=== PATIENT | female | born 1975 | race Caucasian/White ===

== ENCOUNTER 2016-05-06 00:13 | Emergency (ER) | payer MEDICAID ==
[~2016-05-06] VITALS: Ht 167.6 cm; Wt 63.6 kg
[~2016-05-06 00:13] MED LIST: BACLOFEN; BENZ0.5T3; BUSPAR; CARB400T; CEPH500C PO; CRB200T; CYCL10TA9 PO; DESV50TA PO; DOXY100C2 PO; DULO60CA6; DVL500TEC; FEXO30TA; GBPN100C; GBPN400C PO; HALO2TAB; HYDR1TAB PO; HYDR25CA5 PO; HYDR50TA76 PO; IBP800T PO; IBUP-792 PO; ILOP6TAB PO; LORA1TAB PO; MELO-195 PO; METR500T PO; MPR22T TOP; MUPI22OI TOP; NITR100C3 PO; OXYC-12 PO; QTP200T PO; QUET300T PO; RNT150T; SULF1TAB35 PO; SULF1TAB38 PO; THR25T PO; TRAM-21 PO; TRAM50TA2 PO; TRL300; TRM50T PO; ZPR80C
[2016-05-06 00:24] VITALS: BP 140/83
--- NOTE | 2016-05-06 00:50 | ED Psychosocial ---
General Chief Complaint: Psych/Social Disorder Stated Complaint: SCABIES,FEELS LIKE WORMS CRAWLING IN HER SKIN Nursing Triage Note: pt reports "there are worms with faces and teeth that are biting and crawling in her skin." This RN notes pt is dressed in all black and has a black head scarf on. Pt reports "I have been eating a lot of garlic to try to keep the bad things away." This RN also notes peices of garlic in pts hairline. Source: patient (EXTREMELY POOR HISTORIAN--SPEECH VERY RAPID, MUMBLING, ERRATIC , NON-SENSICAL, AND IS OBVIOUSLY UNDER THE INFLUENCE OF SOME SUBSTANCE/S. CONSTANT MOVEMENTS, CANNOT SIT OR STAND STILL. UNABLE TO KEEP ON SUBJECT, ), old records (ALL PMH IS FROM OLD RECORDS) History of Present Illness Time seen by provider: 00:22 Initial Comments PT ARRIVES VIA EMS FROM HOME PT CALLED EMS BECAUSE SHE "HAD WORMS ALL OVER HER BODY" PT STATES "I'VE GOT WORMS AN INCH THICK ALL OVER MY BODY" "THOUSANDS OF THEM" - -UNABLE TO STATE HOW LONG THIS HAS BEEN GOING ON. PT POINTS TO STRETCH NG ON ABDOMEN AND STATES "THOSE ARE WORMS-NOT STRETCH NG", AND POINTS TO CREASES OF PALMS AND SCAR ON PALM AND STATES "THOSE AREN' T SCARS--THOSE ARE WORMS" STATES "I TOOK A WORM PILL AND IT KILLED ONE OF THEM" "FUNGUS SPRAY KILLS THEM BUT NOT THE ONES INSIDE" PT ALSO POINTS TO VARIOUS SORES AND SCABBED AREAS ON BODY AND STATES THAT THESE ARE WORMS--AND ALSO POINTS TO THESE SORES AND STATES "SEE THEY'VE GOT A FACE" STATES "WHEN IT GET GOOSEBUMPS, THAT'S THEM SPITTING AT ME" POINTS TO BLACK FUZZ ON THE WHITE SHEETS THAT HAVE COME FROM HER BLACK CLOTHING AND STATES "SEE, THAT'S THEM COMING OUT OF ME" STATES "THIS IS DEADLY" STATES "THEY'RE UP MY BUTT AND IN MY PRIVATES AND THAT'S THEY'RE EGGS-THEY'RE EVERYWHERE" "AND THE LITTLE ONES ARE ALL IN MY MOUTH" --SHOWS MULTIPLE ULCERATIONS TO INSIDE OF LIPS. SPITS OUT SALIVA AND STATES "THEY'RE BUBBLING UP OUT OF MY MOUTH " STATES " MY FRIEND TOOK A SATELLITE TO SEE THEM" PT IS WEARING A FULL LENGTH BLACK ROBE, WITH BLACK CLOTHING UNDERNEATH WITH A BLACK SCARF COVERING HER ENTIRE HEAD PT STATES THAT "THE DEVIL IS INSIDE OF HER" PT HAS WHOLE GARLIC CLOVES IN HER HAIR--STATES SHE HAS BEEN TRYING TO KEEP THE BAD THINGS AWAY. PT HAS ALSO BEEN EATING NOTHING BUT GARLIC. PT WANTS IV FLUIDS TO FLUSH THE WORMS OUT OF HER STATES "THEY HAVE TAKEN OVER MY ROOM" "MY BRAIN" REPEATS "I'M NOT PARANOID-EVERYONE THINKS I'M PARANOID BUT THEY'RE REAL" STATES "I'VE BEEN FIGHTING BACK, I'VE CHANGED MY DIET--I CAN'T EAT, I CAN'T CHEW. SO I'VE BEEN FIGHTING BACK AND DRINKING LOTS OF WATER AND ONLY EATING GARLIC" "I'M SO DEHYDRATED" PT STATES "I'M ISLAMIC I PRAY 5 TIMES A DAY" "THIS IS EVIL" "I EVEN WENT TO THE [facility] AND GOT SOME HOLY WATER" "THIS IS [place]" PT WITH MULTIPLE VISITS TO ER FOR SIMILAR--PT WITH EXTENSIVE HISTORY OF DRUG ABUSE,PT HAS TESTED POSITIVE FOR METHAMPHETAMINES/ AMPHETAMINES NEARLY EVERY TIME SHE HAS BEEN TESTED HERE. PT ONLY ADMITS TO THC USE--THEN STATES " I DON'T USE DRUGS" PT HAS BEEN DX WITH SCHIZOPHRENIA (SUSPECT IS RELATED TO DRUG ABUSE) AND IS NON COMPLIANT WITH MEDICATIONS. PT WAS LAST HERE 02/2016 FOR SAME AND TRANSFERRED TO [place] FOR THIS BEHAVIOR. EMS REPORTED THAT [place] [employer] WERE AT THE SCENE PRIOR TO THEIR ARRIVAL, AND THEY REMOVED SCISSORS AND A KNIFE FROM PT. PCP: ALAB YANG Allergies and Home Medications Allergies Coded Allergies: Penicillins (Verified Allergy, Unknown, 12/17/15) ketorolac (Verified Allergy, Unknown, 12/17/15) Uncoded Allergies: PCN (Allergy, Mild, 07/28/15) Home Medications Clonazepam 1 Mg Tablet 1 MG PO BID (Reported) Hydroxyzine Pamoate 50 Mg Capsule 50 MG PO TID (Reported) Tramadol Hcl 50 Mg Tablet 50 MG PO TID (Reported) Constitutional: other (UNABLE TO OBTAIN ANY RELEVANT INFORMATION FROM PT) Psychiatric/Neurological: See HPI Past Hrryaaz-Coryrd-Rjektw Hx Patient Social History Alcohol Use: Denies Use Recreational Drug Use: Yes (METH, THC) Smoking Status: Current Everyday Smoker Type Used: Cigarettes Recent Foreign Travel: No Contact w/Someone Who Travel: No Recent Infectious Disease Expo: No Recent Hopitalizations: No Physical Abuse Screen: No Sexual Abuse: No Immunizations Up To Date Tetanus Booster (TDap): Less than 5yrs Seasonal Allergies Seasonal Allergies: No Surgeries HX Surgeries: Yes Surgeries: Gallbladder, Tubal Ligation Respiratory Hx Respiratory Disorders: No Cardiovascular Hx Cardiac Disorders: No Neurological Hx Neurological Disorders: Yes (MIRGRAIN HEADACHES) Neurological Disorders: Headaches /Migraines 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 System Hx 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 Disorders: No Sexually Transmitted Disease: No 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 Genitourinary Hx Genitourinary Disorders: No Gastrointestinal Hx Gastrointestinal Disorders: Yes (PEPTIC ULCER 2003) Musculoskeletal Hx Musculoskeletal Disorders: Yes (SCOLIOSIS) Endocrine Hx Endocrine Disorders: No HEENT HX ENT Disorders: No Cancer Hx Cancer: No Psychosocial Hx Psychiatric Problems: Yes (BI-POLAR, PREVIOUS SUICIDE ATTEMPT) Behavioral Health Disorders: Bipolar, Schizophrenia Integumentary HX Skin/Integumentary Disorder: No Blood Transfusions Hx Blood Disorders: No Adverse Reaction to a Blood Tr: No Family Medical History Significant Family History: No Pertinent Family Hx Physical Exam Vital Signs Vital Sign - Last 12Hours 05/06/16 00:24 Temp 95.9 Pulse 100 Resp 18 B/P 140/83 Pulse Ox 97 Capillary Refill : Less Than 3 Seconds General Appearance: other (PT DRESSED COMPLETELY IN BLACK WITH A FULL LENGTH BLACK ROBE, AND A BLACK SCARF COVERING HER ENTIRE HEAD. PT REEKS OF GARLIC, AND THERE ARE MULTIPLE WHOLE GARLIC CLOVES IN HER HAIR. PT WITH VERY RAPID, MUMBLED , ERRATIC, AND NON-SENSICAL SPEECH. CONSTANT MOVEMENTS. PT VERY DIRTY/UNKEMPT. PT TALKING / CHANTING TO HERSELF AT TIMES DURING ER STAY. PT ARRIVES WITH A PENGUIN STUFFED ANIMAL AND A LARGE BOX OF GRAPE JUICE. ALSO HAS A LARGE BACK PACK WITH HER. ) thin HEENT: PERRL/EOMI other (EXTREMELY POOR DENTITION WITH EXTENSIVE ULCERATIONS TO INSIDE OF LIPS AND GUMS. ) Neck: normal inspection Respiratory: normal breath sounds no respiratory distress no accessory muscle use Cardiovascular: normal peripheral pulses regular rate, rhythm no murmur Gastrointestinal: non tender soft Extremities: normal range of motion non-tender no pedal edema no calf tenderness normal capillary refill Neurologic/Psychiatric: documentation engineer II-XII nml as tested no motor/sensory deficits alert oriented x 3 other (BEHAVIOR NOTED ABOVE) Appearance/Memory: denies illness disheveled impaired insight other ( APPEARANCE ABOVE. DIFFICULT TO DETERMINE TO WHAT EXTENT HER MEMORY IS INTACT. ) Thoughts/Hallucinations: delusions flight of ideas obsessive paranoid phobic hindu tactile hallucinations visual hallucinations Skin: warm/dry pallor tattoos/piercings other (EXTENSIVE SORES, SCABS, SCARS TO ENTIRE BODY--ALL APPEAR TO BE SELF INFLICTED FROM PICKING, SCRATCHING. EXTENSIVE PATCHES OF HAIR LOSS--ENTIRE BACK OF HEAD FROM HAIRLINE TO HALF WAY UP POSTERIOR SCALP--HAIR APPEARS TO HAVE BEEN PULLED OUT /BROKEN OFF. ALSO HAS PATCHES FROM FRONTAL AREA WHICH APPEAR TO BE PULLED OUT/ BROKEN OFF) Progress/Results/Core Measures Results/Orders Lab Results Laboratory Tests Test 05/06/16 00:39 05/06/16 00:45 Range/Units Acetaminophen Level < 10 L 10-30 UG/ML Alanine Aminotransferase (ALT/SGPT) 36 0-55 U/L Albumin 5.1 H 3.2-4.5 G/DL Alkaline Phosphatase 90 40-136 U/L Amylase Level 49 25-125 U/L Anion Gap 13 5-14 MMOL/L Aspartate Amino Transf (AST/SGOT) 49 H 5-34 U/L BUN/Creatinine Ratio 9 Basophils # (Auto) 0.0 0.0-0.1 10^3/uL Basophils (%) (Auto) 0 0-10 % Blood Urea Nitrogen 7 7-18 MG/DL Calcium Level 9.7 8.5-10.1 MG/DL Carbon Dioxide Level 23 21-32 MMOL/L Chloride Level 102 98-107 MMOL/L Creatinine 0.80 0.60-1.30 MG/DL Eosinophils # (Auto) 0.1 0.0-0.3 10^3/uL Eosinophils (%) (Auto) 1 0-10 % Estimat Glomerular Filtration Rate > 60 Glucose Level 86 70-105 MG/DL Hematocrit 40 35-52 % Hemoglobin 13.8 11.5-16.0 G/DL Lymphocytes # (Auto) 4.7 H 1.0-4.0 X 10^3 Lymphocytes (%) (Auto) 32 12-44 % Magnesium Level 2.2 1.8-2.4 MG/DL Mean Corpuscular Hemoglobin 31 25-34 PG Mean Corpuscular Hemoglobin Concent 35 32-36 G/DL Mean Corpuscular Volume 87 80-99 FL Mean Platelet Volume 8.8 7.4-10.4 FL Monocytes # (Auto) 0.8 0.0-1.0 X 10^3 Monocytes (%) (Auto) 5 0-12 % Neutrophils # (Auto) 9.1 H 1.8-7.8 X 10^3 Neutrophils (%) (Auto) 62 42-75 % Platelet Count 549 H 130-400 10^3/uL Potassium Level 2.8 L 3.6-5.0 MMOL/L Red Blood Count 4.52 4.35-5.85 10^6/uL Red Cell Distribution Width 11.8 10.0-14.5 % Salicylates Level < 5.0 L 5.0-20.0 MG/DL Serum Alcohol < 10 <10 MG/DL Serum Test, Qualitative NEGATIVE NEGATIVE Sodium Level 138 135-145 MMOL/L TSH [place] Testing 1.08 0.35-4.94 UIU/ML Total Bilirubin 0.7 0.1-1.0 MG/DL Total Protein 7.8 6.4-8.2 G/DL White Blood Count 14.7 H 4.3-11.0 10^3/uL Ur Tricyclic Antidepressants Screen NEGATIVE NEGATIVE Urine Amphetamines Screen NEGATIVE NEGATIVE Urine Bacteria TRACE /HPF Urine Barbiturates Screen NEGATIVE NEGATIVE Urine Benzodiazepines Screen NEGATIVE NEGATIVE Urine Bilirubin NEGATIVE NEGATIVE Urine Cannabinoids Screen POSITIVE H NEGATIVE Urine Casts NONE /LPF Urine Clarity CLEAR Urine Cocaine Screen NEGATIVE NEGATIVE Urine Color YELLOW Urine Crystals NONE /LPF Urine Culture Indicated NO Urine Glucose (UA) NEGATIVE NEGATIVE Urine Ketones 3+ H NEGATIVE Urine Leukocyte Esterase 1+ H NEGATIVE Urine Methadone Screen NEGATIVE NEGATIVE Urine Methamphetamines Screen NEGATIVE NEGATIVE Urine Mucus LARGE H /LPF Urine Nitrite NEGATIVE NEGATIVE Urine Opiates Screen NEGATIVE NEGATIVE Urine Oxycodone Screen NEGATIVE NEGATIVE Urine Phencyclidine Screen NEGATIVE NEGATIVE Urine Propoxyphene Screen NEGATIVE NEGATIVE Urine Protein 2+ H NEGATIVE Urine RBC NONE /HPF Urine RBC (Auto) 2+ H NEGATIVE Urine Specific [place] 1.030 H 1.016-1.022 Urine Squamous Epithelial Cells 25-50 H /HPF Urine Urobilinogen 1 NORMAL MG/DL Urine WBC RARE /HPF Urine pH 5 5-9 My Orders Orders-ADRIENNE,MARIA GUADALUPE K DO Ua Culture If Indicated (05/06/16 00:21) Thyroid Analyzer (05/06/16 00:21) Drug Screen Stat (Urine) (05/06/16 00:21) Cbc With Automated Diff (05/06/16 00:21) Comprehensive Metabolic Panel (05/06/16 00:21) Amylase (05/06/16 00:21) Alcohol (05/06/16 00:21) Acetaminophen (05/06/16 00:21) Salicylate (05/06/16 00:21) Ekg Tracing (05/06/16 00:21) Monitor-Rhythm Ecg Trace Only (05/06/16 00:21) Hcg,Qualitative Serum (05/06/16 00:21) Magnesium (05/06/16 00:21) Potassium Chloride (Tablet) (Klor Con Ta (05/06/16 01:45) Saline Lock/Iv-Start (05/06/16 01:40) Ns Iv 1000 Ml (Sodium Chloride 0.9%) (05/06/16 01:40) Medications Given in ED Current Medications Medications Dose Ordered Sig/Aj Route Start Time Stop Time Status Last Admin Dose Admin Potassium Chloride 40 meq 40 meq ONCE ONCE PO 05/06/16 01:45 05/06/16 01:46 DC 05/06/16 02:05 40 MEQ Sodium Chloride 1,000 ml @ 0 mls/hr Q0M ONCE IV 05/06/16 01:40 05/06/16 01:42 DC 05/06/16 02:04 999 MLS/HR Vital Signs/I&O Vital Sign - Last 12Hours 05/06/16 00:24 Temp 95.9 Pulse 100 Resp 18 B/P 140/83 Pulse Ox 97 Blood Pressure Mean: 102 Progress Note : Progress Note PT REPEATEDLY INSISTS THAT SHE NEEDS IV FLUIDS, STATING "I KNOW THE SODIUM IS THE ONLY THING THAT WILL GET RID OF THEM" DURING ER STAY, PT WAS FOUND TO HAVE CHEWED MULTIPLE PICES OF NICOTINE GUM AND IS CONSTANTLY SPITTING OUT SALIVA--STATES THE NICOTINE KILLS THE WORMS IN HER MOUTH. ALL BELONGINGS REMOVED FROM ROOM. BACK PACK CONTAINES., MULTIPLE SPRAY CANS OF DISINFECTANT, ELECTRIC MASSAGER, # 59 PACKS OF NICOTINE GUM WITH #20 EMPTY PACKS, LARGE BAG OF GARLIC , CIGARETTES , BOX OF GRAPE JUICE, BOTTLES OF VISTARIL, TRAMADOL AND CLONAZEPAM. ECG Initial ECG Impression Time: 01:00 Initial ECG Rate: 98 Initial ECG Rhythm: Normal Sinus Initial ECG Comparisson: Unchanged Departure Communication Progress Notes 0128--CALLED [facility]. PAGING PSYCH SCREENER HAND BUTTON SPLITTER,JEFF. 0135--SPOKE WITH JEFF, WILL BE IN TO SEE PT. 0205--JEFF FROM [facility], HERE TO SEE PT. 0330--PT ELOPED WITH IV IN PLACE. [place] [employer] CALLED FOR ASSISTANCE. JEFF , WITH [facility] INFORMED--HE IS ON PHONE DISCUSSING PT WITH A COLLEAGUE AND STATES HE BELIEVES SHE NEEDS TO GO BACK TO [place]. 0332--RN WAS ABLE TO LOCATE PT IN BROUGHT PT BACK INTO ER. IV REMOVED, THEN PT PROMPTLY ELOPED AGAIN AT 0333. JEFF INFORMED OF THIS. 0341--[place] [employer] OFFICERS HERE. THEY WILL ATTEMPT TO FIND PT AND BRING BACK TO ER. THEY ARE VERY FAMILIAR WITH PT AND REPORT THAT THIS IS HER USUAL BEHAVIOR. THEY STATE THAT AT TIMES SHE IS KNOWN TO EAT NOTHING BUT SALT AND DRINK WATER. 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 Referrals: SIDDHARTH ZARAGOZA DO (PCP/Family) Primary Care Physician MARIA GUADALUPE DELEON DO May 06, 2016 00:50
[2016-05-06 00:51] LABS: BASOPHILS % (AUTO) 0 % (0-10); EOSINOPHILS # (AUTO) 0.1 10^3/uL (0.0-0.3); EOSINOPHILS % (AUTO) 1 % (0-10); LYMPHOCYTES # (AUTO) 4.7 X 10^3 (1.0-4.0); LYMPHOCYTES % (AUTO) 32 % (12-44); MEAN CORPUSCULAR HEMOGLOBIN 31 PG (25-34); MEAN CORPUSCULAR HGB CONC 35 G/DL (32-36); MEAN CORPUSCULAR VOLUME 87 FL (80-99); MEAN PLATELET VOLUME 8.8 FL (7.4-10.4); MONOCYTES # (AUTO) 0.8 X 10^3 (0.0-1.0); MONOCYTES % (AUTO) 5 % (0-12); NEUTROPHILS # (AUTO) 9.1 X 10^3 (1.8-7.8); NEUTROPHILS % (AUTO) 62 % (42-75); PLATELET COUNT 549 10^3/uL (130-400); RED BLOOD COUNT 4.52 10^6/uL (4.35-5.85); RED CELL DISTRIBUTION WIDTH 11.8 % (10.0-14.5); WHITE BLOOD COUNT 14.7 10^3/uL (4.3-11.0)
[2016-05-06 01:00] LABS: BILIRUBIN,URINE NEGATIVE (NEGATIVE); KETONES,URINE 3+ (NEGATIVE); LEUKOCYTE ESTERASE ,URINE 1+ (NEGATIVE); NITRITE,URINE NEGATIVE (NEGATIVE); PH,URINE 5 (5-9); PROTEIN,URINE 2+ (NEGATIVE); UROBILINOGEN,URINE 1 MG/DL (NORMAL)
[2016-05-06 01:09] LABS: ALANINE AMINOTRANSFERASE 36 U/L (0-55); ALBUMIN 5.1 G/DL (3.2-4.5); AMYLASE 49 U/L (25-125); ANION GAP 13 MMOL/L (5-14); ASPARTATE AMINO TRANSFERASE 49 U/L (5-34); BILIRUBIN,TOTAL 0.7 MG/DL (0.1-1.0); BLOOD UREA NITROGEN 7 MG/DL (7-18); BUN/CREATININE RATIO 9; CALCIUM 9.7 MG/DL (8.5-10.1); CARBON DIOXIDE 23 MMOL/L (21-32); CHLORIDE 102 MMOL/L (98-107); GFR ESTIMATED > 60; GLUCOSE 86 MG/DL (70-105); MAGNESIUM 2.2 MG/DL (1.8-2.4); POTASSIUM 2.8 MMOL/L (3.6-5.0); SALICYLATE < 5.0 MG/DL (5.0-20.0); SODIUM 138 MMOL/L (135-145); TOTAL PROTEIN 7.8 G/DL (6.4-8.2)
[2016-05-06 01:16] LABS: ACETAMINOPHEN < 10 UG/ML (10-30); ALCOHOL < 10 MG/DL (<10)
[2016-05-06 01:28] LABS: SQUAMOUS EPITHELIAL CELL,UR 25-50 /HPF; WBC,URINE RARE /HPF
[2016-05-06] MEDS ORDERED: NS IV 1000 ML 1,000 ML IV ONE (01:40)
[2016-05-06] MEDS ORDERED: KCL 10 MEQ TAB (MICRO K) PO ONE (01:45)
[2016-05-06] MEDS ORDERED: HYDR50CA3 PO (02:28)
[2016-05-06] MEDS ORDERED: CLON1TAB3 PO (02:28)
== END 2016-05-06 03:34 | disposition left against medical advice (07) ==
LOC: EDUNIT# 00:13 → ER 00:15
DX: R44.2 Other hallucinations (principal); F22 Delusional disorders; F63.3 Trichotillomania; E87.6 Hypokalemia; F15.10 Other stimulant abuse, uncomplicated; F12.10 Cannabis abuse, uncomplicated; Z53.29 Procedure and treatment not carried out because of patient's decision for other reasons
CPT/HCPCS: 36415; 80053; 80306; 80320; 80329; 81000; 82150; 83735; 84443; 84703; 85025; 93005; 93041; 96360

== ENCOUNTER 2016-05-06 12:00 | Emergency (ER) | payer MEDICAID ==
[~2016-05-06] VITALS: Ht 167.6 cm; Wt 63.5 kg
[~2016-05-06 12:00] MED LIST changes: +CLON1TAB3 PO; +HYDR50CA3 PO
--- NOTE | 2016-05-06 13:12 | ED Psychosocial ---
General Chief Complaint: Psych/Social Disorder Stated Complaint: MENTAL HEALTH Nursing Triage Note: PT SEEN IN THIS ED THIS AM FOR PSYCH ISSUES. PT BROUGHT TO ED BY PD FOR "EVALUATION". PT REPORTS SHE IS SICK WITH A "WORM" ET WANTS TO GO BACK HOME History of Present Illness Time seen by provider: 13:07 Initial Comments the patient is well-known to this institution. She was here in the wee hours of the morning and screened by mental health. She was deemed appropriate for court order to [place]. She then eloped. She was located by the [place] [employer]. After consult with [facility] she was brought here for reasons unclear to any of us. We are told that she is number 11 or worse on the admission list at [place] Allergies and Home Medications Allergies Coded Allergies: Penicillins (Verified Allergy, Unknown, 12/17/15) ketorolac (Verified Allergy, Unknown, 12/17/15) Uncoded Allergies: PCN (Allergy, Mild, 07/28/15) Home Medications Clonazepam 1 Mg Tablet 1 MG PO BID (Reported) Hydroxyzine Pamoate 50 Mg Capsule 50 MG PO TID (Reported) Tramadol Hcl 50 Mg Tablet 50 MG PO TID (Reported) Constitutional: no symptoms reported see HPI Past Qsmlmii-Hhrcup-Hcjykd Hx Patient Social History Alcohol Use: Denies Use Recreational Drug Use: Yes (NONE FOR OVER A YEAR) Smoking Status: Current Everyday Smoker Type Used: Cigarettes Recent Foreign Travel: No Contact w/Someone Who Travel: No Recent Infectious Disease Expo: No Recent Hopitalizations: No Physical Abuse Screen: No Sexual Abuse: No Immunizations Up To Date Tetanus Booster (TDap): Less than 5yrs Seasonal Allergies Seasonal Allergies: No Surgeries HX Surgeries: Yes Surgeries: Gallbladder, Tubal Ligation Respiratory Hx Respiratory Disorders: No Cardiovascular Hx Cardiac Disorders: No Neurological Hx Neurological Disorders: Yes (MIRGRAIN HEADACHES) Neurological Disorders: Headaches /Migraines 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 System Hx 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 Disorders: No Sexually Transmitted Disease: No 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 Genitourinary Hx Genitourinary Disorders: No Gastrointestinal Hx Gastrointestinal Disorders: Yes (PEPTIC ULCER 2002) Musculoskeletal Hx Musculoskeletal Disorders: Yes (SCOLIOSIS) Endocrine Hx Endocrine Disorders: No HEENT HX ENT Disorders: No Cancer Hx Cancer: No Psychosocial Hx Psychiatric Problems: Yes (BI-POLAR, PREVIOUS SUICIDE ATTEMPT) Behavioral Health Disorders: Bipolar, Schizophrenia Integumentary HX Skin/Integumentary Disorder: No Blood Transfusions Hx Blood Disorders: No Adverse Reaction to a Blood Tr: No Family Medical History Significant Family History: No Pertinent Family Hx Physical Exam Vital Signs Vital Sign - Last 12Hours 05/06/16 12:27 Temp 97.9 Pulse 94 Resp 16 B/P 131/66 Pulse Ox 100 O2 Delivery Room Air Capillary Refill : Less Than 3 Seconds General Appearance: WD/WN Progress/Results/Core Measures Results/Orders Vital Signs/I&O Vital Sign - Last 12Hours 05/06/16 12:27 Temp 97.9 Pulse 94 Resp 16 B/P 131/66 Pulse Ox 100 O2 Delivery Room Air Blood Pressure Mean: 87 Departure Communication Progress Notes The patient's vital signs are stable she is up and ambulatory and discharged to police custody Impression Impression: Primary Impression: psychiatric disorder with delusions Disposition: Condition: Stable/Unchanged Departure-Patient Inst. Referrals: SIDDHARTH ZARAGOZA DO (PCP/Family) Primary Care Physician QUINTIN BROWN MD May 06, 2016 13:12
[2016-05-06 13:21] VITALS: BP 0/0
== END 2016-05-06 13:21 ==
LOC: EDUNIT# 12:00 → ER 12:02
DX: F22 Delusional disorders (principal)
CPT/HCPCS: 99283

== ENCOUNTER 2017-07-17 15:52 | Emergency (ER) | payer OTHER, MEDICAID ==
[~2017-07-17] VITALS: Ht 160 cm; Wt 52.2 kg
[2017-07-17] MEDS ORDERED: ZIPRASIDONE 20 MG INJ (GEODON) VIAL IM ONE ×2 (15:53→16:15)
[2017-07-17] MEDS ORDERED: WATER (STERILE) FOR INJECTION 20 ML ONE (15:54)
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
[2017-07-17] MEDS ORDERED: LORazepam INJ 2 MG/ML (ATIVAN) VIAL ONE (16:21)
[2017-07-17 16:29] LABS: BASOPHILS # (AUTO) 0.1 10^3/uL (0.0-0.1); BASOPHILS % (AUTO) 0 % (0-10); EOSINOPHILS % (AUTO) 0 % (0-10); HEMATOCRIT 37 % (35-52); HEMOGLOBIN 12.5 G/DL (11.5-16.0); LYMPHOCYTES % (AUTO) 20 % (12-44); MEAN CORPUSCULAR HEMOGLOBIN 31 PG (25-34); MEAN CORPUSCULAR HGB CONC 34 G/DL (32-36); MEAN CORPUSCULAR VOLUME 90 FL (80-99); MEAN PLATELET VOLUME 8.4 FL (7.4-10.4); MONOCYTES # (AUTO) 1.5 X 10^3 (0.0-1.0); MONOCYTES % (AUTO) 10 % (0-12); NEUTROPHILS # (AUTO) 10.3 X 10^3 (1.8-7.8); NEUTROPHILS % (AUTO) 69 % (42-75); PLATELET COUNT 526 10^3/uL (130-400); RED BLOOD COUNT 4.08 10^6/uL (4.35-5.85); WHITE BLOOD COUNT 14.8 10^3/uL (4.3-11.0)
[2017-07-17] MEDS ORDERED: LORazepam INJ 2 MG/ML (ATIVAN) VIAL IVP ONE (16:30)
[2017-07-17] MEDS ORDERED: LACTATED RINGERS 1,000 ML IV SCH (16:30)
[2017-07-17 16:47] LABS: BAND NEUTROPHILS 0 %; BASOPHILS % (MANUAL) 0 %; EOSINOPHILS % (MANUAL) 1 %; LYMPHOCYTES % (MANUAL) 30 %; MONOCYTES % (MANUAL) 8 %; NEUTROPHILS % (MANUAL) 61 %; RBC MORPH NORMAL
[2017-07-17 16:48] LABS: BILIRUBIN,URINE NEGATIVE (NEGATIVE); CLARITY,URINE VERY CLOUDY; COLOR,URINE YELLOW; GLUCOSE, URINE (UA) NEGATIVE (NEGATIVE); KETONES,URINE 2+ (NEGATIVE); LEUKOCYTE ESTERASE ,URINE 1+ (NEGATIVE); NITRITE,URINE NEGATIVE (NEGATIVE); PH,URINE 5 (5-9); PROTEIN,URINE 3+ (NEGATIVE); UROBILINOGEN,URINE NORMAL (NORMAL)
[2017-07-17 16:57] LABS: BACTERIA,URINE MODERATE /HPF; RBC,URINE >100 /HPF
[2017-07-17 17:03] LABS: ALANINE AMINOTRANSFERASE 38 U/L (0-55); ALBUMIN 4.8 GM/DL (3.2-4.5); ALKALINE PHOSPHATASE 68 U/L (40-136); BILIRUBIN,TOTAL 0.9 MG/DL (0.1-1.0); BUN/CREATININE RATIO 32; CALCIUM 9.1 MG/DL (8.5-10.1); CARBON DIOXIDE 29 MMOL/L (21-32); CHLORIDE 97 MMOL/L (98-107); CREATININE SERUM 1.05 MG/DL (0.60-1.30); GFR ESTIMATED 57; GLUCOSE 93 MG/DL (70-105); POTASSIUM 3.9 MMOL/L (3.6-5.0); SALICYLATE < 5.0 MG/DL (5.0-20.0); SODIUM 136 MMOL/L (135-145); TOTAL PROTEIN 6.9 GM/DL (6.4-8.2)
[2017-07-17 17:05] LABS: ACETAMINOPHEN < 10 UG/ML (10-30)
[2017-07-17 17:07] LABS: AMPHETAMINE SCREEN, URINE POSITIVE (NEGATIVE); BARBITURATE SCREEN URINE NEGATIVE (NEGATIVE); BENZODIAZEPINES SCREEN URINE NEGATIVE (NEGATIVE); CANNABINOID SCREEN, URINE POSITIVE (NEGATIVE); COCAINE SCREEN URINE NEGATIVE (NEGATIVE); METHADONE STAT NEGATIVE (NEGATIVE); METHAMPHETAMINE SCREEN URINE S POSITIVE (NEGATIVE); OPIATE SCREEN URINE NEGATIVE (NEGATIVE); OXYCODONE STAT NEGATIVE (NEGATIVE); PROPOXYPHENE STAT NEGATIVE (NEGATIVE); TRICYCLIC ANTIDEPRESSANTS SCRE NEGATIVE (NEGATIVE)
[2017-07-17 17:14] VITALS: BP 92/67
== END 2017-07-17 17:14 ==
LOC: EDUNIT# 15:52 → ER 15:53
DX: F23 Brief psychotic disorder (principal); G43.909 Migraine, unspecified, not intractable, without status migrainosus; F31.9 Bipolar disorder, unspecified; F20.9 Schizophrenia, unspecified; Z88.0 Allergy status to penicillin; Z88.6 Allergy status to analgesic agent; Z98.51 Tubal ligation status
CPT/HCPCS: 36415; 80053; 80306; 80329; 81000; 83735; 84443; 84703; 85007; 85027; 93005; 96361; 96372; 96374

== ENCOUNTER 2018-02-03 17:48 | Emergency (ER) | payer MEDICAID ==
[~2018-02-03] VITALS: Ht 167.6 cm; Wt 63.5 kg
[2018-02-03 17:48] VITALS: BP 134/91
[~2018-02-03 17:48] MED LIST changes: +CLON1TAB13 PO; -CLON1TAB3 PO
--- OUTSIDE RECORDS SUMMARY | 2018-02-03 17:53 | XMS REPORT | Clinical Summary ---
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 If you do not see the information that you expected, contact Release of Information in the Health Information Management department at [phone] for further assistance in locating additional records.[facility] Allergies Active Allergy Reactions Severity Noted Date Comments Latex, Natural Rubber RASH Medium 05/15/2017 Ketorolac ANXIETY Low 05/15/2017 Current Medications Prescription Sig. Disp. Refills Start End Date Status Date gabapentin (NEURONTIN) Take 800 mg by mouth Active 800 mg tablet every 8 hours. TRAMADOL HCL (TRAMADOL Take by mouth. Active PO) hydrOXYzine (ATARAX) 10 Take 10 mg by mouth three Active mg tablet times daily as needed for Itching. clonazePAM (KLONOPIN) 1 Take 1 mg by mouth twice Active mg tablet daily. Active Problems Not on file Social History Tobacco Use Types Packs/Day Years Used Date Current Every Day Smoker Cigarettes 0.5 Alcohol Use Drinks/Week oz/Week Comments No Sex Assigned at Date Recorded Not on file Last Filed Vital Signs Vital Sign Reading Time Taken Blood Pressure 102/77 05/15/2017 11:50 AM [facility] Pulse - - Temperature 36.7 C (98.1 F) 05/15/2017 11:50 AM [facility] Respiratory Rate - - Oxygen Saturation 96% 05/15/2017 11:50 AM [facility] Inhaled Oxygen - - Concentration Weight 59 kg (130 lb) 05/15/2017 11:50 AM [facility] Height 167.6 cm (5' 6") 05/15/2017 11:50 AM [facility] Body Mass Index 20.98 05/15/2017 11:50 AM [facility] Plan of Treatment Health Maintenance Due Date Last Done Comments PHYSICAL (COMPREHENSIVE) 1982 EXAM PERTUSSIS VACCINE 1986 HIV SCREENING 1990 TETANUS VACCINE 1992 CERVICAL CANCER SCREENING 2005 BREAST CANCER SCREENING 2015 INFLUENZA VACCINE 11/22/2017 Results Not on filefrom Last 3 Months
--- OUTSIDE RECORDS SUMMARY | 2018-02-03 17:53 | XMS REPORT | Clinical Summary ---
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
--- OUTSIDE RECORDS SUMMARY | 2018-02-03 17:55 | XMS REPORT ---
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 [facility] [place] [facility] [address] [id number] [place] [address]- 6962 Feb, [facility] [place] [facility] [address] [id number] [place] [address]- 1150 Feb, [facility] [place] [facility] [address] [facility] [id number] [place] [address]- 0682 Jan, [facility] [place] [facility] [address] [id number] [place] [address]- 8499 Jan, [facility] [place] [facility] [address] [facility] [id number] [place] [address]- 5142 Jan, [facility] [place] [facility] [address] [id number] [place] [address]- 3832 Jan, [facility] [place] [facility] [address] [facility] [id number] [place] [address]- 6645 18 Dec, 2011 [facility] [place] [facility] [address] [facility] [id number] [place] [address]- 8298 17 Dec, 2011 [facility] [place] [facility] [address] [facility] [id number] [place] [address]- 8031 04 Dec, 2011 [facility] [place] [facility] [address] [id number] [place] [address]- 9925 Nov, [facility] [place] [facility] [address] [facility] [id number] [place] [address]- 1994 Nov, [facility] [place] [facility] [address] [facility] [id number] [place] [address]- 7265 Nov, [facility] [place] [facility] [address] [id number] [place] [address] 2546 Nov, [facility] [place] [facility] [address] [id number] [place] [address]- 6370 Oct, [facility] [place] [facility] [address] [id number] [place] [address]- 9366 Oct, [facility] [place] [facility] [address] [id number] [place] [address]- 5526 Oct, [facility] [place] [facility] [address] [id number] [place] [address]- 4216 Oct, [facility] [place] [facility] [address] [id number] [place] [address]- 8106 Oct, [facility] [place] [facility] [address] [id number] [place] [address]- 7239 Oct, [facility] [place] [facility] [address] [id number] [place] [address]- 7465 Oct, [facility] [place] [facility] [address] [id number] [place] [address]- 3407 Oct, [facility] [place] [facility] [address] [id number] [place] [address]- 1243 Oct, [facility] [place] [facility] [address] [id number] [place] [address]- 7512 Sep, [facility] [place] [facility] [address] [id number] [place] [address]- 9936 Sep, [facility] [place] [facility] [address] [id number] [place] [address]- 2877 August, [facility] [place] [facility] [address] [id number] [place] [address]- 4326 August, [facility] [place] [facility] [address] [id number] [place] [address]- 0386 August, [facility] [place] [facility] [address] [id number] [place] [address]- 9840 August, [facility] [address] [id number] [place] [address]- 5898 August, [facility] [place] [facility] [address] [id number] [place] [address]- 1630 August, [facility] [place] [facility] [address] [id number] [place] [address]- 9147 Jul, [facility] [place] [facility] [address] [id number] [place] [address]- 0061 Jul, [facility] [place] [facility] [address] [id number] [place] [address]- 9861 Jul, [facility] [place] [facility] [address] [id number] [place] [address]- 2705 Jul, [facility] [place] [facility] [address] [id number] [place] [address]- 3584 Jul, [facility] [place] [facility] [address] [id number] [place] [address]- 9322 Jul, [facility] [place] [facility] [address] [id number] [place] [address]- 3663 Jul, [facility] [place] [facility] [address] [id number] [place] [address]- 9514 Jul, [facility] [place] [facility] [address] [id number] [place] [address]- 9527 Jun, [facility] [place] [facility] [address] [id number] [place] [address]- 7612 Jun, [facility] [place] [facility] [address] [id number] [place] [address]- 1242 Jun, [facility] [place] [facility] [address] [id number] [place] [address]- 5825 May, [facility] [place] [facility] [address] [id number] [place] [address]- 2631 May, [facility] [place] [facility] [address] [id number] [place] [address]- 2481 15 May, 2011 [facility] [address] [id number] [place] [address]- 2006 May, [facility] [place] [facility] [address] [id number] [place] [address]- 2546 May, [facility] [address] [id number] [place] [address]- 9426 Apr, [facility] [address] [id number] [place] [address]- 1771 Apr, [facility] [address] [id number] [place] [address]- 8648 Apr, [facility] [address] [id number] [place] [address]- 4776 Apr, [facility] [address] [id number] [place] [address]- 5820 Mar, [facility] [address] [id number] [place] [address]- 9369 Mar, [facility] [address] [id number] [place] [address]- 0328 14 Mar, 2011 [facility] [address] [facility] [id number] [place] [address]- 4687 Mar, [facility] [address] [id number] [place] [address]- 2541 30 Feb, 2011 [facility] [address] [id number] [place] [address]- 2541 Feb, [facility] [place] [facility] [address] [id number] [place] [address]- 5483 15 Feb, 2011 [facility] [place] [facility] [address] [id number] [place] [address]- 2546 Feb, [facility] [address] [id number] [place] 3621 Feb, [facility] [address] [facility] [id number] [place] [address]- 8828 Feb, [facility] [address] [facility] [id number] [place] [address]- 9596 Feb, [facility] [address] [facility] [id number] [place] [address]- 6768 Jan, [facility] [address] [facility] [id number] [place] [address]- 0036 Jan, [facility] [address] [facility] [id number] [place] [address]- 8720 16 Dec, 2010 [facility] [address] [facility] [id number] [place] [address]- 0387 Nov, [facility] [id number] [address]- 7925 May, [facility] [id number] [address]- 6332 Apr, [facility] [id number] [address]- 8754 Feb, [facility] [id number] [address]- 2876 Jan, [facility] [id number] [address]- 4295 August, [facility] [address] [id number] [address]- 7094 Mar, [facility] [address] [id number] [address]- 1435 Jan, [facility] [address] [id number] [address]- 5449 Oct, IMMUNIZATIONS No Known Immunizations SOCIAL HISTORY Never Assessed 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1 (0.5 F) mg/ml Dental Twice a day as directed Dec Active Chlorhexidine Gluconate 0.12 % Mouth/Throat 2 times a day as directed Dec, 28 days Active Seroquel 400 MG Orally Once a day 1 tablet 24h Active HydrOXYzine HCl 25 MG Orally 3 times a day 1 tablet 8h Active Hibiclens 4 % Externally use sparingly x 10 days 1 pump Nov, Not-Taking RESULTS No Results PROCEDURES Procedure Date Ordered Result Body Site RESIN COMPOS - 3 SURFACES ANTERIOR Jan 11, 2018 PULP CAP - INDIRECT Jan 11, 2018 Billing Notes on claim Jan 11, 2018 INSTRUCTIONS MEDICATIONS ADMINISTERED No Known Medications MEDICAL (GENERAL) HISTORY Type Description Date Medical History hx of ulcers Medical History right ovarian cysts-recurring Medical History mood swings Medical History bipolar disorder Medical History drug abuse Medical History depression Surgical History orthopedic surgery-carpal tunnel 05/2011 Surgical History tubal ligation Surgical History cholecystectomy Surgical History surgery on left arm and artery repair Hospitalization History [facility] for suicidal idiations. surgery on left arm.
--- OUTSIDE RECORDS SUMMARY | 2018-02-03 17:56 | XMS REPORT ---
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 [place] [address]- 9772 Oct, [facility] [place] [facility] [address] [id number] [place] [address]- 2836 Oct, [facility] [place] [facility] [address] [id number] [place] [address]- 3759 Oct, [facility] [place] [facility] [address] [id number] [place] [address]- 3538 Oct, [facility] [place] [facility] [address] [id number] [place] [address]- 9678 Oct, [facility] [place] [facility] [address] [id number] [place] [address]- 8865 Oct, [facility] [place] [facility] [address] [id number] [place] [address]- 0398 Oct, [facility] [place] [facility] [address] [id number] [place] [address]- 2656 Oct, [facility] [place] [facility] [address] [id number] [place] [address]- 9969 Oct, [facility] [place] [facility] [address] [id number] [place] [address]- 3150 Sep, [facility] [place] [facility] [address] [id number] [place] [address]- 3258 Sep, [facility] [place] [facility] [address] [id number] [place] [address]- 9716 August, [facility] [place] [facility] [address] [id number] [place] [address]- 8993 August, [facility] [place] [facility] [address] [id number] [place] [address]- 7630 August, [facility] [place] [facility] [address] [id number] [place] [address]- 9476 16 Aug, 2011 [facility] [address] [id number] [place] [address]- 4979 August, [facility] [address] [id number] [place] [address]- 0416 August, [facility] [address] [id number] [place] [address]- 4065 Jul, [facility] [address] [id number] [place] [address]- 7213 Jul, [facility] [address] [id number] [place] [address]- 6913 Jul, [facility] [address] [id number] [place] [address]- 4069 Jul, [facility] [address] [id number] [place] [address]- 7984 Jul, [facility] [address] [id number] [place] [address]- 5915 Jul, [facility] [address] [id number] [place] [address]- 8649 Jul, [facility] [address] [id number] [place] [address]- 2552 Jul, [facility] [address] [id number] [place] [address]- 7943 Jun, [facility] [address] [id number] [place] [address]- 2649 Jun, [facility] [place] [facility] [address] [id number] [place] [address]- 2430 Jun, [facility] [address] [id number] [place] [address]- 8943 May, [facility] [place] [facility] [address] [id number] [place] [address]- 5471 May, [facility] [place] [facility] [address] [id number] [place] [address]- 4459 May, [facility] [place] [facility] [address] [id number] [place] [address]- 4186 May, [facility] [place] [facility] [address] [id number] [place] [address]- 4376 May, [facility] [place] [facility] [address] [id number] [place] [address]- 2013 Apr, [facility] [place] [facility] [address] [id number] [place] [address]- 4863 Apr, [facility] [place] [facility] [address] [id number] [place] [address]- 3078 Apr, [facility] [place] [facility] [address] [id number] [place] [address]- 9087 Apr, [facility] [place] [facility] [address] [id number] [place] [address]- 6145 Mar, [facility] [place] [facility] [address] [id number] [place] [address]- 2277 Mar, [facility] [place] [facility] [address] [id number] [place] [address]- 1038 Mar, [facility] [place] [facility] [address] [id number] [place] [address]- 9274 Mar, [facility] [place] [facility] [address] [id number] [place] [address]- 6019 30 Feb, 2011 [facility] [place] [facility] [address] [id number] [place] [address]- 0744 Feb, [facility] [place] [facility] [address] [id number] [place] [address]- 0447 15 Feb, 2011 [facility] [place] [facility] [address] [id number] [place] [address] 2546 Feb, [facility] [place] [facility] [id number] [address] 08 Feb, 2011 [facility] [id number] [address]- 7228 Feb, [facility] [address] [facility] [id number] [place] [address]- 9816 Feb, [facility] [id number] [address]- 2709 Jan, [facility] [address] [facility] [id number] [place] [address]- 7005 Jan, [facility] [id number] [place] [address]- 0766 16 Dec, 2010 [facility] [id number] [address]- 4726 Nov, [facility] [id number] [place] [address]- 0838 15 May, 2010 [facility] [id number] [address]- 4305 Apr, [facility] [id number] [address]- 6483 Feb, [facility] [id number] [address]- 2176 Jan, [facility] [id number] [address]- 5647 August, [facility] [id number] [address]- 7065 Mar, [facility] [id number] [address]- 0925 Jan, [facility] [address] [id number] [id number] Oct, IMMUNIZATIONS No Known Immunizations SOCIAL HISTORY Never Assessed REASON FOR VISIT Annual physical (female). SAMIRA Schaffer, has yellow discharge coming from nipples and has swelling and itching in genital area. SAMIRA Schaffer PLAN OF CARE Activity Details Follow Up prn Reason: Pending Test Mammogram Dx, Bilateral VITAL SIGNS Height 66 in 2018-01-12 Weight 143.6 lbs 2018-01-12 Temperature 98.6 degrees Fahrenheit 2018-01-12 Heart Rate 85 bpm 2018-01-12 Respiratory Rate 20 2018-01-12 BMI 23.18 kg/m2 2018-01-12 Blood pressure systolic 124 mmHg 2018-01-12 Blood pressure diastolic 68 mmHg 2018-01-12 MEDICATIONS Medication Instructions Dosage Frequency Start Date End Date Duration Status Albendazole 200 mg Orally one tablet now, then repeat in 2 days 1 tablets Dec, Active Albendazole - Orally 1 now repeat in 2weeks 1 tablet Dec, Active Albendazole - Orally every 2 wk 2 tablets Dec, Jan, 14 days Active Hibiclens 4 % Externally use sparingly x 10 days 1 pump Nov, Not-Taking Chlorhexidine Gluconate 0.12 % Mouth/Throat 2 times a day as directed 12h Dec, 28 days Active PreviDent 5000 Booster 1.1% Dental 2 times a day as directed h Dec, Apr, 28 days Active Sodium Fluoride 1.1 (0.5 F) mg/ml Dental Twice a day as directed 12dec Active Flonase 50 MCG/DOSE Nasally Once a day 1 spray in each nostril 24h Nov, 30 day(s) Active Zyrtec Allergy 10 mg Orally Once a day 1 tablet 24h Nov, Jan, 30 day(s) Active PreviDent 1.1 % Dental 2 times a day 1 cm strip 12h Dec, Active HydrOXYzine HCl 25 MG Orally 3 times a day 1 tablet 8h Active Seroquel 200 mg Orally Once a day at bedtime 3 tablet Active RESULTS No Results PROCEDURES Procedure Date Ordered Result Body Site LAB NOT BILLED BY [facility] [employer] Jan 12, 2018 Bacterial Vaginosis In House Jan 12, 2018 VENIPUNCT, ROUTINE* Jan 12, 2018 No Charge Jan 12, 2018 INSTRUCTIONS MEDICATIONS ADMINISTERED No Known Medications MEDICAL (GENERAL) HISTORY Type Description Date Medical History hx of ulcers Medical History right ovarian cysts-recurring Medical History mood swings Medical History bipolar disorder Medical History drug abuse Medical History depression Surgical History orthopedic surgery-carpal tunnel 05/2011 Surgical History tubal ligation Surgical History cholecystectomy Surgical History surgery on left arm and artery repair Hospitalization History [facility] for suicidal idiations. surgery on left arm.
--- OUTSIDE RECORDS SUMMARY | 2018-02-03 17:56 | XMS REPORT ---
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 [place] [address]- 9348 Oct, [facility] [place] [facility] [address] [id number] [place] [address]- 7147 Oct, [facility] [place] [facility] [address] [id number] [place] [address]- 8310 Oct, [facility] [place] [facility] [address] [id number] [place] [address]- 6064 Oct, [facility] [place] [facility] [address] [id number] [place] [address]- 3658 Oct, [facility] [place] [facility] [address] [id number] [place] [address]- 1659 Oct, [facility] [place] [facility] [address] [id number] [place] [address]- 2705 Sep, [facility] [place] [facility] [address] [id number] [place] [address]- 5250 Sep, [facility] [place] [facility] [address] [id number] [place] [address]- 5955 August, [facility] [place] [facility] [address] [id number] [place] [address]- 0641 August, [facility] [place] [facility] [address] [id number] [place] [address]- 5067 August, [facility] [place] [facility] [address] [id number] [place] [address]- 1594 16 Aug, 2011 [facility] [address] [id number] [place] [address]- 9381 August, [facility] [place] [facility] [address] [id number] [place] [address]- 5886 August, [facility] [address] [id number] [place] [address]- 8958 Jul, [facility] [place] [facility] [address] [id number] [place] [address]- 9429 Jul, [facility] [place] [facility] [address] [id number] [place] [address]- 5295 Jul, [facility] [place] [facility] [address] [id number] [place] [address]- 1743 Jul, [facility] [address] [id number] [place] [address]- 9367 Jul, [facility] [place] [facility] [address] [id number] [place] [address]- 4316 Jul, [facility] [place] [facility] [address] [id number] [place] [address]- 7865 Jul, [facility] [place] [facility] [address] [id number] [place] [address]- 4235 Jul, [facility] [place] [facility] [address] [id number] [place] [address]- 6123 Jun, [facility] [place] [facility] [address] [id number] [place] [address]- 2831 Jun, [facility] [place] [facility] [address] [id number] [place] [address]- 7483 Jun, [facility] [place] [facility] [address] [id number] [place] [address]- 3122 May, [facility] [place] [facility] [address] [id number] [place] [address] May, [facility] [place] [facility] [address] [id number] [place] [address]- 1707 May, [facility] [place] [facility] [address] [id number] [place] [address]- 1466 May, [facility] [place] [facility] [address] [id number] [place] [address]- 7716 May, [facility] [place] [facility] [address] [id number] [place] [address]- 3362 Apr, [facility] [place] [facility] [address] [id number] [place] [address]- 2521 Apr, [facility] [place] [facility] [address] [id number] [place] [address]- 7423 Apr, [facility] [place] [facility] [address] [id number] [place] [address]- 4336 Apr, [facility] [place] [facility] [address] [id number] [place] [address]- 1295 Mar, [facility] [place] [facility] [address] [id number] [place] [address]- 6057 Mar, [facility] [place] [facility] [address] [id number] [place] [address]- 2851 Mar, [facility] [place] [facility] [address] [id number], [place] [address]- 8860 Mar, [facility] [place] [facility] [address] [id number], [place] [address]- 4280 Feb, [facility] [place] [facility] [address] [id number] [place] [address] 2543 Feb, [facility] [place] [facility] [address] [id number] [place] [address]- 6160 Feb, [facility] [place] [facility] [address] [id number], [place] [address]- 7842 Feb, [facility] [place] [facility] [address] [id number], [place] [address]- 2816 08 Feb, 2011 [facility] [address], [place] [address]- 4096 Feb, [facility] [address], [place] [address]- 2786 Feb, [facility] [address], [place] [address]- 3696 Jan, [facility] [address], [place] [address]- 2561 Jan, [facility] [address], [place] [address]- 2814 16 Dec, 2010 [facility] [address], [place] [address]- 2176 Nov, [facility] [address], [place] [address]- 8197 May, [facility] [address], [place] [address]- 8898 Apr, [facility] [address], [place] [address]- 4903 Feb, [facility] [address], [place] [address]- 2031 Jan, [facility] [address], [place] [address]- 8884 August, [facility] [address] [id number], [place] [address]- 9356 Mar, [facility] [address], [place] [address]- 6489 Jan, [facility] [address] [address] Oct, IMMUNIZATIONS No Known Immunizations SOCIAL HISTORY Never Assessed REASON FOR VISIT medication f/u,pt states not doing any better, is worse and feels sick. itchy and tired. pt states she has black things coming out of her skin. pt states she has worms on her toung and in her mouth. [facility] [employer] C[facility] Activity Details Follow Up 3 Weeks Reason: VITAL SIGNS Height 66 in 2018-01-16 Weight 140.9 lbs 2018-01-16 Temperature 98.9 degrees Fahrenheit 2018-01-16 Heart Rate 103 bpm 2018-01-16 Respiratory Rate 22 2018-01-16 Oximetry 99 % 2018-01-16 BMI 22.74 kg/m2 2018-01-16 Blood pressure systolic 130 mmHg 2018-01-16 Blood pressure diastolic 90 mmHg 2018-01-16 MEDICATIONS Medication Instructions Dosage Frequency Start Date End Date Duration Status Seroquel 200 mg Orally Once a day at bedtime 3 tablet Active Chlorhexidine Gluconate 0.12 % Mouth/Throat 2 times a day as directed Dec, 28 days Active HydrOXYzine HCl 25 MG Orally 3 times a day 1 tablet 8h Active Sodium Fluoride 1.1 (0.5 F) mg/ml Dental Twice a day as directed Dec Active Hibiclens 4 % Externally use sparingly x 10 days 1 pump Nov, Not-Taking PreviDent 1.1 % Dental 2 times a day 1 cm strip 12Dec, Active Flonase 50 MCG/DOSE Nasally Once a day 1 spray in each nostril 24h Nov, 30 day(s) Active Albendazole - Orally every 2 wk 2 tablets Dec, Jan, 14 days Active PreviDent 5000 Booster 1.1% Dental 2 times a day as directed Dec, Apr, 28 days Active Zyrtec Allergy 10 mg Orally Once a day 1 tablet 24h Nov, Jan, 30 day(s) Active Albendazole 200 mg Orally one tablet now, then repeat in 2 days 1 tablets Dec, Active Albendazole - Orally 1 now repeat in 2weeks 1 tablet Dec, Active RESULTS No Results PROCEDURES No Known procedures INSTRUCTIONS MEDICATIONS ADMINISTERED No Known Medications MEDICAL (GENERAL) HISTORY Type Description Date Medical History hx of ulcers Medical History right ovarian cysts-recurring Medical History mood swings Medical History bipolar disorder Medical History drug abuse Medical History depression Surgical History orthopedic surgery-carpal tunnel 05/2011 Surgical History tubal ligation Surgical History cholecystectomy Surgical History surgery on left arm and artery repair Hospitalization History [facility] for suicidal idiations. surgery on left arm.
--- OUTSIDE RECORDS SUMMARY | 2018-02-03 17:57 | XMS REPORT ---
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 6001 Feb, [facility] [place] [facility] [address] [id number] [place] [address]- 5106 Feb, [facility] [place] [facility] [address] [id number] [place] [address]- 8217 Jan, [facility] [place] [facility] [address] [id number] [place] [address]- 6112 Jan, [facility] [place] [facility] [address] [id number] [place] [address]- 0597 Jan, [facility] [place] [facility] [address] [id number] [place] [address]- 8002 Jan, [facility] [place] [facility] [address] [id number] [place] [address]- 5916 Dec, [facility] [place] [facility] [address] [id number] [place] [address]- 2796 17 Dec, 2011 [facility] [place] [facility] [address] [id number] [place] [address]- 4352 Dec, [facility] [place] [facility] [address] [id number] [place] [address]- 8932 Nov, [facility] [place] [facility] [address] [id number], [place] [address]- 1853 Nov, [facility] [place] [facility] [address] [id number] [place] [address]- 4178 Nov, [facility] [place] [facility] [address] [id number], [place] [address]- 1744 Nov, [facility] [place] [facility] [address] [id number] [place] [address]- 2024 Oct, [facility] [place] [facility] [address] [id number] [place] [address]- 2030 Oct, [facility] [place] [facility] [address] [id number] [place] [address]- 7566 Oct, [facility] [place] [facility] [address] [id number] [place] [address]- 0356 Oct, [facility] [place] [facility] [address] [id number] [place] [address]- 6426 Oct, [facility] [place] [facility] [address] [id number] [place] [address]- 8863 Oct, [facility] [place] [facility] [address] [id number] [place] [address]- 9411 Oct, [facility] [place] [facility] [address] [id number] [place] [address]- 8369 Oct, [facility] [place] [facility] [address] [id number] [place] [address]- 9785 Oct, [facility] [place] [facility] [address] [id number] [place] [address]- 0479 Sep, [facility] [place] [facility] [address] [id number] [place] [address]- 9986 Sep, [facility] [place] [facility] [address] [id number] [place] [address]- 0914 August, [facility] [place] [facility] [address] [id number] [place] [address]- 1167 August, [facility] [place] [facility] [address] [id number] [place] [address]- 3062 August, [facility] [place] [facility] [address] [id number] [place] [address]- 7191 August, [facility] [place] [facility] [address] [id number] [place] [address]- 3277 August, [facility] [place] [facility] [address] [id number] [place] [address]- 7536 August, [facility] [place] [facility] [address] [id number] [place] [address]- 4259 30 Jul, 2011 [facility] [place] [facility] [address] [id number] [place] [address]- 1234 Jul, [facility] [place] [facility] [address] [id number] [place] [address]- 9312 Jul, [facility] [place] [facility] [address] [id number] [place] [address]- 6311 24 Jul, 2011 [facility] [place] [facility] [address] [id number] [place] [address]- 7580 Jul, [facility] [place] [facility] [address] [id number] [place] [address]- 8037 16 Jul, 2011 [facility] [place] [facility] [address] [id number] [place] [address]- 1400 Jul, [facility] [place] [facility] [address] [id number] [place] [address]- 9119 Jul, [facility] [place] [facility] [address] [id number] [place] [address]- 8648 Jun, [facility] [place] [facility] [address] [id number] [place] [address]- 2142 Jun, [facility] [place] [facility] [address] [facility] [id number] [place] [address]- 0098 Jun, [facility] [place] [facility] [address] [id number] [place] [address]- 7779 May, [facility] [place] [facility] [address] [id number] [place] [address]- 0350 May, [facility] [place] [facility] [address] [id number] [place] [address]- 9095 15 May, 2011 [facility] [place] [facility] [address] [id number] [place] [address]- 4383 08 May, 2011 [facility] [place] [facility] [address] [facility] [id number], [place] [address]- 1833 May, [facility] [address] [id number] [place] [address]- 5845 Apr, [facility] [place] [facility] [address] [id number] [place] [address]- 6394 Apr, [facility] [place] [facility] [address] [facility] [id number] [place] [address]- 5767 Apr, [facility] [place] [facility] [address] [id number] [place] [address]- 8632 Apr, [facility] [place] [facility] [address] [id number] [place] [address]- 4943 Mar, [facility] [place] [facility] [address] [id number] [place] [address]- 9184 Mar, [facility] [place] [facility] [address] [facility] [id number] [place] [address]- 5199 Mar, [facility] [place] [facility] [address] [facility] [id number] [place] [address]- 8773 Mar, [facility] [place] [facility] [address] [facility] [id number] [place] [address]- 3848 Feb, [facility] [place] [facility] [address] [facility] [id number] [place] [address]- 3836 Feb, [facility] [place] [facility] [address] [facility] [id number], [place] [address]- 7355 15 Feb, 2011 [facility] [place] [facility] [address] [id number] [place] [address]- 8362 Feb, [facility] [place] [facility] [address] [id number] [place] [address]- 1672 08 Feb, 2011 [facility] [place] [facility] [address] [facility] [id number] [place] [address]- 5351 Feb, [facility] [place] [facility] [address] [facility] [id number] [place] [address]- 1895 Feb, [facility] [place] [facility] [id number] [address]- 0359 10 Jan, 2011 [facility] [id number] [address]- 7285 10 Jan, 2011 [facility] [id number], [place] [address]- 2677 16 Dec, 2010 [facility] [id number], [place] [address]- 2748 Nov, [facility] [id number], [place] [address]- 1773 15 May, 2010 [facility] [id number] [place] [address] 69[address]98- 8970 Apr, [facility] [id number], [place] [address]- 8783 Feb, [facility] [id number], [place] [address]- 5943 Jan, [facility] [id number], [place] [address]- 0369 August, [facility] [id number], [place] [address]- 3886 Mar, [facility] [id number], [place] [address]- 4572 Jan, [facility] [id number], [place] [address]- 1031 Oct, IMMUNIZATIONS No Known Immunizations SOCIAL HISTORY Never Assessed REASON FOR VISIT Dental Assessment PLAN OF CARE Activity Details Follow Up prn Reason:Restorative dental care VITAL SIGNS MEDICATIONS No Known Medications RESULTS No Results PROCEDURES Procedure Date Ordered Result Body Site SCREENING OF A PATIENT Jan 02, 2018 Billing Notes on claim Jan 02, 2018 INSTRUCTIONS MEDICATIONS ADMINISTERED No Known Medications MEDICAL (GENERAL) HISTORY Type Description Date Medical History depression Medical History hx of ulcers Medical History right ovarian cysts-recurring Medical History mood swings Medical History bipolar disorder Medical History drug abuse Surgical History orthopedic surgery-carpal tunnel 05/2011 Surgical History tubal ligation Surgical History cholecystectomy Surgical History surgery on left arm and artery repair Hospitalization History [facility] for suicidal idiations. surgery on left arm.
--- OUTSIDE RECORDS SUMMARY | 2018-02-03 17:58 | XMS REPORT ---
Author Author ASHISH ROSALES Organization [facility] Address [address] [place] [address] Care Team Providers Care Director Of Valuation Name Role Phone ASHISH ROSALES Unavailable PROBLEMS Type Condition ICD9-CM Code [id number] Code Onset Dates Condition Status SNOMED Code Problem Anxiety F41.9 Active 69343982 Problem Hot flashes N95.1 Active 688998462 Problem Nipple discharge N64.52 Active 43852008 Problem Bilateral chronic serous otitis media H65.23 Active 59375439 Problem Carpal tunnel syndrome, right upper limb G56.01 Active 04058880 Problem Delusions of parasitosis F22 Active 728616054 Problem Mood disorder F39 Active 29953553 Problem Bipolar 1 disorder F31.9 Active 377315590 Problem Skin infection L08.9 Active 736368248 Problem Weight gain R63.5 Active 9651434 Problem High risk sexual behavior Z72.51 Active 232984932 Problem Vaginal discharge N89.8 Active 367673071 Problem Genital herpes simplex, unspecified site A60.00 Active 16953968 Problem History of dyspareunia in female Z87.42 Active 165497432 Problem Routine screening for STI (sexually transmitted infection) Z11.3 Active 556224558 Problem Hx of migraines Z86.69 Active 644385800 Problem BMI 25.0-25.9,adult Z68.25 Active 606474495 Problem Poor dentition K08.8 Active 678906229 Problem Psychotic episode F23 Active 41716923 Problem Depression, unspecified depression type F32.9 Active 56684453 Problem History of abnormal cervical Pap smear Z87.898 Active 131686015 Problem Ganglion of left wrist M67.432 Active 991455782 Problem History of self-harm Z91.5 Active 669011322 Problem History of ovarian cyst Z87.42 Active [id number] ALLERGIES No Information ENCOUNTERS Encounter Location Date Diagnosis [facility] [address] [address] Dec, Delusions of parasitosis F22 [place] [address] [address]- 3277 Dec, Elevated liver enzymes R74.8 [place] [address] 58906- 1131 Dec, Screening for STDs (sexually transmitted diseases) Z11.3 ; Galactorrhea of both breasts N64.3 ; Screening for breast cancer Z12.31 and Rectal itching L29.0 [facility] [address] [id number] Dec, [facility] [address] [id number] Dec, Dental examination Z01.20 [place] [address] [address]- 3436 Dec, [place] [address] 8[address]- 7082 Dec, Oral pain K13.79 and Poor dentition K08.8 [place] [address] 89238- 2996 Dec, Poor dentition K08.8 and Delusions of parasitosis F22 [place] [address] 32618- 2850 Dec, [place] [address] 20626- 7054 Dec, [place] [address] 13392- 3421 Dec, [place] [address] [place] [id number]- 3604 Nov, Elevated liver enzymes R74.8 ; Worms in stool B83.9 and Bilateral chronic serous otitis media H65.23 [place] [address] [place] [id number]- 2546 Nov, [facility] [address] [place] [id number] [place] [address] 08366- 9161 Nov, Psychotic episode F23 [facility] [address] [place] [id number] [place] [address] 73478- 7056 Nov, Psychotic episode F23 ; Tardive dyskinesia G24.01 and 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 [place] [address] 17[address]- 6626 Nov, [facility] [address] [id number] Oct, Dental examination Z01.20 [facility] [place] [address] [place] [id number] [place] [address] 50642 -9631 Oct, Fluid level behind tympanic membrane of both ears H65.93 and Vaginal candidiasis B37.3 [facility] [place] [address] [place] [id number] [place] [address] 18511 -5520 May, Acute suppurative otitis media of right ear without spontaneous rupture of tympanic membrane, recurrence not specified H66.001 and Canker sore K12.0 [place] [address] [place] [id number] [place] [address] 84203- 1684 May, Delusions of parasitosis F22 [place] [address] [place] [id number] [place] [address] 80852- 4599 Apr, Delusions of parasitosis F22 [place] [address] [place] [id number] [place] [address] 97072- 4075 Mar, Delusions of parasitosis F22 [place] [address] 79518- 1659 Feb, Delusions of parasitosis F22 [place] [address] [place] [id number] [place] [address] 08863- 7734 Oct, Delusions of parasitosis F22 [facility] [place] [address] [place] [address] Oct, Frequent UTI N39.0 ; Acute otitis externa of both ears, unspecified type H60.503 and Cellulitis L03.90 [facility] [address] [place] [id number] [place] [address] [id number] Oct, Encounter for dental examination Z01.20 [facility] [address] 82328- 1556 09 Sep, 2016 Delusions of parasitosis F22 ; Rash R21 and Common wart B07.8 [facility] [address] [place] [id number] [place] [address] 72084 -5031 Sep, [facility] [address] [place] [id number] [place] [address] 03075 -7850 August, Vaginal itching L29.8 [facility] [address] [id number] August, Dental examination Z01.20 [facility] [address] [place] [id number] [place] [address] 06413- 1688 August, Urinary tract infection, site not specified N39.0 [facility] [address] [place] [id number] [place] [address] 90777- 5547 August, [facility] [address] [place] [id number] [place] [address] [id number] August, Dental examination Z01.20 [address] Dental caries K02.9 [facility] [address] [place] [id number] [place] [address] 18806- 0526 Jul, Urinary tract infection, site not specified N39.0 [facility] [address] [place] [id number] [place] [address] 23967- 7218 Jun, Urinary tract infection, site not specified N39.0 [facility] [address] [place] [id number] [place] [address] 88586- 4542 13 Jun, 2016 [facility] [address] [place] [id number] [place] [address] 43015- 1096 Jun, Bipolar 1 disorder F31.[address] [facility] [address] [place] [id number] [place] [address] 31840- 0559 Jun, Urinary tract infection, site not specified N39.0 [facility] [address] [place] [address] 39684- 1043 May, Urinary tract infection, site not specified N39.0 [facility] [address] [place] [id number] [place] [address] 93059- 6405 Apr, Urinary tract infection, site not specified N39.0 [facility] [address] [place] [id number] [place] [address] 31700- 0739 Apr, [facility] [address] [place] [id number] [place] [address] 46546- 2337 Apr, Scabies infestation B86 [facility] [address] [place] [id number] [place] [address] 13505 -2065 Apr, [facility] [address] [place] [id number] [place] [address] 07136- 5493 Apr, Scabies B86 and Generalized abdominal pain R10.84 [facility] [address] [place] [address] 68622- 0634 Apr, Psychotic episode F23 ; Mood disorder F39 and Anxiety F41.9 [facility] [address] [place] [address] 33948 -8182 Apr, Scabies B86 ; Cellulitis of face L03.211 and Generalized abdominal pain R10.84 [facility] [address] [place] [id number] [place] [address] 11944- 7385 Apr, [facility] [address] [place] [address] 72398- 9983 Mar, Urinary tract infection, site not specified N39.0 [facility] [address] [place] [id number] [place] [address] 49532- 7296 Mar, [facility] [address] [id number] Mar, Dental caries K02.9 [facility] [address] Feb, 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 [address], [place] [address]- 29[address] Feb, [facility] [address] [place] [address] 47997- 4601 Jan, High risk sexual behavior Z72.51 ; Skin infection L08.9 [address] V[address] discharge N89.8 [facility] [address], [place] [address]- 6148 Jan, [facility] [address] [address] 0304 Dec, [facility] [address] [facility] [id number] [address]- 6979 Dec, [facility] [address] [address] 98[address] Dec, [facility] [address] [facility] [id number] [address]- 5805 Nov, [facility] [address] [id number], [place] [address]- 2318 Nov, [facility] [address] [facility] [id number], [place] [address]- 5598 Nov, Anxiety F41.9 [facility] [address] [id number] Oct, Dental examination Z01.20 [facility] [address] [place] [id number] [place] [address] 51499- 7631 Oct, Back pain M54.9 [facility] [address] [place] [id number] [place] [address] 11408- 2168 Oct, Anxiety F41.9 [facility] [address] [place] [id number] [place] [address] 58297- 3970 Sep, [facility] [address] [place] [id number] [place] [address] 50047- 2028 Sep, Back pain M54.9 [facility] [address] [place] [id number] [place] [address] 07466- 9200 August, Schizoaffective disorder, bipolar type F25.0 [facility] [address] [place] [id number] [place] [address] 42107 -1733 August, Lethargy R53.83 [address] To[address] K08.8 [facility] [address] [place] [id number] [place] [address] 28233- 2757 August, [facility] [address] [place] [id number] [place] [address] 74233- 0462 August, Back pain M54.9 [facility] [address] [place] [id number] [place] [address] 83338- 0702 Jul, Back pain M54.9 and Wrist pain, left M25.532 [facility] [address] [place] [id number] [place] [address] 49763- 8353 Jul, [facility] [address] [place] [id number] [place] [address] 31681 -2762 Jul, Genital herpes A60.00 [facility] [address] [place] [id number] [place] [address] 77413- 1226 Jun, [facility] [address] [place] [id number] [place] [address] 99208- 3827 May, [facility] [address] [id number] [address]- 1754 May, [place] [address], [place] [address]- 6885 May, Back pain M54.9 and Schizophrenia, unspecified type F20.9 [place] [address], [place] [address]- 4304 May, [place] [address] [id number] [address]- 3443 May, [place] [address], [place] [address]- 5267 May, Well woman exam Z01.419 ; BMI [...] smear Z87.898 and History of self-harm Z91.5 [place] [address] [id number] [address]- 4929 08 May, 2015 Well woman exam Z01.419 [...] smear Z87.898 and History of self-harm Z91.5 [place] [address] 61955- 2569 08 May, 2015 [place] [address] 76256- 5116 May, [place] [address] 89893- 7684 Apr, [place] [address] 20730- 4138 Mar, [place] [address] 18782- 6077 Feb, [place] [address] 64078- 3795 Feb, [place] [address] 55515- 0395 Feb, [place] [address] [place] [id number] [place] [address] 07393- 7860 Feb, Constipation, unspecified constipation type K59.00 [place] [address] [place] [id number] [place] [address] 95786- 7128 Feb, Neuropathy G62.9 [place] [address] [place] [id number] [place] [address] 06770- 5787 16 Feb, 2015 Neuropathy G62.9 and Periodontal abscess K05.21 [place] [address] 11824- 8088 06 Feb, 2015 Psychotic episode F23 and Anxiety disorder, unspecified F41.9 [place] [address] 20640- 0603 Feb, [facility] [address] [place] [id number] [place] [address] 61873- 7012 Jan, Psychotic episode F23 and Anxiety disorder, unspecified F41.9 [facility] [address] [place] [id number] [place] [address] 74703- 2259 Jan, Psychotic episode F23 [facility] [address] [place] [id number] [place] [address] 23067- 7552 Jan, Labial infection N76.[address] F23 [facility] [address] [place] [id number] [place] [address] 85073- 2413 Jan, [facility] [address] [place] [id number] [place] [address] 55673- 0781 Jan, [facility] [address] [place] [id number] [place] [address] 79715- 2133 Dec, [facility] [address] [place] [id number] [place] [address] 78792- 8960 Dec, Back pain 724.5 [facility] [address] [place] [id number] [place] [address] 28363- 3542 Dec, [facility] [address] [place] [id number] [place] [address] 69486- 4312 Nov, Hip pain 719.45 ; Leg pain 729.5 ; Knee pain 719.46 and B[address] accident E826.9 [facility] [address] [place] [address] 68372- 2033 Nov, Back pain 724.5 [facility] [address] [place] [id number] [place] [address] 79040- 3638 Nov, Back pain 724.5 [facility] [address] [place] [id number] [place] [address] 39805- 9698 Oct, [facility] [address] [place] [id number] [place] [address] 57333- 2749 Oct, [facility] [address] [place] [id number] [place] [address]- 5759 Oct, Back pain 724.5 and Anxiety 300.00 [facility] [address] [id number] [place] 3509 Sep, [facility] [address] [place] [id number] [place] [address], [place] [address]- 9731 Sep, [facility] [address] [facility] [id number] [place] [address]- 1173 Sep, Hand pain, left 729.5 [facility] [address] [place] [id number] [place] [address], [place]- 4470 Sep, [facility] [address] [place] [id number] [address]- 5186 Jul, [facility] [address] [place] [id number] [place] [address], [place] [address]- 6250 Jul, [facility] [address] [place] [id number] 1706 Mar, [facility] [address] [place] [address]- 0695 Mar, [facility] [address] [place] [address]- 7207 Feb, [facility] [address] [place] [address]- 9255 Feb, [facility] [address] [place] [id number], [place] [address]- 5809 Feb, [facility] [place] [facility] [address] [place] [address]- 0264 Feb, [facility] [place] [facility] [address] [place] [id number]- 5231 Feb, [facility] [address], [place] [address]- 8938 14 Feb, 2014 [facility] [place] [facility] [address] [id number] [place] [address]- 0529 10 Feb, 2014 [facility] [place] [facility] [address] [id number] [place] [address]- 2222 10 Feb, 2014 [facility] [place] [facility] [address] [id number] [place] [address]- 6025 Feb, [facility] [place] [facility] [address] [id number] [place] [address]- 7608 Feb, [facility] [place] [facility] [address] [id number] [place] [address]- 0118 Feb, [facility] [place] [facility] [address] [id number] [place] [address]- 3852 Feb, [facility] [place] [facility] [address] [id number] [place] [address]- 6167 Feb, [facility] [place] [facility] [address] [id number] [place] [address]- 9359 Jan, [facility] [place] [facility] [address] [id number] [place] [address]- 2870 24 Jan, 2014 [facility] [place] [facility] [address] [id number], [place] [address]- 4929 Jan, [facility] [place] [facility] [address] [id number], [place] [address]- 2774 Jan, [facility] [place] [facility] [address] [id number], [place] [address]- 2777 29 Dec, 2013 [facility] [place] [facility] [address] [id number] [place] [address]- 5507 29 Dec, 2013 [facility] [place] [facility] [address] [id number] [place] [address]- 9902 29 Dec, 2013 [facility] [place] [facility] [address] [id number] [place] [address]- 6498 29 Dec, 2013 [facility] [place] [facility] [address] [id number] [place] [address]- 1282 15 Dec, 2013 [facility] [place] [facility] [address] [id number] [place] [address]- 5788 15 Dec, 2013 [facility] [place] [facility] [address] [id number] [place] [address]- 9666 Dec, [facility] [place] [facility] [address] [id number] [place] [address]- 3228 Dec, [facility] [place] [facility] [address] [id number] [place] [address]- 2766 Nov, [facility] [place] [facility] [address] [id number] [place] [address]- 4821 Nov, [facility] [place] [facility] [address] [id number] [place] [address]- 6008 Nov, [facility] [place] [facility] [address] [id number] [place] [address]- 0705 Nov, [facility] [place] [facility] [address] [id number] [place] [address]- 7607 Nov, [facility] [place] [facility] [address] [id number] [place] [address]- 1403 Nov, [facility] [place] [facility] [address] [id number] [place] [address]- 6466 Nov, [facility] [place] [facility] [address] [id number] [place] [address]- 0065 Nov, [facility] [place] [facility] [address] [id number] [place] [address]- 1004 Oct, [facility] [place] [facility] [address] [id number] [place] [address]- 2362 Oct, [facility] [place] [facility] [address] [id number] [place] [address]- 2087 Oct, [facility] [place] [facility] [address] [id number] [place] [address]- 5942 Oct, [facility] [place] [facility] [address] [id number] [place] [address]- 6318 Oct, [facility] [place] [facility] [address] [id number] [place] [address]- 9000 Oct, [facility] [place] [facility] [address] [id number] [place] [address]- 6679 Oct, [facility] [place] [facility] [address] [id number] [place] [address]- 3896 Oct, [facility] [place] [facility] [address] [id number] [place] [address]- 5327 Sep, [facility] [place] [facility] [address] [id number] [place] [address]- 2901 Sep, [facility] [place] [facility] [address] [id number] [place] [address]- 0441 Sep, [facility] [place] [facility] [address] [id number] [place] [address]- 2258 Sep, [facility] [place] [facility] [address] [id number] [place] [address]- 3171 Sep, [facility] [place] [facility] [address] [id number] [place] [address]- 0597 Sep, [facility] [place] [facility] [address] [id number] [place] [address] Sep, [facility] [place] [facility] [address] [id number] [place] [address] August, [facility] [place] [facility] [address] [id number] [place] [address] August, [facility] [place] [facility] [address] [id number] [place] [address] August, [facility] [place] [facility] [address] [id number] [place] [address] August, [facility] [place] [facility] [address] [id number] [place] [address] Jul, [facility] [place] [facility] [address] [id number] [place] [address] Jul, [facility] [place] [facility] [address] [id number] [place] [address] Jul, [facility] [place] [facility] [address] [id number] [place] [address] Jul, [facility] [place] [facility] [address] [id number] [place] [address] Jul, [facility] [place] [facility] [address] [id number] [place] [address] Jul, [facility] [place] [facility] [address] [id number] [place] [address] Jul, [facility] [place] [facility] [address] [id number] [place] [address] Jul, [facility] [place] [facility] [address] [id number] [place] [address] Jun, [facility] [place] [facility] [address] [id number] [place] [address] Jun, [facility] [place] [facility] [address] [id number] [place] [address] Jun, [facility] [place] [facility] [address] [id number] [place] [address]- [address] Jun, [facility] [place] [facility] [address] [id number] [place] [address] May, [facility] [place] [facility] [address] [id number] [place] [address] May, [facility] [place] [facility] [address] [id number] [place] [address] May, [facility] [place] [facility] [address] [id number] [place] [address]- [address] May, [facility] [place] [facility] [address] [id number] [place] [address] May, [facility] [place] [facility] [address] [id number] [place] [address] May, [facility] [place] [facility] [address] [id number] [place] [address] May, [facility] [place] [facility] [address] [id number] [place] [address] May, [facility] [place] [facility] [address] [id number] [place] [address] May, [facility] [place] [facility] [address] [id number] [place] [address] May, [facility] [place] [facility] [address] [facility] [id number] [place] [address] May, [facility] [place] [facility] [address] [id number] [place] [address] May, [facility] [place] [facility] [address] [id number] [place] [address] May, [facility] [place] [facility] [address] [facility] [id number] [place] [address]- [address] Apr, [facility] [place] [facility] [address] [facility] [id number], [place] [address] Apr, [facility] [place] [facility] [address] [id number], [place] [address] Apr, [facility] [place] [facility] [address] [id number] [place] [address] Apr, [facility] [place] [facility] [address] [id number] [place] [address] Apr, [facility] [place] [facility] [address] [id number], [place] [address] Apr, [facility] [place] [facility] [address] [id number], [place] [address] Apr, [facility] [address] [id number] [place] [address]- [address] Apr, [facility] [place] [facility] [address] [facility] [id number], [place] [address] Mar, [facility] [address] [facility] [id number] [place] [address] Mar, [facility] [place] [facility] [address] [id number], [place] [address] Mar, [facility] [address] [facility] [place] [id number] [place] [address] Mar, [facility] [place] [facility] [address] [facility] [id number] [place] [address] Feb, [facility] [address] [id number] [address] Feb, [facility] [place] [facility] [address] [facility] [id number], [place] [address] Feb, [facility] [address] [facility] [id number], [place] [address] Feb, [facility] [place] [facility] [address] [id number], [place] [address] Feb, [facility] [place] [facility] [address] [facility] [id number], [place] [address] Feb, [facility] [place] [facility] [address] [facility] [id number], [place] [address] Feb, [facility] [place] [facility] [address] [id number], [place] [address] Feb, [facility] [place] [facility] [address] [facility] [id number], [place] [address] Jan, [facility] [place] [facility] [address] [facility] [id number], [place] [address] 60[address] Jan, [facility] [place] [facility] [address] [id number] [place] [address] 1013 18 Jan, 2013 [facility] [place] [facility] [address] [id number] [place] [address] 8580 18 Jan, 2013 [facility] [place] [facility] [address] [id number] [place] [address]- 5436 14 Jan, 2013 [facility] [place] [facility] [address] [id number] [place] [address]- 5[address] 14 Jan, 2013 [facility] [place] [facility] [address] [id number] [place] [address]- 9780 14 Jan, 2013 [facility] [place] [facility] [address] [id number] [place] [address]- 6480 14 Jan, 2013 [facility] [place] [facility] [address] [id number] [place] [address] 2667 30 Dec, 2012 [facility] [place] [facility] [address] [id number] [place] [address] 3125 16 Dec, 2012 [facility] [place] [facility] [address] [id number] [place] [address] 8604 Nov, [facility] [place] [facility] [address] [id number] [place] [address] 3891 Oct, [facility] [place] [facility] [address] [id number] [place] [address] 9073 Oct, [facility] [place] [facility] [address] [id number] [place] [address] Sep, [facility] [place] [facility] [address] [id number] [place] [address] 6723 August, [facility] [place] [facility] [address] [id number] [place] [address]- 3896 August, [facility] [place] [facility] [address] [id number] [place] [address]- 2546 August, [facility] [place] [facility] [address] [id number] [place] [address] 9[address] August, [facility] [address] [id number] [place] [address] 6993 August, [facility] [address] [id number] [place] [address]- 9762 August, [facility] [address] [id number] [place] [address]- 9697 August, [facility] [place] [facility] [address] [id number] [place] [address]- 8677 August, [facility] [address] [id number] [place] [address]- 3155 Jul, [facility] [address] [id number] [place] [address]- 3890 Jul, [facility] [address] [id number] [place] [address] 6932 Jul, [facility] [place] [facility] [address] [id number] [place] [address]- 2944 Jun, [facility] [place] [facility] [address] [id number] [place] [address]- 2709 Jun, [facility] [place] [facility] [address] [id number] [place] [address]- 0025 Jun, [facility] [place] [facility] [address] [id number] [place] [address]- 0855 May, [facility] [place] [facility] [address] [id number], [place] [address] 18 May, 2012 [facility] [place] [facility] [address] [id number] [place] [address]- 6089 14 May, 2012 [facility] [place] [facility] [address] [id number] [place] [address] 7756 May, [facility] [place] [facility] [address] [id number] [place] [address]- 1257 08 May, 2012 [facility] [place] [facility] [address] [id number] [place] [address]- 2546 May, [facility] [address] [id number] [place] [address] 6116 May, [facility] [address] [id number] [place] [address] 2546 Apr, [facility] [address] [id number] [place] [address]- 0956 Apr, [facility] [address] [id number] [place] [address]- 8525 Apr, [facility] [address] [id number] [place] [address]- 7253 Mar, [facility] [address] [id number] [place] [address]- 7772 Mar, [facility] [address] [id number] [place] [address] 1530 Mar, [facility] [address] [id number] [place] [address] 6256 Mar, [facility] [address] [id number] [place] [address]- 0682 Mar, [facility] [address] [id number] [place] [address] 2072 Mar, [facility] [address] [id number] [place] [address]- 6786 Mar, [facility] [address] [id number] [place] [address]- 5336 Mar, [facility] [place] [facility] [address] [id number] [place] [address]- 8586 Mar, [facility] [place] [facility] [address] [id number] [place] [address] 4836 Mar, [facility] [place] [facility] [address] [id number] [place] [address]- 6306 Feb, [facility] [place] [facility] [address] [id number] [place] [address]- 4909 Feb, [facility] [place] [facility] [address] [id number] [place] [address]- 9554 Feb, [facility] [place] [facility] [address] [id number] [place] [address]- 5252 Feb, [facility] [place] [facility] [address] [id number] [place] [address]- 4171 Jan, [facility] [place] [facility] [address] [id number] [place] [address]- 9681 Jan, [facility] [place] [facility] [address] [id number] [place] [address]- 1184 Jan, [facility] [place] [facility] [address] [id number] [place] [address]- 0663 Jan, [facility] [place] [facility] [address] [id number] [place] [address]- 4749 Dec, [facility] [place] [facility] [address] [id number] [place] [address]- 4519 17 Dec, 2011 [facility] [place] [facility] [address] [id number] [place] [address]- 6914 Dec, [facility] [place] [facility] [address] [id number], [place] [address] 5597 Nov, [facility] [place] [facility] [address] [id number], [place] [address]- 9208 Nov, [facility] [place] [facility] [address] [id number] [place] [address]- 3683 Nov, [facility] [place] [facility] [address] [id number], [place] [address]- 7516 Nov, [facility] [place] [facility] [address] [id number] [place] [address]- 0965 Oct, [facility] [place] [facility] [address] [id number] [place] [address]- 1157 Oct, [facility] [address] [id number] [place] [address]- 1966 Oct, [facility] [place] [facility] [address] [id number] [place] [address]- 5676 Oct, [facility] [place] [facility] [address] [id number] [place] [address]- 1706 Oct, [facility] [place] [facility] [address] [id number] [place] [address]- 2186 Oct, [facility] [place] [facility] [address] [id number] [place] [address]- 1107 Oct, [facility] [place] [facility] [address] [id number] [place] [address]- 3136 Oct, [facility] [address] [id number] [place] [address]- 8649 Oct, [facility] [place] [facility] [address] [id number] [place] [address]- 2781 Sep, [facility] [place] [facility] [address] [id number] [place] [address]- 0467 Sep, [facility] [place] [facility] [address] [id number] [place] [address]- 9477 August, [facility] [place] [facility] [address] [id number] [place] [address]- 5675 August, [facility] [place] [facility] [address] [id number] [place] [address]- 0741 August, [facility] [place] [facility] [address] [id number] [place] [address]- 0678 August, [facility] [place] [facility] [address] [id number] [place] [address]- 3726 August, [facility] [place] [facility] [address] [id number] [place] [address]- 8033 August, [facility] [place] [facility] [address] [id number] [place] [address]- 5954 30 Jul, 2011 [facility] [place] [facility] [address] [id number] [place] [address]- 3102 Jul, [facility] [place] [facility] [address] [id number] [place] [address]- 8401 Jul, [facility] [place] [facility] [address] [id number] [place] [address]- 5550 24 Jul, 2011 [facility] [place] [facility] [address] [id number] [place] [address]- 2360 Jul, [facility] [place] [facility] [address] [id number] [place] [address]- 1883 16 Jul, 2011 [facility] [place] [facility] [address] [id number] [place] [address]- 1861 Jul, [facility] [place] [facility] [address] [id number] [place] [address]- 1433 Jul, [facility] [place] [facility] [address] [id number] [place] [address]- 6705 Jun, [facility] [place] [facility] [address] [id number] [place] [address]- 7163 Jun, [facility] [place] [facility] [address] [id number] [place] [address]- 5324 Jun, [facility] [place] [facility] [address] [id number] [place] [address]- 1385 May, [facility] [place] [facility] [address] [id number] [place] [address]- 6623 May, [facility] [place] [facility] [address] [id number] [place] [address]- 6852 15 May, 2011 [facility] [place] [facility] [address] [id number] [place] [address]- 2575 08 May, 2011 [facility] [place] [facility] [address] [id number], [place] [address]- 4240 May, [facility] [address] [id number] [place] [address]- 0735 Apr, [facility] [place] [facility] [address] [id number] [place] [address]- 6828 Apr, [facility] [address] [facility] [id number] [place] [address]- 7591 Apr, [facility] [place] [facility] [address] [id number] [place] [address]- 3651 Apr, [facility] [address] [id number] [place] [address], [place] [address]- 1012 Mar, [facility] [place] [facility] [address] [id number] [place] [address]- 0692 Mar, [facility] [address] [id number] [place] [address]- 9615 Mar, [facility] [place] [facility] [address] [id number] [place] [address]- 5650 Mar, [facility] [address] [id number] [place] [address]- 7465 Feb, [facility] [place] [facility] [address] [facility] [id number] [place] [address]- 1494 Feb, [facility] [address] [id number], [place] [address]- 0901 15 Feb, 2011 [facility] [place] [facility] [address] [id number], [place] [address]- 5207 Feb, [facility] [place] [facility] [address] [id number] [place] [address]- 4348 Feb, [facility] [place] [facility] [address] [facility] [id number], [place] [address]- 4318 Feb, [facility] [place] [facility] [address] [facility] [id number], [place] [address]- 1450 Feb, [facility] [place] [facility] [id number], [place] [address]- [address]46 10 Jan, 2011 [facility] [id number], [place] [address] 2546 [address], [address] [facility] [address] [facility] [id number], [place] [address]- 2546 [address], [address] [facility] [id number], [place] [address]- [address] Nov, [facility] [address] [facility] [id number], [place] [address]- [address]46 May, [facility] [id number] [address] Apr, [facility] [id number] [address] Feb, [facility] [id number] [address] Jan, [facility] [id number] [address] August, [facility] [id number] [address]46 Mar, [facility] [address] [id number], [place] [address]- 2546 Jan, [facility] [address] [id number], [place] [address]- 2546 Oct, IMMUNIZATIONS No Known Immunizations SOCIAL HISTORY Never Assessed REASON FOR VISIT Medication Request PLAN OF CARE VITAL SIGNS MEDICATIONS No Known Medications RESULTS No Results PROCEDURES No Known procedures [...] arm and artery repair Hospitalization History [facility] for suicidal idiations. surgery on left arm.
--- OUTSIDE RECORDS SUMMARY | 2018-02-03 17:58 | XMS REPORT ---
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 [address]- 9066 Oct, [facility] [place] [facility] [address] [id number] [place] [address]- 3978 Oct, [facility] [place] [facility] [address] [id number] [place] [address]- 0556 Oct, [facility] [place] [facility] [address] [id number] [place] [address]- 0856 Oct, [facility] [place] [facility] [address] [id number] [place] [address]- 7517 Oct, [facility] [place] [facility] [address] [id number] [place] [address]- 2548 Oct, [facility] [place] [facility] [address] [id number] [place] [address]- 4163 Oct, [facility] [place] [facility] [address] [id number] [place] [address]- 6803 Oct, [facility] [place] [facility] [address] [id number] [place] [address]- 1177 Oct, [facility] [place] [facility] [address] [id number] [place] [address]- 6909 Sep, [facility] [place] [facility] [address] [id number] [place] [address]- 5387 Sep, [facility] [place] [facility] [address] [id number] [place] [address]- 3073 August, [facility] [place] [facility] [address] [id number] [place] [address]- 4287 August, [facility] [place] [facility] [address] [id number] [place] [address]- 0598 August, [facility] [place] [facility] [address] [id number] [place] [address]- 0619 August, [facility] [place] [facility] [address] [id number] [place] [address]- 0518 August, [facility] [place] [facility] [address] [id number] [place] [address]- 5387 August, [facility] [address] [id number] [place] [address]- 2949 30 Jul, 2011 [facility] [place] [facility] [address] [id number] [place] [address]- 9802 Jul, [facility] [address] [id number] [place] [address]- 2433 Jul, [facility] [address] [id number] [place] [address]- 5745 Jul, [facility] [address] [id number] [place] [address]- 6203 Jul, [facility] [address] [id number] [place] [address]- 5134 16 Jul, 2011 [facility] [address] [id number] [place] [address]- 9841 Jul, [facility] [address] [id number] [place] [address]- 8262 Jul, [facility] [address] [id number] [place] [address]- 4023 Jun, [facility] [address] [id number] [place] [address]- 9148 Jun, [facility] [place] [facility] [address] [id number] [place] [address]- 7263 05 Jun, 2011 [facility] [address] [id number] [place] [address]- 2769 May, [facility] [place] [facility] [address] [id number] [place] [address]- 7381 May, [facility] [place] [facility] [address] [id number] [place] [address]- 6276 15 May, 2011 [facility] [place] [facility] [address] [id number] [place] [address]- 3654 08 May, 2011 [facility] [place] [facility] [address] [id number] [place] [address]- 9197 May, [facility] [place] [facility] [address] [id number] [place] [address]- 4396 Apr, [facility] [place] [facility] [address] [id number] [place] [address] 2546 Apr, [facility] [place] [facility] [address] [id number] [place] [address]- 5298 Apr, [facility] [place] [facility] [address] [id number] [place] [address]- 3873 Apr, [facility] [place] [facility] [address] [id number] [place] [address]- 1246 Mar, [facility] [place] [facility] [address] [id number] [place] [address]- 9966 Mar, [facility] [place] [facility] [address] [id number] [place] [address]- 5532 Mar, [facility] [place] [facility] [address] [id number] [place] [address]- 4078 Mar, [facility] [place] [facility] [address] [id number] [place] [address]- 3532 Feb, [facility] [place] [facility] [address] [id number] [place] [address]- 4973 Feb, [facility] [place] [facility] [address] [id number], [place] [address]- 7846 15 Feb, 2011 [facility] [place] [facility] [address] [id number] [place] [address]- 7301 Feb, [facility] [place] [facility] [address] [id number] [place] [address]- 2983 08 Feb, 2011 [facility] [place] [facility] [address] [id number] [place] [address]- 2546 Feb, [facility] [place] [facility] [address], [place] [address] 2546 Feb, [facility] [address], [place] [address]- 7960 Jan, [facility] [address] [id number], [place] [address]- 7236 Jan, [facility] [id number], [place] [address]- 3684 16 Dec, 2010 [facility] [address] [id number], [place] [address]- 2546 Nov, [facility] [id number] [place] [address]- 4504 May, [facility] [id number], [place] [address]- 7206 Apr, [facility] [id number], [place] [address]- 4626 Feb, [facility] [address], [place] [address]- 2534 Jan, [facility] [id number], [place] [address]- 3759 August, [facility] [address], [place] [address]- 1196 Mar, [facility] [address] [id number], [place] [address]- 7386 Jan, [facility] [address] [id number], [place] [address]- 1405 Oct, IMMUNIZATIONS No Known Immunizations SOCIAL HISTORY Never Assessed REASON FOR VISIT ear pain bilat for several days, states has had cold chills and sweats estrella king PLAN OF CARE Activity Details Follow Up 4 Weeks Reason: VITAL SIGNS Height 66 in 2018-01-02 Weight 141.4 lbs 2018-01-02 Temperature 98.1 degrees Fahrenheit 2018-01-02 Heart Rate 80 bpm 2018-01-02 Respiratory Rate 24 2018-01-02 BMI 22.82 kg/m2 2018-01-02 Blood pressure systolic 122 mmHg 2018-01-02 Blood pressure diastolic 74 mmHg 2018-01-02 MEDICATIONS Medication Instructions Dosage Frequency Start Date End Date Duration Status Flonase 50 MCG/DOSE Nasally Once a day 1 spray in each nostril 24h Nov, 30 day(s) Active Albendazole 200 mg Orally today and tomorrow; repeat in 2 weeks 2 tablets Nov, Dec, 14 days Active PreviDent 1.1 % Dental 2 times a day 1 cm strip 12h Dec, Active HydrOXYzine HCl 25 MG Orally 3 times a day 1 tablet 8h Active Seroquel 400 MG Orally Once a day 1 tablet 24h Active Zyrtec Allergy 10 mg Orally Once a day 1 tablet 24h Nov, Jan, 30 day(s) Active Hibiclens 4 % Externally use sparingly x 10 days 1 pump Nov, Not-Taking Sodium Fluoride 1.1 (0.5 F) mg/ml Dental Twice a day as directed Dec Active RESULTS No Results PROCEDURES No Known [...] arm and artery repair Hospitalization History [facility] for suicidal idiations. surgery on left arm.
--- OUTSIDE RECORDS SUMMARY | 2018-02-03 17:59 | XMS REPORT ---
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 [address]- 9666 Oct, [facility] [place] [facility] [address] [id number] [place] [address]- 9606 Oct, [facility] [place] [facility] [address] [id number] [place] [address]- 6015 Oct, [facility] [place] [facility] [address] [id number] [place] [address]- 5259 Oct, [facility] [place] [facility] [address] [id number] [place] [address]- 9014 Oct, [facility] [place] [facility] [address] [id number] [place] [address]- 0727 Oct, [facility] [place] [facility] [address] [id number] [place] [address]- 5887 Oct, [facility] [place] [facility] [address] [id number] [place] [address]- 1540 Sep, [facility] [place] [facility] [address] [id number] [place] [address]- 5259 Sep, [facility] [place] [facility] [address] [id number] [place] [address]- 4687 August, [facility] [place] [facility] [address] [id number] [place] [address]- 8600 August, [facility] [place] [facility] [address] [id number] [place] [address]- 5754 August, [facility] [place] [facility] [address] [id number] [place] [address]- 3524 August, [facility] [place] [facility] [address] [id number] [place] [address]- 2377 August, [facility] [place] [facility] [address] [id number] [place] [address]- 9804 August, [facility] [address] [id number] [place] [address]- 1319 30 Jul, 2011 [facility] [place] [facility] [address] [id number] [place] [address]- 1078 Jul, [facility] [address] [id number] [place] [address]- 9721 Jul, [facility] [address] [id number] [place] [address]- 0646 Jul, [facility] [address] [id number] [place] [address]- 6681 Jul, [facility] [address] [id number] [place] [address]- 3558 16 Jul, 2011 [facility] [address] [id number] [place] [address]- 7698 Jul, [facility] [address] [id number] [place] [address]- 4505 Jul, [facility] [address] [id number] [place] [address]- 7121 Jun, [facility] [address] [id number] [place] [address]- 0779 Jun, [facility] [place] [facility] [address] [id number] [place] [address]- 4163 05 Jun, 2011 [facility] [address] [id number] [place] [address]- 7408 May, [facility] [place] [facility] [address] [id number] [place] [address]- 8216 May, [facility] [place] [facility] [address] [id number] [place] [address]- 7006 15 May, 2011 [facility] [place] [facility] [address] [id number] [place] [address]- 0322 08 May, 2011 [facility] [place] [facility] [address] [id number] [place] [address]- 6926 May, [facility] [place] [facility] [address] [id number] [place] [address]- 8406 Apr, [facility] [place] [facility] [address] [id number] [place] [address] 2546 Apr, [facility] [place] [facility] [address] [id number] [place] [address]- 7564 Apr, [facility] [place] [facility] [address] [id number] [place] [address]- 8297 Apr, [facility] [place] [facility] [address] [id number] [place] [address]- 9629 Mar, [facility] [place] [facility] [address] [id number] [place] [address]- 9636 Mar, [facility] [place] [facility] [address] [id number] [place] [address]- 9059 Mar, [facility] [place] [facility] [address] [id number] [place] [address]- 2031 Mar, [facility] [place] [facility] [address] [id number] [place] [address]- 2043 Feb, [facility] [place] [facility] [address] [id number] [place] [address]- 4507 Feb, [facility] [place] [facility] [address] [id number], [place] [address]- 8306 15 Feb, 2011 [facility] [place] [facility] [address] [id number] [place] [address]- 3461 Feb, [facility] [place] [facility] [address] [id number] [place] [address]- 1090 08 Feb, 2011 [facility] [place] [facility] [address] [id number] [place] [address]- 2546 Feb, [facility] [place] [facility] [address], [place] [address] 2546 Feb, [facility] [id number], [place] [address]- 0123 10 Jan, 2011 [facility] [address], [place] [address]- 3506 10 Jan, 2011 [facility] [address], [place] [address]- 9783 16 Dec, 2010 [facility] [id number], [place] [address]- 2546 Nov, [facility] [address], [place] [address]- 9119 May, [facility] [address], [place] [address]- 5436 Apr, [facility] [address], [place] [address]- 2491 Feb, [facility] [address], [place] [address]- 7119 Jan, [facility] [address], [place] [address]- 9881 August, [facility] [address] [id number], [place] [address]- 2966 Mar, [facility] [address] [id number], [place] [address]- 9046 Jan, [facility] [address] [id number], [place] [address]- 4906 Oct, IMMUNIZATIONS No Known Immunizations SOCIAL HISTORY Never Assessed REASON FOR VISIT Delusional Parasitosis - SAMIRA Rodriguez PLAN OF CARE Activity Details Follow Up 6 Weeks Reason: VITAL SIGNS Height 66 in 2017-12-19 Weight 141.1 lbs 2017-12-19 Temperature 98.8 degrees Fahrenheit 2017-12-19 Heart Rate 92 bpm 2017-12-19 Respiratory Rate 18 2017-12-19 BMI 22.77 kg/m2 2017-12-19 Blood pressure systolic 118 mmHg 2017-12-19 Blood pressure diastolic 88 mmHg 2017-12-19 MEDICATIONS Medication Instructions Dosage Frequency Start Date End Date Duration Status HydrOXYzine HCl 10 mg Orally 3 times a day 1 tablet 8h Active Albendazole 200 mg Orally today and tomorrow; repeat in 2 weeks 2 tablets Nov, Dec, 14 days Active Hibiclens 4 % Externally use sparingly x 10 days 1 pump Nov, Active Seroquel 400 MG Orally Once a day 1 tablet 24h Active Flonase 50 MCG/DOSE Nasally Once a day 1 spray in each nostril 24h Nov, 30 day(s) Active Zyrtec Allergy 10 mg Orally Once a day 1 tablet 24h Nov, Jan, 30 day(s) Active Albenza 200 mg Orally today and tomrorrow, then repeat in 2 weeks 2 tablets Nov, Dec, 14 days Active Flonase 50 MCG/ACT Nasally Once a day 1 spray in each nostril 24h Oct, 30 day(s) Active RESULTS No Results PROCEDURES No Known [...] arm and artery repair Hospitalization History [facility] for suicidal idiations. surgery on left arm.
--- OUTSIDE RECORDS SUMMARY | 2018-02-03 18:00 | XMS REPORT ---
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 [facility] [place] [facility] [address] [id number] [place] [address]- 6515 Feb, [facility] [place] [facility] [address] [id number] [place] [address]- 1717 Feb, [facility] [place] [facility] [address] [id number] [place] [address]- 8733 Jan, [facility] [place] [facility] [address] [id number] [place] [address]- 3449 Jan, [facility] [place] [facility] [address] [id number] [place] [address]- 7118 Jan, [facility] [place] [facility] [address] [id number] [place] [address]- 6372 Jan, [facility] [place] [facility] [address] [id number] [place] [address]- 7106 Dec, [facility] [place] [facility] [address] [id number] [place] [address]- 7886 17 Dec, 2011 [facility] [place] [facility] [address] [id number] [place] [address]- 0443 Dec, [facility] [place] [facility] [address] [id number] [place] [address]- 4927 Nov, [facility] [place] [facility] [address] [id number] [place] [address]- 4220 Nov, [facility] [place] [facility] [address] [id number] [place] [address]- 5924 Nov, [facility] [place] [facility] [address] [id number] [place] [address]- 0791 Nov, [facility] [place] [facility] [address] [id number] [place] [address]- 2531 Oct, [facility] [place] [facility] [address] [id number] [place] [address]- 8440 Oct, [facility] [address] [id number] [place] [address]- 0846 Oct, [facility] [place] [facility] [address] [id number] [place] [address]- 8856 Oct, [facility] [place] [facility] [address] [id number] [place] [address]- 4006 Oct, [facility] [place] [facility] [address] [id number] [place] [address]- 6576 Oct, [facility] [place] [facility] [address] [id number] [place] [address]- 0409 Oct, [facility] [place] [facility] [address] [id number] [place] [address]- 1267 Oct, [facility] [address] [id number] [place] [address]- 3857 Oct, [facility] [place] [facility] [address] [id number] [place] [address]- 9754 Sep, [facility] [place] [facility] [address] [id number] [place] [address]- 3965 Sep, [facility] [place] [facility] [address] [id number] [place] [address]- 5940 August, [facility] [place] [facility] [address] [id number] [place] [address]- 4945 August, [facility] [place] [facility] [address] [id number] [place] [address]- 4498 August, [facility] [place] [facility] [address] [id number] [place] [address]- 8987 August, [facility] [place] [facility] [address] [id number] [place] [address]- 7276 August, [facility] [place] [facility] [address] [id number] [place] [address]- 4681 August, [facility] [place] [facility] [address] [id number] [place] [address]- 9049 30 Jul, 2011 [facility] [place] [facility] [address] [id number] [place] [address]- 3377 Jul, [facility] [place] [facility] [address] [id number] [place] [address]- 7162 Jul, [facility] [place] [facility] [address] [id number] [place] [address]- 6356 24 Jul, 2011 [facility] [place] [facility] [address] [id number] [place] [address]- 4150 Jul, [facility] [place] [facility] [address] [id number] [place] [address]- 8293 16 Jul, 2011 [facility] [place] [facility] [address] [id number] [place] [address]- 7329 Jul, [facility] [place] [facility] [address] [id number] [place] [address]- 7979 Jul, [facility] [place] [facility] [address] [id number] [place] [address]- 8674 Jun, [facility] [place] [facility] [address] [id number] [place] [address]- 1967 Jun, [facility] [place] [facility] [address] [id number] [place] [address]- 3207 Jun, [facility] [place] [facility] [address] [id number] [place] [address]- 7897 May, [facility] [place] [facility] [address] [id number] [place] [address]- 6040 May, [facility] [place] [facility] [address] [id number] [place] [address]- 3560 15 May, 2011 [facility] [place] [facility] [address] [id number] [place] [address]- 5051 08 May, 2011 [facility] [place] [facility] [address] [id number] [place] [address]- 5256 May, [facility] [address] [id number] [place] [address]- 2887 Apr, [facility] [place] [facility] [address] [id number] [place] [address]- 9205 Apr, [facility] [address] [facility] [id number] [place] [address]- 1935 Apr, [facility] [place] [facility] [address] [id number] [place] [address]- 7049 Apr, [facility] [address] [id number] [place] [address], [place] [address]- 7927 Mar, [facility] [place] [facility] [address] [id number] [place] [address]- 5445 Mar, [facility] [address] [id number] [place] [address]- 7786 Mar, [facility] [place] [facility] [address] [id number] [place] [address]- 4604 Mar, [facility] [address] [id number] [place] [address]- 5017 Feb, [facility] [place] [facility] [address] [facility] [id number] [place] [address]- 3655 Feb, [facility] [address] [id number] [place] [address]- 5293 15 Feb, 2011 [facility] [place] [facility] [address] [id number] [place] [address]- 5411 Feb, [facility] [place] [facility] [address] [id number] [place] [address]- 7658 Feb, [facility] [place] [facility] [address] [facility] [id number] [place] [address]- 2050 Feb, [facility] [place] [facility] [address] [facility] [id number] [place] [address]- 5110 Feb, [facility] [place] [facility] [id number] [address]- 2546 10 Jan, 2011 [facility] [id number] [address]- 2206 10 Jan, 2011 [facility] [address] [facility] [id number] [place] [address]- 2546 16 Dec, 2010 [facility] [id number] [address]- 2546 Nov, [facility] [address] [facility] [id number] [place] [address]- 2546 May, [facility] [id number] [address]- 2546 Apr, [facility] [id number] [address]- 2546 Feb, [facility] [id number] [address]- 2606 Jan, [facility] [id number] [address]- 0256 August, [facility] [id number] [address]- 2566 Mar, [facility] [address] [id number] [address]- 3486 Jan, [facility] [address] [id number] [address]- 2546 Oct, IMMUNIZATIONS No Known Immunizations SOCIAL HISTORY Never Assessed REASON FOR VISIT 1 mo f/u DM Ed PLAN OF CARE VITAL SIGNS MEDICATIONS No [...] arm and artery repair Hospitalization History [facility] for suicidal idiations. surgery on left arm.
[2018-02-03] MEDS ORDERED: LORazepam INJ 2 MG/ML (ATIVAN) VIAL ONE (18:01)
--- OUTSIDE RECORDS SUMMARY | 2018-02-03 18:01 | XMS REPORT ---
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 [facility] [address] [id number] [place] [address]- 5288 Feb, [facility] [place] [facility] [address] [id number] [place] [address]- 3487 Feb, [facility] [place] [facility] [address] [id number] [place] [address]- 4808 Jan, [facility] [place] [facility] [address] [id number] [place] [address]- 9253 Jan, [facility] [place] [facility] [address] [id number] [place] [address]- 4533 Jan, [facility] [place] [facility] [address] [id number] [place] [address]- 9819 Jan, [facility] [place] [facility] [address] [id number] [place] [address]- 4370 Dec, [facility] [place] [facility] [address] [id number] [place] [address]- 8648 17 Dec, 2011 [facility] [place] [facility] [address] [id number] [place] [address]- 0605 Dec, [facility] [place] [facility] [address] [id number], [place] [address]- 9454 Nov, [facility] [place] [facility] [address] [id number], [place] [address]- 5341 Nov, [facility] [place] [facility] [address] [id number] [place] [address]- 1144 Nov, [facility] [place] [facility] [address] [id number], [place] [address]- 6326 Nov, [facility] [place] [facility] [address] [id number] [place] [address]- 0928 Oct, [facility] [place] [facility] [address] [id number] [place] [address]- 8100 Oct, [facility] [address] [id number] [place] [address]- 1426 Oct, [facility] [place] [facility] [address] [id number] [place] [address]- 8526 Oct, [facility] [place] [facility] [address] [id number] [place] [address]- 3596 Oct, [facility] [place] [facility] [address] [id number] [place] [address]- 5516 Oct, [facility] [place] [facility] [address] [id number] [place] [address]- 4608 Oct, [facility] [place] [facility] [address] [id number] [place] [address]- 1732 Oct, [facility] [address] [id number] [place] [address]- 3610 Oct, [facility] [place] [facility] [address] [id number] [place] [address]- 0171 Sep, [facility] [place] [facility] [address] [id number] [place] [address]- 2449 Sep, [facility] [place] [facility] [address] [id number] [place] [address]- 4571 August, [facility] [place] [facility] [address] [id number] [place] [address]- 6166 August, [facility] [place] [facility] [address] [id number] [place] [address]- 9918 August, [facility] [place] [facility] [address] [id number] [place] [address]- 8350 August, [facility] [place] [facility] [address] [id number] [place] [address]- 6236 August, [facility] [place] [facility] [address] [id number] [place] [address]- 7708 August, [facility] [place] [facility] [address] [id number] [place] [address]- 9354 30 Jul, 2011 [facility] [place] [facility] [address] [id number] [place] [address]- 3461 Jul, [facility] [place] [facility] [address] [id number] [place] [address]- 6796 Jul, [facility] [place] [facility] [address] [id number] [place] [address]- 3575 24 Jul, 2011 [facility] [place] [facility] [address] [id number] [place] [address]- 9301 Jul, [facility] [place] [facility] [address] [id number] [place] [address]- 1759 16 Jul, 2011 [facility] [place] [facility] [address] [id number] [place] [address]- 0037 Jul, [facility] [place] [facility] [address] [id number] [place] [address]- 4711 Jul, [facility] [place] [facility] [address] [id number] [place] [address]- 5711 Jun, [facility] [place] [facility] [address] [id number] [place] [address]- 8027 Jun, [facility] [place] [facility] [address] [id number] [place] [address]- 1008 Jun, [facility] [place] [facility] [address] [id number] [place] [address]- 1061 May, [facility] [place] [facility] [address] [id number] [place] [address]- 1957 May, [facility] [place] [facility] [address] [id number] [place] [address]- 3475 15 May, 2011 [facility] [place] [facility] [address] [id number] [place] [address]- 9751 08 May, 2011 [facility] [place] [facility] [address] [id number], [place] [address]- 7017 May, [facility] [address] [id number] [place] [address]- 6310 Apr, [facility] [place] [facility] [address] [id number] [place] [address]- 4006 Apr, [facility] [address] [facility] [id number] [place] [address]- 3944 Apr, [facility] [place] [facility] [address] [id number] [place] [address]- 8216 Apr, [facility] [address] [id number] [place] [address], [place] [address]- 7162 Mar, [facility] [place] [facility] [address] [id number] [place] [address]- 6761 Mar, [facility] [address] [id number] [address]- 1335 Mar, [facility] [place] [facility] [address] [id number] [place] [address]- 4007 Mar, [facility] [address] [id number] [place] [address]- 2663 Feb, [facility] [place] [facility] [address] [facility] [id number] [place] [address]- 9865 Feb, [facility] [address] [id number], [place] [address]- 6563 15 Feb, 2011 [facility] [place] [facility] [address] [id number], [place] [address]- 5538 Feb, [facility] [place] [facility] [address] [id number] [place] [address]- 8740 Feb, [facility] [place] [facility] [address] [facility] [id number], [place] [address]- 5233 Feb, [facility] [place] [facility] [address] [facility] [id number], [place] [address]- [address] Feb, [facility] [place] [facility] [id number], [place] [address]- 2546 10 Jan, 2011 [facility] [address] [id number], [place] [address] 2546 10 Jan, 2011 [facility] [address] [facility] [id number], [place] [address]- 2546 16 Dec, 2010 [facility] [id number], [place] [address]- 2546 Nov, [facility] [address] [facility] [id number], [place] [address]- 2546 15 May, 2010 [facility] [id number], [place] [address]- 2546 Apr, [facility] [id number], [place] [address]- 2546 Feb, [facility] [id number], [place] [address]- 2546 Jan, [facility] [id number], [place] [address]- 2546 August, [facility] [id number], [place] [address]- 2546 Mar, [facility] [address] [id number], [place] [address]- 2546 Jan, [facility] [address] [id number], [place] [address]- 2546 Oct, IMMUNIZATIONS No Known Immunizations SOCIAL HISTORY Never Assessed REASON FOR VISIT med order PLAN OF CARE VITAL SIGNS MEDICATIONS No [...] arm and artery repair Hospitalization History [facility] for suicidal idiations. surgery on left arm.
--- OUTSIDE RECORDS SUMMARY | 2018-02-03 18:02 | XMS REPORT ---
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 [facility] [address] [id number] [place] [address]- 2994 Feb, [facility] [place] [facility] [address] [id number] [place] [address]- 9425 Jan, [facility] [place] [facility] [address] [id number] [place] [address]- 9795 Jan, [facility] [place] [facility] [address] [id number] [place] [address]- 8654 Jan, [facility] [place] [facility] [address] [id number] [place] [address]- 2502 Jan, [facility] [place] [facility] [address] [id number] [place] [address]- 9918 Dec, [facility] [place] [facility] [address] [id number] [place] [address]- 6442 17 Dec, 2011 [facility] [place] [facility] [address] [id number] [place] [address]- 6791 Dec, [facility] [place] [facility] [address] [id number], [place] [address]- 7588 Nov, [facility] [place] [facility] [address] [id number], [place] [address]- 6617 Nov, [facility] [place] [facility] [address] [id number] [place] [address]- 0283 Nov, [facility] [place] [facility] [address] [id number], [place] [address]- 0619 Nov, [facility] [place] [facility] [address] [id number] [place] [address]- 6812 Oct, [facility] [place] [facility] [address] [id number] [place] [address]- 1841 Oct, [facility] [address] [id number] [place] [address]- 3436 Oct, [facility] [place] [facility] [address] [id number] [place] [address]- 2056 Oct, [facility] [place] [facility] [address] [id number] [place] [address]- 8156 Oct, [facility] [place] [facility] [address] [id number] [place] [address]- 4656 Oct, [facility] [place] [facility] [address] [id number] [place] [address]- 5508 Oct, [facility] [place] [facility] [address] [id number] [place] [address]- 4431 Oct, [facility] [address] [id number] [place] [address]- 0531 Oct, [facility] [place] [facility] [address] [id number] [place] [address]- 0598 Sep, [facility] [place] [facility] [address] [id number] [place] [address]- 1124 Sep, [facility] [place] [facility] [address] [id number] [place] [address]- 9683 August, [facility] [place] [facility] [address] [id number] [place] [address]- 6487 August, [facility] [place] [facility] [address] [id number] [place] [address]- 9766 August, [facility] [place] [facility] [address] [id number] [place] [address]- 5774 August, [facility] [place] [facility] [address] [id number] [place] [address]- 5346 August, [facility] [place] [facility] [address] [id number] [place] [address]- 1306 August, [facility] [place] [facility] [address] [id number] [place] [address]- 0647 30 Jul, 2011 [facility] [place] [facility] [address] [id number] [place] [address]- 7919 Jul, [facility] [place] [facility] [address] [id number] [place] [address]- 8108 Jul, [facility] [place] [facility] [address] [id number] [place] [address]- 9604 24 Jul, 2011 [facility] [place] [facility] [address] [id number] [place] [address]- 9329 Jul, [facility] [place] [facility] [address] [id number] [place] [address]- 8515 16 Jul, 2011 [facility] [place] [facility] [address] [id number] [place] [address]- 1544 Jul, [facility] [place] [facility] [address] [id number] [place] [address]- 2998 Jul, [facility] [place] [facility] [address] [id number] [place] [address]- 0488 Jun, [facility] [place] [facility] [address] [id number] [place] [address]- 3584 Jun, [facility] [place] [facility] [address] [id number] [place] [address]- 1409 Jun, [facility] [place] [facility] [address] [id number] [place] [address]- 3307 May, [facility] [place] [facility] [address] [id number] [place] [address]- 1942 May, [facility] [place] [facility] [address] [id number] [place] [address]- 9615 15 May, 2011 [facility] [place] [facility] [address] [id number] [place] [address]- 7671 08 May, 2011 [facility] [place] [facility] [address] [id number], [place] [address]- 1896 May, [facility] [address] [id number] [place] [address]- 7847 Apr, [facility] [place] [facility] [address] [id number] [place] [address]- 5338 Apr, [facility] [address] [facility] [id number] [place] [address]- 5517 Apr, [facility] [place] [facility] [address] [id number] [place] [address]- 3293 Apr, [facility] [id number] [place] [address], [place] [address]- 9093 Mar, [facility] [place] [facility] [address] [id number] [place] [address]- 9763 Mar, [facility] [address] [id number] [address]- 0910 Mar, [facility] [place] [facility] [address] [id number] [place] [address]- 2678 Mar, [facility] [address] [id number] [address]- 1408 Feb, [facility] [place] [facility] [address] [facility] [id number] [place] [address]- 4085 Feb, [facility] [address] [id number], [place] [address]- 4711 15 Feb, 2011 [facility] [place] [facility] [address] [id number], [place] [address]- 2141 Feb, [facility] [place] [facility] [address] [id number] [place] [address]- 8455 Feb, [facility] [place] [facility] [address] [facility] [id number], [place] [address]- 9203 Feb, [facility] [place] [facility] [address] [facility] [id number], [place] [address]- 5565 Feb, [facility] [place] [facility] [id number], [place] [address]- 2546 10 Jan, 2011 [facility] [address] [id number], [place] [address] 2546 10 Jan, 2011 [facility] [address] [facility] [id number], [place] [address]- 2546 16 Dec, 2010 [facility] [id number], [place] [address]- 2546 Nov, [facility] [address] [facility] [id number], [place] [address]- 2546 15 May, 2010 [facility] [id number], [place] [address]- 2546 Apr, [facility] [id number], [place] [address]- 2546 Feb, [facility] [id number], [place] [address]- 2546 Jan, [facility] [id number], [place] [address]- 2546 August, [facility] [id number], [place] [address]- 2546 Mar, [facility] [address] [id number], [place] [address]- 2546 Jan, [facility] [address] [id number], [place] [address]- 2546 Oct, IMMUNIZATIONS No Known Immunizations SOCIAL HISTORY Never Assessed REASON FOR VISIT refill PLAN OF CARE VITAL SIGNS MEDICATIONS No [...] arm and artery repair Hospitalization History [facility] for suicidal idiations. surgery on left arm.
--- OUTSIDE RECORDS SUMMARY | 2018-02-03 18:03 | XMS REPORT ---
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 [id number] [place] [address]- 4516 Jul, [facility] [address] [id number] [place] [address]- 2666 24 Jul, 2011 [facility] [address] [id number] [place] [address]- 4876 24 Jul, 2011 [facility] [address] [id number] [place] [address]- 9252 Jul, [facility] [address] [id number] [place] [address]- 8883 16 Jul, 2011 [facility] [address] [id number] [place] [address]- 6075 Jul, [facility] [address] [id number] [place] [address]- 7078 Jul, [facility] [address] [id number] [place] [address]- 7306 Jun, [facility] [address] [id number] [place] [address]- 1571 Jun, [facility] [address] [facility] [id number] [place] [address]- 6833 Jun, [facility] [place] [address] [id number] [place] [address]- 7781 May, [facility] [address] [id number] [place] [address]- 9033 May, [facility] [place] [facility] [address] [id number] [place] [address]77 15 May, 2011 [facility] [place] [facility] [address] [id number] [place] [address]- 3976 08 May, 2011 [facility] [place] [facility] [address] [facility] [id number] [place] [address]- 0081 May, [facility] [address] [id number] [place] [address]- 7962 Apr, [facility] [address] [id number] [place] [address]- 8518 Apr, [facility] [facility] [address] [id number] [place] [address]- 2436 Apr, [facility] [place] [facility] [address] [id number] [place] [address]- 0958 Apr, [facility] [facility] [address] [id number] [place] [address]- 7851 Mar, [facility] [place] [address] [id number] [place] [address]- 6781 Mar, [facility] [place] [facility] [address] [id number] [place] [address]- 7029 Mar, [facility] [address] [id number] [place] [address]- 0096 Mar, [facility] [address] [id number] [place] [address]- 3381 Feb, [facility] [facility] [address] [id number] [place] [address]- 7511 Feb, [facility] [facility] [address] [id number] [place] [address]- 7535 Feb, [facility] [address] [id number] [address]- 6803 Feb, [facility] [place] [facility] [address] [id number] [place] [address]- 5494 Feb, [facility] [facility] [address] [id number] [place] [address]- 1540 Feb, [facility] [facility] [address] [id number] [place] [address]- 2386 Feb, [facility] [place] [facility] [id number] [address]- 2546 10 Jan, 2011 [facility] [id number] [address]- 2546 10 Jan, 2011 [facility] [address] [id number] [address]- 2546 16 Dec, 2010 [facility] [id number] [address]- 2546 Nov, [facility] [id number] [address]- 2546 15 May, 2010 [facility] [id number] [address]- 2546 Apr, [facility] [id number] [address]- 2546 Feb, [facility] [id number] [address]- 2546 Jan, [facility] [id number] [address]- 2546 August, [facility] [id number] [address]- 2546 Mar, [facility] [address] [id number] [address]- 2546 Jan, [facility] [address] [id number] [address]- 2546 Oct, IMMUNIZATIONS No Known Immunizations SOCIAL HISTORY Never Assessed REASON FOR VISIT FY PLAN OF CARE VITAL SIGNS MEDICATIONS Unknown Medications RESULTS No Results PROCEDURES No Known [...] arm and artery repair Hospitalization History [facility] for suicidal idiations. surgery on left arm.
--- OUTSIDE RECORDS SUMMARY | 2018-02-03 18:03 | XMS REPORT ---
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 [facility] [place] [facility] [address] [id number] [place] [address]- 0883 Nov, [facility] [place] [facility] [address] [id number] [place] [address]- 6236 Nov, [facility] [place] [facility] [address] [id number] [place] [address]- 2989 Nov, [facility] [place] [facility] [address] [id number] [place] [address]- 4343 Nov, [facility] [place] [facility] [address] [id number] [place] [address]- 8154 Oct, [facility] [place] [facility] [address] [id number] [place] [address]- 8605 Oct, [facility] [place] [facility] [address] [id number] [place] [address]- 1868 Oct, [facility] [place] [facility] [address] [id number] [place] [address]- 6716 Oct, [facility] [place] [facility] [address] [id number] [place] [address]- 0309 Oct, [facility] [place] [facility] [address] [id number] [place] [address]- 2076 Oct, [facility] [place] [facility] [address] [id number] [place] [address]- 9157 Oct, [facility] [place] [facility] [address] [id number] [place] [address]- 3011 Oct, [facility] [place] [facility] [address] [id number] [place] [address]- 8907 Oct, [facility] [place] [facility] [address] [id number] [place] [address]- 8447 Sep, [facility] [place] [facility] [address] [id number] [place] [address]- 0422 Sep, [facility] [place] [facility] [address] [id number] [place] [address]- 1803 August, [facility] [place] [facility] [address] [id number] [place] [address]- 2797 August, [facility] [place] [facility] [address] [id number] [place] [address]- 2369 August, [facility] [place] [facility] [address] [id number] [place] [address]- 5726 August, [facility] [place] [facility] [address] [id number] [place] [address]- 2654 August, [facility] [place] [facility] [address] [id number] [address]- 5336 August, [facility] [address] [id number] [place] [address]- 4698 30 Jul, 2011 [facility] [place] [facility] [address] [id number] [place] [address]- 4744 Jul, [facility] [address] [id number] [place] [address]- 1867 Jul, [facility] [place] [facility] [address] [id number] [place] [address]- 4721 Jul, [facility] [address] [id number] [place] [address]- 3391 Jul, [facility] [place] [facility] [address] [id number] [place] [address]- 8231 16 Jul, 2011 [facility] [address] [id number] [place] [address]- 7696 Jul, [facility] [place] [facility] [address] [id number] [place] [address]- 7062 Jul, [facility] [address] [id number] [place] [address]- 4676 Jun, [facility] [place] [facility] [address] [id number] [place] [address]- 7894 Jun, [facility] [place] [facility] [address] [id number] [place] [address]- 6359 Jun, [facility] [place] [facility] [address] [id number] [place] [address]- 2540 May, [facility] [place] [facility] [address] [id number] [place] [address]- 9359 May, [facility] [place] [facility] [address] [id number] [place] [address]- 3312 15 May, 2011 [facility] [place] [facility] [address] [facility] [id number] [place] [address]- 4752 08 May, 2011 [facility] [place] [facility] [address] [id number] [place] [address]- 7581 May, [facility] [place] [facility] [address] [id number] [place] [address]- 2571 Apr, [facility] [place] [facility] [address] [id number] [place] [address]- 2635 Apr, [facility] [place] [facility] [address] [id number] [place] [address]- 9033 Apr, [facility] [place] [facility] [address] [id number] [place] [address]- 6957 Apr, [facility] [place] [facility] [address] [id number] [place] [address]- 7777 Mar, [facility] [place] [facility] [address] [id number] [place] [address]- 9982 Mar, [facility] [place] [facility] [address] [id number] [place] [address]- 7322 Mar, [facility] [place] [facility] [address] [id number] [place] [address]- 2646 Mar, [facility] [place] [facility] [address] [id number] [place] [address]- 2464 Feb, [facility] [place] [facility] [address] [id number] [place] [address]- 4514 Feb, [facility] [place] [facility] [address] [id number] [place] [address]- 1722 Feb, [facility] [place] [facility] [address] [id number] [place] [address]- 6541 Feb, [facility] [place] [facility] [address] [id number] [place] [address]- 3149 Feb, [facility] [place] [facility] [address] [id number] [place] [address]- 9465 Feb, [facility] [place] [facility] [address] [id number], [place] [address] 4136 Feb, [facility] [address] [id number] [address]- 2546 Jan, [facility] [id number], [place] [address]- 2546 Jan, [facility] [id number], [place] [address]- 2546 16 Dec, 2010 [facility] [id number], [place] [address]- 2546 Nov, [facility] [id number], [place] [address]- 2546 May, [facility] [id number], [place] [address]- 2546 Apr, [facility] [id number], [place] [address]- 2546 Feb, [facility] [address], [place] [address]- 2546 Jan, [facility] [id number], [place] [address]- 2546 August, [facility] [id number], [place] [address]- 2546 Mar, [facility] [address] [id number], [place] [address]- 2546 Jan, [facility] [address], [place] [address]- 2546 Oct, IMMUNIZATIONS No Known Immunizations SOCIAL HISTORY Never Assessed REASON FOR VISIT Delusional Parasitosis, Pt states, "I have lepracy.There are scars on her body, it is eating her jaw bone, starting to deform my face and my pinky." Reports sweating and tired all the time. Reports she contracted this from thorns in her shoes and she stepped where the armadillo's pooped and it went into her feet first. CBrumbackRN PLAN OF CARE Activity Details Follow Up 3 Weeks Reason:skin condition VITAL SIGNS Height 66 in 2017-12-11 Weight 138.2 lbs 2017-12-11 Temperature 98.2 degrees Fahrenheit 2017-12-11 Heart Rate 76 bpm 2017-12-11 Respiratory Rate 18 2017-12-11 BMI 22.30 kg/m2 2017-12-11 Blood pressure systolic 100 mmHg 2017-12-11 Blood pressure diastolic 76 mmHg 2017-12-11 MEDICATIONS Medication Instructions Dosage Frequency Start Date End Date Duration Status Flonase 50 MCG/ACT Nasally Once a day 1 spray in each nostril 24h Oct, 30 day(s) Active Seroquel 400 MG Orally Once a day 1 tablet 24h Active HydrOXYzine HCl 10 mg Orally 3 times a day 1 tablet 8h Active RESULTS No Results PROCEDURES Procedure Date Ordered Result Body Site URINALYSIS, AUTO, W/O SCOPE Dec 11, 2017 INSTRUCTIONS MEDICATIONS ADMINISTERED No Known Medications MEDICAL (GENERAL) HISTORY Type Description Date Medical History depression Medical History hx of ulcers Medical History right ovarian cysts-recurring Medical History mood swings Medical History bipolar disorder Medical History drug abuse Surgical History orthopedic surgery-carpal tunnel 05/2011 Surgical History tubal ligation Surgical History cholecystectomy Surgical History surgery on left arm and artery repair Hospitalization History [facility] for suicidal idiations. surgery on left arm.
--- OUTSIDE RECORDS SUMMARY | 2018-02-03 18:04 | XMS REPORT ---
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 [id number] [place] [address]- 7026 Oct, [facility] [place] [facility] [address] [id number] [place] [address]- 1269 Oct, [facility] [place] [facility] [address] [id number] [place] [address]- 6948 Oct, [facility] [place] [facility] [address] [id number] [place] [address]- 6450 Oct, [facility] [place] [facility] [address] [id number] [place] [address]- 2201 Oct, [facility] [place] [facility] [address] [id number] [place] [address]- 0786 Oct, [facility] [place] [facility] [address] [id number] [place] [address]- 0271 Oct, [facility] [place] [facility] [address] [id number] [place] [address]- 7750 Sep, [facility] [place] [facility] [address] [id number] [place] [address]- 1707 Sep, [facility] [place] [facility] [address] [id number] [place] [address]- 9644 August, [facility] [place] [facility] [address] [id number] [place] [address]- 5679 August, [facility] [place] [facility] [address] [id number] [place] [address]- 7279 August, [facility] [place] [facility] [address] [id number] [place] [address]- 7905 August, [facility] [place] [facility] [address] [id number] [place] [address]- 2217 August, [facility] [place] [facility] [address] [id number] [place] [address]- 9480 August, [facility] [place] [facility] [address] [id number] [place] [address]- 5058 30 Jul, 2011 [facility] [place] [facility] [address] [id number] [place] [address]- 9339 Jul, [facility] [place] [facility] [address] [id number] [place] [address]- 0012 Jul, [facility] [place] [facility] [address] [id number] [place] [address]- 0978 24 Jul, 2011 [facility] [place] [facility] [address] [id number] [place] [address]- 1721 Jul, [facility] [place] [facility] [address] [id number] [place] [address]- 6753 16 Jul, 2011 [facility] [place] [facility] [address] [id number] [place] [address]- 2173 Jul, [facility] [place] [facility] [address] [id number] [place] [address]- 8940 Jul, [facility] [place] [facility] [address] [id number] [place] [address]- 0095 Jun, [facility] [place] [facility] [address] [id number] [place] [address]- 8871 Jun, [facility] [place] [facility] [address] [facility] [id number] [place] [address]- 5257 Jun, [facility] [place] [facility] [address] [id number] [place] [address]- 9318 May, [facility] [place] [facility] [address] [id number] [place] [address]- 3244 May, [facility] [place] [facility] [address] [id number] [place] [address]- 5427 May, [facility] [place] [facility] [address] [id number] [place] [address]- 6185 May, [facility] [place] [facility] [address] [facility] [id number] [place] [address]- 4300 May, [facility] [address] [id number] [place] [address]- 3150 Apr, [facility] [place] [facility] [address] [id number] [place] [address]- 8119 Apr, [facility] [place] [facility] [address] [id number] [place] [address]- 8016 Apr, [facility] [place] [facility] [address] [id number] [place] [address]- 0393 Apr, [facility] [place] [facility] [address] [id number] [place] [address]- 5689 Mar, [facility] [place] [facility] [address] [id number] [place] [address]- 0032 Mar, [facility] [place] [facility] [address] [id number] [place] [address]- 8066 Mar, [facility] [place] [facility] [address] [id number] [place] [address]- 0725 Mar, [facility] [place] [facility] [address] [id number] [place] [address]- 9678 Feb, [facility] [place] [facility] [address] [id number], [place] [address]- 5169 Feb, [facility] [place] [facility] [address] [id number], [place] [address]- 7674 Feb, [facility] [place] [facility] [address] [id number], [place] [address]- 8792 Feb, [facility] [place] [facility] [address] [id number] [place] [address]- 5974 Feb, [facility] [place] [facility] [address] [id number], [place] [address]- 3037 Feb, [facility] [place] [facility] [address] [id number], [place] [address]- 3807 Feb, [facility] [place] [facility] [address] [id number], [place] [address]- 2546 10 Jan, 2011 [facility] [id number], [place] [address]- 2546 10 Jan, 2011 [facility] [id number], [place] [address]- 2546 16 Dec, 2010 [facility] [id number], [place] [address]- 2546 Nov, [facility] [id number], [place] [address]- 2546 15 May, 2010 [facility] [id number] [place] [address]- 2546 Apr, [facility] [address], [place] [address]- 2546 Feb, [facility] [address]65[address], [place] [address]- 6606 Jan, [facility] [id number], [place] [address]- 2546 August, [facility] [address], [place] [address]- 3236 Mar, [facility] [address], [place] [address]- 2546 Jan, [facility] [id number], [place] [address]- 6746 Oct, IMMUNIZATIONS No Known Immunizations SOCIAL HISTORY Never Assessed REASON FOR VISIT appt PLAN OF CARE VITAL SIGNS MEDICATIONS Unknown [...]
--- OUTSIDE RECORDS SUMMARY | 2018-02-03 18:05 | XMS REPORT ---
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 [address] [id number] [place] [address]- 7286 24 Jul, 2011 [facility] [address] [id number] [place] [address]- 3476 Jul, [facility] [address] [id number] [place] [address]- 3102 16 Jul, 2011 [facility] [address] [id number] [place] [address]- 1730 Jul, [facility] [address] [id number] [place] [address]- 2228 Jul, [facility] [address] [id number] [place] [address]- 7537 Jun, [facility] [address] [id number] [place] [address]- 4644 Jun, [facility] [address] [facility] [id number] [place] [address]- 8904 Jun, [facility] [place] [facility] [address] [id number] [place] [address]- 7622 May, [facility] [address] [id number] [place] [address]- 8144 May, [facility] [facility] [address] [id number] [place] 15 May, 2011 [facility] [facility] [address] [id number] [place] [address]- 3246 08 May, 2011 [facility] [address] [facility] [id number] [place] [address]- 4503 May, [facility] [place] [facility] [address] [id number] [place] [address]- 4770 Apr, [facility] [address] [id number] [place] [address]- 2512 Apr, [facility] [address] [id number] [place] [address]- 6135 Apr, [facility] [address] [id number] [place] [address]- 0873 Apr, [facility] [address] [id number] [place] [address]- 7943 Mar, [facility] [address] [id number] [place] [address]- 1608 Mar, [facility] [address] [id number] [place] [address]- 6991 Mar, [facility] [address] [id number] [place] [address]- 5774 Mar, [facility] [address] [id number] [place] [address]- 7068 Feb, [facility] [address] [id number] [place] [address]- 9729 Feb, [facility] [facility] [address] [id number] [place] [address]- 7484 Feb, [facility] [address] [id number], [place] [address]- 2309 Feb, [facility] [facility] [address] [id number] [place] [address]- 8566 Feb, [facility] [facility] [address] [id number], [place] [address]- 7901 Feb, [facility] [address] [id number] [place] [address]- 2645 Feb, [facility] [place] [facility] [address], [place] [address]- 4122 10 Jan, 2011 [facility] [address], [place] [address]- 0928 10 Jan, 2011 [facility] [address], [place] [address]- 2317 16 Dec, 2010 [facility] [address], [place] [address]- 6260 Nov, [facility] [address], [place] [address]- 6401 15 May, 2010 [facility] [id number] [place] [address]- 1721 Apr, [facility] [id number] [place] [address] 30[address]- 7335 Feb, [facility] [id number] [place] [address]- 7172 Jan, [facility] [address], [place] [address]- 5151 August, [facility] [address] 4743 Mar, [facility] [address], [place] [address] Jan, [facility] [address] [address] Oct, IMMUNIZATIONS No Known Immunizations SOCIAL HISTORY Never Assessed REASON FOR VISIT Lab (walk-in) PLAN OF CARE VITAL SIGNS MEDICATIONS Unknown Medications RESULTS No Results PROCEDURES Procedure Date Ordered Result Body Site LAB NOT BILLED BY [facility] Dec 12, 2017 IVONNE TODD* Dec 12, 2017 INSTRUCTIONS MEDICATIONS ADMINISTERED No Known Medications MEDICAL (GENERAL) HISTORY Type Description Date Medical History depression Medical History hx of ulcers Medical History right ovarian cysts-recurring Medical History mood swings Medical History bipolar disorder Medical History drug abuse Surgical History orthopedic surgery-carpal tunnel 05/2011 Surgical History tubal ligation Surgical History cholecystectomy Surgical History surgery on left arm and artery repair Hospitalization History [facility] for suicidal idiations. surgery on left arm.
--- OUTSIDE RECORDS SUMMARY | 2018-02-03 18:06 | XMS REPORT ---
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 [place] [address]- 6954 Oct, [facility] [place] [facility] [address] [id number] [place] [address]- 2546 Oct, [facility] [place] [facility] [address] [id number] [place] [address]- 9027 Oct, [facility] [place] [facility] [address] [id number] [place] [address]- 2546 Oct, [facility] [place] [facility] [address] [id number] [place] [address]- 7652 Oct, [facility] [address] [id number] [place] [address]- 9516 Oct, [facility] [place] [facility] [address] [id number] [place] [address]- 3663 Oct, [facility] [place] [facility] [address] [id number] [place] [address]- 8978 Sep, [facility] [place] [facility] [address] [id number] [place] [address]- 6738 Sep, [facility] [place] [facility] [address] [id number] [place] [address]- 1271 August, [facility] [place] [facility] [address] [id number] [place] [address]- 2913 August, [facility] [place] [facility] [address] [id number] [place] [address]- 9086 August, [facility] [place] [facility] [address] [id number] [place] [address]- 5491 August, [facility] [place] [facility] [address] [id number] [place] [address]- 2870 August, [facility] [place] [facility] [address] [id number] [place] [address]- 1847 August, [facility] [place] [facility] [address] [id number] [place] [address]- 6050 Jul, [facility] [place] [facility] [address] [id number] [place] [address]- 4362 Jul, [facility] [place] [facility] [address] [id number] [place] [address]- 7570 Jul, [facility] [place] [facility] [address] [id number] [place] [address]- 6218 Jul, [facility] [place] [facility] [address] [id number] [place] [address]- 4367 Jul, [facility] [place] [facility] [address] [id number] [place] [address]- 0258 16 Jul, 2011 [facility] [place] [facility] [address] [id number] [place] [address]- 4387 Jul, [facility] [place] [facility] [address] [id number] [place] [address]- 8786 Jul, [facility] [place] [facility] [address] [id number] [place] [address]- 5376 Jun, [facility] [place] [facility] [address] [id number] [place] [address]- 2500 Jun, [facility] [place] [facility] [address] [id number] [place] [address]- 0605 Jun, [facility] [place] [facility] [address] [id number] [place] [address]- 7866 May, [facility] [place] [facility] [address] [id number] [place] [address]- 7254 May, [facility] [place] [facility] [address] [id number] [place] [address]- 7396 15 May, 2011 [facility] [place] [facility] [address] [id number] [place] [address]- 1109 08 May, 2011 [facility] [place] [facility] [address] [id number] [place] [address]- 5178 May, [facility] [place] [facility] [address] [id number] [place] [address]- 0702 Apr, [facility] [place] [facility] [address] [id number] [place] [address]- 4463 Apr, [facility] [place] [facility] [address] [id number] [place] [address]- 8195 Apr, [facility] [place] [facility] [address] [facility] [id number] [place] [address]- 6406 Apr, [facility] [place] [facility] [address] [id number] [place] [address]- 8066 Mar, [facility] [place] [facility] [address] [id number] [place] [address]- 0949 23 Mar, 2011 [facility] [place] [facility] [address] [id number] [place] [address]- 4416 14 Mar, 2011 [facility] [place] [facility] [address] [id number] [place] [address] Mar, [facility] [place] [facility] [address] [id number] [place] [address]- 0482 Feb, [facility] [place] [facility] [address] [id number] [place] [address]- 5323 Feb, [facility] [place] [facility] [address] [id number] [place] [address]- 3582 Feb, [facility] [place] [facility] [address] [id number] [place] [address]- 2329 Feb, [facility] [place] [facility] [address] [id number] [place] [address]- 5081 Feb, [facility] [place] [facility] [address] [id number] [place] [address]- 2274 Feb, [facility] [place] [facility] [address] [id number] [place] [address]- 1094 Feb, [facility] [place] [facility] [address] [id number] [place] [address]- 0413 Jan, [facility] [place] [facility] [address] [id number] [place] [address]- 8872 Jan, [facility] [place] [facility] [address] [id number] [place] [address]- 1801 16 Dec, 2010 [facility] [place] [facility] [address] [id number] [place] [address] Nov, [facility] [place] [facility] [address] [id number] [place] [address] 15 May, 2010 [facility] [place] [facility] [address] [id number] [place] [address]- 2546 14 Apr, 2010 [facility] [address] [facility] [id number] [place] [address]- 2546 Feb, [facility] [address] [facility] [id number] [place] [address]- 2546 Jan, [facility] [address] [facility] [id number] [place] [address]- 2546 August, [facility] [address] [facility] [id number] [place] [address]- 2546 Mar, [facility] [address] [facility] [id number] [place] [address]- 2546 Jan, [facility] [address] [facility] [id number] [place] [address]- 2546 Oct, IMMUNIZATIONS No Known Immunizations SOCIAL HISTORY Never Assessed REASON FOR VISIT Prophy/JENNIFER PLAN OF CARE Activity Details Follow Up emily Reason:restore VITAL SIGNS Blood pressure systolic 124 mmHg 2017-11-10 Blood pressure diastolic 76 mmHg 2017-11-10 MEDICATIONS Medication Instructions Dosage Frequency Start Date End Date Duration Status Flonase 50 MCG/ACT Nasally Once a day 1 spray in each nostril 24h Oct, 30 day(s) Active Zyrtec Allergy 10 MG Orally Once a day 1 capsule 24h Oct, Nov, 30 day(s) Active RESULTS No Results PROCEDURES Procedure Date Ordered Result Body Site PERIODIC ORAL EXAMINATION November 10, 2017 INTRAORL-PERIAPICAL 1 FILM 27114 November 10, 2017 BITEWINGS - FOUR FILMS November 10, 2017 INTRAORL-PERIAPICAL EA ADD FILM November 10, 2017 INSTRUCTIONS MEDICATIONS ADMINISTERED No Known Medications MEDICAL (GENERAL) HISTORY Type Description Date Medical History depression Medical History hx of ulcers Medical History right ovarian cysts-recurring Medical History mood swings Medical History bipolar disorder Medical History drug abuse Surgical History orthopedic surgery-carpal tunnel 05/2011 Surgical History tubal ligation Surgical History cholecystectomy Surgical History surgery on left arm and artery repair Hospitalization History [facility] for suicidal idiations. surgery on left arm.
--- OUTSIDE RECORDS SUMMARY | 2018-02-03 18:07 | XMS REPORT ---
Author Author RITA WARD Organization [employer] Address Unknown Phone Unavailable Care Team Providers Care Adolescent Specialist Name Role Phone RITA WARD CP Unavailable Allergies No Known Allergies Problems Problem Type Condition Code Onset Dates Condition Status Problem Mood disorder F39 Active Problem Carpal tunnel syndrome, right upper limb G56.01 Active Problem Bipolar 1 disorder F31.9 Active Problem Ganglion of left wrist M67.432 Active Problem Psychotic episode F23 Active Medications Medication Code System Code Instructions Start Date End Date Status Dosage Promethazine HCl [facility] [address]-25 12.5 MG Orally every 6 hrs Mar 13, 2015 Apr 12, 2015 1 tablet as needed Results No Known Results Summary Purpose [employer] Submission
--- OUTSIDE RECORDS SUMMARY | 2018-02-03 18:07 | XMS REPORT ---
Author Author RITA WARD [facility] Address [address] [place] [address] Care Team Providers Care Family Manager Name Role Phone RITA WARD Unavailable PROBLEMS Type Condition ICD9-CM Code HDM92-NE Code Onset Dates Condition Status SNOMED Code Problem Anxiety F41.9 Active 92837000 Problem Hot flashes N95.1 Active 224444232 Problem Nipple discharge N64.52 Active 63731661 Problem Encounter for dental examination Z01.20 Active 630569626 Problem Carpal tunnel syndrome, right upper limb G56.01 Active 06229005 Problem Delusions of parasitosis F22 Active 853980931 Problem Mood disorder F39 Active 38542406 Problem Bipolar 1 disorder F31.9 Active 359745121 Problem Skin infection L08.9 Active 717586350 Problem Weight gain R63.5 Active 8826919 Problem High risk sexual behavior Z72.51 Active 517694042 Problem Vaginal discharge N89.8 Active 126611166 Problem Genital herpes simplex, unspecified site A60.00 Active 76270878 Problem History of dyspareunia in female Z87.42 Active 405894504 Problem Hx of migraines Z86.69 Active 070279750 Problem Routine screening for STI (sexually transmitted infection) Z11.3 Active 701155514 Problem BMI 25.0-25.9,adult Z68.25 Active 997422535 Problem Poor dentition K08.8 Active 901719548 Problem Psychotic episode F23 Active 04619570 Problem Depression, unspecified depression type F32.9 Active 76858989 Problem History of abnormal cervical Pap smear Z87.898 Active 895932430 Problem Ganglion of left wrist M67.432 Active 679926484 Problem History of self-harm Z91.5 Active 215754463 Problem History of ovarian cyst Z87.42 Active 155457100 ALLERGIES Substance Reaction Event Type Date Status Penicillin V Potassium Unknown Drug Allergy Jun, Active Latex Unknown Non Drug Allergy Jun, Active SOCIAL HISTORY Never Assessed PLAN OF CARE VITAL SIGNS Height 66 in 2016-07-01 Weight 145 lbs 2016-07-01 Temperature 98.0 degrees Fahrenheit 2016-07-01 Respiratory Rate 18 2016-07-01 BMI 23.40 kg/m2 2016-07-01 Blood pressure systolic 120 mmHg 2016-07-01 Blood pressure diastolic 70 mmHg 2016-07-01 MEDICATIONS Medication Instructions Dosage Frequency Start Date End Date Duration Status Neurontin 800 MG Orally Three times a day 1 tablet as needed for pain 8h 90 days Active Permethrin 5 % Externally Once a day 1 application to affected area 24h Apr, 7 day(s) Active Clonazepam 1 MG Orally 2 times a day 1 tablet 12h 28 days Active HydrOXYzine Pamoate 50 mg 1 capsule 8h Active Tramadol HCl 50 mg Orally 3 times a day 2 tablets 8h 28 days Active Albendazole 200 mg as directed Apr, 1 dose Active RESULTS Name Result Date Reference Range TSH 2016-07-01 TSH 2.360 0.450-4.500 CBC 2016-07-01 WBC 15.5 3.4-10.8 RBC 4.03 3.77-5.28 Hemoglobin 12.0 11.1-15.9 Hematocrit 37.5 34.0-46.6 MCV 93 79-97 MCH 29.8 26.6-33.0 MCHC 32.0 31.5-35.7 RDW 13.1 12.3-15.4 Platelets 570 150-379 Neutrophils 69 Lymphs 22 Monocytes 8 Eos 1 Basos 0 Neutrophils (Absolute) 10.8 1.4-7.0 Lymphs (Absolute) 3.4 0.7-3.1 Monocytes(Absolute) 1.2 0.1-0.9 Eos (Absolute) 0.1 0.0-0.4 Baso (Absolute) 0.0 0.0-0.2 Immature Granulocytes 0 Immature Grans (Abs) 0.0 0.0-0.1 CMP 2016-07-01 Glucose, Serum 85 65-99 BUN 15 6-24 Creatinine, Serum 0.91 0.57-1.00 eGFR If NonAfricn Am 79 >59 eGFR If Africn Am 91 >59 BUN/Creatinine Ratio 16 9-23 Sodium, Serum 137 134-144 Potassium, Serum 4.5 3.5-5.2 Chloride, Serum 95 96-106 Carbon Dioxide, Total 23 18-29 Calcium, Serum 9.2 8.7-10.2 Protein, Total, Serum 7.2 6.0-8.5 Albumin, Serum 4.9 3.5-5.5 Globulin, Total 2.3 1.5-4.5 A/G Ratio 2.1 1.1-2.5 Bilirubin, Total 0.4 0.0-1.2 Alkaline Phosphatase, S 83 39-117 AST (SGOT) 51 0-40 ALT (SGPT) 35 0-32 PROCEDURES Procedure Date Ordered Result Body Site ASSAY THYROID STIM HORMONE July 01, 2016 COMPREHEN METABOLIC PANEL July 01, 2016 COMPLETE CBC W/AUTO DIFF WBC July 01, 2016 VENIPUNCT, ROUTINE* July 01, 2016 IMMUNIZATIONS No Known Immunizations MEDICAL (GENERAL) HISTORY Type Description Date Medical History depression Medical History hx of ulcers Medical History right ovarian cysts-recurring Medical History mood swings Medical History bipolar disorder Medical History drug abuse Surgical History orthopedic surgery-carpal tunnel 05/2011 Surgical History tubal ligation Surgical History cholecystectomy Surgical History surgery on left arm and artery repair Hospitalization History [facility] for suicidal idiations. surgery on left arm.
--- OUTSIDE RECORDS SUMMARY | 2018-02-03 18:07 | XMS REPORT ---
Author RITA Cui Organization [employer] Address Unknown Phone Unavailable Care Team Providers Care Master Glazier Name Role Phone RITA WARD CP Unavailable Allergies No Known Allergies Problems Problem Type Condition Code Onset Dates Condition Status Problem Weight gain R63.5 Active Problem Routine screening for STI (sexually transmitted infection) Z11.3 Active Problem BMI 25.0-25.9,adult Z68.25 Active Problem Nipple discharge N64.52 Active Problem Hx of migraines Z86.69 Active Problem Poor dentition K08.8 Active Problem History of ovarian cyst Z87.42 Active Problem History of dyspareunia in female Z87.42 Active Problem Depression, unspecified depression type F32.9 Active Problem Anxiety F41.9 Active Problem Ganglion of left wrist M67.432 Active Problem Carpal tunnel syndrome, right upper limb G56.01 Active Problem Psychotic episode F23 Active Problem History of self-harm Z91.5 Active Problem History of abnormal cervical Pap smear Z87.898 Active Problem Mood disorder F39 Active Problem Hot flashes N95.1 Active Problem Bipolar 1 disorder F31.9 Active Problem Genital herpes simplex, unspecified site A60.00 Active Medications Medication Code System Code Instructions Start Date End Date Status Dosage Tramadol HCl [facility] [address]-11 50 mg Orally 3 times a day 2 tablets Results No Known Results Summary Purpose [employer] Submission
--- OUTSIDE RECORDS SUMMARY | 2018-02-03 18:07 | XMS REPORT ---
Author RITA Cui Organization [employer] Address Unknown Phone Unavailable Care Team Providers Care Dogman/Woman Name Role Phone RITA WARD CP Unavailable [...] herpes simplex, unspecified site A60.00 Active Medications No Known Medications Results No Known Results Summary Purpose [employer] Submission
--- OUTSIDE RECORDS SUMMARY | 2018-02-03 18:07 | XMS REPORT ---
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 [place] [facility] [address] [id number] [place] [address]- 5178 Oct, [facility] [place] [facility] [address] [id number] [place] [address]- 4321 Oct, [facility] [place] [facility] [address] [id number] [place] [address]- 6003 Sep, [facility] [place] [facility] [address] [id number] [place] [address]- 3853 Sep, [facility] [place] [facility] [address] [id number] [place] [address]- 4827 August, [facility] [place] [facility] [address] [id number] [place] [address]- 8396 August, [facility] [place] [facility] [address] [id number] [place] [address]- 5156 August, [facility] [place] [facility] [address] [id number] [place] [address]- 3185 August, [facility] [place] [facility] [address] [id number] [place] [address]- 3578 August, [facility] [place] [facility] [address] [id number] [place] [address]- 5551 August, [facility] [place] [facility] [address] [id number] [place] [address]- 4910 Jul, [facility] [place] [facility] [address] [id number] [place] [address]- 3963 Jul, [facility] [place] [facility] [address] [id number] [place] [address]- 4062 Jul, [facility] [place] [facility] [address] [id number] [place] [address]- 3667 Jul, [facility] [place] [facility] [address] [id number] [place] [address]- 0066 Jul, [facility] [place] [facility] [address] [id number] [place] [address]- 7337 Jul, [facility] [place] [facility] [address] [id number] [place] [address]- 7299 Jul, [facility] [place] [facility] [address] [id number] [place] [address]- 1058 Jul, [facility] [place] [facility] [address] [id number] [place] [address] Jun, [facility] [place] [facility] [address] [id number] [place] [address]- 6739 Jun, [facility] [address] [id number] [place] [address]- 1398 Jun, [facility] [place] [facility] [address] [id number] [place] [address]- 8796 May, [facility] [place] [facility] [address] [facility] [id number] [place] [address]- 9276 May, [facility] [place] [facility] [address] [id number] [place] [address]- 0603 May, [facility] [place] [facility] [address] [id number] [place] [address]- 7156 May, [facility] [place] [facility] [address] [id number] [place] [address]- 6926 May, [facility] [address] [id number] [place] [address]- 1158 Apr, [facility] [place] [facility] [address] [id number] [place] [address]- 1563 Apr, [facility] [place] [facility] [address] [id number] [place] [address]- 9119 Apr, [facility] [place] [facility] [address] [facility] [id number] [place] [address]- 0540 Apr, [facility] [place] [facility] [address] [id number] [place] [address]- 2934 Mar, [facility] [place] [facility] [address] [id number] [place] [address]- 2866 Mar, [facility] [place] [facility] [address] [id number] [place] [address]- 5356 14 Mar, 2011 [facility] [place] [facility] [address] [facility] [id number] [place] [address]- 4216 07 Mar, 2011 [facility] [place] [facility] [address] [facility] [id number] [place] [address]- 8996 30 Feb, 2011 [facility] [place] [facility] [address] [id number] [place] [address]- 5077 22 Feb, 2011 [facility] [place] [facility] [address] [id number] [place] [address]- 4443 15 Feb, 2011 [facility] [place] [facility] [address] [id number] [place] [address]- 0939 Feb, [facility] [place] [facility] [address] [id number] [place] [address]- 6620 08 Feb, 2011 [facility] [place] [facility] [address] [id number] [place] [address]- 2477 Feb, [facility] [place] [facility] [address] [id number] [place] [address]- 7600 Feb, [facility] [place] [facility] [address] [id number] [place] [address]- 3650 Jan, [facility] [place] [facility] [address] [id number] [place] [address]- 5594 Jan, [facility] [place] [facility] [address] [id number] [place] [address]- 1245 16 Dec, 2010 [facility] [place] [facility] [address] [id number] [place] [address]- 8779 Nov, [facility] [place] [facility] [address] [id number] [place] [address]- 6831 15 May, 2010 [facility] [place] [facility] [address] [id number] [place] [address]- 7927 Apr, [facility] [place] [facility] [address] [id number] [place] [address]- 7305 Feb, [facility] [place] [facility] [address] [id number] [place] [address]- 7425 Jan, [facility] [place] [facility] [address] [id number] [place] [address]- 9015 August, [facility] [place] [facility] [address] [id number] [place] [address]- 9233 Mar, [facility] [address] [facility] [id number] [place] [address]- 2546 Jan, [facility] [address] [facility] [id number] [place] [address]- 2546 Oct, IMMUNIZATIONS No Known Immunizations SOCIAL HISTORY Never Assessed REASON FOR VISIT ear pain that radiates to jaw and vaginal itching. The patient thinks that she got a yeast infection from taking a bath.--SAMIRA Holland PLAN OF CARE Activity Details Follow Up prn Reason: VITAL SIGNS Height 66 in 2017-10-31 Weight 140 lbs 2017-10-31 Temperature 97.1 degrees Fahrenheit 2017-10-31 Heart Rate 80 bpm 2017-10-31 Respiratory Rate 18 2017-10-31 BMI 22.59 kg/m2 2017-10-31 Blood pressure systolic 98 mmHg 2017-10-31 Blood pressure diastolic 62 mmHg 2017-10-31 MEDICATIONS Medication Instructions Dosage Frequency Start Date End Date Duration Status Flonase 50 MCG/ACT Nasally Once a day 1 spray in each nostril 24h Oct, 30 day(s) Active Diflucan 150 MG Orally Take one tablet today and repeat in 72 hours as directed Oct, Oct, 4 days Active Zyrtec Allergy 10 MG Orally Once [...] arm and artery repair Hospitalization History [facility] for suicidal idiations. surgery on left arm.
--- OUTSIDE RECORDS SUMMARY | 2018-02-03 18:08 | XMS REPORT ---
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 [facility] [address] [id number] [place] [address]- 9408 Oct, [facility] [place] [facility] [address] [id number] [place] [address]- 5156 Oct, [facility] [place] [facility] [address] [id number] [place] [address]- 3523 Oct, [facility] [place] [facility] [address] [id number] [place] [address]- 5040 Oct, [facility] [place] [facility] [address] [id number] [place] [address]- 9564 Oct, [facility] [address] [id number] [place] [address]- 7509 Sep, [facility] [place] [facility] [address] [id number] [place] [address]- 1886 Sep, [facility] [address] [id number] [place] [address]- 2888 August, [facility] [place] [facility] [address] [id number] [place] [address]- 7261 August, [facility] [address] [id number] [place] [address] August, [facility] [place] [facility] [address] [id number] [place] [address]- 0900 August, [facility] [address] [id number] [place] [address]- 5259 August, [facility] [address] [id number] [place] [address]- 8517 August, [facility] [place] [facility] [address] [id number] [place] [address]- 9787 30 Jul, 2011 [facility] [place] [facility] [address] [id number] [place] [address]- 2061 Jul, [facility] [place] [facility] [address] [id number] [place] [address]- 9233 Jul, [facility] [place] [facility] [address] [id number] [place] [address]- 4585 24 Jul, 2011 [facility] [place] [facility] [address] [id number] [place] [address]- 1098 Jul, [facility] [place] [facility] [address] [id number] [place] [address]- 2121 16 Jul, 2011 [facility] [place] [facility] [address] [id number] [place] [address]- 3027 Jul, [facility] [place] [facility] [address] [id number] [place] [address]- 8415 Jul, [facility] [place] [facility] [address] [id number] [place] [address]- 0546 Jun, [facility] [place] [facility] [address] [id number] [place] [address] Jun, [facility] [place] [facility] [address] [id number] [place] [address]- 3739 Jun, [facility] [address] [id number] [place] [address]- 2709 May, [facility] [place] [facility] [address] [id number] [place] [address]- 6726 May, [facility] [place] [facility] [address] [id number] [place] [address]- 6895 May, [facility] [place] [facility] [address] [id number] [place] [address]- 2120 May, [facility] [place] [facility] [address] [id number] [place] [address]- 6570 May, [facility] [place] [facility] [address] [id number] [place] [address]- 3634 Apr, [facility] [place] [facility] [address] [id number] [place] [address]- 8969 Apr, [facility] [place] [facility] [address] [id number] [place] [address]- 1039 Apr, [facility] [place] [facility] [address] [id number] [place] [address]- 5263 Apr, [facility] [place] [facility] [address] [id number] [place] [address]- 6086 Mar, [facility] [place] [facility] [address] [id number] [place] [address]- 3506 Mar, [facility] [place] [facility] [address] [id number] [place] [address]- 0676 14 Mar, 2011 [facility] [place] [facility] [address] [id number] [place] [address]- 8545 07 Mar, 2011 [facility] [place] [facility] [address] [id number] [place] [address]- 6344 30 Feb, 2011 [facility] [place] [facility] [address] [id number] [place] [address]- 5197 Feb, [facility] [place] [facility] [address] [id number] [place] [address]- 5664 15 Feb, 2011 [facility] [place] [facility] [address] [id number] [place] [address]- 3024 Feb, [facility] [place] [facility] [address] [id number] [place] [address]- 3809 Feb, [facility] [place] [facility] [address] [id number] [place] [address]- 2578 Feb, [facility] [place] [facility] [address] [id number] [place] [address]- 7253 Feb, [facility] [place] [facility] [address] [id number] [place] [address]- 3418 Jan, [facility] [place] [facility] [address] [id number] [place] [address]- 6456 10 Jan, 2011 [facility] [place] [facility] [address] [id number] [place] [address]- 6685 16 Dec, 2010 [facility] [place] [facility] [address] [id number], [place] [address]- 5164 Nov, [facility] [place] [facility] [address] [id number] [place] [address]- 9822 15 May, 2010 [facility] [place] [facility] [address] [id number] [place] [address]- 0201 Apr, [facility] [place] [facility] [address] [id number], [place] [address]- 3939 Feb, [facility] [place] [facility] [address] [facility] [id number], [place] [address]- 8896 Jan, [facility] [address] [facility] [id number], [place] [address]- 6216 August, [facility] [address] [facility] [id number], [place] [address]- 5296 Mar, [facility] [address] [facility] [id number], [place] [address]- 7524 Jan, [facility] [address] [facility] [id number], [place] [address]- [address]12 Oct, IMMUNIZATIONS No Known Immunizations SOCIAL HISTORY Never Assessed REASON FOR VISIT pt thinks she has a parasite all over her body. she shaved her head a month ago due to the parasite. she reports she has seen several doctors for this same complaint. [email or web address] PLAN OF CARE Activity Details Follow Up prn Reason: VITAL SIGNS Height 66 in 2016-11-14 Weight 134.2 lbs 2016-11-14 Temperature 98.4 degrees Fahrenheit 2016-11-14 Heart Rate 84 bpm 2016-11-14 Respiratory Rate 20 2016-11-14 BMI 21.66 kg/m2 2016-11-14 Blood pressure systolic 120 mmHg 2016-11-14 Blood pressure diastolic 80 mmHg 2016-11-14 MEDICATIONS Medication Instructions Dosage Frequency Start Date End Date Duration Status Neurontin 800 MG Orally Three times a day 1 tablet as needed for pain 8h 90 days Active Promethazine HCl 25 MG Oral every 12 hrs 1 tablet as needed 12h 15 Active Bactrim DS 800-160 MG Orally Twice a day 1 tablet 12h Oct, Nov, 10 day(s) Active Cyclobenzaprine HCl 10 mg Orally 2 times a day 1 tablet 12h Active Cortisporin 3.5-94380-3 Otic Three times a day 4 drops into affected ear 8h Oct, 7 days Active HydrOXYzine Pamoate 50 mg 1 capsule 8h Active Naproxen 500 MG Orally every 12 hrs 1 tablet 12h Active Clonazepam 1 MG Orally 2 times a day 1 tablet 12h 28 days Active RESULTS No Results PROCEDURES Procedure Date Ordered Result Body Site URINALYSIS, AUTO, W/O SCOPE November 14, 2016 INSTRUCTIONS MEDICATIONS ADMINISTERED No Known Medications MEDICAL [...]
--- OUTSIDE RECORDS SUMMARY | 2018-02-03 18:08 | XMS REPORT ---
Author Author FREDY LIGHT Organization [facility] Address [address] [place] [address] Care Team Providers Care Sheet Fed Printer Name Role Phone FREDY LIGHT Unavailable PROBLEMS Type Condition ICD9-CM Code [id number] Code Onset Dates Condition Status SNOMED Code Problem Depression, unspecified depression type F32.9 Active 61262927 Problem Nipple discharge N64.52 Active 58565419 Problem Hx of migraines Z86.69 Active 581221141 Problem Encounter for dental examination Z01.20 Active 315288247 Problem Bipolar 1 disorder F31.9 Active 567707739 Problem Delusions of parasitosis F22 Active 583310469 Problem Mood disorder F39 Active 86701824 Problem Carpal tunnel syndrome, right upper limb G56.01 Active 43347608 Problem Vaginal discharge N89.8 Active 286927974 Problem Poor dentition K08.8 Active 010555046 Problem High risk sexual behavior Z72.51 Active 379951418 Problem Skin infection L08.9 Active 290297873 Problem Hot flashes N95.1 Active 721504354 Problem Genital herpes simplex, unspecified site A60.00 Active 47702526 Problem History of self-harm Z91.5 Active 292555469 Problem History of abnormal cervical Pap smear Z87.898 Active 088491069 Problem Routine screening for STI (sexually transmitted infection) Z11.3 Active 203951580 Problem History of dyspareunia in female Z87.42 Active 908139111 Problem Psychotic episode F23 Active 38155449 Problem Weight gain R63.5 Active 2081617 Problem History of ovarian cyst Z87.42 Active 879321230 Problem Ganglion of left wrist M67.432 Active 139257850 Problem BMI 25.0-25.9,adult Z68.25 Active 256851723 Problem Anxiety F41.9 Active 14355503 ALLERGIES Substance Reaction Event Type Date Status Penicillin V Potassium Unknown Drug Allergy Mar, Active Latex Unknown Non Drug Allergy Mar, Active SOCIAL HISTORY No smoking Hx information available PLAN OF CARE Activity Details Follow Up JENNIFER &/or as needed Reason: VITAL SIGNS Height 66 in 2016-03-30 Blood pressure systolic 126 mmHg 2016-03-30 Blood pressure diastolic 77 mmHg 2016-03-30 MEDICATIONS Medication Instructions Dosage Frequency Start Date End Date Duration Status Tramadol HCl 50 mg Orally 3 times a day 2 tablets 8h Active Clonazepam 1 MG Orally Twice a day. 1 tablet Active RESULTS No Results PROCEDURES Procedure Date Ordered Related Diagnosis Body Site EXTRAC ERUPTED TOOTH/EXPOSED ROOT Mar 30, 2016 IMMUNIZATIONS No Known Immunizations
--- OUTSIDE RECORDS SUMMARY | 2018-02-03 18:08 | XMS REPORT ---
Author Author RITA WARD Organization [facility] Address [address] [place] [address] Care Team Providers Care Eyeglass Assembler Name Role Phone RITA WARD Unavailable PROBLEMS Type Condition ICD9-CM Code [id number] Code Onset Dates Condition Status SNOMED Code Problem Anxiety F41.9 Active 25195362 Problem Hot flashes N95.1 Active 359841376 Problem Nipple discharge N64.52 Active 68044311 Problem Encounter for dental examination Z01.20 Active 734306971 Problem Carpal tunnel syndrome, right upper limb G56.01 Active 78838029 Problem Delusions of parasitosis F22 Active 338824610 Problem Mood disorder F39 Active 79414717 Problem Bipolar 1 disorder F31.9 Active 395810174 Problem Skin infection L08.9 Active 389315055 Problem Weight gain R63.5 Active 5408197 Problem High risk sexual behavior Z72.51 Active 051119153 Problem Vaginal discharge N89.8 Active 610286358 Problem Genital herpes simplex, unspecified site A60.00 Active 45898219 Problem History of dyspareunia in female Z87.42 Active 299926216 Problem Hx of migraines Z86.69 Active 857482035 Problem Routine screening for STI (sexually transmitted infection) Z11.3 Active 877504524 Problem BMI 25.0-25.9,adult Z68.25 Active 779883981 Problem Poor dentition K08.8 Active 365155820 Problem Psychotic episode F23 Active 99554298 Problem Depression, unspecified depression type F32.9 Active 41924018 Problem History of abnormal cervical Pap smear Z87.898 Active 983989901 Problem Ganglion of left wrist M67.432 Active 586356859 Problem History of self-harm Z91.5 Active 871314834 Problem History of ovarian cyst Z87.42 Active 878984820 ALLERGIES No Information SOCIAL HISTORY Never Assessed PLAN OF CARE VITAL SIGNS MEDICATIONS Medication Instructions Dosage Frequency Start Date End Date Duration Status Clonazepam 1 MG Orally 2 times a day 1 tablet 12h 28 days Active Tramadol HCl 50 mg Orally 3 times a day 2 tablets 8h 28 days Active RESULTS No Results PROCEDURES No Known procedures IMMUNIZATIONS No Known Immunizations MEDICAL (GENERAL) HISTORY [...]
--- OUTSIDE RECORDS SUMMARY | 2018-02-03 18:09 | XMS REPORT ---
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 [place] [facility] [address] [id number] [place] [address] 44[address] Sep, [facility] [address] [id number] [place] [address] August, [facility] [place] [facility] [address] [id number] [place] [address] 4[address] August, [facility] [address] [id number] [place] [address] 2408 August, [facility] [address] [id number] [place] [address] 5668 August, [facility] [address] [id number] [place] [address] 26[address] August, [facility] [address] [id number] [place] [address] 9267 August, [facility] [address] [id number] [place] [address]- 9730 30 Jul, 2011 [facility] [address] [id number] [place] [address] 1724 Jul, [facility] [address] [id number] [place] [address] 0810 Jul, [facility] [place] [facility] [address] [id number] [place] [address] 24 Jul, 2011 [facility] [place] [facility] [address] [id number] [place] [address] 0171 Jul, [facility] [place] [facility] [address] [id number] [place] [address]- 1731 16 Jul, 2011 [facility] [place] [facility] [address] [id number] [place] [address]- 1167 Jul, [facility] [place] [facility] [address] [id number] [place] [address]- 2555 Jul, [facility] [place] [facility] [address] [id number] [place] [address]- 2618 Jun, [facility] [place] [facility] [address] [id number] [place] [address]- 5956 Jun, [facility] [place] [facility] [address] [id number] [place] [address]- 8935 Jun, [facility] [place] [facility] [address] [id number] [place] [address] 1367 May, [facility] [place] [facility] [address] [id number] [place] [address] 3226 May, [facility] [place] [facility] [address] [id number] [place] [address]- 6330 May, [facility] [place] [facility] [address] [id number] [place] [address]- 4653 May, [facility] [place] [facility] [address] [id number] [place] [address]- 0659 May, [facility] [place] [facility] [address] [id number] [place] [address]- 3033 Apr, [facility] [place] [facility] [address] [id number] [place] [address]- 7411 Apr, [facility] [place] [facility] [address] [id number] [place] [address]- 3924 Apr, [facility] [place] [facility] [address] [id number] [place] [address]- 3336 Apr, [facility] [place] [facility] [address] [id number] [place] [address]- 2006 Mar, [facility] [place] [facility] [address] [id number] [place] [address]- 8905 Mar, [facility] [place] [facility] [address] [id number], [place] [address]- 2438 14 Mar, 2011 [facility] [place] [facility] [address] [id number] [place] [address]- 2212 07 Mar, 2011 [facility] [place] [facility] [address] [id number] [place] [address]- 3486 30 Feb, 2011 [facility] [place] [facility] [address] [id number] [place] [address]- 7583 Feb, [facility] [place] [facility] [address] [id number] [place] [address]- 1678 Feb, [facility] [place] [facility] [address] [id number] [place] [address]- 9004 Feb, [facility] [place] [facility] [address] [id number] [place] [address]- 4330 Feb, [facility] [place] [facility] [address] [facility] [id number] [place] [address]- 1736 Feb, [facility] [place] [facility] [address] [id number] [place] [address]- 7442 Feb, [facility] [place] [facility] [address] [facility] [id number] [place] [address]- 7673 Jan, [facility] [place] [facility] [address] [facility] [id number] [place] [address]- 7336 10 Jan, 2011 [facility] [place] [facility] [address] [id number], [place] [address] 8337 16 Dec, 2010 [facility] [place] [facility] [address] [id number], [place] [address] Nov, [facility] [place] [facility] [address] [id number] [place] [address]- 4389 15 May, 2010 [facility] [place] [facility] [address] [id number] [place] [address]- 9126 14 Apr, 2010 [facility] [place] [facility] [address] [facility] [id number] [place] [address]- 8110 Feb, [facility] [place] [facility] [address] [facility] [id number] [place] [address]- [address] Jan, [facility] [address] [facility] [id number], [place] [address] 4786 August, [facility] [address] [facility] [id number], [place] [address]- 2546 Mar, [facility] [address] [facility] [id number], [place] [address]106 Jan, [facility] [address] [facility] [id number], [place] [address]- [address] Oct, IMMUNIZATIONS No Known Immunizations SOCIAL HISTORY Never Assessed REASON FOR VISIT reports multiple sores in mouth and her right ear is hurting. reports a lot of pain and has been there for a week now. [email or web address] PLAN OF CARE Activity Details Follow Up prn Reason: VITAL SIGNS Height 66 in 2017-06-16 Weight 128.2 lbs 2017-06-16 Temperature 89.9 degrees Fahrenheit 2017-06-16 Heart Rate 78 bpm 2017-06-16 Respiratory Rate 20 2017-06-16 BMI 20.69 kg/m2 2017-06-16 Blood pressure systolic 122 mmHg 2017-06-16 Blood pressure diastolic 68 mmHg 2017-06-16 MEDICATIONS Medication Instructions Dosage Frequency Start Date End Date Duration Status Clonazepam 1 MG Orally Once a day 1 tablet 24h 28 days Active Neurontin 800 MG Orally Three times a day 1 tablet as needed for pain 8h Active Cefdinir 300 MG Orally every 12 hrs 1 capsule 12h May, Jun, 10 day(s) Active Nabumetone 500 mg Orally Twice a day 1 tablet 12h May, Jul, 30 day(s) Active HydrOXYzine Pamoate 50 mg 1 capsule 8h Active HydrOXYzine Pamoate 50 mg Orally every 8 hrs 1 capsule as needed 8h May Active RESULTS No Results PROCEDURES No Known [...] arm and artery repair Hospitalization History Via [facility] for suicidal idiations. surgery on left arm.
--- OUTSIDE RECORDS SUMMARY | 2018-02-03 18:09 | XMS REPORT ---
Author Author EILZABETH LEBLANC [facility] Address [address] [place] [address] Care Team Providers Care Content Developer Name Role Phone ELIZABETH LEBLANC Unavailable PROBLEMS Type Condition ICD9-CM Code [id number] Code Onset Dates Condition Status SNOMED Code Problem Anxiety F41.9 Active 34058019 Problem Hot flashes N95.1 Active 641911537 Problem Nipple discharge N64.52 Active 90486304 Problem Encounter for dental examination Z01.20 Active 934530363 Problem Carpal tunnel syndrome, right upper limb G56.01 Active 00957664 Problem Delusions of parasitosis F22 Active 371002004 Problem Mood disorder F39 Active 85751988 Problem Bipolar 1 disorder F31.9 Active 379861130 Problem Skin infection L08.9 Active 435449246 Problem Weight gain R63.5 Active 0295371 Problem High risk sexual behavior Z72.51 Active 764236691 Problem Vaginal discharge N89.8 Active 990206413 Problem Genital herpes simplex, unspecified site A60.00 Active 39102663 Problem History of dyspareunia in female Z87.42 Active 988359759 Problem Hx of migraines Z86.69 Active 640601855 Problem Routine screening for STI (sexually transmitted infection) Z11.3 Active 666135543 Problem BMI 25.0-25.9,adult Z68.25 Active 354114083 Problem Poor dentition K08.8 Active 699342555 Problem Psychotic episode F23 Active 95412332 Problem Depression, unspecified depression type F32.9 Active 63984869 Problem History of abnormal cervical Pap smear Z87.898 Active 485892141 Problem Ganglion of left wrist M67.432 Active 669285308 Problem History of self-harm Z91.5 Active 435101026 Problem History of ovarian cyst Z87.42 Active 195467732 ALLERGIES No Information SOCIAL HISTORY Never Assessed PLAN OF CARE VITAL SIGNS MEDICATIONS Medication Instructions Dosage Frequency Start Date End Date Duration Status Cipro 500 MG Orally Twice a day 1 tablet 12h Sep, Sep, 10 day(s) Active RESULTS No Results PROCEDURES No [...] arm and artery repair Hospitalization History Via [facility] for suicidal idiations. surgery on left arm.
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
--- OUTSIDE RECORDS SUMMARY | 2018-02-03 18:09 | XMS REPORT ---
Author Author NATALIE LAKE [facility] Address Unknown Care Team Providers Care Detail Assembler Name Role Phone NATALIE LAKE Unavailable PROBLEMS Type Condition ICD9-CM Code [id number] Code Onset Dates Condition Status SNOMED Code Problem Anxiety F41.9 Active 66192943 Problem Hot flashes N95.1 Active 067574428 Problem Nipple discharge N64.52 Active 08630319 Problem Encounter for dental examination Z01.20 Active 613250388 Problem Carpal tunnel syndrome, right upper limb G56.01 Active 74897380 Problem Delusions of parasitosis F22 Active 424316521 Problem Mood disorder F39 Active 75961553 Problem Bipolar 1 disorder F31.9 Active 283389888 Problem Skin infection L08.9 Active 860733825 Problem Weight gain R63.5 Active 9052846 Problem High risk sexual behavior Z72.51 Active 431242672 Problem Vaginal discharge N89.8 Active 297083688 Problem Genital herpes simplex, unspecified site A60.00 Active 15848044 Problem History of dyspareunia in female Z87.42 Active 041655272 Problem Hx of migraines Z86.69 Active 618949430 Problem Routine screening for STI (sexually transmitted infection) Z11.3 Active 206386554 Problem BMI 25.0-25.9,adult Z68.25 Active 779507273 Problem Poor dentition K08.8 Active 584528986 Problem Psychotic episode F23 Active 31440051 Problem Depression, unspecified depression type F32.9 Active 97159739 Problem History of abnormal cervical Pap smear Z87.898 Active 696347763 Problem Ganglion of left wrist M67.432 Active 486482973 Problem History of self-harm Z91.5 Active 000737779 Problem History of ovarian cyst Z87.42 Active 123068598 ALLERGIES Substance Reaction Event Type Date Status Penicillin V Potassium Unknown Drug Allergy August, Active Latex Unknown Non Drug Allergy August, Active SOCIAL HISTORY Never Assessed PLAN OF CARE Activity Details Follow Up prn Reason:PROPHY VITAL SIGNS Height 66 in 2016-08-29 Blood pressure systolic 121 mmHg 2016-08-29 Blood pressure diastolic 75 mmHg 2016-08-29 MEDICATIONS Medication Instructions Dosage Frequency Start Date End Date Duration Status Neurontin 800 MG Orally Three times a day 1 tablet as needed for pain 8h 90 days Active Tramadol HCl 50 mg Orally 3 times a day 2 tablets 8h 28 days Active HydrOXYzine Pamoate 50 mg 1 capsule 8h Active Albendazole 200 mg as directed Apr, 1 dose Active Clonazepam 1 MG Orally 2 times a day 1 tablet 12h 28 days Active Permethrin 5 % Externally Once a day 1 application to affected area 24h Apr, 7 day(s) Active RESULTS No Results PROCEDURES Procedure Date Ordered Result Body Site LTD ORAL EVALUATION - PROBLEM FOCUS August 29, 2016 INTRAORL-PERIAPICAL 1 FILM 10200 August 29, 2016 SURG REMOVAL ERUPTED TOOTH August 29, 2016 IMMUNIZATIONS No Known Immunizations MEDICAL (GENERAL) HISTORY Type Description Date Medical History depression Medical History hx of ulcers Medical History right ovarian cysts-recurring Medical History mood swings Medical History bipolar disorder Medical History drug abuse Surgical History orthopedic surgery-carpal tunnel 05/2011 Surgical History tubal ligation Surgical History cholecystectomy Surgical History surgery on left arm and artery repair Hospitalization History Via [facility] for suicidal idiations. surgery on left arm.
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
--- OUTSIDE RECORDS SUMMARY | 2018-02-03 18:09 | XMS REPORT ---
Author Author FAB RIVER Organization [employer] Address Unknown Phone Unavailable Care Team Providers Care Operations Trainer Name Role Phone FAB RIVER CP Unavailable Allergies No Known Allergies Problems Problem Type Condition Code Onset Dates Condition Status Problem History of dyspareunia in female Z87.42 Active Problem Anxiety F41.9 Active Problem History of ovarian cyst Z87.42 Active Problem Skin infection L08.9 Active Problem Ganglion of left wrist M67.432 Active Problem Vaginal discharge N89.8 Active Problem Psychotic episode F23 Active Problem High risk sexual behavior Z72.51 Active Problem Hx of migraines Z86.69 Active Problem Depression, unspecified depression type F32.9 Active Problem Poor dentition K08.8 Active Problem Nipple discharge N64.52 Active Problem Bipolar 1 disorder F31.9 Active Problem History of self-harm Z91.5 Active Problem Carpal tunnel syndrome, right upper limb G56.01 Active Problem Mood disorder F39 Active Problem Genital herpes simplex, unspecified site A60.00 Active Problem Weight gain R63.5 Active Problem History of abnormal cervical Pap smear Z87.898 Active Problem BMI 25.0-25.9,adult Z68.25 Active Problem Hot flashes N95.1 Active Problem Routine screening for STI (sexually transmitted infection) Z11.3 Active Medications Medication Code System Code Instructions Start Date End Date Status Dosage Flagyl [facility] [address]-55 500 MG Orally Twice daily Feb 29, 2016 Mar 10, 2016 1 tablet Cephalexin [facility] [address]-62 500 MG Orally Twice a day Feb 29, 2016Feb 1 capsule Results No Known Results Summary Purpose [employer] Submission
--- OUTSIDE RECORDS SUMMARY | 2018-02-03 18:10 | XMS REPORT ---
Author Author RITA WARD Organization [employer] Address Unknown Phone Unavailable Care Team Providers Care Incoming Freight Clerk Name Role Phone RITA WARD CP Unavailable Allergies No Known Allergies Problems Problem Type Condition Code Onset Dates Condition Status Problem Mood disorder F39 Active Problem Carpal tunnel syndrome, right upper limb G56.01 Active Problem Bipolar 1 disorder F31.9 Active Assessment Constipation, unspecified constipation type K59.00 Active Problem Ganglion of left wrist M67.432 Active Problem Psychotic episode F23 Active Medications No Known Medications Results No Known Results Summary Purpose [employer] Submission
--- OUTSIDE RECORDS SUMMARY | 2018-02-03 18:10 | XMS REPORT ---
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 [facility] [address] [id number] [place] [address]- 8889 August, [facility] [address] [id number] [place] [address]- 2181 August, [facility] [address] [id number] [place] [address]- 5871 August, [facility] [address] [id number] [place] [address]- 59[address] 30 Jul, 2011 [facility] [address] [id number] [place] [address]- 6674 Jul, [facility] [address] [id number] [place] [address]- 8[address] 24 Jul, 2011 [facility] [address] [id number] [place] [address]- 7576 24 Jul, 2011 [facility] [place] [facility] [address] [id number] [place] [address]- 1331 23 Jul, 2011 [facility] [place] [facility] [address] [id number] [place] [address]- [address] 16 Jul, 2011 [facility] [place] [facility] [address] [id number] [place] [address]- 7557 09 Jul, 2011 [facility] [place] [facility] [address] [id number] [place] [address]- 2188 Jul, [facility] [place] [facility] [address] [id number] [place] [address]- 9081 Jun, [facility] [place] [facility] [address] [id number] [place] [address]- 6476 Jun, [facility] [place] [facility] [address] [id number] [place] [address]- 7491 Jun, [facility] [place] [facility] [address] [id number] [place] [address]- 6805 May, [facility] [place] [facility] [address] [id number] [place] [address]- 0327 May, [facility] [place] [facility] [address] [id number] [place] [address]- 0119 May, [facility] [place] [facility] [address] [id number] [place] [address]- 7769 May, [facility] [place] [facility] [address] [id number] [place] [address]- 6628 May, [facility] [place] [facility] [address] [id number] [place] [address]- 6626 Apr, [facility] [place] [facility] [address] [id number] [place] [address]- 8447 Apr, [facility] [place] [facility] [address] [id number] [place] [address]- 6710 Apr, [facility] [place] [facility] [address] [id number] [place] [address]- 3844 Apr, [facility] [place] [facility] [address] [id number] [place] [address]- 6754 Mar, [facility] [place] [facility] [address] [id number] [place] [address]- 8992 Mar, [facility] [place] [facility] [address] [id number] [place] [address]- 0814 14 Mar, 2011 [facility] [place] [facility] [address] [id number], [place] [address] Mar, [facility] [place] [facility] [address] [id number] [place] [address]- 4612 30 Feb, 2011 [facility] [place] [facility] [address] [id number] [place] [address]- 5342 Feb, [facility] [place] [facility] [address] [id number] [place] [address]- 5685 15 Feb, 2011 [facility] [place] [facility] [address] [id number] [place] [address]- 6531 Feb, [facility] [place] [facility] [address] [id number] [place] [address]- 5686 Feb, [facility] [place] [facility] [address] [id number] [place] [address]- 3091 Feb, [facility] [place] [facility] [address] [id number] [place] [address]- 2006 Feb, [facility] [place] [facility] [address] [id number] [place] [address]- 2219 Jan, [facility] [place] [facility] [address] [id number] [place] [address]- 2400 10 Jan, 2011 [facility] [place] [facility] [address] [id number] [place] [address]- 8763 16 Dec, 2010 [facility] [place] [facility] [address] [id number], [place] [address]- [address] Nov, [facility] [place] [facility] [address] [id number], [place] [address]- 2831 15 May, 2010 [facility] [place] [facility] [address] [id number] [place] [address]- 1311 14 Apr, 2010 [facility] [place] [facility] [address] [id number] [place] [address]- 9595 Feb, [facility] [place] [facility] [address] [id number] [place] [address]- 2054 Jan, [facility] [place] [facility] [address] [id number] [place] [address]- [address] August, [facility] [address] [id number], [place] [address]- [address] Mar, [facility] [address] [id number], [place] [address]- [address] Jan, [facility] [address] [id number], [place] [address] Oct, IMMUNIZATIONS No Known Immunizations SOCIAL HISTORY Never Assessed REASON FOR VISIT Controlled Refill Request PLAN OF CARE VITAL SIGNS MEDICATIONS Medication Instructions Dosage Frequency Start Date End Date Duration Status Tramadol HCl 50 MG Orally 3 times a day 2 tablets 8h 28 days Active Clonazepam 1 MG Orally 2 times [...] arm and artery repair Hospitalization History Via [facility] for suicidal idiations. surgery on left arm.
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
--- OUTSIDE RECORDS SUMMARY | 2018-02-03 18:10 | XMS REPORT ---
Author Author VIRIDIANA PICKERING Organization [facility] Address [address] [place] [address] Care Team Providers Care Drill Operator Pneumatic Name Role Phone VIRIDIANA PICKERING Unavailable PROBLEMS Type Condition ICD9-CM Code [id number] Code Onset Dates Condition Status SNOMED Code Problem Anxiety F41.9 Active 24928032 Problem Hot flashes N95.1 Active 412687460 Problem Nipple discharge N64.52 Active 99784915 Problem Encounter for dental examination Z01.20 Active 453607782 Problem Carpal tunnel syndrome, right upper limb G56.01 Active 16845126 Problem Delusions of parasitosis F22 Active 850920341 Problem Mood disorder F39 Active 26547922 Problem Bipolar 1 disorder F31.9 Active 926781822 Problem Skin infection L08.9 Active 626003219 Problem Weight gain R63.5 Active 8949976 Problem High risk sexual behavior Z72.51 Active 800283362 Problem Vaginal discharge N89.8 Active 586664630 Problem Genital herpes simplex, unspecified site A60.00 Active 53207248 Problem History of dyspareunia in female Z87.42 Active 448977632 Problem Hx of migraines Z86.69 Active 439288789 Problem Routine screening for STI (sexually transmitted infection) Z11.3 Active 791893764 Problem BMI 25.0-25.9,adult Z68.25 Active 425379562 Problem Poor dentition K08.8 Active 730865662 Problem Psychotic episode F23 Active 20676629 Problem Depression, unspecified depression type F32.9 Active 05867864 Problem History of abnormal cervical Pap smear Z87.898 Active 409995336 Problem Ganglion of left wrist M67.432 Active 863552098 Problem History of self-harm Z91.5 Active 868105770 Problem History of ovarian cyst Z87.42 Active 362552933 ALLERGIES Substance Reaction Event Type Date Status Penicillin V Potassium Unknown Drug Allergy Apr, Active Latex Unknown Non Drug Allergy Apr, Active SOCIAL HISTORY No smoking Hx information available PLAN OF CARE Activity Details Follow Up prn Reason: VITAL SIGNS Height 66 in 2016-04-25 Weight 143.0 lbs 2016-04-25 Temperature 97.7 degrees Fahrenheit 2016-04-25 Heart Rate 80 bpm 2016-04-25 Respiratory Rate 18 2016-04-25 BMI 23.08 kg/m2 2016-04-25 Blood pressure systolic 124 mmHg 2016-04-25 Blood pressure diastolic 82 mmHg 2016-04-25 MEDICATIONS Medication Instructions Dosage Frequency Start Date End Date Duration Status Clonazepam 1 MG Orally Twice a day. 1 tablet Active Cephalexin 500 MG Orally Twice a day 1 capsule 12h Apr, Apr, 10 day(s) Active Permethrin 5 % Externally Once a day 1 application to affected area 24h Apr, Apr, 7 day(s) Active Tramadol HCl 50 mg Orally 3 times a day 2 tablets 8h Active RESULTS No Results PROCEDURES Procedure Date Ordered Related Diagnosis Body Site Office Visit, Est Pt., Level 3 Apr 25, 2016 IMMUNIZATIONS No Known Immunizations
--- OUTSIDE RECORDS SUMMARY | 2018-02-03 18:10 | XMS REPORT ---
Author Author [facility] Address [address] [place] [address] Care Team Providers Care Cotton Picking Machine Operator Name Role Phone CAITIEAR Unavailable PROBLEMS Type Condition ICD9-CM Code [id number] Code Onset Dates Condition Status SNOMED Code Problem Depression, unspecified depression type F32.9 Active 67157147 Problem Nipple discharge N64.52 Active 95282912 Problem Hx of migraines Z86.69 Active 628227597 Problem Encounter for dental examination Z01.20 Active 308507447 Problem Bipolar 1 disorder F31.9 Active 780801284 Problem Delusions of parasitosis F22 Active 956399649 Problem Mood disorder F39 Active 18604214 Problem Carpal tunnel syndrome, right upper limb G56.01 Active 37757983 Problem Vaginal discharge N89.8 Active 476044394 Problem Poor dentition K08.8 Active 144839063 Problem High risk sexual behavior Z72.51 Active 797321365 Problem Skin infection L08.9 Active 527896741 Problem Hot flashes N95.1 Active 015475408 Problem Genital herpes simplex, unspecified site A60.00 Active 42829662 Problem History of self-harm Z91.5 Active 498472471 Problem History of abnormal cervical Pap smear Z87.898 Active 882634882 Problem Routine screening for STI (sexually transmitted infection) Z11.3 Active 254402251 Problem History of dyspareunia in female Z87.42 Active 863479184 Problem Psychotic episode F23 Active 91100209 Problem Weight gain R63.5 Active 5240419 Problem History of ovarian cyst Z87.42 Active 565201974 Problem Ganglion of left wrist M67.432 Active 587416921 Problem BMI 25.0-25.9,adult Z68.25 Active 433576063 Problem Anxiety F41.9 Active 17560900 ALLERGIES Unknown Allergies SOCIAL HISTORY No smoking Hx information available PLAN OF CARE Activity Details Follow Up prn Reason:Anxiety with psychotic features VITAL SIGNS MEDICATIONS Unknown Medications RESULTS No Results PROCEDURES Procedure Date Ordered Related Diagnosis Body Site Psych diagnostic evaluation, new patient Apr 25, 2016 IMMUNIZATIONS No Known Immunizations
--- OUTSIDE RECORDS SUMMARY | 2018-02-03 18:11 | XMS REPORT ---
Author Author RITA WARD Organization [facility] Address [address] [place] [address] Care Team Providers Care Cotton Farmer Name Role Phone RITA WARD Unavailable PROBLEMS Type Condition ICD9-CM Code [id number] Code Onset Dates Condition Status SNOMED Code Problem BMI 25.0-25.9,adult Z68.25 Active 284410710 Problem History of dyspareunia in female Z87.42 Active 382165420 Problem Routine screening for STI (sexually transmitted infection) Z11.3 Active 860069031 Problem Poor dentition K08.8 Active 628899785 Problem Nipple discharge N64.52 Active 14962753 Problem Anxiety F41.9 Active 06845462 Problem History of ovarian cyst Z87.42 Active 029895377 Problem Hx of migraines Z86.69 Active 846293253 Problem Depression, unspecified depression type F32.9 Active 14613830 Problem Carpal tunnel syndrome, right upper limb G56.01 Active 44274373 Problem Mood disorder F39 Active 42081098 Problem Psychotic episode F23 Active 71444908 Problem Ganglion of left wrist M67.432 Active 933076837 Problem History of abnormal cervical Pap smear Z87.898 Active 008335803 Problem Hot flashes N95.1 Active 202283036 Problem Bipolar 1 disorder F31.9 Active 985346908 Problem Genital herpes simplex, unspecified site A60.00 Active 74884162 Problem History of self-harm Z91.5 Active 379336686 Problem Weight gain R63.5 Active 7329069 ALLERGIES Unknown Allergies SOCIAL HISTORY No smoking Hx information available PLAN OF CARE VITAL SIGNS MEDICATIONS Medication Instructions Dosage Frequency Start Date End Date Duration Status Tramadol HCl 50 mg Orally 3 times a day 2 tablets 8h Active RESULTS No Results PROCEDURES No Known procedures IMMUNIZATIONS No Known Immunizations
--- OUTSIDE RECORDS SUMMARY | 2018-02-03 18:11 | XMS REPORT ---
Author Author VIRIDIANA PICKERING Organization [facility] Address [address] [place] [address] Care Team Providers Care Limb Driver Name Role Phone VIRIDIANA PICKERING Unavailable PROBLEMS Type Condition ICD9-CM Code TYL61-NN Code Onset Dates Condition Status SNOMED Code Problem Anxiety F41.9 Active 71734034 Problem Hot flashes N95.1 Active 164607636 Problem Nipple discharge N64.52 Active 66090893 Problem Encounter for dental examination Z01.20 Active 462822498 Problem Carpal tunnel syndrome, right upper limb G56.01 Active 78856126 Problem Delusions of parasitosis F22 Active 274140081 Problem Mood disorder F39 Active 44773724 Problem Bipolar 1 disorder F31.9 Active 465756002 Problem Skin infection L08.9 Active 903927652 Problem Weight gain R63.5 Active 9249775 Problem High risk sexual behavior Z72.51 Active 548665374 Problem Vaginal discharge N89.8 Active 111707466 Problem Genital herpes simplex, unspecified site A60.00 Active 82375467 Problem History of dyspareunia in female Z87.42 Active 822002629 Problem Hx of migraines Z86.69 Active 420412723 Problem Routine screening for STI (sexually transmitted infection) Z11.3 Active 988963851 Problem BMI 25.0-25.9,adult Z68.25 Active 252141888 Problem Poor dentition K08.8 Active 068778380 Problem Psychotic episode F23 Active 17027837 Problem Depression, unspecified depression type F32.9 Active 98765251 Problem History of abnormal cervical Pap smear Z87.898 Active 316038582 Problem Ganglion of left wrist M67.432 Active 525195585 Problem History of self-harm Z91.5 Active 443522870 Problem History of ovarian cyst Z87.42 Active 298702484 ALLERGIES Unknown Allergies SOCIAL HISTORY No smoking Hx information available PLAN OF CARE VITAL SIGNS MEDICATIONS Medication Instructions Dosage Frequency Start Date End Date Duration Status Permethrin 5 % Externally Once a day 1 application to affected area 24h Apr, Apr, 7 day(s) Active RESULTS No Results PROCEDURES No Known procedures IMMUNIZATIONS No Known Immunizations
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
--- OUTSIDE RECORDS SUMMARY | 2018-02-03 18:11 | XMS REPORT ---
Author Author RITA WARD Organization [facility] Address [address] [place] [address] Care Team Providers Care Rheumatology Nurse Name Role Phone RITA WARD Unavailable PROBLEMS Type Condition ICD9-CM Code [id number] Code Onset Dates Condition Status SNOMED Code Problem Anxiety F41.9 Active 24748942 Problem Hot flashes N95.1 Active 658369596 Problem Nipple discharge N64.52 Active 99782165 Problem Encounter for dental examination Z01.20 Active 221114732 Problem Carpal tunnel syndrome, right upper limb G56.01 Active 62230413 Problem Delusions of parasitosis F22 Active 364433862 Problem Mood disorder F39 Active 27189551 Problem Bipolar 1 disorder F31.9 Active 084704962 Problem Skin infection L08.9 Active 995437040 Problem Weight gain R63.5 Active 5109202 Problem High risk sexual behavior Z72.51 Active 005046416 Problem Vaginal discharge N89.8 Active 966797604 Problem Genital herpes simplex, unspecified site A60.00 Active 71445525 Problem History of dyspareunia in female Z87.42 Active 719826139 Problem Hx of migraines Z86.69 Active 705466497 Problem Routine screening for STI (sexually transmitted infection) Z11.3 Active 804908457 Problem BMI 25.0-25.9,adult Z68.25 Active 161318459 Problem Poor dentition K08.8 Active 312165257 Problem Psychotic episode F23 Active 76137547 Problem Depression, unspecified depression type F32.9 Active 42811846 Problem History of abnormal cervical Pap smear Z87.898 Active 996164802 Problem Ganglion of left wrist M67.432 Active 053769171 Problem History of self-harm Z91.5 Active 474005041 Problem History of ovarian cyst Z87.42 Active 193145163 ALLERGIES No Information SOCIAL HISTORY Never Assessed [...] arm and artery repair Hospitalization History Via [facility] for suicidal idiations. surgery on left arm.
--- OUTSIDE RECORDS SUMMARY | 2018-02-03 18:11 | XMS REPORT ---
Author Author RITA WARD Organization [employer] Address Unknown Phone Unavailable Care Team Providers Care Medical Laboratory Technical Officer Name Role Phone RITA WARD CP Unavailable [...] Date End Date Status Dosage Tramadol HCl [facility] [address]-53 50 MG Orally every 6 hrs 1 tablet as needed Clonazepam [facility] [address]-34 1 MG Orally Twice a day 1 tablet Results No Known Results Summary Purpose [employer] Submission
--- OUTSIDE RECORDS SUMMARY | 2018-02-03 18:11 | XMS REPORT ---
Author Author RITA WARD Organization [facility] Address [address] [place] [address] Care Team Providers Care Rn Dialysis Name Role Phone RITA WARD Unavailable PROBLEMS Type Condition ICD9-CM Code GTL90-LC Code Onset Dates Condition Status SNOMED Code Problem Anxiety F41.9 Active 41899279 Problem Hot flashes N95.1 Active 987278672 Problem Nipple discharge N64.52 Active 73285594 Problem Encounter for dental examination Z01.20 Active 568123368 Problem Carpal tunnel syndrome, right upper limb G56.01 Active 77407058 Problem Delusions of parasitosis F22 Active 020120358 Problem Mood disorder F39 Active 57764125 Problem Bipolar 1 disorder F31.9 Active 399248859 Problem Skin infection L08.9 Active 149875276 Problem Weight gain R63.5 Active 0355763 Problem High risk sexual behavior Z72.51 Active 640452102 Problem Vaginal discharge N89.8 Active 624520232 Problem Genital herpes simplex, unspecified site A60.00 Active 93903610 Problem History of dyspareunia in female Z87.42 Active 839346115 Problem Hx of migraines Z86.69 Active 310062568 Problem Routine screening for STI (sexually transmitted infection) Z11.3 Active 533689493 Problem BMI 25.0-25.9,adult Z68.25 Active 992099093 Problem Poor dentition K08.8 Active 678099198 Problem Psychotic episode F23 Active 41214058 Problem Depression, unspecified depression type F32.9 Active 83199112 Problem History of abnormal cervical Pap smear Z87.898 Active 655756646 Problem Ganglion of left wrist M67.432 Active 150865803 Problem History of self-harm Z91.5 Active 512824617 Problem History of ovarian cyst Z87.42 Active 499329271 ALLERGIES No Information SOCIAL HISTORY Never Assessed PLAN OF CARE VITAL SIGNS MEDICATIONS Medication Instructions Dosage Frequency Start Date End Date Duration Status Bactrim DS 800-160 MG Orally Twice a day 1 tablet 12h 15 Aug, 2016August 10 day(s) Active RESULTS No Results PROCEDURES [...] arm and artery repair Hospitalization History Via [facility] for suicidal idiations. surgery on left arm.
--- OUTSIDE RECORDS SUMMARY | 2018-02-03 18:11 | XMS REPORT ---
Author Author ELIZABETH LEBLANC Organization [facility] Address [address] [place] [address] Care Team Providers Care Insecticide Sprayer Name Role Phone ELIZABETH LEBLANC Unavailable PROBLEMS Type Condition ICD9-CM Code XTC78-KB Code Onset Dates Condition Status SNOMED Code Problem Anxiety F41.9 Active 91995765 Problem Hot flashes N95.1 Active 381171305 Problem Nipple discharge N64.52 Active 10588557 Problem Encounter for dental examination Z01.20 Active 477851939 Problem Carpal tunnel syndrome, right upper limb G56.01 Active 86869657 Problem Delusions of parasitosis F22 Active 580545642 Problem Mood disorder F39 Active 25051932 Problem Bipolar 1 disorder F31.9 Active 527822747 Problem Skin infection L08.9 Active 566420629 Problem Weight gain R63.5 Active 6996982 Problem High risk sexual behavior Z72.51 Active 346401933 Problem Vaginal discharge N89.8 Active 196457335 Problem Genital herpes simplex, unspecified site A60.00 Active 08639847 Problem History of dyspareunia in female Z87.42 Active 693945526 Problem Hx of migraines Z86.69 Active 500353218 Problem Routine screening for STI (sexually transmitted infection) Z11.3 Active 185882174 Problem BMI 25.0-25.9,adult Z68.25 Active 363065068 Problem Poor dentition K08.8 Active 746893945 Problem Psychotic episode F23 Active 31262168 Problem Depression, unspecified depression type F32.9 Active 59264849 Problem History of abnormal cervical Pap smear Z87.898 Active 537996337 Problem Ganglion of left wrist M67.432 Active 417765695 Problem History of self-harm Z91.5 Active 790686653 Problem History of ovarian cyst Z87.42 Active 207110606 ALLERGIES Substance Reaction Event Type Date Status Penicillin V Potassium Unknown Drug Allergy August, Active Latex Unknown Non Drug Allergy August, Active SOCIAL HISTORY Never Assessed PLAN OF CARE Activity Details Follow Up prn Reason: VITAL SIGNS Height 66 in 2016-09-12 Weight 145.2 lbs 2016-09-12 Temperature 98.8 degrees Fahrenheit 2016-09-12 Heart Rate 80 bpm 2016-09-12 Respiratory Rate 2016-09-12 BMI 23.43 kg/m2 2016-09-12 Blood pressure systolic 110 mmHg 2016-09-12 Blood pressure diastolic 68 mmHg 2016-09-12 MEDICATIONS Medication Instructions Dosage Frequency Start Date End Date Duration Status Cyclobenzaprine HCl 10 mg Orally 2 times a day 1 tablet 12h Active Neurontin 800 MG Orally Three times a day 1 tablet as needed for pain 8h 90 days Active Clonazepam 1 MG Orally 2 times a day 1 tablet 12h 28 days Active HydrOXYzine Pamoate 50 mg 1 capsule 8h Active Tramadol HCl 50 MG Orally 3 times a day 2 tablets 8h 28 days Active RESULTS Name Result Date Reference Range TRICHOMONAS (IN HOUSE) 2016-09-12 TRICHOMONAS negative Control + Lot # [id number] Exp date 2016-10 BACTERIAL VAGINOSIS (IN HOUSE) 2016-09-12 RESULTS negative Control + Lot # [id number] Exp date 2017-02 CULTURE, ANAEROBIC AND AEROBIC 2016-09-12 Anaerobic Culture Final report Aerobic Culture Final report Result 1 Result 1 Antimicrobial Susceptibility CULTURE, GENITAL 2016-09-12 Genital Culture, Routine Final report Result 1 GC/CHLAM PROBE (STATE) 2016-09-12 CHLAMYDIA negative GC negative PROCEDURES Procedure Date Ordered Result Body Site No Charge September 12, 2016 LAB NOT BILLED BY [facility] September 12, 2016 ARIAS VAG, DNA, DIR PROBE September 12, 2016 IMMUNIZATIONS No Known Immunizations MEDICAL (GENERAL) [...]
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
--- OUTSIDE RECORDS SUMMARY | 2018-02-03 18:11 | XMS REPORT ---
Author Author RITA WARD Organization [facility] Address [address] [place] [address] Care Team Providers Care Statue Maker Name Role Phone RITA WARD Unavailable PROBLEMS Type Condition ICD9-CM Code BAU21-OG Code Onset Dates Condition Status SNOMED Code Problem Anxiety F41.9 Active 84518180 Problem Hot flashes N95.1 Active 441599361 Problem Nipple discharge N64.52 Active 37139073 Problem Encounter for dental examination Z01.20 Active 784991759 Problem Carpal tunnel syndrome, right upper limb G56.01 Active 22252810 Problem Delusions of parasitosis F22 Active 916744463 Problem Mood disorder F39 Active 89117742 Problem Bipolar 1 disorder F31.9 Active 199247653 Problem Skin infection L08.9 Active 744316462 Problem Weight gain R63.5 Active 7955241 Problem High risk sexual behavior Z72.51 Active 705632526 Problem Vaginal discharge N89.8 Active 196662657 Problem Genital herpes simplex, unspecified site A60.00 Active 72985944 Problem History of dyspareunia in female Z87.42 Active 409548734 Problem Hx of migraines Z86.69 Active 656766117 Problem Routine screening for STI (sexually transmitted infection) Z11.3 Active 531763260 Problem BMI 25.0-25.9,adult Z68.25 Active 858783544 Problem Poor dentition K08.8 Active 644382543 Problem Psychotic episode F23 Active 91851761 Problem Depression, unspecified depression type F32.9 Active 49897235 Problem History of abnormal cervical Pap smear Z87.898 Active 500873449 Problem Ganglion of left wrist M67.432 Active 029240831 Problem History of self-harm Z91.5 Active 456041894 Problem History of ovarian cyst Z87.42 Active 087133660 ALLERGIES Unknown Allergies SOCIAL HISTORY No smoking Hx information available PLAN OF CARE VITAL SIGNS MEDICATIONS Unknown Medications RESULTS No Results PROCEDURES No Known procedures IMMUNIZATIONS No Known Immunizations
--- OUTSIDE RECORDS SUMMARY | 2018-02-03 18:11 | XMS REPORT ---
Author Author FAB RIVER [facility] [employer] Address Unknown Phone Unavailable Care Team Providers Care Glue Spreader Name Role Phone FAB RIVER Unavailable Allergies, Adverse Reactions, Alerts Substance Reaction Event Type Penicillin V Potassium Info Not Available Drug Allergy Latex Info Not Available Non Drug Allergy Problems Problem Type Condition Code Onset Dates Condition Status Problem BMI 25.0-25.9,adult Z68.25 Active Assessment Vaginal discharge N89.8 Active Problem Routine screening for STI (sexually transmitted infection) Z11.3 Active Assessment Skin infection L08.9 Active Problem History of dyspareunia in female Z87.42 Active Problem Anxiety F41.9 Active Problem History of ovarian cyst Z87.42 Active Problem Skin infection L08.9 Active Problem Vaginal discharge N89.8 Active Problem Ganglion of left wrist M67.432 Active Problem Psychotic episode F23 Active Problem High risk sexual behavior Z72.51 Active Assessment High risk sexual behavior Z72.51 Active Problem [...] abnormal cervical Pap smear Z87.898 Active Problem Hot flashes N95.1 Active Medications Medication Code System Code Instructions Start Date End Date Status Dosage Bactroban [facility] [address]-93 2 % Externally Three times a day Feb 17, 2016 Feb 27, 2016 1 application to affected area Neurontin [facility] 39793081435 800 MG Orally Three times a day 1 tablet as needed for pain Tramadol HCl [facility] [address]-41 50 mg Orally 3 times a day 2 tablets Promethazine HCl [facility] 39208943239 25 MG Oral every 12 hrs 1 tablet as needed Diflucan [facility] [address]-51 150 MG Orally Once a day Feb 17, 2016 1 tablet Clonazepam [facility] [address]-15 1 MG Orally Twice a day. 1 tablet HydrOXYzine Pamoate [facility] 66312962996 50 MG TAKE ONE CAPSULE BY MOUTH THREE TIMES DAILY NEEDED Loxapine Succinate [facility] 31624297372 50 MG Orally Twice a day 1 capsule Flexeril NDC 0 not defined Bactrim DS [facility] [address]-45 800-160 MG Orally Twice a day Feb 17, 2016 Feb 24, 2016 1 tablet Cyclobenzaprine HCl [facility] 63258713983 10 mg Orally 2 times a day 1 tablet Mobic [facility] 48925913205 15 MG Orally Once a day 1 tablet Procedures Procedure Coding System Code Date No Charge CPT-4 57898 Feb 17, 2016 HUGO VAG, DNA, DIR PROBE CPT-4 10529 Feb 17, 2016 LAB [facility] CPT-4 NOBLL Feb 17, 2016 Office Visit, Est Pt., Level 5 CPT-4 58197 Feb 17, 2016 VENIPUNCT, ROUTINE* CPT-4 47041 Feb 17, 2016 Vital Signs Date/Time: Feb 17, 2016 Cardiac Monitoring Heart Rate 80 bpm Weight 142.0 lbs Height 66 in BMI 22.92 Index Blood Pressure Diastolic 76 mmHg Blood Pressure Systolic 130 mmHg Results Name Result Date Reference Range Unit Abnormality Flag ROUTINE VENIPUNCTURE Summary Purpose [employer] Submission
--- OUTSIDE RECORDS SUMMARY | 2018-02-03 18:12 | XMS REPORT ---
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 [facility] [address] [id number] [place] [address] 7058 August, [facility] [place] [facility] [address] [id number] [place] [address] 56[address] August, [facility] [place] [facility] [address] [id number] [place] [address] August, [facility] [place] [facility] [address] [id number] [place] [address]- 7[address] August, [facility] [place] [facility] [address] [id number] [place] [address]- 9875 August, [facility] [place] [facility] [address] [id number] [place] [address]- 4[address] August, [facility] [place] [facility] [address] [id number] [place] [address]- 9779 Jul, [facility] [place] [facility] [address] [id number] [place] [address]- 0038 Jul, [facility] [place] [facility] [address] [id number] [place] [address]- 1375 24 Jul, 2011 [facility] [place] [facility] [address] [id number] [place] [address]- 6215 24 Jul, 2011 [facility] [place] [facility] [address] [id number] [place] [address]- 6335 23 Jul, 2011 [facility] [place] [facility] [address] [id number] [place] [address]- 1681 16 Jul, 2011 [facility] [place] [facility] [address] [id number] [place] [address]- 8947 Jul, [facility] [place] [facility] [address] [id number] [place] [address]- 8557 Jul, [facility] [address] [id number] [place] [address]- 7656 Jun, [facility] [place] [facility] [address] [id number] [place] [address] 2546 Jun, [facility] [address] [id number] [place] [address]- 8396 Jun, [facility] [place] [facility] [address] [id number] [place] [address]- 1397 May, [facility] [place] [facility] [address] [id number] [place] [address]- 1906 May, [facility] [place] [facility] [address] [id number] [place] [address]- 6516 May, [facility] [place] [facility] [address] [id number] [place] [address] 2541 May, [facility] [address] [id number] [place] [address]- 0077 May, [facility] [place] [facility] [address] [id number] [place] [address]- 9516 Apr, [facility] [address] [id number] [place] [address]- 6546 Apr, [facility] [place] [facility] [address] [id number] [place] [address]- 4206 Apr, [facility] [place] [facility] [address] [id number] [place] [address] 2548 Apr, [facility] [place] [facility] [address] [id number] [place] [address] 2546 Mar, [facility] [place] [facility] [address] [id number] [place] [address] 2546 Mar, [facility] [place] [facility] [address] [id number] [place] [address]- 4890 14 Mar, 2011 [facility] [place] [facility] [address] [id number] [place] [address]- 0083 07 Mar, 2011 [facility] [place] [facility] [address] [id number] [place] [address]- 3841 30 Feb, 2011 [facility] [place] [facility] [address] [id number] [place] [address]- 1221 Feb, [facility] [place] [facility] [address] [id number] [place] [address]- 8285 Feb, [facility] [place] [facility] [address] [id number] [place] [address]- 6783 Feb, [facility] [place] [facility] [address] [id number] [place] [address]- 6625 Feb, [facility] [place] [facility] [address] [id number] [place] [address]- 9021 Feb, [facility] [place] [facility] [address] [id number] [place] [address]- 2169 Feb, [facility] [place] [facility] [address] [id number] [place] [address]- 8425 Jan, [facility] [place] [facility] [address] [id number] [place] [address]- 3336 10 Jan, 2011 [facility] [place] [facility] [address] [id number], [place] [address]- [address] 16 Dec, 2010 [facility] [place] [facility] [address] [id number], [place] [address]- [address] Nov, [facility] [place] [facility] [address] [id number] [place] [address]- 5240 15 May, 2010 [facility] [place] [facility] [address] [id number], [place] [address]- [address]207 14 Apr, 2010 [facility] [place] [facility] [address] [id number], [place] [address]- [address] Feb, [facility] [place] [facility] [address] [facility] [id number] [place] [address]- [address] Jan, [facility] [address] [facility] [id number], [place] [address]- 9472 August, [facility] [address] [facility] [id number], [place] [address]- 9[address] Mar, [facility] [address] [facility] [id number], [place] [address]- [address] Jan, [facility] [address] [facility] [id number], [place] [address]- [address]290 Oct, IMMUNIZATIONS No Known Immunizations SOCIAL HISTORY Never Assessed REASON FOR VISIT 6 mo recall PLAN OF CARE Activity Details Follow Up First Available Reason:Restorative VITAL SIGNS Heart Rate 89 bpm 2016-11-02 Blood pressure systolic 117 mmHg 2016-11-02 Blood pressure diastolic 75 mmHg 2016-11-02 MEDICATIONS Medication Instructions Dosage Frequency Start Date End Date Duration Status Cyclobenzaprine HCl 10 mg Orally 2 times a day 1 tablet 12h Active Promethazine HCl 25 MG Oral every 12 hrs 1 tablet as needed 12h 15 Active Clonazepam 1 MG Orally 2 times a day 1 tablet 12h 28 days Active Naproxen 500 MG Orally every 12 hrs 1 tablet 12h Active HydrOXYzine Pamoate 50 mg 1 capsule 8h Active Neurontin 800 MG Orally Three times a day 1 tablet as needed for pain 8h 90 days Active RESULTS No Results PROCEDURES Procedure Date Ordered Result Body Site COMP ORAL EVALUATION - NEW/EST PT November 02, 2016 INTRAORL-PERIAPICAL 1 FILM 74654 November 02, 2016 PROPHYLAXIS - ADULT November 02, 2016 PANORAMIC FILM SEE ALSO CODE 65408 November 02, 2016 TOPICAL FLUORIDE VARNISH November 02, 2016 INTRAORL-PERIAPICAL EA ADD FILM November 02, 2016 INTRAORL-PERIAPICAL EA ADD FILM November 02, 2016 BITEWINGS - FOUR FILMS November 02, 2016 INTRAORL-PERIAPICAL EA ADD FILM November 02, 2016 INSTRUCTIONS MEDICATIONS ADMINISTERED No Known Medications MEDICAL (GENERAL) HISTORY Type Description Date Medical History depression Medical History hx of ulcers Medical History right ovarian cysts-recurring Medical History mood swings Medical History bipolar disorder Medical History drug abuse Surgical History orthopedic surgery-carpal tunnel 05/2011 Surgical History tubal ligation Surgical History cholecystectomy Surgical History surgery on left arm and artery repair Hospitalization History [facility] for suicidal idiations. surgery on left arm.
--- OUTSIDE RECORDS SUMMARY | 2018-02-03 18:13 | XMS REPORT ---
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 [address] [id number] [place] [address]- 0708 30 Jul, 2011 [facility] [address] [id number] [place] [address]- 8633 Jul, [facility] [address] [id number] [place] [address]- 8347 24 Jul, 2011 [facility] [address] [id number] [place] [address]- 7918 24 Jul, 2011 [facility] [place] [facility] [address] [id number] [place] [address]- 0140 23 Jul, 2011 [facility] [place] [facility] [address] [id number] [place] [address]- 5347 16 Jul, 2011 [facility] [place] [facility] [address] [id number] [place] [address]- 0072 09 Jul, 2011 [facility] [place] [facility] [address] [id number] [place] [address]- 9664 Jul, [facility] [place] [facility] [address] [id number] [place] [address] 3239 Jun, [facility] [place] [facility] [address] [id number] [place] [address]- 0766 Jun, [facility] [place] [facility] [address] [id number] [place] [address]- 8527 Jun, [facility] [place] [facility] [address] [id number] [place] [address]- 8262 May, [facility] [place] [facility] [address] [id number] [place] [address]- 4586 May, [facility] [place] [facility] [address] [id number] [place] [address]- 4777 May, [facility] [place] [facility] [address] [id number] [place] [address]- 5754 May, [facility] [place] [facility] [address] [id number] [place] [address]- 1175 May, [facility] [place] [facility] [address] [id number] [place] [address]- 6229 Apr, [facility] [place] [facility] [address] [id number] [place] [address] 9626 Apr, [facility] [place] [facility] [address] [id number] [place] [address]- 7121 Apr, [facility] [place] [facility] [address] [id number] [place] [address]- 0090 Apr, [facility] [place] [facility] [address] [id number] [place] [address]- 8661 Mar, [facility] [place] [facility] [address] [id number] [place] [address]- 7833 Mar, [facility] [place] [facility] [address] [id number] [place] [address]- 4717 14 Mar, 2011 [facility] [place] [facility] [address] [id number] [address] 4710 Mar, [facility] [place] [facility] [address] [id number] [place] [address]- 7306 30 Feb, 2011 [facility] [place] [facility] [address] [id number] [place] [address]- 5377 Feb, [facility] [place] [facility] [address] [id number] [place] [address]- 6110 15 Feb, 2011 [facility] [place] [facility] [address] [id number] [place] [address]- 3999 Feb, [facility] [place] [facility] [address] [id number] [place] [address]- 7184 Feb, [facility] [place] [facility] [address] [id number] [place] [address]- 0723 Feb, [facility] [place] [facility] [address] [id number] [place] [address]- 1077 Feb, [facility] [place] [facility] [address] [id number] [place] [address]- 3982 Jan, [facility] [place] [facility] [address] [id number] [place] [address]- 7337 10 Jan, 2011 [facility] [place] [facility] [address] [id number] [place] [address]- 3781 16 Dec, 2010 [facility] [place] [facility] [address] [id number] [address]- 3060 Nov, [facility] [place] [facility] [address] [id number] [address]20 15 May, 2010 [facility] [place] [facility] [address] [id number] [place] [address]- 4148 14 Apr, 2010 [facility] [place] [facility] [address] [id number] [place] [address]- 2579 Feb, [facility] [place] [facility] [address] [id number] [place] [address]- 9988 Jan, [facility] [place] [facility] [address] [facility] [id number] [place] [address]- 2546 August, [facility] [address] [facility] [id number] [place] [address] 2546 Mar, [facility] [address] [facility] [id number] [place] [address]- 2546 Jan, [facility] [address] [facility] [id number] [place] [address]46 Oct, IMMUNIZATIONS No Known Immunizations SOCIAL HISTORY Never Assessed REASON FOR VISIT Controlled Med Refill PLAN OF CARE VITAL SIGNS MEDICATIONS Medication Instructions Dosage Frequency Start Date End Date Duration Status Clonazepam 1 MG Orally 2 times a day 1 tablet 12h 28 days Active HydrOXYzine Pamoate 50 mg 1 capsule 8h Active Tramadol HCl 50 mg Orally 2 times a day 2 tablets 12h 2 May, 2017 28 days Active RESULTS No Results PROCEDURES [...]
--- OUTSIDE RECORDS SUMMARY | 2018-02-03 18:14 | XMS REPORT ---
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 [place] [address]- 9613 August, [facility] [address] [id number] [place] [address]- 0590 August, [facility] [address] [id number] [place] [address]- 4256 August, [facility] [address] [id number] [place] [address]- 5599 August, [facility] [address] [id number] [place] [address]- 8902 30 Jul, 2011 [facility] [address] [id number] [place] [address]- 0931 Jul, [facility] [address] [id number] [place] [address]- 9467 24 Jul, 2011 [facility] [address] [id number] [place] [address]- 3627 24 Jul, 2011 [facility] [place] [facility] [address] [id number] [place] [address]- 2880 23 Jul, 2011 [facility] [place] [facility] [address] [id number] [place] [address]- 4600 16 Jul, 2011 [facility] [place] [facility] [address] [id number] [place] [address]- [address] 09 Jul, 2011 [facility] [place] [facility] [address] [id number] [place] [address]- 0763 Jul, [facility] [place] [facility] [address] [id number] [place] [address]- 4701 Jun, [facility] [place] [facility] [address] [id number] [place] [address]- 2866 Jun, [facility] [place] [facility] [address] [id number] [place] [address]- 6557 Jun, [facility] [place] [facility] [address] [id number] [place] [address]- 2123 May, [facility] [place] [facility] [address] [id number] [place] [address]- 1282 May, [facility] [place] [facility] [address] [id number] [place] [address]- 8398 May, [facility] [place] [facility] [address] [id number] [place] [address]- 2124 May, [facility] [place] [facility] [address] [id number] [place] [address]- 8072 May, [facility] [place] [facility] [address] [id number] [place] [address]- 9238 Apr, [facility] [place] [facility] [address] [id number] [place] [address]- 7178 Apr, [facility] [place] [facility] [address] [id number] [place] [address]- 4540 Apr, [facility] [place] [facility] [address] [id number] [place] [address]- 5443 Apr, [facility] [place] [facility] [address] [id number] [place] [address]- 9831 Mar, [facility] [place] [facility] [address] [id number] [place] [address]- 6069 Mar, [facility] [place] [facility] [address] [id number] [place] [address]- 4813 14 Mar, 2011 [facility] [place] [facility] [address] [id number], [place] [address]- 6285 Mar, [facility] [place] [facility] [address] [id number] [place] [address]- 7559 30 Feb, 2011 [facility] [place] [facility] [address] [id number] [place] [address]- 2927 Feb, [facility] [place] [facility] [address] [id number] [place] [address]- 9468 15 Feb, 2011 [facility] [place] [facility] [address] [id number] [place] [address]- 2947 Feb, [facility] [place] [facility] [address] [id number] [place] [address]- 5998 Feb, [facility] [place] [facility] [address] [id number] [place] [address]- 6117 Feb, [facility] [place] [facility] [address] [id number] [place] [address]- 4128 Feb, [facility] [place] [facility] [address] [id number] [place] [address]- 1964 Jan, [facility] [place] [facility] [address] [id number] [place] [address]- 6193 10 Jan, 2011 [facility] [place] [facility] [address] [id number] [place] [address]- 5845 16 Dec, 2010 [facility] [place] [facility] [address] [id number], [place] [address]- 6659 Nov, [facility] [place] [facility] [address] [id number], [place] [address]- 7693 15 May, 2010 [facility] [place] [facility] [address] [id number] [place] [address]- 9582 14 Apr, 2010 [facility] [place] [facility] [address] [id number] [place] [address]- 5231 Feb, [facility] [place] [facility] [address] [id number] [place] [address]- 3220 Jan, [facility] [place] [facility] [address] [facility] [id number] [place] [address]- 2546 August, [facility] [address] [facility] [id number], [place] [address]- 2546 Mar, [facility] [address] [facility] [id number], [place] [address]- 2546 Jan, [facility] [address] [facility] [id number], [place] [address]- 2546 Oct, IMMUNIZATIONS No Known Immunizations SOCIAL HISTORY Never Assessed REASON FOR VISIT Controlled Med Refill PLAN OF CARE VITAL SIGNS MEDICATIONS Medication Instructions Dosage Frequency Start Date End Date Duration Status Clonazepam 1 MG Orally 2 times a day 1 tablet 12h 28 days Active Tramadol HCl 50 MG Orally 3 [...] arm and artery repair Hospitalization History [facility] for suicidal idiations. surgery on left arm.
--- OUTSIDE RECORDS SUMMARY | 2018-02-03 18:14 | XMS REPORT ---
Author Author RITA WARD Organization [employer] Address Unknown Phone Unavailable Care Team Providers Care Oncology Coordinator Name Role Phone RITA WARD CP Unavailable Allergies No Known Allergies Problems Problem Type Condition Code Onset Dates Condition Status Problem Mood disorder F39 Active Problem Carpal tunnel syndrome, right upper limb G56.01 Active Problem Bipolar 1 disorder F31.9 Active Assessment Neuropathy G62.9 Active Problem Ganglion of left wrist M67.432 Active Problem Psychotic episode F23 Active Medications Medication Code System Code Instructions Start Date End Date Status Dosage Promethazine HCl [facility] [address]-72 12.5 MG Orally every 6 hrs Mar 13, 2015 Apr 12, 2015 1 tablet as needed Linzess [facility] [address]-60 145 MCG Orally Once a day Mar 13, 2015 Apr 12, 2015 1 capsule Results No Known Results Summary Purpose [employer] Submission
--- OUTSIDE RECORDS SUMMARY | 2018-02-03 18:14 | XMS REPORT ---
Author Author RITA WARD Organization [facility] Address [address] [place] [address] Care Team Providers Care Net Technical Architect Name Role Phone RITA WARD Unavailable PROBLEMS Type Condition ICD9-CM Code [id number] Code Onset Dates Condition Status SNOMED Code Problem Anxiety F41.9 Active 65022477 Problem Hot flashes N95.1 Active 013679368 Problem Nipple discharge N64.52 Active 40914387 Problem Encounter for dental examination Z01.20 Active 671909562 Problem Carpal tunnel syndrome, right upper limb G56.01 Active 05264591 Problem Delusions of parasitosis F22 Active 536118918 Problem Mood disorder F39 Active 14200158 Problem Bipolar 1 disorder F31.9 Active 808514815 Problem Skin infection L08.9 Active 093435411 Problem Weight gain R63.5 Active 0142332 Problem High risk sexual behavior Z72.51 Active 806793648 Problem Vaginal discharge N89.8 Active 234052175 Problem Genital herpes simplex, unspecified site A60.00 Active 60267188 Problem History of dyspareunia in female Z87.42 Active 372285820 Problem Hx of migraines Z86.69 Active 452656917 Problem Routine screening for STI (sexually transmitted infection) Z11.3 Active 275587021 Problem BMI 25.0-25.9,adult Z68.25 Active 126262098 Problem Poor dentition K08.8 Active 394360179 Problem Psychotic episode F23 Active 50937011 Problem Depression, unspecified depression type F32.9 Active 38991396 Problem History of abnormal cervical Pap smear Z87.898 Active 084445565 Problem Ganglion of left wrist M67.432 Active 841269304 Problem History of self-harm Z91.5 Active 396257667 Problem History of ovarian cyst Z87.42 Active 462924153 ALLERGIES No Information SOCIAL HISTORY Never Assessed [...] arm and artery repair Hospitalization History [facility] for suicidal idiations. surgery on left arm.
--- OUTSIDE RECORDS SUMMARY | 2018-02-03 18:14 | XMS REPORT ---
Author Author RITA WARD Organization [facility] Address [address] [place] [address] Care Team Providers Care Dealmaker Name Role Phone RITA WARD Unavailable PROBLEMS Type Condition ICD9-CM Code AEA03-MA Code Onset Dates Condition Status SNOMED Code Problem Anxiety F41.9 Active 36268336 Problem Hot flashes N95.1 Active 441906486 Problem Nipple discharge N64.52 Active 98291380 Problem Encounter for dental examination Z01.20 Active 343994966 Problem Carpal tunnel syndrome, right upper limb G56.01 Active 54079284 Problem Delusions of parasitosis F22 Active 949897968 Problem Mood disorder F39 Active 92263600 Problem Bipolar 1 disorder F31.9 Active 108704501 Problem Skin infection L08.9 Active 164822846 Problem Weight gain R63.5 Active 0040088 Problem High risk sexual behavior Z72.51 Active 959003809 Problem Vaginal discharge N89.8 Active 896477675 Problem Genital herpes simplex, unspecified site A60.00 Active 68275077 Problem History of dyspareunia in female Z87.42 Active 798690023 Problem Hx of migraines Z86.69 Active 611089187 Problem Routine screening for STI (sexually transmitted infection) Z11.3 Active 820338547 Problem BMI 25.0-25.9,adult Z68.25 Active 191945521 Problem Poor dentition K08.8 Active 173802917 Problem Psychotic episode F23 Active 96098874 Problem Depression, unspecified depression type F32.9 Active 59348091 Problem History of abnormal cervical Pap smear Z87.898 Active 554848751 Problem Ganglion of left wrist M67.432 Active 146259188 Problem History of self-harm Z91.5 Active 123926480 Problem History of ovarian cyst Z87.42 Active 198218428 ALLERGIES No Information SOCIAL HISTORY Never Assessed PLAN OF CARE VITAL SIGNS MEDICATIONS Medication Instructions Dosage Frequency Start Date End Date Duration Status Bactrim DS 800-160 MG Orally Twice a day 1 tablet 12h 13 Jun, 2016Jun 10 day(s) Active RESULTS No Results PROCEDURES [...] arm and artery repair Hospitalization History [facility] for suicidal idiations. surgery on left arm.
--- OUTSIDE RECORDS SUMMARY | 2018-02-03 18:14 | XMS REPORT ---
Author Author NATALIE LAKE [facility] Address Unknown Care Team Providers Care Button Bradder Name Role Phone NATALIE LAKE Unavailable PROBLEMS Type Condition ICD9-CM Code YGR50-HN Code Onset Dates Condition Status SNOMED Code Problem Anxiety F41.9 Active 06913504 Problem Hot flashes N95.1 Active 912128421 Problem Nipple discharge N64.52 Active 62625984 Problem Encounter for dental examination Z01.20 Active 365863135 Problem Carpal tunnel syndrome, right upper limb G56.01 Active 50479792 Problem Delusions of parasitosis F22 Active 202175909 Problem Mood disorder F39 Active 03765213 Problem Bipolar 1 disorder F31.9 Active 999066166 Problem Skin infection L08.9 Active 355199652 Problem Weight gain R63.5 Active 8193340 Problem High risk sexual behavior Z72.51 Active 609550176 Problem Vaginal discharge N89.8 Active 283079274 Problem Genital herpes simplex, unspecified site A60.00 Active 44061173 Problem History of dyspareunia in female Z87.42 Active 244321565 Problem Hx of migraines Z86.69 Active 822550319 Problem Routine screening for STI (sexually transmitted infection) Z11.3 Active 259270949 Problem BMI 25.0-25.9,adult Z68.25 Active 154225875 Problem Poor dentition K08.8 Active 364470890 Problem Psychotic episode F23 Active 91492760 Problem Depression, unspecified depression type F32.9 Active 28955210 Problem History of abnormal cervical Pap smear Z87.898 Active 289872569 Problem Ganglion of left wrist M67.432 Active 006387110 Problem History of self-harm Z91.5 Active 186171476 Problem History of ovarian cyst Z87.42 Active 592721238 ALLERGIES Substance Reaction Event Type Date Status Penicillin V Potassium Unknown Drug Allergy August, Active Latex Unknown Non Drug Allergy August, Active SOCIAL HISTORY Never Assessed PLAN OF CARE Activity Details Follow Up prn Reason:sutures removal VITAL SIGNS Height 66 in 2016-09-07 Blood pressure systolic 94 mmHg 2016-09-07 Blood pressure diastolic 54 mmHg 2016-09-07 MEDICATIONS Medication Instructions Dosage Frequency Start Date End Date Duration Status Permethrin 5 % Externally Once a day 1 application to affected area 24h Apr, 7 day(s) Active Albendazole 200 mg as directed Apr, 1 dose Active Azithromycin 250 MG Orally Once a day 2 tablets on the first day, then 1 tablet daily for 4 days 24h 5 day(s) Active Neurontin 800 MG Orally Three times a day 1 tablet as needed for pain 8h 90 days Active Clonazepam 1 MG Orally 2 times a day 1 tablet 12h 28 days Active Tramadol HCl 50 MG Orally 3 times a day 2 tablets 8h 28 days Active HydrOXYzine Pamoate 50 mg 1 capsule 8h Active Bactrim DS 800-160 MG Orally Twice a day 1 tablet 12h 15 Aug, 2016August 10 day(s) Active RESULTS No Results PROCEDURES Procedure Date Ordered Result Body Site LTD ORAL EVALUATION - PROBLEM FOCUS September 07, 2016 INTRAORL-PERIAPICAL 1 FILM 70040 September 07, 2016 IMMUNIZATIONS No Known Immunizations MEDICAL (GENERAL) HISTORY Type Description Date Medical History depression Medical History hx of ulcers Medical History right ovarian cysts-recurring Medical History mood swings Medical History bipolar disorder Medical History drug abuse Surgical History orthopedic surgery-carpal tunnel 05/2011 Surgical History tubal ligation Surgical History cholecystectomy Surgical History surgery on left arm and artery repair Hospitalization History Via [facility] for suicidal idiations. surgery on left arm.
--- OUTSIDE RECORDS SUMMARY | 2018-02-03 18:14 | XMS REPORT ---
Author RITA Cui Organization [employer] Address Unknown Phone Unavailable Care Team Providers Care Control Systems Technician Name Role Phone RITA WARD CP Unavailable [...]
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
--- OUTSIDE RECORDS SUMMARY | 2018-02-03 18:14 | XMS REPORT ---
Author Author RITA WARD Organization [employer] Address Unknown Phone Unavailable Care Team Providers Care Segmental Paver Installer Name Role Phone RITA WARD CP Unavailable [...] Date End Date Status Dosage Tramadol HCl [facility] [address]-26 50 MG Orally every 6 hrs. MAY FILL 04/20 1 tablet as needed Clonazepam [facility] [address]-27 1 MG Orally Twice a day. MAY FILL 04/20/15 1 tablet Results No Known Results Summary Purpose [employer] Submission
--- OUTSIDE RECORDS SUMMARY | 2018-02-03 18:14 | XMS REPORT ---
Author Author F[facility] Address [address] [place] [address] Care Team Providers Care Toddler Guide Name Role Phone [facility] Unavailable PROBLEMS Type Condition ICD9-CM Code PSW96-SY Code Onset Dates Condition Status SNOMED Code Problem History of ovarian cyst Z87.42 Active 190145806 Problem Depression, unspecified depression type F32.9 Active 19798537 Problem Anxiety F41.9 Active 83907919 Problem High risk sexual behavior Z72.51 Active 323175467 Problem Carpal tunnel syndrome, right upper limb G56.01 Active 25435186 Problem Skin infection L08.9 Active 354389104 Problem Ganglion of left wrist M67.432 Active 717385288 Problem Psychotic episode F23 Active 60410256 Problem Nipple discharge N64.52 Active 07440361 Problem Hx of migraines Z86.69 Active 006674856 Problem Vaginal discharge N89.8 Active 362351108 Problem Poor dentition K08.8 Active 974234008 Problem History of self-harm Z91.5 Active 480749735 Problem History of abnormal cervical Pap smear Z87.898 Active 595054718 Problem Mood disorder F39 Active 41304024 Problem Bipolar 1 disorder F31.9 Active 017733643 Problem Weight gain R63.5 Active 3426477 Problem BMI 25.0-25.9,adult Z68.25 Active 062466822 Problem Hot flashes N95.1 Active 671922694 Problem Routine screening for STI (sexually transmitted infection) Z11.3 Active 597951150 Problem Genital herpes simplex, unspecified site A60.00 Active 62602644 Problem History of dyspareunia in female Z87.42 Active 223807766 ALLERGIES Unknown Allergies SOCIAL HISTORY No smoking Hx information available PLAN OF CARE VITAL SIGNS MEDICATIONS Unknown Medications RESULTS No Results PROCEDURES No Known procedures IMMUNIZATIONS No Known Immunizations
[2018-02-03] MEDS ORDERED: LORazepam INJ 2 MG/ML (ATIVAN) VIAL IVP ONE (18:15)
--- OUTSIDE RECORDS SUMMARY | 2018-02-03 18:15 | XMS REPORT ---
Author RITA Cui Organization [employer] Address Unknown Phone Unavailable Care Team Providers Care Pattern Lease Inspector Name Role Phone RITA WARD CP Unavailable [...] Date End Date Status Dosage Tramadol HCl [facility] [address]-15 50 mg Orally 3 times a day 2 tablets Results No Known Results Summary Purpose [employer] Submission
--- OUTSIDE RECORDS SUMMARY | 2018-02-03 18:15 | XMS REPORT ---
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 [id number] [place] [address] 34[address] August, [facility] [address] [id number] [place] [address] 118[address] August, [facility] [address] [id number] [place] [address] 30 Jul, 2011 [facility] [address] [id number] [place] [address] 490[address] Jul, [facility] [address] [id number] [place] [address]- 9983 24 Jul, 2011 [facility] [address] [id number] [place] [address]- [address] 24 Jul, 2011 [facility] [place] [facility] [address] [id number] [place] [address]- 07[address] 23 Jul, 2011 [facility] [place] [facility] [address] [id number] [place] [address]- 8[address] 16 Jul, 2011 [facility] [place] [facility] [address] [id number] [place] [address]- [address] 09 Jul, 2011 [facility] [place] [facility] [address] [id number] [place] [address]- 4079 Jul, [facility] [place] [facility] [address] [id number] [place] [address]- 1252 Jun, [facility] [place] [facility] [address] [id number] [place] [address]- 4226 Jun, [facility] [place] [facility] [address] [id number] [place] [address]- 58[address] Jun, [facility] [place] [facility] [address] [id number] [place] [address]- 3184 May, [facility] [place] [facility] [address] [id number] [place] [address]- 1107 May, [facility] [place] [facility] [address] [id number] [place] [address]- 9977 May, [facility] [place] [facility] [address] [id number] [place] [address]- 7934 May, [facility] [place] [facility] [address] [id number] [place] [address]- 2214 May, [facility] [place] [facility] [address] [id number] [place] [address]- 4338 Apr, [facility] [place] [facility] [address] [id number] [place] [address]- 1067 Apr, [facility] [place] [facility] [address] [id number] [place] [address]- 4021 Apr, [facility] [place] [facility] [address] [id number] [place] [address]- 4[address] Apr, [facility] [place] [facility] [address] [id number] [place] [address]- 9[address] Mar, [facility] [place] [facility] [address] [id number] [place] [address]- 7[address] Mar, [facility] [place] [facility] [address] [id number] [place] [address]- 6[address] 14 Mar, 2011 [facility] [place] [facility] [address] [id number] [address] Mar, [facility] [place] [facility] [address] [id number] [place] [address]- 8928 30 Feb, 2011 [facility] [place] [facility] [address] [id number] [place] [address]- [address] Feb, [facility] [place] [facility] [address] [id number] [place] [address]- 9181 15 Feb, 2011 [facility] [place] [facility] [address] [id number] [place] [address]- 0610 Feb, [facility] [place] [facility] [address] [id number] [place] [address]- 5204 Feb, [facility] [place] [facility] [address] [id number] [place] [address]- 0676 Feb, [facility] [place] [facility] [address] [id number] [place] [address]- 6903 Feb, [facility] [place] [facility] [address] [id number] [place] [address]- 1643 Jan, [facility] [place] [facility] [address] [id number] [place] [address]- 2804 10 Jan, 2011 [facility] [place] [facility] [address] [id number] [place] [address]- 7565 16 Dec, 2010 [facility] [place] [facility] [address] [id number] [address]- [address] Nov, [facility] [place] [facility] [address] [id number] [address]- [address] 15 May, 2010 [facility] [place] [facility] [address] [id number] [place] [address]- 1021 14 Apr, 2010 [facility] [place] [facility] [address] [id number] [place] [address]- 8206 Feb, [facility] [place] [facility] [address] [id number] [place] [address]- 5076 Jan, [facility] [place] [facility] [address] [facility] [id number] [place] [address]- [address] August, [facility] [address] [facility] [id number] [address]- [address] Mar, [facility] [address] [facility] [id number] [address]- [address] Jan, [facility] [address] [facility] [id number] [address] Oct, IMMUNIZATIONS No Known Immunizations SOCIAL [...]
--- OUTSIDE RECORDS SUMMARY | 2018-02-03 18:15 | XMS REPORT ---
Author RITA Cui Organization [employer] Address Unknown Phone Unavailable Care Team Providers Care Vulnerability Assessment Analyst Name Role Phone RITA WARD CP Unavailable [...] tunnel syndrome, right upper limb G56.01 Active Assessment Back pain M54.9 Active Problem Psychotic episode F23 Active Problem History of self-harm Z91.5 Active Problem History of abnormal cervical Pap smear Z87.898 Active Problem Mood disorder F39 Active Problem Hot flashes N95.1 Active Problem Bipolar 1 disorder F31.9 Active Problem Genital herpes simplex, unspecified site A60.00 Active Medications Medication Code System Code Instructions Start Date End Date Status Dosage Tramadol HCl [facility] [address]-77 50 mg Orally 3 times a day 2 tablets Results No Known Results Summary Purpose [employer] Submission
--- OUTSIDE RECORDS SUMMARY | 2018-02-03 18:16 | XMS REPORT ---
Author Author TYLER TIRADO [facility] [employer] Address Unknown Phone Unavailable Care Team Providers Care Needle Board Repairer Name Role Phone TYLER TIRADO Unavailable Allergies No Known Allergies Problems Problem [...]
--- OUTSIDE RECORDS SUMMARY | 2018-02-03 18:16 | XMS REPORT ---
Author Author RITA WARD Organization [facility] Address [address] [place] [address] Care Team Providers Care Senior Reservoir Engineer Name Role Phone RITA WADR Unavailable PROBLEMS Type Condition ICD9-CM Code [id number] Code Onset Dates Condition Status SNOMED Code Problem Anxiety F41.9 Active 84715363 Problem Hot flashes N95.1 Active 804693063 Problem Nipple discharge N64.52 Active 77783966 Problem Encounter for dental examination Z01.20 Active 074804783 Problem Carpal tunnel syndrome, right upper limb G56.01 Active 25444104 Problem Delusions of parasitosis F22 Active 039013855 Problem Mood disorder F39 Active 60783237 Problem Bipolar 1 disorder F31.9 Active 986166053 Problem Skin infection L08.9 Active 783933585 Problem Weight gain R63.5 Active 3061188 Problem High risk sexual behavior Z72.51 Active 933217892 Problem Vaginal discharge N89.8 Active 217550019 Problem Genital herpes simplex, unspecified site A60.00 Active 79647060 Problem History of dyspareunia in female Z87.42 Active 615233237 Problem Hx of migraines Z86.69 Active 905426260 Problem Routine screening for STI (sexually transmitted infection) Z11.3 Active 660640149 Problem BMI 25.0-25.9,adult Z68.25 Active 290203833 Problem Poor dentition K08.8 Active 078106420 Problem Psychotic episode F23 Active 84352248 Problem Depression, unspecified depression type F32.9 Active 12131503 Problem History of abnormal cervical Pap smear Z87.898 Active 314614120 Problem Ganglion of left wrist M67.432 Active 096193266 Problem History of self-harm Z91.5 Active 090565062 Problem History of ovarian cyst Z87.42 Active 009867452 ALLERGIES No Information SOCIAL HISTORY Never Assessed PLAN OF CARE VITAL SIGNS MEDICATIONS Medication Instructions Dosage Frequency Start Date End Date Duration Status Neurontin 800 MG Orally Three times a day 1 tablet as needed for pain 8h 90 days Active RESULTS No Results PROCEDURES No [...] arm and artery repair Hospitalization History [facility] for suicidal idiations. surgery on left arm.
--- OUTSIDE RECORDS SUMMARY | 2018-02-03 18:16 | XMS REPORT ---
Author Author NATALIE LAKE [employer] Address Unknown Phone Unavailable Care Team Providers Care Research Management Associate Name Role Phone NATALIE LAKE CP Unavailable Allergies, Adverse Reactions, Alerts Substance [...] syndrome, right upper limb G56.01 Active Assessment Dental examination Z01.20 Active Problem Psychotic episode F23 Active Problem History of self-harm Z91.5 Active Problem History of abnormal cervical Pap smear Z87.898 Active Problem Mood disorder F39 Active Problem Hot flashes N95.1 Active Problem Bipolar 1 disorder F31.9 Active Problem Genital herpes simplex, unspecified site A60.00 Active Medications Medication Code System Code Instructions Start Date End Date Status Dosage Tramadol HCl [facility] [address]-39 50 mg Orally 3 times a day 2 tablets Loxapine Succinate [facility] 43110653214 50 MG Orally Twice a day 1 capsule Promethazine HCl [facility] 59558997541 25 MG Oral every 12 hrs 1 tablet as needed Clonazepam [facility] [address]-53 1 MG Orally Twice a day. 1 tablet Neurontin [facility] 43493723686 800 MG Orally Three times a day 1 tablet as needed for pain Mobic [facility] 77190902802 15 MG Orally Once a day 1 tablet HydrOXYzine Pamoate [facility] 30938514859 50 MG TAKE ONE CAPSULE BY MOUTH THREE TIMES DAILY NEEDED Cyclobenzaprine HCl [facility] 14701039017 10 mg Orally 2 times a day 1 tablet Procedures Procedure Coding System Code Date INTRAORL-PERIAPICAL 1 FILM 08930 CPT-4 D0220 November 19, 2015 LTD ORAL EVALUATION - PROBLEM FOCUS CPT-4 D0140 November 19, 2015 Vital Signs Date/Time: November 19, 2015 Blood Pressure Diastolic 89 mmHg Blood Pressure Systolic 132 mmHg Height 66 in Results No Known Results Summary Purpose [employer] Submission
--- OUTSIDE RECORDS SUMMARY | 2018-02-03 18:16 | XMS REPORT ---
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 Problem Ganglion of left wrist M67.432 Active Problem Psychotic episode F23 Active Medications Medication Code System Code Instructions Start Date End Date Status Dosage Neurontin [facility] [address]-03 800 MG Orally Three times a day 1 tablet as needed for pain Clonazepam [facility] [address]-70 1 MG Orally Twice a day 1 tablet Promethazine HCl [facility] [address]-14 6.25 MG/5ML Orally every 6 hrs Mar 09, 2015 Apr 08, 2015 10 ml as needed Tramadol HCl [facility] [address]-60 50 MG Orally every 6 hrs 1 tablet as needed Vistaril [facility] [address]-18 50 MG Orally 3 times a day Feb 27, 2015 1 capsule as needed Procedures Procedure Coding System Code Date Office Visit, Est Pt., Level 3 CPT-4 53033 Mar 09, 2015 Vital Signs Date/Time: Mar 09, 2015 Temperature 98.5 F Weight 138.7 lbs Height 66 in BMI 22.38 Index Blood Pressure Diastolic 70 mmHg Blood Pressure Systolic 100 mmHg Cardiac Monitoring Heart Rate 100 bpm Results No Known Results Summary Purpose [employer] Submission
--- OUTSIDE RECORDS SUMMARY | 2018-02-03 18:16 | XMS REPORT ---
Author Author VIRIDIANA PICKERING Organization [facility] Address [address] [place] [address] Care Team Providers Care Upper Stitcher Name Role Phone VIRIDIANA PICKERING Unavailable PROBLEMS Type Condition ICD9-CM Code SOB96-OR Code Onset Dates Condition Status SNOMED Code Problem Anxiety F41.9 Active 64453981 Problem Hot flashes N95.1 Active 730742142 Problem Nipple discharge N64.52 Active 06326757 Problem Encounter for dental examination Z01.20 Active 988445824 Problem Carpal tunnel syndrome, right upper limb G56.01 Active 63524128 Problem Delusions of parasitosis F22 Active 398600636 Problem Mood disorder F39 Active 63168186 Problem Bipolar 1 disorder F31.9 Active 298017445 Problem Skin infection L08.9 Active 266683963 Problem Weight gain R63.5 Active 4759652 Problem High risk sexual behavior Z72.51 Active 866934046 Problem Vaginal discharge N89.8 Active 415913777 Problem Genital herpes simplex, unspecified site A60.00 Active 18407277 Problem History of dyspareunia in female Z87.42 Active 090732426 Problem Hx of migraines Z86.69 Active 433226358 Problem Routine screening for STI (sexually transmitted infection) Z11.3 Active 961444491 Problem BMI 25.0-25.9,adult Z68.25 Active 157925121 Problem Poor dentition K08.8 Active 609434847 Problem Psychotic episode F23 Active 44684593 Problem Depression, unspecified depression type F32.9 Active 95268529 Problem History of abnormal cervical Pap smear Z87.898 Active 851044525 Problem Ganglion of left wrist M67.432 Active 503479839 Problem History of self-harm Z91.5 Active 684632615 Problem History of ovarian cyst Z87.42 Active 405431124 ALLERGIES Unknown Allergies SOCIAL HISTORY No smoking Hx information available PLAN OF CARE VITAL SIGNS MEDICATIONS Unknown Medications RESULTS Name Result Date Reference Range STOOL (O & P) 2016-04-26 Ova + Parasite Exam Final report Result 1 PROCEDURES No Known procedures IMMUNIZATIONS No Known Immunizations
--- OUTSIDE RECORDS SUMMARY | 2018-02-03 18:17 | XMS REPORT ---
Author Author NATALIE LAKE [facility] Address Unknown Care Team Providers Care Star Route Mail Driver Name Role Phone NATALIE LAKE Unavailable PROBLEMS Type Condition ICD9-CM Code SVO67-TB Code Onset Dates Condition Status SNOMED Code Problem Depression, unspecified depression type F32.9 Active 88858730 Problem Nipple discharge N64.52 Active 49960137 Problem Hx of migraines Z86.69 Active 377806853 Problem Encounter for dental examination Z01.20 Active 366566999 Problem Bipolar 1 disorder F31.9 Active 507657625 Problem Delusions of parasitosis F22 Active 350356947 Problem Mood disorder F39 Active 47787551 Problem Carpal tunnel syndrome, right upper limb G56.01 Active 28351721 Problem Vaginal discharge N89.8 Active 512114123 Problem Poor dentition K08.8 Active 165614110 Problem High risk sexual behavior Z72.51 Active 024038745 Problem Skin infection L08.9 Active 659093824 Problem Hot flashes N95.1 Active 177040565 Problem Genital herpes simplex, unspecified site A60.00 Active 82262210 Problem History of self-harm Z91.5 Active 848863963 Problem History of abnormal cervical Pap smear Z87.898 Active 727406056 Problem Routine screening for STI (sexually transmitted infection) Z11.3 Active 387711877 Problem History of dyspareunia in female Z87.42 Active 010801831 Problem Psychotic episode F23 Active 15868521 Problem Weight gain R63.5 Active 8468957 Problem History of ovarian cyst Z87.42 Active 497755562 Problem Ganglion of left wrist M67.432 Active 772565923 Problem BMI 25.0-25.9,adult Z68.25 Active 720993139 Problem Anxiety F41.9 Active 14459260 ALLERGIES Substance Reaction Event Type Date Status Penicillin V Potassium Unknown Drug Allergy Feb, Active Latex Unknown Non Drug Allergy Feb, Active SOCIAL HISTORY No smoking Hx information available PLAN OF CARE Activity Details Follow Up prn Reason:surgeical extraction VITAL SIGNS Height 66 in 2016-03-10 Blood pressure systolic 113 mmHg 2016-03-10 Blood pressure diastolic 73 mmHg 2016-03-10 MEDICATIONS Unknown Medications RESULTS No Results PROCEDURES Procedure Date Ordered Related Diagnosis Body Site Dental no charge Mar 10, 2016 IMMUNIZATIONS No Known Immunizations
--- OUTSIDE RECORDS SUMMARY | 2018-02-03 18:17 | XMS REPORT ---
Author RITA Cui [facility] [employer] Address Unknown Phone Unavailable Care Team Providers Care Plasterer Apprentice Name Role Phone RITA WARD CP Unavailable [...] Date End Date Status Dosage Tramadol HCl [facility] [address]-58 50 MG Orally every 6 hrs. 1 tablet as needed Clonazepam [facility] [address]-01 1 MG Orally Twice a day. 1 tablet Results No Known Results Summary Purpose [employer] Submission
--- OUTSIDE RECORDS SUMMARY | 2018-02-03 18:17 | XMS REPORT ---
Author Author RITA WARD Organization [facility] Address [address] [place] [address] Care Team Providers Care Manager Of Business Operations Name Role Phone RITA WARD Unavailable PROBLEMS Type Condition ICD9-CM Code HPZ10-TB Code Onset Dates Condition Status SNOMED Code Problem Depression, unspecified depression type F32.9 Active 61686482 Problem Nipple discharge N64.52 Active 19435771 Problem Hx of migraines Z86.69 Active 338589546 Problem Encounter for dental examination Z01.20 Active 539368434 Problem Bipolar 1 disorder F31.9 Active 183113595 Problem Delusions of parasitosis F22 Active 545871158 Problem Mood disorder F39 Active 92187838 Problem Carpal tunnel syndrome, right upper limb G56.01 Active 85251298 Problem Vaginal discharge N89.8 Active 485519186 Problem Poor dentition K08.8 Active 829606082 Problem High risk sexual behavior Z72.51 Active 268838037 Problem Skin infection L08.9 Active 914528589 Problem Hot flashes N95.1 Active 389767200 Problem Genital herpes simplex, unspecified site A60.00 Active 15732707 Problem History of self-harm Z91.5 Active 713103015 Problem History of abnormal cervical Pap smear Z87.898 Active 065975216 Problem Routine screening for STI (sexually transmitted infection) Z11.3 Active 313574555 Problem History of dyspareunia in female Z87.42 Active 851754468 Problem Psychotic episode F23 Active 57356885 Problem Weight gain R63.5 Active 9508196 Problem History of ovarian cyst Z87.42 Active 003347664 Problem Ganglion of left wrist M67.432 Active 914493076 Problem BMI 25.0-25.9,adult Z68.25 Active 134390517 Problem Anxiety F41.9 Active 21583297 ALLERGIES Unknown Allergies SOCIAL HISTORY No smoking Hx information available PLAN OF CARE VITAL SIGNS MEDICATIONS Unknown Medications RESULTS No Results PROCEDURES No Known procedures IMMUNIZATIONS No Known Immunizations
--- OUTSIDE RECORDS SUMMARY | 2018-02-03 18:17 | XMS REPORT ---
Author Author KIA MONAHAN [facility] eClinicalWorks Address Unknown Phone Unavailable Care Team Providers Care Supervisor Blast Furnace Auxiliaries Name Role Phone KIA MONAHAN CP Unavailable Allergies No Known Allergies Problems [...] Instructions Start Date End Date Status Dosage [facility] [address]-94 500 MG Orally twice a day Jun 05, 2015 Jun 12, 2015 1 tablet Results No Known Results Summary Purpose eClinicalWorks Submission
--- OUTSIDE RECORDS SUMMARY | 2018-02-03 18:17 | XMS REPORT ---
Author RITA Cui Organization eClinicalWorks Address Unknown Phone Unavailable Care Team Providers Care Rotary Soil Stabilizer Name Role Phone RITA WARD CP Unavailable [...]
--- OUTSIDE RECORDS SUMMARY | 2018-02-03 18:17 | XMS REPORT ---
Author Author RITA WARD Organization [facility] Address [address] [place] [address] Care Team Providers Care Supervisor Shipping Room Name Role Phone RITA WARD Unavailable PROBLEMS Type Condition ICD9-CM Code DDW02-DL Code Onset Dates Condition Status SNOMED Code Problem BMI 25.0-25.9,adult Z68.25 Active 308335055 Problem History of dyspareunia in female Z87.42 Active 853914068 Problem Routine screening for STI (sexually transmitted infection) Z11.3 Active 601282945 Problem Poor dentition K08.8 Active 169615979 Problem Nipple discharge N64.52 Active 89549100 Problem Anxiety F41.9 Active 57506612 Problem History of ovarian cyst Z87.42 Active 014308416 Problem Hx of migraines Z86.69 Active 836207082 Problem Depression, unspecified depression type F32.9 Active 12367450 Problem Carpal tunnel syndrome, right upper limb G56.01 Active 96203605 Problem Mood disorder F39 Active 27946188 Problem Psychotic episode F23 Active 21091795 Problem Ganglion of left wrist M67.432 Active 011504364 Problem History of abnormal cervical Pap smear Z87.898 Active 468884063 Problem Hot flashes N95.1 Active 637876908 Problem Bipolar 1 disorder F31.9 Active 331910272 Problem Genital herpes simplex, unspecified site A60.00 Active 24210645 Problem History of self-harm Z91.5 Active 874568922 Problem Weight gain R63.5 Active 0335753 ALLERGIES Unknown Allergies SOCIAL HISTORY No smoking Hx information available PLAN OF CARE VITAL SIGNS MEDICATIONS Medication Instructions Dosage Frequency Start Date End Date Duration Status Clonazepam 1 MG Orally Twice a day. 1 tablet Active RESULTS No Results PROCEDURES No Known procedures IMMUNIZATIONS No Known Immunizations
--- OUTSIDE RECORDS SUMMARY | 2018-02-03 18:17 | XMS REPORT ---
Author Author FAB RIVER Organization eClinicalWorks Address Unknown Phone Unavailable Care Team Providers Care Shake Loader Name Role Phone FAB RIVER CP Unavailable [...] Start Date End Date Status Dosage Flagyl [facility] [address]-85 500 MG Orally every 8 hrs Mar 22, 2016 Mar 29, 2016 1 tablet Results No Known Results Summary Purpose eClinicalWorks Submission
--- OUTSIDE RECORDS SUMMARY | 2018-02-03 18:17 | XMS REPORT ---
Author Author SALAMANCA [facility] Address [address] [place] [address] Care Team Providers Care Thoracic Surgeon Name Role Phone JESSIE SALAMANCA Unavailable PROBLEMS Type Condition ICD9-CM Code EBM15-MH Code Onset Dates Condition Status SNOMED Code Problem Anxiety F41.9 Active 24409393 Problem Hot flashes N95.1 Active 029557766 Problem Nipple discharge N64.52 Active 31672501 Problem Encounter for dental examination Z01.20 Active 023050722 Problem Carpal tunnel syndrome, right upper limb G56.01 Active 95642636 Problem Delusions of parasitosis F22 Active 652185434 Problem Mood disorder F39 Active 75447544 Problem Bipolar 1 disorder F31.9 Active 747762236 Problem Skin infection L08.9 Active 222779113 Problem Weight gain R63.5 Active 0420622 Problem High risk sexual behavior Z72.51 Active 685838103 Problem Vaginal discharge N89.8 Active 621418852 Problem Genital herpes simplex, unspecified site A60.00 Active 86365522 Problem History of dyspareunia in female Z87.42 Active 451415430 Problem Hx of migraines Z86.69 Active 061510850 Problem Routine screening for STI (sexually transmitted infection) Z11.3 Active 053596586 Problem BMI 25.0-25.9,adult Z68.25 Active 979015726 Problem Poor dentition K08.8 Active 559480436 Problem Psychotic episode F23 Active 74061631 Problem Depression, unspecified depression type F32.9 Active 29581711 Problem History of abnormal cervical Pap smear Z87.898 Active 281608165 Problem Ganglion of left wrist M67.432 Active 013829323 Problem History of self-harm Z91.5 Active 999320017 Problem History of ovarian cyst Z87.42 Active 031407095 ALLERGIES Substance Reaction Event Type Date Status Penicillin V Potassium Unknown Drug Allergy Apr, Active Latex Unknown Non Drug Allergy Apr, Active SOCIAL HISTORY No smoking Hx information available PLAN OF CARE Activity Details Follow Up 2 Weeks, prn Reason: VITAL SIGNS Height 66 in 2016-04-28 Weight 147.1 lbs 2016-04-28 Temperature 98.5 degrees Fahrenheit 2016-04-28 Heart Rate 82 bpm 2016-04-28 Respiratory Rate 22 2016-04-28 BMI 23.74 kg/m2 2016-04-28 Blood pressure systolic 110 mmHg 2016-04-28 Blood pressure diastolic 80 mmHg 2016-04-28 MEDICATIONS Medication Instructions Dosage Frequency Start Date End Date Duration Status HydrOXYzine Pamoate 50 mg 1 capsule 8h Active Tramadol HCl 50 mg Orally 3 times a day 2 tablets 8h Active Albendazole 200 mg as directed Apr, 1 dose Active Permethrin 5 % Externally Once a day 1 application to affected area 24h Apr, 7 day(s) Active Clonazepam 1 MG Orally Twice a day. 1 tablet Active Cephalexin 500 MG Orally Twice a day 1 capsule 12h Apr, Apr, 10 day(s) Active RESULTS No Results PROCEDURES Procedure Date Ordered Related Diagnosis Body Site Office Visit, Est Pt., Level 3 Apr 28, 2016 IMMUNIZATIONS No Known Immunizations
--- OUTSIDE RECORDS SUMMARY | 2018-02-03 18:17 | XMS REPORT ---
Author Author RITA WARD Organization [facility] Address [address] [place] [address] Care Team Providers Care Flame Burner Name Role Phone RITA WARD Unavailable PROBLEMS Type Condition ICD9-CM Code IOV16-GH Code Onset Dates Condition Status SNOMED Code Problem Anxiety F41.9 Active 69016561 Problem Hot flashes N95.1 Active 863495773 Problem Nipple discharge N64.52 Active 81503759 Problem Encounter for dental examination Z01.20 Active 524001521 Problem Carpal tunnel syndrome, right upper limb G56.01 Active 44105072 Problem Delusions of parasitosis F22 Active 203018880 Problem Mood disorder F39 Active 99711340 Problem Bipolar 1 disorder F31.9 Active 248164003 Problem Skin infection L08.9 Active 662813177 Problem Weight gain R63.5 Active 6487441 Problem High risk sexual behavior Z72.51 Active 738710009 Problem Vaginal discharge N89.8 Active 283526451 Problem Genital herpes simplex, unspecified site A60.00 Active 50298004 Problem History of dyspareunia in female Z87.42 Active 493971831 Problem Hx of migraines Z86.69 Active 033880393 Problem Routine screening for STI (sexually transmitted infection) Z11.3 Active 173303755 Problem BMI 25.0-25.9,adult Z68.25 Active 033868433 Problem Poor dentition K08.8 Active 985466290 Problem Psychotic episode F23 Active 33728296 Problem Depression, unspecified depression type F32.9 Active 08518454 Problem History of abnormal cervical Pap smear Z87.898 Active 372625326 Problem Ganglion of left wrist M67.432 Active 249526345 Problem History of self-harm Z91.5 Active 742200351 Problem History of ovarian cyst Z87.42 Active 389202412 ALLERGIES Unknown Allergies SOCIAL HISTORY No smoking [...]
--- OUTSIDE RECORDS SUMMARY | 2018-02-03 18:18 | XMS REPORT ---
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 Active Problem Hot flashes N95.1 Active Problem Routine screening for STI (sexually transmitted infection) Z11.3 Active Medications Medication Code System Code Instructions Start Date End Date Status Dosage Tramadol HCl [facility] [address]-29 50 mg Orally 3 times a day 2 tablets Promethazine HCl [facility] 18214334117 25 MG Oral every 12 hrs 1 tablet as needed HydrOXYzine Pamoate [facility] [address]-36 50 mg 3 times a day 1 capsule Bactrim DS [facility] [address]-61 800-160 MG Orally Twice a day Mar 11, 2016 Mar 16, 2016 1 tablet Naproxen [facility] [address]-17 500 MG Orally every 12 hrs 1 tablet Neurontin [facility] 57630743093 800 MG Orally Three times a day 1 tablet as needed for pain Cyclobenzaprine HCl [facility] [address]-70 10 mg Orally 2 times a day 1 tablet Clonazepam [facility] [address]-71 1 MG Orally Twice a day. 1 tablet Procedures Procedure Coding System Code Date No Charge CPT-4 81352 Mar 11, 2016 Office Visit, Est Pt., Level 3 CPT-4 76570 Mar 11, 2016 URINALYSIS, AUTO, W/O SCOPE CPT-4 58668 Mar 11, 2016 Vital Signs Date/Time: Mar 11, 2016 Cardiac Monitoring Heart Rate 80 bpm Weight 138.7 lbs Height 66 in BMI 22.38 Index Blood Pressure Diastolic 74 mmHg Blood Pressure Systolic 110 mmHg Results Name Result Date Reference Range Unit Abnormality Flag UA LONG DIP (IN HOUSE) ----JEREMY neg [id number] ----NIT neg [id number] ----SG 1.015 [id number] ----KET neg [id number] ----JOSEPH neg [id number] ----GLU neg [id number] ----Odor none [id number] ----pH 7.0 20160311 ----BLO neg [id number] ----URO 0.2 [id number] ----Protein neg [id number] ----Lot # [id number] ----Exp date [id number] ----Clarity clear [id number] ----Color yellow [id number] [employer] Summary Purpose eClinicalWorks Submission
--- OUTSIDE RECORDS SUMMARY | 2018-02-03 18:18 | XMS REPORT ---
Author Author KAMAR KULKARNI [facility] eClinicalWorks Address Unknown Phone Unavailable Care Team Providers Care Rn New Graduate Name Role Phone KAMAR KULKARNI Unavailable Allergies [...] Date End Date Status Dosage Clonazepam [facility] [address]-92 1 MG Orally Twice a day 1 tablet Results No Known Results Summary Purpose eClinicalWorks Submission
--- OUTSIDE RECORDS SUMMARY | 2018-02-03 18:18 | XMS REPORT ---
Author Author RITA WARD Organization eClinicalWorks Address Unknown Phone Unavailable Care Team Providers Care Corporate Physical Security Supervisor Name Role Phone RITA WARD CP Unavailable [...] Start Date End Date Status Dosage Clonazepam [facility] [address]-05 1 MG Orally Twice a day. 1 tablet Tramadol HCl [facility] [address]-16 50 MG Orally every 6 hrs. 1 tablet as needed Results No Known Results Summary Purpose eClinicalWorks Submission
--- OUTSIDE RECORDS SUMMARY | 2018-02-03 18:18 | XMS REPORT ---
Author Author RITA WARD [facility] Address [address] [place] [address] Care Team Providers Care Automation Controls Specialist Name Role Phone RITA WARD Unavailable PROBLEMS Type Condition ICD9-CM Code AAW03-DA Code Onset Dates Condition Status SNOMED Code Problem Depression, unspecified depression type F32.9 Active 79450032 Problem Nipple discharge N64.52 Active 11963971 Problem Hx of migraines Z86.69 Active 032640687 Problem Encounter for dental examination Z01.20 Active 955112593 Problem Bipolar 1 disorder F31.9 Active 336134081 Problem Delusions of parasitosis F22 Active 917732358 Problem Mood disorder F39 Active 95257791 Problem Carpal tunnel syndrome, right upper limb G56.01 Active 58289974 Problem Vaginal discharge N89.8 Active 738302147 Problem Poor dentition K08.8 Active 237137349 Problem High risk sexual behavior Z72.51 Active 939560269 Problem Skin infection L08.9 Active 530272959 Problem Hot flashes N95.1 Active 305411666 Problem Genital herpes simplex, unspecified site A60.00 Active 02937818 Problem History of self-harm Z91.5 Active 339685169 Problem History of abnormal cervical Pap smear Z87.898 Active 070961732 Problem Routine screening for STI (sexually transmitted infection) Z11.3 Active 294453610 Problem History of dyspareunia in female Z87.42 Active 281514985 Problem Psychotic episode F23 Active 23050516 Problem Weight gain R63.5 Active 8801600 Problem History of ovarian cyst Z87.42 Active 563809691 Problem Ganglion of left wrist M67.432 Active 824913961 Problem BMI 25.0-25.9,adult Z68.25 Active 459132708 Problem Anxiety F41.9 Active 17133098 ALLERGIES Unknown Allergies SOCIAL HISTORY No smoking Hx information available PLAN OF CARE VITAL SIGNS MEDICATIONS Medication Instructions Dosage Frequency Start Date End Date Duration Status Clonazepam 1 MG Orally Twice a day. 1 tablet Active Tramadol HCl 50 mg Orally 3 times a day 2 tablets 8h Active RESULTS No Results PROCEDURES No Known procedures IMMUNIZATIONS No Known Immunizations
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
--- OUTSIDE RECORDS SUMMARY | 2018-02-03 18:18 | XMS REPORT ---
Author RITA Cui [facility] eClinicalWorks Address Unknown Phone Unavailable Care Team Providers Care Zoning Technician Name Role Phone RITA WARD CP [...] Z68.25 Active Problem Nipple discharge N64.52 Active Assessment Wrist pain, left M25.532 Active Problem Hx of migraines Z86.69 Active [...] Start Date End Date Status Dosage Mobic [facility] 19236702989 15 MG Orally Once a day 1 tablet Acyclovir [facility] [address]-58 800 MG Orally 3 times a day July 24, 2015 1 tablet Promethazine HCl [facility] [address]-36 25 MG Oral every 12 hrs Apr 06, 2015 1 tablet as needed HydrOXYzine Pamoate [facility] [address]-89 50 MG TAKE ONE CAPSULE BY MOUTH THREE TIMES DAILY NEEDED Clonazepam [facility] [address]-35 1 MG Orally Twice a day. 1 tablet Loxapine Succinate [facility] 51664852319 50 MG Orally Twice a day 1 capsule Naproxen [facility] [address]-16 500 MG Orally every 12 hrs 1 tablet as needed Cyclobenzaprine HCl [facility] [address]-72 10 mg Orally 2 times a day 1 tablet Tramadol HCl [facility] [address]-46 50 mg Orally 3 times a day 2 tablets Neurontin [facility] 28716904530 800 MG Orally Three times a day 1 tablet as needed for pain Procedures Procedure Coding System Code Date Office Visit, Est Pt., Level 3 CPT-4 78373 August 13, 2015 Vital Signs Date/Time: August 13, 2015 Temperature 98.4 F Weight 142.0 lbs Height 66 in BMI 22.92 Index Blood Pressure Diastolic 82 mmHg Blood Pressure Systolic 120 mmHg Cardiac Monitoring Heart Rate 72 bpm Results No Known Results Summary Purpose eClinicalWorks Submission
--- OUTSIDE RECORDS SUMMARY | 2018-02-03 18:18 | XMS REPORT ---
Author RITA Cui Organization eClinicalWorks Address Unknown Phone Unavailable Care Team Providers Care Transmission Tester Name Role Phone RITA WARD CP Unavailable [...] Date End Date Status Dosage Promethazine HCl [facility] [address]-08 25 MG TAKE ONE-HALF TABLET BY MOUTH EVERY 6 HOURS NEEDED Results No Known Results Summary Purpose eClinicalWorks Submission
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
--- OUTSIDE RECORDS SUMMARY | 2018-02-03 18:19 | XMS REPORT ---
Author Author KAMAR KULKARNI Organization [employer] Address Unknown Phone Unavailable Care Team Providers Care [employer] Repairer Name Role Phone KAMAR KULKARNI CP Unavailable Allergies, Adverse Reactions, Alerts Substance [...] Dosage Clonazepam [facility] [address]-87 1 MG Orally Twice a day 1 tablet Neurontin [facility] [address]-39 600 MG Orally Three times a day 1 tablet as needed for pain Tramadol HCl [facility] [address]-83 50 MG Orally every 6 hrs 1 tablet as needed Vistaril [facility] [address]-32 50 MG Orally 3 times a day Feb 27, 2015 1 capsule as needed Latuda [facility] [address]-59 80 MG Orally Once a day 1 tablet with food Seroquel XR [facility] [address]-84 50 MG Orally Once a day at Feb 13, 2015 1 tablet in the evening Procedures Procedure Coding System Code Date Office Visit, Est Pt., Level 4 CPT-4 21908 Feb 27, 2015 Vital Signs Date/Time: Feb 27, 2015 Cardiac Monitoring Heart Rate 92 bpm Weight 141.9 lbs Height 66 in BMI 22.90 Index Blood Pressure Diastolic 62 mmHg Blood Pressure Systolic 100 mmHg Results No Known Results Summary Purpose [employer] Submission
--- OUTSIDE RECORDS SUMMARY | 2018-02-03 18:21 | XMS REPORT | Continuity of Care Document ---
Author Author [facility] Address Unknown Phone Unavailable Allergies Active Description Code Type Severity Reaction Onset Reported/Identified Relationship to Patient Clinical Status Yes ALLERGIES UNKNOWN DUE TO PATIENT INCAPACITATION UNKNOWN ALLERGIES UNKNOWN DU Yes No Known Drug Allergies [id number] Drug Allergy Unknown N/A 06/17/2008 Yes latex Drug Allergy N/A N/A 05/24/2013 Yes PCN PCN Mild N/A 07/28/2015 Yes ketorolac [id number] Drug Allergy Unknown N/A 09/25/2015 Yes Penicillins [id number] Drug Allergy Unknown N/A 09/25/2015 Yes ketorolac [id number] Drug Allergy Unknown N/A 09/25/2015 Yes Penicillins [id number] Drug Allergy Unknown N/A 09/25/2015 Medications Medication Packaging Start Date Stop Date Route Dosage Sig Acetaminophen 325 MG TAB 201606/25/2016 1 Q4H PRN Quetiapine MG 06/25/2016 06/25/2016 200 DAILY Omeprazole MG 06/25/2016 06/25/2016 40 MORNING Multiple Vitamins W/Minerals TAB 06/25/2016 1 DAILY Loxapine Succinate MG 06/25/2016 06/25/2016 10 BID Ibuprofen* MG 06/25/2016 06/25/2016 200 Q4H PRN Gabapentin MG 06/25/2016 06/25/2016 300 BID Benztropine Mesylate MG 06/25/2016 06/25/2016 0.5 BID Sulfamethoxazole/Trimethoprim* TAB 06/25/2016 06/25/2017 1 Q12H Zolpidem Tartrate MG 06/25/2016 06/25/2016 10 BEDTIME LORAZEPAM 1CC VIAL INJ 2 MG/CC (ATIVAN VIAL) MG 08/28/2017 08/28/2017 PRN ONCE Problems Date Dx Coded Attending Type Code Diagnosis Diagnosed By 01/16/2008 RITA WARD APRN 780.52 INSOMNIA UNSPECIFIED 01/16/2008 RITA WARD APRN 784.0 HEADACHE 01/16/2008 RITA WARD APRN V58.69 MEDICATION HIGH RISK 01/16/2008 MILA FELDMAN SIDDHARTH K 780.52 INSOMNIA UNSPECIFIED 01/16/2008 MILA FELDMAN, SIDDHARTH K 784.0 HEADACHE 01/16/2008 CATHIE ZARAGOZA DOA K V58.69 MEDICATION HIGH RISK 01/16/2008 GENSWEIDER DDS, JONO M 780.52 INSOMNIA UNSPECIFIED 01/16/2008 GENSWEIDER DDS, JONO M 784.0 HEADACHE 01/16/2008 GENSWEIDER DDS, JONO M V58.69 MEDICATION HIGH RISK 01/16/2008 RITA WARD APRN 780.52 INSOMNIA UNSPECIFIED 01/16/2008 RITA WARD APRN 784.0 HEADACHE 01/16/2008 RITA WARD APRN V58.69 MEDICATION HIGH RISK 01/16/2008 RITA WARD APRN 780.52 INSOMNIA UNSPECIFIED 01/16/2008 RITA WARD APRN 784.0 HEADACHE 01/16/2008 RITA WARD APRN V58.69 MEDICATION HIGH RISK 01/16/2008 780.52 INSOMNIA UNSPECIFIED 01/16/2008 784.0 HEADACHE 01/16/2008 V58.69 MEDICATION HIGH RISK 01/16/2008 780.52 INSOMNIA UNSPECIFIED 01/16/2008 784.0 HEADACHE 01/16/2008 V58.69 MEDICATION HIGH RISK 01/16/2008 RITA WARD APRN 780.52 INSOMNIA UNSPECIFIED 01/16/2008 RITA WARD APRN 784.0 HEADACHE 01/16/2008 RITA WARD APRN V58.69 MEDICATION HIGH RISK 01/16/2008 RITA WARD APRN 780.52 INSOMNIA UNSPECIFIED 01/16/2008 RITA WARD APRN T 784.0 HEADACHE 01/16/2008 RITA WARD APRN V58.69 MEDICATION HIGH RISK 01/16/2008 PATRICIA MASSEY MD 780.52 INSOMNIA UNSPECIFIED 01/16/2008 PATRICIA MASSEY MD 784.0 HEADACHE 01/16/2008 PATRICIA MASSEY MD V58.69 MEDICATION HIGH RISK 01/16/2008 JOSE LUIS BELTRANSMT 780.52 INSOMNIA UNSPECIFIED 01/16/2008 WHITE DDS, MT J 784.0 HEADACHE 01/16/2008 WHITE DDS, MT J V58.69 MEDICATION HIGH RISK 01/16/2008 RITA WARD APRN 780.52 INSOMNIA UNSPECIFIED 01/16/2008 RITA WARD APRN 784.0 HEADACHE 01/16/2008 RITA WARD APRN V58.69 MEDICATION HIGH RISK 01/16/2008 WHITE DDS, MT J 780.52 INSOMNIA UNSPECIFIED 01/16/2008 WHITE DDS, MT J 784.0 HEADACHE 01/16/2008 WHITE DDS, MT J V58.69 MEDICATION HIGH RISK 01/16/2008 ZARAGOZA DO, SIDDHARTH K 780.52 INSOMNIA UNSPECIFIED 01/16/2008 ZARAGOZA DO, SIDDHARTH K 784.0 HEADACHE 01/16/2008 ZARAGOZA DO, SIDDHARTH K V58.69 MEDICATION HIGH RISK 01/16/2008 RITA WARD APRN 780.52 INSOMNIA UNSPECIFIED 01/16/2008 RITA WARD APRN T 784.0 HEADACHE 01/16/2008 RITA WARD APRN V58.69 MEDICATION HIGH RISK 01/16/2008 WHITE DDS, MT J 780.52 INSOMNIA UNSPECIFIED 01/16/2008 WHITE DDS, MT J 784.0 HEADACHE 01/16/2008 WHITE DDS, MT J V58.69 MEDICATION HIGH RISK 01/16/2008 ZARAGOZA DO, SIDDHARTH K 780.52 INSOMNIA UNSPECIFIED 01/16/2008 ZARAGOZA DO, SIDDHARTH K 784.0 HEADACHE 01/16/2008 ZARAGOZA DO, SIDDHARTH K V58.69 MEDICATION HIGH RISK 01/16/2008 RITA WARD APRN 780.52 INSOMNIA UNSPECIFIED 01/16/2008 RITA WARD APRN 784.0 HEADACHE 01/16/2008 RITA WARD APRN V58.69 MEDICATION HIGH RISK 01/21/2008 RITA WARD APRN 346.90 MIGRAINE UNSPECIFIED WITHOUT INTRACTABLE MIGRAINE 01/21/2008 ZARAGOZA DO, SIDDHARTH K 346.90 MIGRAINE UNSPECIFIED WITHOUT INTRACTABLE MIGRAINE 01/21/2008 RONNA BELTRANS, JONO Spencer 346.90 MIGRAINE UNSPECIFIED WITHOUT INTRACTABLE MIGRAINE 01/21/2008 RITA WARD APRN 346.90 MIGRAINE UNSPECIFIED WITHOUT INTRACTABLE MIGRAINE 01/21/2008 RITA WARD APRN 346.90 MIGRAINE UNSPECIFIED WITHOUT INTRACTABLE MIGRAINE 01/21/2008 346.90 MIGRAINE UNSPECIFIED WITHOUT INTRACTABLE MIGRAINE 01/21/2008 346.90 MIGRAINE UNSPECIFIED WITHOUT INTRACTABLE MIGRAINE 01/21/2008 RITA WARD APRN 346.90 MIGRAINE UNSPECIFIED WITHOUT INTRACTABLE MIGRAINE 01/21/2008 RITA WARD APRN 346.90 MIGRAINE UNSPECIFIED WITHOUT INTRACTABLE MIGRAINE 01/21/2008 PATRICIA MASSEY MD 346.90 MIGRAINE UNSPECIFIED WITHOUT INTRACTABLE MIGRAINE 01/21/2008 WHITE DDS, MT J 346.90 MIGRAINE UNSPECIFIED WITHOUT INTRACTABLE MIGRAINE 01/21/2008 RITA WARD APRN 346.90 MIGRAINE UNSPECIFIED WITHOUT INTRACTABLE MIGRAINE 01/21/2008 WHITE DDS, MT J 346.90 MIGRAINE UNSPECIFIED WITHOUT INTRACTABLE MIGRAINE 01/21/2008 MILA DOCATHIEA K 346.90 MIGRAINE UNSPECIFIED WITHOUT INTRACTABLE MIGRAINE 01/21/2008 RITA WARD APRN 346.90 MIGRAINE UNSPECIFIED WITHOUT INTRACTABLE MIGRAINE 01/21/2008 WHITE DDS, MT J 346.90 MIGRAINE UNSPECIFIED WITHOUT INTRACTABLE MIGRAINE 01/21/2008 SIDDHARTH ZARAGOZA DO K 346.90 MIGRAINE UNSPECIFIED WITHOUT INTRACTABLE MIGRAINE 01/21/2008 RITA WARD APRN 346.90 MIGRAINE UNSPECIFIED WITHOUT INTRACTABLE MIGRAINE 01/28/2008 RITA WARD APRN 625.9 UNSPECIFIED SYMPTOM ASSOCIATED WITH FEMALE GENITAL ORGANS 01/28/2008 RITA WARD APRN V72.31 ROUTINE GYNECOLOGICAL EXAMINATION 01/28/2008 SIDDHARTH ZARAGOZA DO 625.9 UNSPECIFIED SYMPTOM ASSOCIATED WITH FEMALE GENITAL ORGANS 01/28/2008 SIDDHARTH ZARAGOZA DO V72.31 ROUTINE GYNECOLOGICAL EXAMINATION 01/28/2008 GENSWEISOUSASJONO 625.9 UNSPECIFIED SYMPTOM ASSOCIATED WITH FEMALE GENITAL ORGANS 01/28/2008 GENEISOUSAS, JONO Spencer V72.31 ROUTINE GYNECOLOGICAL EXAMINATION 01/28/2008 RITA WARD APRN 625.9 UNSPECIFIED SYMPTOM ASSOCIATED WITH FEMALE GENITAL ORGANS 01/28/2008 RITA WARD APRN V72.31 ROUTINE GYNECOLOGICAL EXAMINATION 01/28/2008 RITA WARD APRN 625.9 UNSPECIFIED SYMPTOM ASSOCIATED WITH FEMALE GENITAL ORGANS 01/28/2008 RITA WARD APRN V72.31 ROUTINE GYNECOLOGICAL EXAMINATION 01/28/2008 625.9 UNSPECIFIED SYMPTOM ASSOCIATED WITH FEMALE GENITAL ORGANS 01/28/2008 V72.31 ROUTINE GYNECOLOGICAL EXAMINATION 01/28/2008 625.9 UNSPECIFIED SYMPTOM ASSOCIATED WITH FEMALE GENITAL ORGANS 01/28/2008 V72.31 ROUTINE GYNECOLOGICAL EXAMINATION 01/28/2008 RITA WARD APRN 625.9 UNSPECIFIED SYMPTOM ASSOCIATED WITH FEMALE GENITAL ORGANS 01/28/2008 RITA WARD APRN V72.31 ROUTINE GYNECOLOGICAL EXAMINATION 01/28/2008 RITA WARD APRN 625.9 UNSPECIFIED SYMPTOM ASSOCIATED WITH FEMALE GENITAL ORGANS 01/28/2008 RITA WARD APRN V72.31 ROUTINE GYNECOLOGICAL EXAMINATION 01/28/2008 PATRICIA MASSEY MD 625.9 UNSPECIFIED SYMPTOM ASSOCIATED WITH FEMALE GENITAL ORGANS 01/28/2008 PATRICIA MASSEY MD V72.31 ROUTINE GYNECOLOGICAL EXAMINATION 01/28/2008 MT AMAYA DDS 625.9 UNSPECIFIED SYMPTOM ASSOCIATED WITH FEMALE GENITAL ORGANS 01/28/2008 JOSE LUIS BELTRANSMT J V72.31 ROUTINE GYNECOLOGICAL EXAMINATION 01/28/2008 RITA WARD APRN 625.9 UNSPECIFIED SYMPTOM ASSOCIATED WITH FEMALE GENITAL ORGANS 01/28/2008 RITA WARD APRN V72.31 ROUTINE GYNECOLOGICAL EXAMINATION 01/28/2008 JOSE LUIS BELTRANSMT J 625.9 UNSPECIFIED SYMPTOM ASSOCIATED WITH FEMALE GENITAL ORGANS 01/28/2008 JOSE LUIS BELTRANSMT J V72.31 ROUTINE GYNECOLOGICAL EXAMINATION 01/28/2008 ZARAGOZA DO, SIDDHARTH K 625.9 UNSPECIFIED SYMPTOM ASSOCIATED WITH FEMALE GENITAL ORGANS 01/28/2008 ZARAGOZA DO, SIDDHARTH K V72.31 ROUTINE GYNECOLOGICAL EXAMINATION 01/28/2008 RITA WARD APRN 625.9 UNSPECIFIED SYMPTOM ASSOCIATED WITH FEMALE GENITAL ORGANS 01/28/2008 RITA WARD APRN V72.31 ROUTINE GYNECOLOGICAL EXAMINATION 01/28/2008 JOSE LUIS BELTRANSMT J 625.9 UNSPECIFIED SYMPTOM ASSOCIATED WITH FEMALE GENITAL ORGANS 01/28/2008 JOSE LUIS BELTRANSMT J V72.31 ROUTINE GYNECOLOGICAL EXAMINATION 01/28/2008 ZARAGOZA DO, SIDDHARTH K 625.9 UNSPECIFIED SYMPTOM ASSOCIATED WITH FEMALE GENITAL ORGANS 01/28/2008 ZARAGOZA DO, SIDDHARTH K V72.31 ROUTINE GYNECOLOGICAL EXAMINATION 01/28/2008 RITA WARD APRN 625.9 UNSPECIFIED SYMPTOM ASSOCIATED WITH FEMALE GENITAL ORGANS 01/28/2008 RITA WARD APRN V72.31 ROUTINE GYNECOLOGICAL EXAMINATION 02/18/2008 RITA WARD APRN 338.4 PAIN CHRONIC SYNDROME 02/18/2008 ZARAGOZA DO, SIDDHARTH K 338.4 PAIN CHRONIC SYNDROME 02/18/2008 GENSWEIDER DDS, JONO Tj 338.4 PAIN CHRONIC SYNDROME 02/18/2008 RITA WARD APRN T 338.4 PAIN CHRONIC SYNDROME 02/18/2008 RITA WARD APRN T 338.4 PAIN CHRONIC SYNDROME 02/18/2008 338.4 PAIN CHRONIC SYNDROME 02/18/2008 338.4 PAIN CHRONIC SYNDROME 02/18/2008 RITA WARD APRN T 338.4 PAIN CHRONIC SYNDROME 02/18/2008 RTIA WARD APRN 338.4 PAIN CHRONIC SYNDROME 02/18/2008 PATRICIA MASSEY MD 338.4 PAIN CHRONIC SYNDROME 02/18/2008 WHITE DDS, MT J 338.4 PAIN CHRONIC SYNDROME 02/18/2008 RITA WARD APRN T 338.4 PAIN CHRONIC SYNDROME 02/18/2008 WHITE DDS, MT J 338.4 PAIN CHRONIC SYNDROME 02/18/2008 CATHIE ZARAGOZA DOA K 338.4 PAIN CHRONIC SYNDROME 02/18/2008 RITA WARD APRN T 338.4 PAIN CHRONIC SYNDROME 02/18/2008 WHITE DDS, MT J 338.4 PAIN CHRONIC SYNDROME 02/18/2008 SIDDHARTH ZARAGOZA DO K 338.4 PAIN CHRONIC SYNDROME 02/18/2008 RITA WARD APRN T 338.4 PAIN CHRONIC SYNDROME 05/07/2008 RITA WARD APRN 616.10 VAGINITIS AND VULVOVAGINITIS UNSPECIFIED 05/07/2008 RTIA WARD APRN V74.5 SCREENING EXAMINATION FOR VENEREAL DISEASE 05/07/2008 SIDDHARTH ZARAGOZA DO K 616.10 VAGINITIS AND VULVOVAGINITIS UNSPECIFIED 05/07/2008 SIDDHARTH ZARAGOZA DO V74.5 SCREENING EXAMINATION FOR VENEREAL DISEASE 05/07/2008 GENEIJAMES DDS, JONO Spencer 616.10 VAGINITIS AND VULVOVAGINITIS UNSPECIFIED 05/07/2008 EISOUSAS, JONO Spencer V74.5 SCREENING EXAMINATION FOR VENEREAL DISEASE 05/07/2008 RITA WARD APRN 616.10 VAGINITIS AND VULVOVAGINITIS UNSPECIFIED 05/07/2008 RITA WARD APRN V74.5 SCREENING EXAMINATION FOR VENEREAL DISEASE 05/07/2008 RITA WARD APRN 616.10 VAGINITIS AND VULVOVAGINITIS UNSPECIFIED 05/07/2008 RITA WARD APRN V74.5 SCREENING EXAMINATION FOR VENEREAL DISEASE 05/07/2008 616.10 VAGINITIS AND VULVOVAGINITIS UNSPECIFIED 05/07/2008 V74.5 SCREENING EXAMINATION FOR VENEREAL DISEASE 05/07/2008 616.10 VAGINITIS AND VULVOVAGINITIS UNSPECIFIED 05/07/2008 V74.5 SCREENING EXAMINATION FOR VENEREAL DISEASE 05/07/2008 RITA WARD APRN 616.10 VAGINITIS AND VULVOVAGINITIS UNSPECIFIED 05/07/2008 RITA WARD APRN V74.5 SCREENING EXAMINATION FOR VENEREAL DISEASE 05/07/2008 RITA WARD APRN 616.10 VAGINITIS AND VULVOVAGINITIS UNSPECIFIED 05/07/2008 RITA WARD APRN V74.5 SCREENING EXAMINATION FOR VENEREAL DISEASE 05/07/2008 PATRICIA MASSEY MD 616.10 VAGINITIS AND VULVOVAGINITIS UNSPECIFIED 05/07/2008 PATRICIA MASSEY MD V74.5 SCREENING EXAMINATION FOR VENEREAL DISEASE 05/07/2008 MT AMAYA DDS J 616.10 VAGINITIS AND VULVOVAGINITIS UNSPECIFIED 05/07/2008 JOSE LUIS BELTRANSMT J V74.5 SCREENING EXAMINATION FOR VENEREAL DISEASE 05/07/2008 RITA WARD APRN 616.10 VAGINITIS AND VULVOVAGINITIS UNSPECIFIED 05/07/2008 RITA WARD APRN V74.5 SCREENING EXAMINATION FOR VENEREAL DISEASE 05/07/2008 JOSE LUIS BELTRANSMT J 616.10 VAGINITIS AND VULVOVAGINITIS UNSPECIFIED 05/07/2008 WHITE DEVINSMT J V74.5 SCREENING EXAMINATION FOR VENEREAL DISEASE 05/07/2008 SIDDHARTH ZARAGOZA DO 616.10 VAGINITIS AND VULVOVAGINITIS UNSPECIFIED 05/07/2008 SIDDHARTH ZARAGOZA DO V74.5 SCREENING EXAMINATION FOR VENEREAL DISEASE 05/07/2008 RITA WARD APRN 616.10 VAGINITIS AND VULVOVAGINITIS UNSPECIFIED 05/07/2008 RITA WARD APRN V74.5 SCREENING EXAMINATION FOR VENEREAL DISEASE 05/07/2008 MT AMAYA DDS J 616.10 VAGINITIS AND VULVOVAGINITIS UNSPECIFIED 05/07/2008 WHITE DDS, MT J V74.5 SCREENING EXAMINATION FOR VENEREAL DISEASE 05/07/2008 ZARAGOZA DO, SIDDHARTH K 616.10 VAGINITIS AND VULVOVAGINITIS UNSPECIFIED 05/07/2008 ZARAGOZA DO, SIDDHARTH K V74.5 SCREENING EXAMINATION FOR VENEREAL DISEASE 05/07/2008 RITA WARD APRN 616.10 VAGINITIS AND VULVOVAGINITIS UNSPECIFIED 05/07/2008 RITA WARD APRN V74.5 SCREENING EXAMINATION FOR VENEREAL DISEASE 05/27/2008 RITA WARD APRN 461.0 ACUTE MAXILLARY SINUSITIS 05/27/2008 MILA FELDMAN SIDDHARTH K 461.0 ACUTE MAXILLARY SINUSITIS 05/27/2008 JONO FRIEND DDS 461.0 ACUTE MAXILLARY SINUSITIS 05/27/2008 RITA WARD APRN 461.0 ACUTE MAXILLARY SINUSITIS 05/27/2008 RITA WARD APRN 461.0 ACUTE MAXILLARY SINUSITIS 05/27/2008 461.0 ACUTE MAXILLARY SINUSITIS 05/27/2008 461.0 ACUTE MAXILLARY SINUSITIS 05/27/2008 RITA WARD APRN 461.0 ACUTE MAXILLARY SINUSITIS 05/27/2008 RITA WARD APRN 461.0 ACUTE MAXILLARY SINUSITIS 05/27/2008 SHILPA WOLF, PATRICIA Ortiz 461.0 ACUTE MAXILLARY SINUSITIS 05/27/2008 JOSE LUIS BELTRANS, MT J 461.0 ACUTE MAXILLARY SINUSITIS 05/27/2008 RITA WARD APRN 461.0 ACUTE MAXILLARY SINUSITIS 05/27/2008 WHITE DDS, MT J 461.0 ACUTE MAXILLARY SINUSITIS 05/27/2008 CATHIE ZARAGOZA DOA K 461.0 ACUTE MAXILLARY SINUSITIS 05/27/2008 RITA WARD APRN 461.0 ACUTE MAXILLARY SINUSITIS 05/27/2008 WHITE DDS, MT J 461.0 ACUTE MAXILLARY SINUSITIS 05/27/2008 MILA FELDMAN SIDDHARTH K 461.0 ACUTE MAXILLARY SINUSITIS 05/27/2008 RITA WARD APRN 461.0 ACUTE MAXILLARY SINUSITIS 07/10/2008 RITA WARD APRN 296.90 MO MOOD DIS NOS 07/10/2008 ZARAGOZA DO SIDDHARTH K 296.90 MO MOOD DIS NOS 07/10/2008 GENSWEIDER DDS, JONO M 296.90 MO MOOD DIS NOS 07/10/2008 RITA WARD APRN T 296.90 MO MOOD DIS NOS 07/10/2008 RITA WARD APRN T 296.90 MO MOOD DIS NOS 07/10/2008 296.90 MO MOOD DIS NOS 07/10/2008 296.90 MO MOOD DIS NOS 07/10/2008 RITA WARD APRN T 296.90 MO MOOD DIS NOS 07/10/2008 RITA WARD APRN T 296.90 MO MOOD DIS NOS 07/10/2008 SHILPA WOLF, PATRICIA Ortiz 296.90 MO MOOD DIS NOS 07/10/2008 WHITE DDS, MT J 296.90 MO MOOD DIS NOS 07/10/2008 RITA WARD APRN T 296.90 MO MOOD DIS NOS 07/10/2008 WHITE DDS, MT J 296.90 MO MOOD DIS NOS 07/10/2008 ZARAGOZA DO, SIDDHARTH K 296.90 MO MOOD DIS NOS 07/10/2008 RITA WARD APRN T 296.90 MO MOOD DIS NOS 07/10/2008 WHITE DDS, MT J 296.90 MO MOOD DIS NOS 07/10/2008 ZARAGOZA DO, SIDDHARTH K 296.90 MO MOOD DIS NOS 07/10/2008 RITA WARD APRN T 296.90 MO MOOD DIS NOS 07/22/2008 RITA WARD APRN T 296.30 MO DEPRESSIVE RECURRENT UNSPECIFIED 07/22/2008 RITA WARD APRN T 307.47 SI DYSSOMNIA NOS 07/22/2008 ZARAGOZA DO, SIDDHARTH K 296.30 MO DEPRESSIVE RECURRENT UNSPECIFIED 07/22/2008 ZARAGOZA DO, SIDDHARTH K 307.47 SI DYSSOMNIA NOS 07/22/2008 GENSWEIDER DDS, JONO M 296.30 MO DEPRESSIVE RECURRENT UNSPECIFIED 07/22/2008 GENSWEIDER DDS, JONO M 307.47 SI DYSSOMNIA NOS 07/22/2008 RITA WRAD APRN 296.30 MO DEPRESSIVE RECURRENT UNSPECIFIED 07/22/2008 RITA WARD APRN 307.47 SI DYSSOMNIA NOS 07/22/2008 RITA WARD APRN T 296.30 MO DEPRESSIVE RECURRENT UNSPECIFIED 07/22/2008 RITA WARD APRN 307.47 SI DYSSOMNIA NOS 07/22/2008 296.30 MO DEPRESSIVE RECURRENT UNSPECIFIED 07/22/2008 307.47 SI DYSSOMNIA NOS 07/22/2008 296.30 MO DEPRESSIVE RECURRENT UNSPECIFIED 07/22/2008 307.47 SI DYSSOMNIA NOS 07/22/2008 RITA WARD APRN 296.30 MO DEPRESSIVE RECURRENT UNSPECIFIED 07/22/2008 RITA WARD APRN 307.47 SI DYSSOMNIA NOS 07/22/2008 RITA WARD APRN 296.30 MO DEPRESSIVE RECURRENT UNSPECIFIED 07/22/2008 RITA WARD APRN 307.47 SI DYSSOMNIA NOS 07/22/2008 PATRICIA MASSEY MD 296.30 MO DEPRESSIVE RECURRENT UNSPECIFIED 07/22/2008 PATRICIA MASSEY MD 307.47 SI DYSSOMNIA NOS 07/22/2008 WHITE DDS, MT J 296.30 MO DEPRESSIVE RECURRENT UNSPECIFIED 07/22/2008 WHITE DDS, MT J 307.47 SI DYSSOMNIA NOS 07/22/2008 RITA WARD APRN 296.30 MO DEPRESSIVE RECURRENT UNSPECIFIED 07/22/2008 RITA WARD APRN 307.47 SI DYSSOMNIA NOS 07/22/2008 WHITE DDS, MT J 296.30 MO DEPRESSIVE RECURRENT UNSPECIFIED 07/22/2008 WHITE DDS, MT J 307.47 SI DYSSOMNIA NOS 07/22/2008 ZARAGOZA DO, SIDDHARTH K 296.30 MO DEPRESSIVE RECURRENT UNSPECIFIED 07/22/2008 ZARAGOZA DO, SIDDHARTH K 307.47 SI DYSSOMNIA NOS 07/22/2008 RITA WARD APRN 296.30 MO DEPRESSIVE RECURRENT UNSPECIFIED 07/22/2008 RITA WARD APRN 307.47 SI DYSSOMNIA NOS 07/22/2008 WHITE DDS, MT J 296.30 MO DEPRESSIVE RECURRENT UNSPECIFIED 07/22/2008 WHITE DDS, MT J 307.47 SI DYSSOMNIA NOS 07/22/2008 ZARAGOZA DO, SIDDHARTH K 296.30 MO DEPRESSIVE RECURRENT UNSPECIFIED 07/22/2008 ZARAGOZA DO, SIDDHARTH K 307.47 SI DYSSOMNIA NOS 07/22/2008 RITA WARD APRN 296.30 MO DEPRESSIVE RECURRENT UNSPECIFIED 07/22/2008 RITA WARD APRN 307.47 SI DYSSOMNIA NOS 07/29/2008 RITA WARD APRN V25.49 SURVEILLANCE OF OTHER CONTRACEPTIVE METHOD 07/29/2008 ZARAGOZA DO, SIDDHARTH K V25.49 SURVEILLANCE OF OTHER CONTRACEPTIVE METHOD 07/29/2008 RONNA BELTRANS, JONO M V25.49 SURVEILLANCE OF OTHER CONTRACEPTIVE METHOD 07/29/2008 RITA WARD APRN T V25.49 SURVEILLANCE OF OTHER CONTRACEPTIVE METHOD 07/29/2008 RITA WARD APRN V25.49 SURVEILLANCE OF OTHER CONTRACEPTIVE METHOD 07/29/2008 V25.49 SURVEILLANCE OF OTHER CONTRACEPTIVE METHOD 07/29/2008 V25.49 SURVEILLANCE OF OTHER CONTRACEPTIVE METHOD 07/29/2008 RITA WARD APRN V25.49 SURVEILLANCE OF OTHER CONTRACEPTIVE METHOD 07/29/2008 RITA WARD APRN V25.49 SURVEILLANCE OF OTHER CONTRACEPTIVE METHOD 07/29/2008 PATRICIA MASSEY MD V25.49 SURVEILLANCE OF OTHER CONTRACEPTIVE METHOD 07/29/2008 MT AMAYA DDS V25.49 SURVEILLANCE OF OTHER CONTRACEPTIVE METHOD 07/29/2008 RITA WARD APRN V25.49 SURVEILLANCE OF OTHER CONTRACEPTIVE METHOD 07/29/2008 MT AMAYA DDS V25.49 SURVEILLANCE OF OTHER CONTRACEPTIVE METHOD 07/29/2008 ZARAGOZA DOSIDDHARTH K V25.49 SURVEILLANCE OF OTHER CONTRACEPTIVE METHOD 07/29/2008 RITA WARD APRN V25.49 SURVEILLANCE OF OTHER CONTRACEPTIVE METHOD 07/29/2008 MT AMAYA DDS V25.49 SURVEILLANCE OF OTHER CONTRACEPTIVE METHOD 07/29/2008 ZARAGOZA DOSIDDHARTH K V25.49 SURVEILLANCE OF OTHER CONTRACEPTIVE METHOD 07/29/2008 RITA WARD APRN V25.49 SURVEILLANCE OF OTHER CONTRACEPTIVE METHOD 07/30/2008 RITA WARD APRN 788.1 DYSURIA 07/30/2008 ZARAGOZA DOSIDDHARTH K 788.1 DYSURIA 07/30/2008 RONNA BELTRANS, JONO M 788.1 DYSURIA 07/30/2008 RITA WARD APRN 788.1 DYSURIA 07/30/2008 RITA WARD APRN 788.1 DYSURIA 07/30/2008 788.1 DYSURIA 07/30/2008 788.1 DYSURIA 07/30/2008 RITA WARD APRN 788.1 DYSURIA 07/30/2008 RITA WARD APRN 788.1 DYSURIA 07/30/2008 PATRICIA MASSEY MD 788.1 DYSURIA 07/30/2008 MT AMAYA DDS 788.1 DYSURIA 07/30/2008 RITA WARD APRN 788.1 DYSURIA 07/30/2008 WHITE DDS, MT J 788.1 DYSURIA 07/30/2008 ZARAGOZA DO, SIDDHARTH K 788.1 DYSURIA 07/30/2008 RITA WARD APRN 788.1 DYSURIA 07/30/2008 WHITE DDS, MT J 788.1 DYSURIA 07/30/2008 ZARAGOZA DO, SIDDHARTH K 788.1 DYSURIA 07/30/2008 RITA WARD APRN 788.1 DYSURIA 08/13/2008 RITA WARD APRN 300.02 AN GEN ANXIETY 08/13/2008 SIDDHARTH ZARAGOZA DO K 300.02 AN GEN ANXIETY 08/13/2008 GENSWEIDER DDS, JONO Spencer 300.02 AN GEN ANXIETY 08/13/2008 RITA WARD APRN 300.02 AN GEN ANXIETY 08/13/2008 RITA WARD APRN 300.02 AN GEN ANXIETY 08/13/2008 300.02 AN GEN ANXIETY 08/13/2008 300.02 AN GEN ANXIETY 08/13/2008 RITA WARD APRN 300.02 AN GEN ANXIETY 08/13/2008 RITA WARD APRN 300.02 AN GEN ANXIETY 08/13/2008 SHILPA WOLF, PATRICIA Ortiz 300.02 AN GEN ANXIETY 08/13/2008 WHITE DDS, MT J 300.02 AN GEN ANXIETY 08/13/2008 RITA WARD APRN 300.02 AN GEN ANXIETY 08/13/2008 WHITE DDS, MT J 300.02 AN GEN ANXIETY 08/13/2008 SIDDHARTH ZARAGOZA DO K 300.02 AN GEN ANXIETY 08/13/2008 RITA WARD APRN 300.02 AN GEN ANXIETY 08/13/2008 WHITE DDS, MT J 300.02 AN GEN ANXIETY 08/13/2008 ZARAGOZA DOCATHIEA K 300.02 AN GEN ANXIETY 08/13/2008 RITA WARD APRN 300.02 AN GEN ANXIETY 08/21/2008 RITA WARD APRN 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 08/21/2008 SIDDHARTH ZARAGOZA DO K 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 08/21/2008 GENSWEIDER DDS, JONO M 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 08/21/2008 RITA WARD APRN 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 08/21/2008 RITA WARD APRN 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 08/21/2008 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 08/21/2008 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 08/21/2008 RITA WARD APRN 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 08/21/2008 RITA WARD APRN 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 08/21/2008 SHILPA WOLF, PATRICIA Ortiz 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 08/21/2008 WHITE DDS, [place] J 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 08/21/2008 RITA WARD APRN 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 08/21/2008 WHITE DDS, MT J 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 08/21/2008 ZARAGOZA DO, SIDDHARTH K 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 08/21/2008 RITA WARD APRN 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 08/21/2008 WHITE DDS, MT J 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 08/21/2008 ZARAGOZA DO, SIDDHARTH K 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 08/21/2008 RITA WARD APRN 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 09/11/2008 RITA WARD APRN 316 PF PSYCHIC FACTORS MED COND 09/11/2008 ZARAGOZA DO, SIDDHARTH K 316 PF PSYCHIC FACTORS MED COND 09/11/2008 GENSWEIDER DDS, JONO M 316 PF PSYCHIC FACTORS MED COND 09/11/2008 RITA WARD APRN 316 PF PSYCHIC FACTORS MED COND 09/11/2008 RITA WARD APRN 316 PF PSYCHIC FACTORS MED COND 09/11/2008 316 PF PSYCHIC FACTORS MED COND 09/11/2008 316 PF PSYCHIC FACTORS MED COND 09/11/2008 RITA WARD APRN 316 PF PSYCHIC FACTORS MED COND 09/11/2008 RITA WARD APRN 316 PF PSYCHIC FACTORS MED COND 09/11/2008 PATRICIA MASSEY MD 316 PF PSYCHIC FACTORS MED COND 09/11/2008 WHITE DDS, [place] J 316 PF PSYCHIC FACTORS MED COND 09/11/2008 RITA WARD APRN 316 PF PSYCHIC FACTORS MED COND 09/11/2008 WHITE DDS, [place] J 316 PF PSYCHIC FACTORS MED COND 09/11/2008 ZARAGOZA DO, SIDDHARTH K 316 PF PSYCHIC FACTORS MED COND 09/11/2008 RITA WARD APRN 316 PF PSYCHIC FACTORS MED COND 09/11/2008 WHITE DDS, [place] J 316 PF PSYCHIC FACTORS MED COND 09/11/2008 SIDDHARTH ZARAGOZA DO K 316 PF PSYCHIC FACTORS MED COND 09/11/2008 RITA WARD APRN 316 PF PSYCHIC FACTORS MED COND 10/04/2008 RITA WARD APRN 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 10/04/2008 SIDDHARTH ZARAGOZA DO K 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 10/04/2008 SWDONAVON BELTRANS, JONO Spencer 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 10/04/2008 RITA WARD APRN 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 10/04/2008 RITA WARD APRN 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 10/04/2008 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 10/04/2008 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 10/04/2008 RITA WARD APRN 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 10/04/2008 RITA WARD APRN 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 10/04/2008 SHILPA WOLF, PATRICIA Ortiz 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 10/04/2008 WHITE DDS, [place] J 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 10/04/2008 RITA WARD APRN 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 10/04/2008 WHITE DDS, MT J 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 10/04/2008 SIDDHARTH ZARAGOZA DO K 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 10/04/2008 RITA WARD APRN 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 10/04/2008 WHITE DDS, [place] J 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 10/04/2008 SIDDHARTH ZARAGOZA DO K 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 10/04/2008 RITA WADR APRN 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 10/20/2008 RITA WARD APRN 242.90 THYROTOXICOSIS WITHOUT GOITER OR OTHER CAUSE AND WITHOUT THYROTOXIC CRISIS OR STORM 10/20/2008 RITA WARD APRN 296.89 MO BIPOLAR II 10/20/2008 CATHIE ZARAGOZA DOA K 242.90 THYROTOXICOSIS WITHOUT GOITER OR OTHER CAUSE AND WITHOUT THYROTOXIC CRISIS OR STORM 10/20/2008 CATHIE ZARAGOZA DOA K 296.89 MO BIPOLAR II 10/20/2008 GENSWEIDER DDS, JONO Spencer 242.90 THYROTOXICOSIS WITHOUT GOITER OR OTHER CAUSE AND WITHOUT THYROTOXIC CRISIS OR STORM 10/20/2008 JONO FRIEND DDS 296.89 MO BIPOLAR II 10/20/2008 RITA WARD APRN 242.90 THYROTOXICOSIS WITHOUT GOITER OR OTHER CAUSE AND WITHOUT THYROTOXIC CRISIS OR STORM 10/20/2008 RITA WARD APRN 296.89 MO BIPOLAR II 10/20/2008 RITA WARD APRN 242.90 THYROTOXICOSIS WITHOUT GOITER OR OTHER CAUSE AND WITHOUT THYROTOXIC CRISIS OR STORM 10/20/2008 RITA WARD APRN 296.89 MO BIPOLAR II 10/20/2008 242.90 THYROTOXICOSIS WITHOUT GOITER OR OTHER CAUSE AND WITHOUT THYROTOXIC CRISIS OR STORM 10/20/2008 296.89 MO BIPOLAR II 10/20/2008 242.90 THYROTOXICOSIS WITHOUT GOITER OR OTHER CAUSE AND WITHOUT THYROTOXIC CRISIS OR STORM 10/20/2008 296.89 MO BIPOLAR II 10/20/2008 RITA WARD APRN 242.90 THYROTOXICOSIS WITHOUT GOITER OR OTHER CAUSE AND WITHOUT THYROTOXIC CRISIS OR STORM 10/20/2008 RITA WARD APRN 296.89 MO BIPOLAR II 10/20/2008 RITA WARD APRN 242.90 THYROTOXICOSIS WITHOUT GOITER OR OTHER CAUSE AND WITHOUT THYROTOXIC CRISIS OR STORM 10/20/2008 RITA WARD APRN 296.89 MO BIPOLAR II 10/20/2008 PATRICIA MASSEY MD 242.90 THYROTOXICOSIS WITHOUT GOITER OR OTHER CAUSE AND WITHOUT THYROTOXIC CRISIS OR STORM 10/20/2008 PATRICIA MASSEY MD N 296.89 MO BIPOLAR II 10/20/2008 MT AMAYA DDS J 242.90 THYROTOXICOSIS WITHOUT GOITER OR OTHER CAUSE AND WITHOUT THYROTOXIC CRISIS OR STORM 10/20/2008 JOSE LUIS BELTRANS, MT J 296.89 MO BIPOLAR II 10/20/2008 RITA WARD APRN 242.90 THYROTOXICOSIS WITHOUT GOITER OR OTHER CAUSE AND WITHOUT THYROTOXIC CRISIS OR STORM 10/20/2008 RITA WARD APRN 296.89 MO BIPOLAR II 10/20/2008 JOSE LUIS BELTRANSWILLIANON J 242.90 THYROTOXICOSIS WITHOUT GOITER OR OTHER CAUSE AND WITHOUT THYROTOXIC CRISIS OR STORM 10/20/2008 WILLIAN AMAYA DDSON J 296.89 MO BIPOLAR II 10/20/2008 ZARAGOZA DO, SIDDHARTH K 242.90 THYROTOXICOSIS WITHOUT GOITER OR OTHER CAUSE AND WITHOUT THYROTOXIC CRISIS OR STORM 10/20/2008 ZARAGOZA DO, SIDDHARTH K 296.89 MO BIPOLAR II 10/20/2008 RITA WARD APRN 242.90 THYROTOXICOSIS WITHOUT GOITER OR OTHER CAUSE AND WITHOUT THYROTOXIC CRISIS OR STORM 10/20/2008 RITA WARD APRN 296.89 MO BIPOLAR II 10/20/2008 WHITE DDS, MT J 242.90 THYROTOXICOSIS WITHOUT GOITER OR OTHER CAUSE AND WITHOUT THYROTOXIC CRISIS OR STORM 10/20/2008 WHITE DDS, MT J 296.89 MO BIPOLAR II 10/20/2008 ZARAGOZA DO, SIDDHARTH K 242.90 THYROTOXICOSIS WITHOUT GOITER OR OTHER CAUSE AND WITHOUT THYROTOXIC CRISIS OR STORM 10/20/2008 ZARAGOZA DO, SIDDHARTH K 296.89 MO BIPOLAR II 10/20/2008 RITA WARD APRN 242.90 THYROTOXICOSIS WITHOUT GOITER OR OTHER CAUSE AND WITHOUT THYROTOXIC CRISIS OR STORM 10/20/2008 RITA WARD APRN 296.89 MO BIPOLAR II 10/31/2008 RITA WARD APRN 244.9 HYPOTHYROIDISM 10/31/2008 MILA DOCATHIEA K 244.9 HYPOTHYROIDISM 10/31/2008 GENSWEIDER DDS, JONO M 244.9 HYPOTHYROIDISM 10/31/2008 RITA WARD APRN 244.9 HYPOTHYROIDISM 10/31/2008 RITA WARD APRN 244.9 HYPOTHYROIDISM 10/31/2008 244.9 HYPOTHYROIDISM 10/31/2008 244.9 HYPOTHYROIDISM 10/31/2008 RITA WARD APRN 244.9 HYPOTHYROIDISM 10/31/2008 RITA WARD APRN 244.9 HYPOTHYROIDISM 10/31/2008 SHILPA WOLF, PATRICIA Ortiz 244.9 HYPOTHYROIDISM 10/31/2008 WHITE DDS, MT J 244.9 HYPOTHYROIDISM 10/31/2008 RITA WARD APRN 244.9 HYPOTHYROIDISM 10/31/2008 WHITE DDS, MT J 244.9 HYPOTHYROIDISM 10/31/2008 ZARAGOZA DO, SIDDHARTH K 244.9 HYPOTHYROIDISM 10/31/2008 RITA WARD APRN 244.9 HYPOTHYROIDISM 10/31/2008 WHITE DDS, MT J 244.9 HYPOTHYROIDISM 10/31/2008 ZARAGOZA DO, SIDDHARTH K 244.9 HYPOTHYROIDISM 10/31/2008 RITA WARD APRN 244.9 HYPOTHYROIDISM 11/21/2008 RITA WARD APRN 300.00 AN ANXIETY UNSPEC 11/21/2008 RITA WARD APRN 304.80 SA POLYSUB DEP 11/21/2008 ZARAGOZA DO, SIDDHARTH K 300.00 AN ANXIETY UNSPEC 11/21/2008 ZARAGOZA DO, SIDDHARTH K 304.80 SA POLYSUB DEP 11/21/2008 GENSWEIDER DDS, JONO M 300.00 AN ANXIETY UNSPEC 11/21/2008 [facility] M 304.80 SA POLYSUB DEP 11/21/2008 RITA WARD APRN 300.00 AN ANXIETY UNSPEC 11/21/2008 RITA WARD APRN 304.80 SA POLYSUB DEP 11/21/2008 RITA WARD APRN 300.00 AN ANXIETY UNSPEC 11/21/2008 RITA WARD APRN 304.80 SA POLYSUB DEP 11/21/2008 300.00 AN ANXIETY UNSPEC 11/21/2008 304.80 SA POLYSUB DEP 11/21/2008 300.00 AN ANXIETY UNSPEC 11/21/2008 304.80 SA POLYSUB DEP 11/21/2008 RITA WARD APRN 300.00 AN ANXIETY UNSPEC 11/21/2008 RITA WARD APRN 304.80 SA POLYSUB DEP 11/21/2008 RITA WARD APRN 300.00 AN ANXIETY UNSPEC 11/21/2008 RITA WARD APRN 304.80 SA POLYSUB DEP 11/21/2008 PATRICIA MASSEY MD 300.00 AN ANXIETY UNSPEC 11/21/2008 PATRICIA MASSEY MD 304.80 SA POLYSUB DEP 11/21/2008 WHITE DDS, MT J 300.00 AN ANXIETY UNSPEC 11/21/2008 WHITE DDS, MT J 304.80 SA POLYSUB DEP 11/21/2008 RITA WARD APRN 300.00 AN ANXIETY UNSPEC 11/21/2008 RITA WARD APRN 304.80 SA POLYSUB DEP 11/21/2008 WHITE DDS, MT J 300.00 AN ANXIETY UNSPEC 11/21/2008 WHITE DDS, MT J 304.80 SA POLYSUB DEP 11/21/2008 ZARAGOZA DO, SIDDHARTH K 300.00 AN ANXIETY UNSPEC 11/21/2008 ZARAGOZA DO, SIDDHARTH K 304.80 SA POLYSUB DEP 11/21/2008 RITA WARD APRN 300.00 AN ANXIETY UNSPEC 11/21/2008 RITA WARD APRN 304.80 SA POLYSUB DEP 11/21/2008 WHITE DDS, MT J 300.00 AN ANXIETY UNSPEC 11/21/2008 WHITE DDS, MT J 304.80 SA POLYSUB DEP 11/21/2008 ZARAGOZA DO, SIDDHARTH K 300.00 AN ANXIETY UNSPEC 11/21/2008 ZARAGOZA DO, SIDDHARTH K 304.80 SA POLYSUB DEP 11/21/2008 RITA WARD APRN 300.00 AN ANXIETY UNSPEC 11/21/2008 RITA WARD APRN 304.80 SA POLYSUB DEP 12/11/2008 RITA WARD APRN 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 12/11/2008 ZARAGOZA DO, SIDDHARTH K 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 12/11/2008 GENSWYARIDER DDS, JONO Spencer 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 12/11/2008 RITA WARD APRN 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 12/11/2008 RITA WARD APRN 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 12/11/2008 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 12/11/2008 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 12/11/2008 RITA WARD APRN 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 12/11/2008 RITA WARD APRN 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 12/11/2008 SHILPA WOLF, PATRICIA Ortiz 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 12/11/2008 WHITE DDS, MT J 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 12/11/2008 RITA WARD APRN 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 12/11/2008 WHITE DDS, MT J 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 12/11/2008 ZARAGOZA DO SIDDHARTH K 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 12/11/2008 RITA WARD APRN 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 12/11/2008 WHITE DDS, MT J 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 12/11/2008 ZARAGOZA DO, SIDDHARTH K 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 12/11/2008 RITA WARD APRN 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 02/16/2009 RITA WARD APRN V15.81 OTHER SPECIFIED PERSONAL HISTORY PRESENTING HAZARDS TO HEALTH, NONCOMPLIANCE WITH MEDICAL TREATMENT 02/16/2009 RITA WARD APRN V61.20 COUNSELING FOR PARENT-CHILD PROBLEM, UNSPECIFIED 02/16/2009 RITA WARD APRN V62.29 OTHER OCCUPATIONAL CIRCUMSTANCES OR MALADJUSTMENT 02/16/2009 MILA DOSIDDHARTH V15.81 OTHER SPECIFIED PERSONAL HISTORY PRESENTING HAZARDS TO HEALTH, NONCOMPLIANCE WITH MEDICAL TREATMENT 02/16/2009 ZARAGOZA DO SIDDHARTH K V61.20 COUNSELING FOR PARENT-CHILD PROBLEM, UNSPECIFIED 02/16/2009 ZARAGOZA DO SIDDHARTH K V62.29 OTHER OCCUPATIONAL CIRCUMSTANCES OR MALADJUSTMENT 02/16/2009 GENSWEIDER DDS, JONO M V15.81 OTHER SPECIFIED PERSONAL HISTORY PRESENTING HAZARDS TO HEALTH, NONCOMPLIANCE WITH MEDICAL TREATMENT 02/16/2009 GENSWEIDER DDS, JONO M V61.20 COUNSELING FOR PARENT-CHILD PROBLEM, UNSPECIFIED 02/16/2009 GENSWEIDER DDS, JONO M V62.29 OTHER OCCUPATIONAL CIRCUMSTANCES OR MALADJUSTMENT 02/16/2009 RITA WARD APRN V15.81 OTHER SPECIFIED PERSONAL HISTORY PRESENTING HAZARDS TO HEALTH, NONCOMPLIANCE WITH MEDICAL TREATMENT 02/16/2009 RITA WARD APRN V61.20 COUNSELING FOR PARENT-CHILD PROBLEM, UNSPECIFIED 02/16/2009 RITA WARD APRN V62.29 OTHER OCCUPATIONAL CIRCUMSTANCES OR MALADJUSTMENT 02/16/2009 RITA WARD APRN V15.81 OTHER SPECIFIED PERSONAL HISTORY PRESENTING HAZARDS TO HEALTH, NONCOMPLIANCE WITH MEDICAL TREATMENT 02/16/2009 RITA WARD APRN V61.20 COUNSELING FOR PARENT-CHILD PROBLEM, UNSPECIFIED 02/16/2009 RITA WARD APRN V62.29 OTHER OCCUPATIONAL CIRCUMSTANCES OR MALADJUSTMENT 02/16/2009 V15.81 OTHER SPECIFIED PERSONAL HISTORY PRESENTING HAZARDS TO HEALTH, NONCOMPLIANCE WITH MEDICAL TREATMENT 02/16/2009 V61.20 COUNSELING FOR PARENT-CHILD PROBLEM, UNSPECIFIED 02/16/2009 V62.29 OTHER OCCUPATIONAL CIRCUMSTANCES OR MALADJUSTMENT 02/16/2009 V15.81 OTHER SPECIFIED PERSONAL HISTORY PRESENTING HAZARDS TO HEALTH, NONCOMPLIANCE WITH MEDICAL TREATMENT 02/16/2009 V61.20 COUNSELING FOR PARENT-CHILD PROBLEM, UNSPECIFIED 02/16/2009 V62.29 OTHER OCCUPATIONAL CIRCUMSTANCES OR MALADJUSTMENT 02/16/2009 RITA WARD APRN V15.81 OTHER SPECIFIED PERSONAL HISTORY PRESENTING HAZARDS TO HEALTH, NONCOMPLIANCE WITH MEDICAL TREATMENT 02/16/2009 RITA WARD APRN V61.20 COUNSELING FOR PARENT-CHILD PROBLEM, UNSPECIFIED 02/16/2009 RITA WARD APRN V62.29 OTHER OCCUPATIONAL CIRCUMSTANCES OR MALADJUSTMENT 02/16/2009 RITA WARD APRN V15.81 OTHER SPECIFIED PERSONAL HISTORY PRESENTING HAZARDS TO HEALTH, NONCOMPLIANCE WITH MEDICAL TREATMENT 02/16/2009 RITA WARD APRN V61.20 COUNSELING FOR PARENT-CHILD PROBLEM, UNSPECIFIED 02/16/2009 RITA WARD APRN V62.29 OTHER OCCUPATIONAL CIRCUMSTANCES OR MALADJUSTMENT 02/16/2009 PATRICIA MASSEY MD V15.81 OTHER SPECIFIED PERSONAL HISTORY PRESENTING HAZARDS TO HEALTH, NONCOMPLIANCE WITH MEDICAL TREATMENT 02/16/2009 PATRICIA MASSEY MD V61.20 COUNSELING FOR PARENT-CHILD PROBLEM, UNSPECIFIED 02/16/2009 PATRICIA MASSEY MD V62.29 OTHER OCCUPATIONAL CIRCUMSTANCES OR MALADJUSTMENT 02/16/2009 JOSE LUIS DDS, MT J V15.81 OTHER SPECIFIED PERSONAL HISTORY PRESENTING HAZARDS TO HEALTH, NONCOMPLIANCE WITH MEDICAL TREATMENT 02/16/2009 WHITE DDS, MT J V61.20 COUNSELING FOR PARENT-CHILD PROBLEM, UNSPECIFIED 02/16/2009 WHITE DDS, MT J V62.29 OTHER OCCUPATIONAL CIRCUMSTANCES OR MALADJUSTMENT 02/16/2009 RITA WARD APRN V15.81 OTHER SPECIFIED PERSONAL HISTORY PRESENTING HAZARDS TO HEALTH, NONCOMPLIANCE WITH MEDICAL TREATMENT 02/16/2009 RITA WARD APRN V61.20 COUNSELING FOR PARENT-CHILD PROBLEM, UNSPECIFIED 02/16/2009 RITA WARD APRN V62.29 OTHER OCCUPATIONAL CIRCUMSTANCES OR MALADJUSTMENT 02/16/2009 WHITE DDS, MT J V15.81 OTHER SPECIFIED PERSONAL HISTORY PRESENTING HAZARDS TO HEALTH, NONCOMPLIANCE WITH MEDICAL TREATMENT 02/16/2009 WHITE DDS, MT J V61.20 COUNSELING FOR PARENT-CHILD PROBLEM, UNSPECIFIED 02/16/2009 WHITE DDS, MT J V62.29 OTHER OCCUPATIONAL CIRCUMSTANCES OR MALADJUSTMENT 02/16/2009 ZARAGOZA DO, SIDDHARTH K V15.81 OTHER SPECIFIED PERSONAL HISTORY PRESENTING HAZARDS TO HEALTH, NONCOMPLIANCE WITH MEDICAL TREATMENT 02/16/2009 ZARAGOZA DO, SIDDHARTH K V61.20 COUNSELING FOR PARENT-CHILD PROBLEM, UNSPECIFIED 02/16/2009 ZARAGOZA DO, SIDDHARTH K V62.29 OTHER OCCUPATIONAL CIRCUMSTANCES OR MALADJUSTMENT 02/16/2009 RITA WARD APRN V15.81 OTHER SPECIFIED PERSONAL HISTORY PRESENTING HAZARDS TO HEALTH, NONCOMPLIANCE WITH MEDICAL TREATMENT 02/16/2009 RITA WARD APRN V61.20 COUNSELING FOR PARENT-CHILD PROBLEM, UNSPECIFIED 02/16/2009 RITA WARD APRN V62.29 OTHER OCCUPATIONAL CIRCUMSTANCES OR MALADJUSTMENT 02/16/2009 WHITE DDS, MT J V15.81 OTHER SPECIFIED PERSONAL HISTORY PRESENTING HAZARDS TO HEALTH, NONCOMPLIANCE WITH MEDICAL TREATMENT 02/16/2009 WHITE DDS, MT J V61.20 COUNSELING FOR PARENT-CHILD PROBLEM, UNSPECIFIED 02/16/2009 WHITE DDS, MT J V62.29 OTHER OCCUPATIONAL CIRCUMSTANCES OR MALADJUSTMENT 02/16/2009 ZARAGOZA DO, SIDDHARTH K V15.81 OTHER SPECIFIED PERSONAL HISTORY PRESENTING HAZARDS TO HEALTH, NONCOMPLIANCE WITH MEDICAL TREATMENT 02/16/2009 ZARAGOZA DO, SIDDHARTH K V61.20 COUNSELING FOR PARENT-CHILD PROBLEM, UNSPECIFIED 02/16/2009 ZARAGOZA DO, SIDDHARTH K V62.29 OTHER OCCUPATIONAL CIRCUMSTANCES OR MALADJUSTMENT 02/16/2009 RITA WARD APRN V15.81 OTHER SPECIFIED PERSONAL HISTORY PRESENTING HAZARDS TO HEALTH, NONCOMPLIANCE WITH MEDICAL TREATMENT 02/16/2009 RITA WARD APRN V61.20 COUNSELING FOR PARENT-CHILD PROBLEM, UNSPECIFIED 02/16/2009 RITA WARD APRN V62.29 OTHER OCCUPATIONAL CIRCUMSTANCES OR MALADJUSTMENT 03/30/2009 RITA WARD APRN 724.5 BACKACHE UNSPECIFIED 03/30/2009 ZARAGOZA DO, SIDDHARTH K 724.5 BACKACHE UNSPECIFIED 03/30/2009 JONO FRIEND DDS 724.5 BACKACHE UNSPECIFIED 03/30/2009 RITA WARD APRN 724.5 BACKACHE UNSPECIFIED 03/30/2009 RITA WARD APRN 724.5 BACKACHE UNSPECIFIED 03/30/2009 724.5 BACKACHE UNSPECIFIED 03/30/2009 724.5 BACKACHE UNSPECIFIED 03/30/2009 RITA WARD APRN 724.5 BACKACHE UNSPECIFIED 03/30/2009 RITA WARD APRN 724.5 BACKACHE UNSPECIFIED 03/30/2009 SHILPA WOLF, PATRICIA Ortiz 724.5 BACKACHE UNSPECIFIED 03/30/2009 WHITE DDS, MT J 724.5 BACKACHE UNSPECIFIED 03/30/2009 RITA WARD APRN 724.5 BACKACHE UNSPECIFIED 03/30/2009 WHITE DDS, MT J 724.5 BACKACHE UNSPECIFIED 03/30/2009 CATHIE ZARAGOZA DOA K 724.5 BACKACHE UNSPECIFIED 03/30/2009 RITA WARD APRN 724.5 BACKACHE UNSPECIFIED 03/30/2009 WHITE DDS, MT J 724.5 BACKACHE UNSPECIFIED 03/30/2009 ZARAGOZA CATHIE FELDMANA K 724.5 BACKACHE UNSPECIFIED 03/30/2009 RITA WARD APRN 724.5 BACKACHE UNSPECIFIED 06/15/2009 RITA WARD APRN 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 06/15/2009 SIDDHARTH ZARAGOZA DO 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 06/15/2009 JONO FRIEND DDS 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 06/15/2009 RITA WARD APRN 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 06/15/2009 RITA WARD APRN 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 06/15/2009 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 06/15/2009 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 06/15/2009 RITA WARD APRN 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 06/15/2009 RITA WARD APRN 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 06/15/2009 SHILPA WOLF, PATRICIA Ortiz 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 06/15/2009 MT AMAYA DDS 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 06/15/2009 RITA WARD APRN 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 06/15/2009 JOSE LUIS BELTRANSMT 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 06/15/2009 SIDDHARTH ZARAGOZA DO K 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 06/15/2009 RITA WARD APRN 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 06/15/2009 JOSE LUIS BELTRANSMT 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 06/15/2009 SIDDHARTH ZARAGOZA DO K 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 06/15/2009 RITA WARD APRN 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 08/27/2009 RITA WARD APRN 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 08/27/2009 SIDDHARTH ZARAGOZA DO K 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 08/27/2009 RONNA ORANTES, JONO Spencer 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 08/27/2009 RITA WARD APRN 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 08/27/2009 RITA WARD APRN 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 08/27/2009 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 08/27/2009 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 08/27/2009 RITA WARD APRN 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 08/27/2009 RITA WARD APRN 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 08/27/2009 SHILPA WOLF, PATRICIA Ortiz 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 08/27/2009 WHITE DDS, MT J 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 08/27/2009 RITA WARD APRN 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 08/27/2009 WHITE DDS, MT J 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 08/27/2009 SIDDHARTH ZARAGOZA DO K 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 08/27/2009 RITA WARD APRN T 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 08/27/2009 WHITE DDS, MT J 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 08/27/2009 SIDDHARTH ZARAGOZA DO K 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 08/27/2009 RITA WARD APRN 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 09/12/2009 RITA WARD APRN 079.4 HUMAN PAPILLOMAVIRUS IN CONDITIONS CLASSIFIED ELSEWHERE AND OF UNSPECIFIED SITE 09/12/2009 RITA WARD APRN V69.2 HIGH-RISK SEXUAL BEHAVIOR 09/12/2009 SIDDHARTH ZARAGOZA DO 079.4 HUMAN PAPILLOMAVIRUS IN CONDITIONS CLASSIFIED ELSEWHERE AND OF UNSPECIFIED SITE 09/12/2009 SIDDHARTH ZARAGOZA DO V69.2 HIGH-RISK SEXUAL BEHAVIOR 09/12/2009 GENSWEIDER DDS, JONO M 079.4 HUMAN PAPILLOMAVIRUS IN CONDITIONS CLASSIFIED ELSEWHERE AND OF UNSPECIFIED SITE 09/12/2009 GENSWEISOUSAS, JONO M V69.2 HIGH-RISK SEXUAL BEHAVIOR 09/12/2009 RITA WARD APRN 079.4 HUMAN PAPILLOMAVIRUS IN CONDITIONS CLASSIFIED ELSEWHERE AND OF UNSPECIFIED SITE 09/12/2009 RITA WARD APRN V69.2 HIGH-RISK SEXUAL BEHAVIOR 09/12/2009 RITA WARD APRN 079.4 HUMAN PAPILLOMAVIRUS IN CONDITIONS CLASSIFIED ELSEWHERE AND OF UNSPECIFIED SITE 09/12/2009 RITA WARD APRN V69.2 HIGH-RISK SEXUAL BEHAVIOR 09/12/2009 079.4 HUMAN PAPILLOMAVIRUS IN CONDITIONS CLASSIFIED ELSEWHERE AND OF UNSPECIFIED SITE 09/12/2009 V69.2 HIGH-RISK SEXUAL BEHAVIOR 09/12/2009 079.4 HUMAN PAPILLOMAVIRUS IN CONDITIONS CLASSIFIED ELSEWHERE AND OF UNSPECIFIED SITE 09/12/2009 V69.2 HIGH-RISK SEXUAL BEHAVIOR 09/12/2009 RITA WARD APRN 079.4 HUMAN PAPILLOMAVIRUS IN CONDITIONS CLASSIFIED ELSEWHERE AND OF UNSPECIFIED SITE 09/12/2009 RITA WARD APRN V69.2 HIGH-RISK SEXUAL BEHAVIOR 09/12/2009 RITA WARD APRN 079.4 HUMAN PAPILLOMAVIRUS IN CONDITIONS CLASSIFIED ELSEWHERE AND OF UNSPECIFIED SITE 09/12/2009 RITA WARD APRN V69.2 HIGH-RISK SEXUAL BEHAVIOR 09/12/2009 PATRICIA MASSEY MD 079.4 HUMAN PAPILLOMAVIRUS IN CONDITIONS CLASSIFIED ELSEWHERE AND OF UNSPECIFIED SITE 09/12/2009 PATRICIA MASSEY MD V69.2 HIGH-RISK SEXUAL BEHAVIOR 09/12/2009 MT AMAYA DDS J 079.4 HUMAN PAPILLOMAVIRUS IN CONDITIONS CLASSIFIED ELSEWHERE AND OF UNSPECIFIED SITE 09/12/2009 JOSE LUIS BELTRANSMT J V69.2 HIGH-RISK SEXUAL BEHAVIOR 09/12/2009 RITA WARD APRN T 079.4 HUMAN PAPILLOMAVIRUS IN CONDITIONS CLASSIFIED ELSEWHERE AND OF UNSPECIFIED SITE 09/12/2009 RITA WARD APRN V69.2 HIGH-RISK SEXUAL BEHAVIOR 09/12/2009 MT AMAYA DDS J 079.4 HUMAN PAPILLOMAVIRUS IN CONDITIONS CLASSIFIED ELSEWHERE AND OF UNSPECIFIED SITE 09/12/2009 JOSE LUIS BELTRANS, MT J V69.2 HIGH-RISK SEXUAL BEHAVIOR 09/12/2009 SIDDHARTH ZARAGOZA DO 079.4 HUMAN PAPILLOMAVIRUS IN CONDITIONS CLASSIFIED ELSEWHERE AND OF UNSPECIFIED SITE 09/12/2009 SIDDHARTH ZARAGOZA DO V69.2 HIGH-RISK SEXUAL BEHAVIOR 09/12/2009 RITA WARD APRN 079.4 HUMAN PAPILLOMAVIRUS IN CONDITIONS CLASSIFIED ELSEWHERE AND OF UNSPECIFIED SITE 09/12/2009 RITA WARD APRN V69.2 HIGH-RISK SEXUAL BEHAVIOR 09/12/2009 JOSE LUIS BELTRANSMT 079.4 HUMAN PAPILLOMAVIRUS IN CONDITIONS CLASSIFIED ELSEWHERE AND OF UNSPECIFIED SITE 09/12/2009 JOSE LUIS BELTRANSMT V69.2 HIGH-RISK SEXUAL BEHAVIOR 09/12/2009 SIDDHARTH ZARAGOZA DO 079.4 HUMAN PAPILLOMAVIRUS IN CONDITIONS CLASSIFIED ELSEWHERE AND OF UNSPECIFIED SITE 09/12/2009 SIDDHARTH ZARAGOZA DO V69.2 HIGH-RISK SEXUAL BEHAVIOR 09/12/2009 RITA WARD APRN 079.4 HUMAN PAPILLOMAVIRUS IN CONDITIONS CLASSIFIED ELSEWHERE AND OF UNSPECIFIED SITE 09/12/2009 RITA WARD APRN V69.2 HIGH-RISK SEXUAL BEHAVIOR 09/28/2009 RITA WARD APRN 535.50 GASTRITIS UNSPEC 09/28/2009 SIDDHARTH ZARAGOZA DO 535.50 GASTRITIS UNSPEC 09/28/2009 GENSWEIDER DEVINS, JONO Spencer 535.50 GASTRITIS UNSPEC 09/28/2009 RITA WARD APRN 535.50 GASTRITIS UNSPEC 09/28/2009 RITA WARD APRN 535.50 GASTRITIS UNSPEC 09/28/2009 535.50 GASTRITIS UNSPEC 09/28/2009 535.50 GASTRITIS UNSPEC 09/28/2009 RITA WARD APRN 535.50 GASTRITIS UNSPEC 09/28/2009 RITA WARD APRN 535.50 GASTRITIS UNSPEC 09/28/2009 PATRICIA MASSEY MD 535.50 GASTRITIS UNSPEC 09/28/2009 MT AMAYA DDS 535.50 GASTRITIS UNSPEC 09/28/2009 RITA WARD APRN 535.50 GASTRITIS UNSPEC 09/28/2009 JOSE LUIS BELTRANSMT 535.50 GASTRITIS UNSPEC 09/28/2009 SIDDHARTH ZARAGOZA DO 535.50 GASTRITIS UNSPEC 09/28/2009 RITA WARD APRN 535.50 GASTRITIS UNSPEC 09/28/2009 JOSE LUIS BELTRANSMT 535.50 GASTRITIS UNSPEC 09/28/2009 SIDDHARTH ZARAGOZA DO 535.50 GASTRITIS UNSPEC 09/28/2009 RITA WARD APRN 535.50 GASTRITIS UNSPEC 02/10/2010 RITA WARD APRN 780.4 DIZZINESS AND VERTIGO 02/10/2010 RITA WARD APRN 780.79 MALAISE AND FATIGUE 02/10/2010 ZARAGOZA DO, SIDDHARTH K 780.4 DIZZINESS AND VERTIGO 02/10/2010 ZARAGOZA DO, SIDDHARTH K 780.79 MALAISE AND FATIGUE 02/10/2010 GENSWEIDER DDS, JONO M 780.4 DIZZINESS AND VERTIGO 02/10/2010 GENSWEIDER DDS, JONO M 780.79 MALAISE AND FATIGUE 02/10/2010 RITA WARD APRN 780.4 DIZZINESS AND VERTIGO 02/10/2010 RITA WARD APRN 780.79 MALAISE AND FATIGUE 02/10/2010 RITA WARD APRN 780.4 DIZZINESS AND VERTIGO 02/10/2010 RITA WARD APRN 780.79 MALAISE AND FATIGUE 02/10/2010 780.4 DIZZINESS AND VERTIGO 02/10/2010 780.79 MALAISE AND FATIGUE 02/10/2010 780.4 DIZZINESS AND VERTIGO 02/10/2010 780.79 MALAISE AND FATIGUE 02/10/2010 RITA WARD APRN 780.4 DIZZINESS AND VERTIGO 02/10/2010 RITA WARD APRN 780.79 MALAISE AND FATIGUE 02/10/2010 RITA WARD APRN 780.4 DIZZINESS AND VERTIGO 02/10/2010 RITA WARD APRN 780.79 MALAISE AND FATIGUE 02/10/2010 PATRICIA MASSEY MD 780.4 DIZZINESS AND VERTIGO 02/10/2010 PATRICIA MASSEY MD 780.79 MALAISE AND FATIGUE 02/10/2010 WHITE DDS, MT J 780.4 DIZZINESS AND VERTIGO 02/10/2010 WHITE DDS, MT J 780.79 MALAISE AND FATIGUE 02/10/2010 RITA WARD APRN 780.4 DIZZINESS AND VERTIGO 02/10/2010 RITA WARD APRN 780.79 MALAISE AND FATIGUE 02/10/2010 WHITE DDS, MT J 780.4 DIZZINESS AND VERTIGO 02/10/2010 WHITE DDS, MT J 780.79 MALAISE AND FATIGUE 02/10/2010 ZARAGOZA DO, SIDDHARTH K 780.4 DIZZINESS AND VERTIGO 02/10/2010 ZARAGOZA DO, SIDDHARTH K 780.79 MALAISE AND FATIGUE 02/10/2010 RITA WARD APRN 780.4 DIZZINESS AND VERTIGO 02/10/2010 RITA WARD APRN 780.79 MALAISE AND FATIGUE 02/10/2010 WHITE DDS, MT J 780.4 DIZZINESS AND VERTIGO 02/10/2010 WHITE DDS, MT J 780.79 MALAISE AND FATIGUE 02/10/2010 ZARAGOZA DO, SIDDHARTH K 780.4 DIZZINESS AND VERTIGO 02/10/2010 ZARAGOZA DO SIDDHARTH K 780.79 MALAISE AND FATIGUE 02/10/2010 RITA WARD APRN 780.4 DIZZINESS AND VERTIGO 02/10/2010 RITA WARD APRN 780.79 MALAISE AND FATIGUE 2010 RITA WARD APRN 462 PHARYNGITIS ACUTE 2010 CATHIE ZARAGOZA DOA K 462 PHARYNGITIS ACUTE 2010 RONNA ORANTES, JONO Spencer 462 PHARYNGITIS ACUTE 2010 RITA WARD APRN 462 PHARYNGITIS ACUTE 2010 RITA WARD APRN 462 PHARYNGITIS ACUTE 2010 462 PHARYNGITIS ACUTE 2010 462 PHARYNGITIS ACUTE 2010 RITA WARD APRN 462 PHARYNGITIS ACUTE 2010 RITA WARD APRN 462 PHARYNGITIS ACUTE 2010 SHILPA WOLF, PATRICIA Ortiz 462 PHARYNGITIS ACUTE 2010 WHITE DDS, MT J 462 PHARYNGITIS ACUTE 2010 RITA WARD APRN 462 PHARYNGITIS ACUTE 2010 WHITE DDS, [place] J 462 PHARYNGITIS ACUTE 2010 ZARAGOZA DOCATHIEA K 462 PHARYNGITIS ACUTE 2010 RITA WARD APRN 462 PHARYNGITIS ACUTE 2010 WHITE DDS, MT J 462 PHARYNGITIS ACUTE 2010 ZARAGOZA DO SIDDHARTH K 462 PHARYNGITIS ACUTE 2010 RITA WARD APRN 462 PHARYNGITIS ACUTE 06/08/2010 RITA WARD APRN 921.1 CONTUSION WITH INTACT SKIN SURFACE - EYELIDS 06/08/2010 SIDDHARTH ZARAGOZA DO 921.1 CONTUSION WITH INTACT SKIN SURFACE - EYELIDS 06/08/2010 RONNA BELTRANS, JONO Spencer 921.1 CONTUSION WITH INTACT SKIN SURFACE - EYELIDS 06/08/2010 RITA WARD APRN 921.1 CONTUSION WITH INTACT SKIN SURFACE - EYELIDS 06/08/2010 RITA WARD APRN 921.1 CONTUSION WITH INTACT SKIN SURFACE - EYELIDS 06/08/2010 921.1 CONTUSION WITH INTACT SKIN SURFACE - EYELIDS 06/08/2010 921.1 CONTUSION WITH INTACT SKIN SURFACE - EYELIDS 06/08/2010 RITA WARD APRN 921.1 CONTUSION WITH INTACT SKIN SURFACE - EYELIDS 06/08/2010 RITA WARD APRN 921.1 CONTUSION WITH INTACT SKIN SURFACE - EYELIDS 06/08/2010 PATRICIA MASSEY MD 921.1 CONTUSION WITH INTACT SKIN SURFACE - EYELIDS 06/08/2010 WHITE DDS, MT J 921.1 CONTUSION WITH INTACT SKIN SURFACE - EYELIDS 06/08/2010 RITA WARD APRN 921.1 CONTUSION WITH INTACT SKIN SURFACE - EYELIDS 06/08/2010 WHITE DDS, MT J 921.1 CONTUSION WITH INTACT SKIN SURFACE - EYELIDS 06/08/2010 SIDDHARTH ZARAGOZA DO K 921.1 CONTUSION WITH INTACT SKIN SURFACE - EYELIDS 06/08/2010 RITA WARD APRN 921.1 CONTUSION WITH INTACT SKIN SURFACE - EYELIDS 06/08/2010 WHITE DDS, MT J 921.1 CONTUSION WITH INTACT SKIN SURFACE - EYELIDS 06/08/2010 SIDDHARTH ZARAGOZA DO K 921.1 CONTUSION WITH INTACT SKIN SURFACE - EYELIDS 06/08/2010 RITA WARD APRN 921.1 CONTUSION WITH INTACT SKIN SURFACE - EYELIDS 10/29/2010 RITA WARD APRN 719.43 PAIN IN JOINT INVOLVING FOREARM 10/29/2010 SIDDHARTH ZARAGOZA DO 719.43 PAIN IN JOINT INVOLVING FOREARM 10/29/2010 GENSWEISOUSASJONO 719.43 PAIN IN JOINT INVOLVING FOREARM 10/29/2010 RITA WARD APRN 719.43 PAIN IN JOINT INVOLVING FOREARM 10/29/2010 RITA WARD APRN 719.43 PAIN IN JOINT INVOLVING FOREARM 10/29/2010 719.43 PAIN IN JOINT INVOLVING FOREARM 10/29/2010 719.43 PAIN IN JOINT INVOLVING FOREARM 10/29/2010 RITA WARD APRN 719.43 PAIN IN JOINT INVOLVING FOREARM 10/29/2010 RITA WARD APRN 719.43 PAIN IN JOINT INVOLVING FOREARM 10/29/2010 PATRICIA MASSEY MD 719.43 PAIN IN JOINT INVOLVING FOREARM 10/29/2010 MT AMAAY DDS 719.43 PAIN IN JOINT INVOLVING FOREARM 10/29/2010 RITA WARD APRN 719.43 PAIN IN JOINT INVOLVING FOREARM 10/29/2010 MT AMAYA DDS 719.43 PAIN IN JOINT INVOLVING FOREARM 10/29/2010 SIDDHARTH ZARAGOZA DO 719.43 PAIN IN JOINT INVOLVING FOREARM 10/29/2010 RITA WARD APRN 719.43 PAIN IN JOINT INVOLVING FOREARM 10/29/2010 MT AMAYA DDS 719.43 PAIN IN JOINT INVOLVING FOREARM 10/29/2010 SIDDHARTH ZARAGOZA DO 719.43 PAIN IN JOINT INVOLVING FOREARM 10/29/2010 RITA WARD APRN 719.43 PAIN IN JOINT INVOLVING FOREARM 01/07/2011 RITA WARD APRN 729.5 PAIN IN LIMB 01/07/2011 SIDDHARTH ZARAGOZA DO 729.5 PAIN IN LIMB 01/07/2011 JONO FRIEND DDS 729.5 PAIN IN LIMB 01/07/2011 RITA WARD APRN 729.5 PAIN IN LIMB 01/07/2011 RITA WARD APRN 729.5 PAIN IN LIMB 01/07/2011 729.5 PAIN IN LIMB 01/07/2011 729.5 PAIN IN LIMB 01/07/2011 RITA WARD APRN 729.5 PAIN IN LIMB 01/07/2011 RITA WARD APRN 729.5 PAIN IN LIMB 01/07/2011 PATRICIA MASSEY MD 729.5 PAIN IN LIMB 01/07/2011 MT AMAYA DDS 729.5 PAIN IN LIMB 01/07/2011 RITA WARD APRN 729.5 PAIN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 (mass/volume) 10 mg/dL 7-18 Serum or plasma creatinine measurement (mass/volume) 0.91 mg/dL 0.60-1.30 Serum or plasma urea nitrogen/creatinine mass ratio 11 NRG Serum or plasma creatinine measurement with calculation of estimated glomerular filtration rate > NRG Serum or plasma glucose measurement (mass/volume) 123 mg/dL 70-105 Serum or plasma calcium measurement (mass/volume) 10.2 mg/dL 8.5-10.1 Serum or plasma total bilirubin measurement (mass/volume) 0.7 mg/dL 0.1-1.0 Serum or plasma alkaline phosphatase measurement (enzymatic activity/volume) 82 U/L 40-136 Serum or plasma aspartate aminotransferase measurement (enzymatic activity/ volume) 39 U/L 5-34 Serum or plasma alanine aminotransferase measurement (enzymatic activity/volume ) 51 U/L 0-55 Serum or plasma protein measurement (mass/volume) 7.4 g/dL 6.4-8.2 Serum or plasma albumin measurement (mass/volume) 4.9 g/dL 3.2-4.5 Serum or plasma salicylates measurement (mass/volume) - 03/05/16 12:43 Serum or plasma salicylates measurement (mass/volume) < mg/dL 5.0-20.0 Serum or plasma acetaminophen measurement (mass/volume) - 03/05/16 12:43 Serum or plasma acetaminophen measurement (mass/volume) < ug/mL 10-30 Serum or plasma ethanol measurement (mass/volume) - 03/05/16 12:43 Serum or plasma ethanol measurement (mass/volume) < mg/dL <10 Blood manual differential performed detection - 03/05/16 12:43 Blood monocytes/100 leukocytes 4 % NRG Manual blood segmented neutrophils/100 leukocytes 62 % NRG Blood band neutrophils/100 leukocytes 4 % NRG Manual blood lymphocytes/100 leukocytes 28 % NRG Manual eosinophils/100 leukocytes in nose 2 % NRG Blood erythrocyte morphology finding identification NORMAL NRG Serum or plasma thyrotropin measurement by detection limit <=0.05 miu/l (units/ volume) - 03/05/16 12:43 Serum or plasma thyrotropin measurement by detection limit <=0.05 miu/l (units/ volume) 2.50 u[iU]/mL 0.35-4.94 Serum or plasma creatine kinase measurement (enzymatic activity/volume) - 03/05 12:43 Serum or plasma creatine kinase measurement (enzymatic activity/volume) 153 U/L 29-168 Complete urinalysis with reflex to culture - 03/05/16 15:56 Urine color determination BROWN NRG Urine clarity determination CLEAR NRG Urine pH measurement by test strip 6.5 5-9 Specific gravity of urine by test strip 1.020 1.016- 1.022 Urine protein assay by test strip, semi-quantitative 1+ NEGATIVE Urine glucose detection by automated test strip NEGATIVE NEGATIVE Erythrocytes detection in urine sediment by light microscopy NEGATIVE NEGATIVE Urine ketones detection by automated test strip 2+ NEGATIVE Urine nitrite detection by test strip NEGATIVE NEGATIVE Urine total bilirubin detection by test strip NEGATIVE NEGATIVE Urine urobilinogen measurement by automated test strip (mass/volume) NORMAL NORMAL Urine leukocyte esterase detection by dipstick 1+ NEGATIVE Automated urine sediment erythrocyte count by microscopy (number/high power field) NONE NRG Automated urine sediment leukocyte count by microscopy (number/high power field ) [HPF] NRG Bacteria detection in urine sediment by light microscopy MODERATE NRG Squamous epithelial cells detection in urine sediment by light microscopy 2-5 NRG Crystals detection in urine sediment by light microscopy NONE NRG Casts detection in urine sediment by light microscopy NONE NRG Mucus detection in urine sediment by light microscopy NEGATIVE NRG Complete urinalysis with reflex to culture NO NRG Urine drug screening test - 03/05/16 15:56 Urine phencyclidine detection by screening method NEGATIVE NEGATIVE Urine benzodiazepines detection by screening method NEGATIVE NEGATIVE Urine cocaine detection NEGATIVE NEGATIVE Urine amphetamines detection by screening method POSITIVE NEGATIVE Urine methamphetamine detection by screening method POSITIVE NEGATIVE Urine cannabinoids detection by screening method NEGATIVE NEGATIVE Urine opiates detection by screening method NEGATIVE NEGATIVE Urine barbiturates detection NEGATIVE NEGATIVE Screening urine tricyclic antidepressants detection POSITIVE NEGATIVE Urine methadone detection by screening method NEGATIVE NEGATIVE Urine oxycodone detection NEGATIVE NEGATIVE Urine propoxyphene detection NEGATIVE NEGATIVE Complete blood count (CBC) with automated white blood cell (WBC) differential - 03/07/16 09:55 Blood leukocytes automated count (number/volume) 11.1 10*3/uL 4.3-11.0 Blood erythrocytes automated count (number/volume) 3.94 10*6/uL 4.35-5.85 Venous blood hemoglobin measurement (mass/volume) 11.8 g/dL 11.5-16.0 Blood hematocrit (volume fraction) 35 % 35-52 Automated erythrocyte mean corpuscular volume 89 [foz_us] 80-99 Automated erythrocyte mean corpuscular hemoglobin (mass per erythrocyte) 30 pg 25-34 Automated erythrocyte mean corpuscular hemoglobin concentration measurement ( mass/volume) 34 g/dL 32-36 Automated erythrocyte distribution width ratio 12.2 % 10.0-14.5 Automated blood platelet count (count/volume) 537 10*3/uL 130-400 Automated blood platelet mean volume measurement 8.6 [foz_us] 7.4-10.4 Automated blood neutrophils/100 leukocytes 65 % 42-75 Automated blood lymphocytes/100 leukocytes 26 % 12-44 Blood monocytes/100 leukocytes 8 % 0-12 Automated blood eosinophils/100 leukocytes 2 % 0-10 Automated blood basophils/100 leukocytes 0 % 0-10 Blood neutrophils automated count (number/volume) 7.2 10*3 1.8-7.8 Blood lymphocytes automated count (number/volume) 2.9 10*3 1.0-4.0 Blood monocytes automated count (number/volume) 0.9 10*3 0.0-1.0 Automated eosinophil count 0.2 10*3/uL 0.0-0.3 Automated blood basophil count (count/volume) 0.0 10*3/uL 0.0-0.1 Comprehensive metabolic panel - 03/07/16 09:55 Serum or plasma sodium measurement (moles/volume) 142 mmol/L 135-145 Serum or plasma potassium measurement (moles/volume) 3.6 mmol/L 3.6-5.0 Serum or plasma chloride measurement (moles/volume) 106 mmol/L 98-107 Carbon dioxide 28 mmol/L 21-32 Serum or plasma anion gap determination (moles/volume) 8 mmol/L 5-14 Serum or plasma urea nitrogen measurement (mass/volume) 5 mg/dL 7-18 Serum or plasma creatinine measurement (mass/volume) 0.67 mg/dL 0.60-1.30 Serum or plasma urea nitrogen/creatinine mass ratio 7 NRG Serum or plasma creatinine measurement with calculation of estimated glomerular filtration rate > NRG Serum or plasma glucose measurement (mass/volume) 89 mg/dL 70-105 Serum or plasma calcium measurement (mass/volume) 9.1 mg/dL 8.5-10.1 Serum or plasma total bilirubin measurement (mass/volume) 0.6 mg/dL 0.1-1.0 Serum or plasma alkaline phosphatase measurement (enzymatic activity/volume) 64 U/L 40-136 Serum or plasma aspartate aminotransferase measurement (enzymatic activity/ volume) 21 U/L 5-34 Serum or plasma alanine aminotransferase measurement (enzymatic activity/volume ) 33 U/L 0-55 Serum or plasma protein measurement (mass/volume) 6.1 g/dL 6.4-8.2 Serum or plasma albumin measurement (mass/volume) 4.2 g/dL 3.2-4.5 Lipase - 03/07/16 09:55 Lipase 47 U/L 8-78 Serum or plasma choriogonadotropin ( test) detection - 03/07/16 09:55 Serum or plasma choriogonadotropin ( test) detection NEGATIVE NEGATIVE Bacterial urine culture - 03/07/16 10:40 URINE CULTURE RESULTS 10,000/ML - 100,000/ML NRG Ova + Parasite Exam - 04/26/16 14:23 Ova + Parasite Exam Note Complete blood count (CBC) with automated white blood cell (WBC) differential - 05/06/16 00:39 Blood leukocytes automated count (number/volume) 14.7 10*3/uL 4.3-11.0 Blood erythrocytes automated count (number/volume) 4.52 10*6/uL 4.35-5.85 Venous blood hemoglobin measurement (mass/volume) 13.8 g/dL 11.5-16.0 Blood hematocrit (volume fraction) 40 % 35-52 Automated erythrocyte mean corpuscular volume 87 [foz_us] 80-99 Automated erythrocyte mean corpuscular hemoglobin (mass per erythrocyte) 31 pg 25-34 Automated erythrocyte mean corpuscular hemoglobin concentration measurement ( mass/volume) 35 g/dL 32-36 Automated erythrocyte distribution width ratio 11.8 % 10.0-14.5 Automated blood platelet count (count/volume) 549 10*3/uL 130-400 Automated blood platelet mean volume measurement 8.8 [foz_us] 7.4-10.4 Automated blood neutrophils/100 leukocytes 62 % 42-75 Automated blood lymphocytes/100 leukocytes 32 % 12-44 Blood monocytes/100 leukocytes 5 % 0-12 Automated blood eosinophils/100 leukocytes 1 % 0-10 Automated blood basophils/100 leukocytes 0 % 0-10 Blood neutrophils automated count (number/volume) 9.1 10*3 1.8-7.8 Blood lymphocytes automated count (number/volume) 4.7 10*3 1.0-4.0 Blood monocytes automated count (number/volume) 0.8 10*3 0.0-1.0 Automated eosinophil count 0.1 10*3/uL 0.0-0.3 Automated blood basophil count (count/volume) 0.0 10*3/uL 0.0-0.1 Comprehensive metabolic panel - 05/06/16 00:39 Serum or plasma sodium measurement (moles/volume) 138 mmol/L 135-145 Serum or plasma potassium measurement (moles/volume) 2.8 mmol/L 3.6-5.0 Serum or plasma chloride measurement (moles/volume) 102 mmol/L 98-107 Carbon dioxide 23 mmol/L 21-32 Serum or plasma anion gap determination (moles/volume) 13 mmol/L 5-14 Serum or plasma urea nitrogen measurement (mass/volume) 7 mg/dL 7-18 Serum or plasma creatinine measurement (mass/volume) 0.80 mg/dL 0.60-1.30 Serum or plasma urea nitrogen/creatinine mass ratio 9 NRG Serum or plasma creatinine measurement with calculation of estimated glomerular filtration rate > NRG Serum or plasma glucose measurement (mass/volume) 86 mg/dL 70-105 Serum or plasma calcium measurement (mass/volume) 9.7 mg/dL 8.5-10.1 Serum or plasma total bilirubin measurement (mass/volume) 0.7 mg/dL 0.1-1.0 Serum or plasma alkaline phosphatase measurement (enzymatic activity/volume) 90 U/L 40-136 Serum or plasma aspartate aminotransferase measurement (enzymatic activity/ volume) 49 U/L 5-34 Serum or plasma alanine aminotransferase measurement (enzymatic activity/volume ) 36 U/L 0-55 Serum or plasma protein measurement (mass/volume) 7.8 g/dL 6.4-8.2 Serum or plasma albumin measurement (mass/volume) 5.1 g/dL 3.2-4.5 Magnesium - 05/06/16 00:39 Magnesium 2.2 mg/dL 1.8-2.4 Serum or plasma amylase measurement (enzymatic activity/volume) - 05/06/16 00: 39 Serum or plasma amylase measurement (enzymatic activity/volume) 49 U /L 25-125 Serum or plasma thyrotropin measurement by detection limit <=0.05 miu/l (units/ volume) - 05/06/16 00:39 Serum or plasma thyrotropin measurement by detection limit <=0.05 miu/l (units/ volume) 1.08 u[iU]/mL 0.35-4.94 Serum or plasma salicylates measurement (mass/volume) - 05/06/16 00:39 Serum or plasma salicylates measurement (mass/volume) < mg/dL 5.0-20.0 Serum or plasma acetaminophen measurement (mass/volume) - 05/06/16 00:39 Serum or plasma acetaminophen measurement (mass/volume) < ug/mL 10-30 Serum or plasma choriogonadotropin ( test) detection - 05/06/16 00:39 Serum or plasma choriogonadotropin ( test) detection NEGATIVE NEGATIVE Serum or plasma ethanol measurement (mass/volume) - 05/06/16 00:39 Serum or plasma ethanol measurement (mass/volume) < mg/dL <10 Urine drug screening test - 05/06/16 00:45 Urine phencyclidine detection by screening method NEGATIVE NEGATIVE Urine benzodiazepines detection by screening method NEGATIVE NEGATIVE Urine cocaine detection NEGATIVE NEGATIVE Urine amphetamines detection by screening method NEGATIVE NEGATIVE Urine methamphetamine detection by screening method NEGATIVE NEGATIVE Urine cannabinoids detection by screening method POSITIVE NEGATIVE Urine opiates detection by screening method NEGATIVE NEGATIVE Urine barbiturates detection NEGATIVE NEGATIVE Screening urine tricyclic antidepressants detection NEGATIVE NEGATIVE Urine methadone detection by screening method NEGATIVE NEGATIVE Urine oxycodone detection NEGATIVE NEGATIVE Urine propoxyphene detection NEGATIVE NEGATIVE Complete urinalysis with reflex to culture - 05/06/16 00:45 Urine color determination YELLOW NRG Urine clarity determination CLEAR NRG Urine pH measurement by test strip 5 5-9 Specific gravity of urine by test strip 1.030 1.016- 1.022 Urine protein assay by test strip, semi-quantitative 2+ NEGATIVE Urine glucose detection by automated test strip NEGATIVE NEGATIVE Erythrocytes detection in urine sediment by light microscopy 2+ NEGATIVE Urine ketones detection by automated test strip 3+ NEGATIVE Urine nitrite detection by test strip NEGATIVE NEGATIVE Urine total bilirubin detection by test strip NEGATIVE NEGATIVE Urine urobilinogen measurement by automated test strip (mass/volume) 1 mg/dL NORMAL Urine leukocyte esterase detection by dipstick 1+ NEGATIVE Automated urine sediment erythrocyte count by microscopy (number/high power field) NONE NRG Automated urine sediment leukocyte count by microscopy (number/high power field ) RARE NRG Bacteria detection in urine sediment by light microscopy TRACE NRG Squamous epithelial cells detection in urine sediment by light microscopy 25-50 NRG Crystals detection in urine sediment by light microscopy NONE NRG Casts detection in urine sediment by light microscopy NONE NRG Mucus detection in urine sediment by light microscopy LARGE NRG Complete urinalysis with reflex to culture NO NRG CBC WITH MANUAL DIFFERENTIAL - 06/25/16 09:38 HEMOGLOBIN 14.0 g/dl 12.0-16.0 PLATELET COUNT 545 10 3/uL 130-400 WHITE BLOOD CELL COUNT 13.3 10 3/uL 4.5-11.0 RED BLOOD CELL 4.64 10 6/uL 3.50-5.40 HEMATOCRIT 42.6 % 36-48 MEAN CORPUSCULAR VOLUME 91.7 fL 79-99 MEAN CORPUSCULAR HEMOGLOBIN 30.2 pg 25.0-34.0 MEAN CELL HEMOGLOBIN CONC. 32.9 g/dL 31.0-36.0 RED CELL DISTRIBUTION WIDTH 12.8 % 11.0-15.0 MEAN PLATELET VOLUME 7.2 fL 7.0-11.0 CARDIAC PROFILE (X3) - 06/25/16 09:38 TROPONIN-I < 0.02 ng/ml 0.00-0.05 NATRIURETIC PEPTIDE B-TYPE - 06/25/16 09:38 NATRIURETIC PEPTIDE B-TYPE 107 pg/ml <100 COMP METABOLIC PROFILE - 06/25/16 09:38 ALBUMIN 4.5 g/dl 3.3-4.5 ALKALINE PHOSPHATASE 115 U/L 46-116 ANION GAP 13 mmol/L 8-16 BILIRUBIN TOTAL 0.9 mg/dl 0.0-1.2 GLUCOSE 128 mg/dl 70-99 BUN 20 mg/dl 5-21 CALCIUM 9.1 mg/dl 8.6-10.5 CHLORIDE 98 mmol/L 100-112 CARBON DIOXIDE 26 meq/L 21-33 AST/GOT 52 U/L 6-37 ALT/GPT 58 U/L 12-78 POTASSIUM 3.5 mmol/L 3.4-5.2 SODIUM 137 mmol/L 135-150 TOTAL PROTEIN 8.2 g/dl 6.4-8.2 CREATININE 0.77 mg/dl 0.60-1.30 GFR ESTIMATE > 60 mL/Min > 60 AG RATIO 1.2 0.7-2.0 ALCOHOL - 06/25/16 09:38 ALCOHOL 0 mg/dl PROTIME INR - 06/25/16 09:38 PROTHROMBINE BELKIS 12.2 Seconds 11.9-14.4 PROTIME INR 0.91 0.87-1.13 APTT - 06/25/16 09:38 APTT 28.9 Seconds 23.9-34.0 CBC WITH MANUAL DIFFERENTIAL - 06/25/16 09:38 ABSOLUTE NEUTROPHIL COUNT 9.8 # 1.0-8.0 HEMOGLOBIN 14.0 g/dl 12.0-16.0 PLATELET COUNT 545 10 3/uL 130-400 WHITE BLOOD CELL COUNT 13.3 10 3/uL 4.5-11.0 LYMPHOCYTE# 2.5 # 1.0-3.0 MONOCYTE# 0.7 # 0.0-1.0 EOSINOPHIL# 0.1 # 0.0-0.4 BASOPHIL# 0.1 # 0.0-0.2 SEGS 74 % 50-65 LYMPHS 19 % 15-45 MONOS 5 % 0-10 EOS 1 % 0-5 BASOS 1 % 0-2 RED BLOOD CELL 4.64 10 6/uL 3.50-5.40 HEMATOCRIT 42.6 % 36-48 MEAN CORPUSCULAR VOLUME 91.7 fL 79-99 MEAN CORPUSCULAR HEMOGLOBIN 30.2 pg 25.0-34.0 MEAN CELL HEMOGLOBIN CONC. 32.9 g/dL 31.0-36.0 RED CELL DISTRIBUTION WIDTH 12.8 % 11.0-15.0 MEAN PLATELET VOLUME 7.2 fL 7.0-11.0 URINE WITH MICRO-CULT IND. - 06/25/16 11:04 APPEARANCE Cloudy Clear GLUCOSE Negative Negative BILIRUBIN 1+ Negative KETONE 3+ Negative SPECIFIC GRAVIT >=1.030 1.010-.025 PH 5.5 4.5 - 7.5 PROTEIN 1+ Negative UROBILINOGEN 1.0 <=1.0 NITRITE Negative Negative BLOOD 1+ Negative LEUKOCYTES Trace Negative URINE CULTURE R Clt Set URINE MICROSCOP Microscopic Results EPITHELIAL CELL > 25 5 - 10 COLOR Yellow Yellow WBC 26 - 50 0 - 5 BACTERIA 2+ Trace DRUG SCREEN URINE - MEDICAL - 06/25/16 11:04 AMPHETAMINES/METHAMPHETAMINE POSITIVE COCAINE METABOLITES Negative OPIATES Negative BARBITURATES Negative BENZODIAZEPINES Negative PHENCYCLIDINE Negative CANNABINOIDS Negative METHADONE Negative URINE CULTURE INDICATED - 06/25/16 11:04 URINE CULTURE INDICATED CFU/ML CBC With Differential/Platelet - 07/01/16 11:13 WBC 15.5 x10E3/uL 3.4-10.8 RBC 4.03 x10E6/uL 3.77-5.28 Hemoglobin 12.0 g/dL 11.1-15.9 Hematocrit 37.5 % 34.0-46.6 MCV 93 fL 79-97 MCH 29.8 pg 26.6-33.0 MCHC 32.0 g/dL 31.5-35.7 RDW 13.1 % 12.3-15.4 Platelets 570 x10E3/uL 150-379 Neutrophils 69 % Lymphs 22 % Monocytes 8 % Eos 1 % Basos 0 % Neutrophils (Absolute) 10.8 x10E3/uL 1.4-7.0 Lymphs (Absolute) 3.4 x10E3/uL 0.7-3.1 Monocytes(Absolute) 1.2 x10E3/uL 0.1-0.9 Eos (Absolute) 0.1 x10E3/uL 0.0-0.4 Baso (Absolute) 0.0 x10E3/uL 0.0-0.2 Immature Granulocytes 0 % Immature Grans (Abs) 0.0 x10E3/uL 0.0-0.1 Comp. Metabolic Panel (14) - 07/01/16 11:13 Glucose, Serum 85 mg/dL 65-99 BUN 15 mg/dL 6-24 Creatinine, Serum 0.91 mg/dL 0.57-1.00 eGFR If NonAfricn Am 79 mL/min/1.73 >59 eGFR If Africn Am 91 mL/min/1.73 >59 BUN/Creatinine Ratio 16 9-23 Sodium, Serum 137 mmol/L 134-144 Potassium, Serum 4.5 mmol/L 3.5-5.2 Chloride, Serum 95 mmol/L 96-106 Carbon Dioxide, Total 23 mmol/L 18-29 Calcium, Serum 9.2 mg/dL 8.7-10.2 Protein, Total, Serum 7.2 g/dL 6.0-8.5 Albumin, Serum 4.9 g/dL 3.5-5.5 Globulin, Total 2.3 g/dL 1.5-4.5 A/G Ratio 2.1 1.1-2.5 Bilirubin, Total 0.4 mg/dL 0.0-1.2 Alkaline Phosphatase, S 83 IU/L 39-117 AST (SGOT) 51 IU/L 0-40 ALT (SGPT) 35 IU/L 0-32 TSH - 07/01/16 11:13 TSH 2.360 uIU/mL 0.450-4.500 Anaerobic and Aerobic Culture - 09/12/16 19:59 Anaerobic and Aerobic Culture Note Genital Culture, Routine - 09/12/16 19:59 Genital Culture, Routine Note Complete urinalysis with reflex to culture - 07/17/17 16:15 Urine color determination YELLOW NRG Urine clarity determination VERY CLOUDY NRG Urine pH measurement by test strip 5 5-9 Specific gravity of urine by test strip 1.030 1.016- 1.022 Urine protein assay by test strip, semi-quantitative 3+ NEGATIVE Urine glucose detection by automated test strip NEGATIVE NEGATIVE Erythrocytes detection in urine sediment by light microscopy 5+ NEGATIVE Urine ketones detection by automated test strip 2+ NEGATIVE Urine nitrite detection by test strip NEGATIVE NEGATIVE Urine total bilirubin detection by test strip NEGATIVE NEGATIVE Urine urobilinogen measurement by automated test strip (mass/volume) NORMAL NORMAL Urine leukocyte esterase detection by dipstick 1+ NEGATIVE Automated urine sediment erythrocyte count by microscopy (number/high power field) > [HPF] NRG Automated urine sediment leukocyte count by microscopy (number/high power field ) [HPF] NRG Bacteria detection in urine sediment by light microscopy MODERATE NRG Squamous epithelial cells detection in urine sediment by light microscopy 5-10 NRG Crystals detection in urine sediment by light microscopy NONE NRG Casts detection in urine sediment by light microscopy NONE NRG Mucus detection in urine sediment by light microscopy NEGATIVE NRG Complete urinalysis with reflex to culture NO NRG Urine drug screening test - 07/17/17 16:15 Urine phencyclidine detection by screening method NEGATIVE NEGATIVE Urine benzodiazepines detection by screening method NEGATIVE NEGATIVE Urine cocaine detection NEGATIVE NEGATIVE Urine amphetamines detection by screening method POSITIVE NEGATIVE Urine methamphetamine detection by screening method POSITIVE NEGATIVE Urine cannabinoids detection by screening method POSITIVE NEGATIVE Urine opiates detection by screening method NEGATIVE NEGATIVE Urine barbiturates detection NEGATIVE NEGATIVE Screening urine tricyclic antidepressants detection NEGATIVE NEGATIVE Urine methadone detection by screening method NEGATIVE NEGATIVE Urine oxycodone detection NEGATIVE NEGATIVE Urine propoxyphene detection NEGATIVE NEGATIVE Complete blood count (CBC) with automated white blood cell (WBC) differential - 07/17/17 16:22 Blood leukocytes automated count (number/volume) 14.8 10*3/uL 4.3-11.0 Blood erythrocytes automated count (number/volume) 4.08 10*6/uL 4.35-5.85 Venous blood hemoglobin measurement (mass/volume) 12.5 g/dL 11.5-16.0 Blood hematocrit (volume fraction) 37 % 35-52 Automated erythrocyte mean corpuscular volume 90 [foz_us] 80-99 Automated erythrocyte mean corpuscular hemoglobin (mass per erythrocyte) 31 pg 25-34 Automated erythrocyte mean corpuscular hemoglobin concentration measurement ( mass/volume) 34 g/dL 32-36 Automated erythrocyte distribution width ratio 13.0 % 10.0-14.5 Automated blood platelet count (count/volume) 526 10*3/uL 130-400 Automated blood platelet mean volume measurement 8.4 [foz_us] 7.4-10.4 Automated blood neutrophils/100 leukocytes 69 % 42-75 Automated blood lymphocytes/100 leukocytes 20 % 12-44 Blood monocytes/100 leukocytes 10 % 0-12 Automated blood eosinophils/100 leukocytes 0 % 0-10 Automated blood basophils/100 leukocytes 0 % 0-10 Blood neutrophils automated count (number/volume) 10.3 10*3 1.8-7.8 Blood lymphocytes automated count (number/volume) 3.0 10*3 1.0-4.0 Blood monocytes automated count (number/volume) 1.5 10*3 0.0-1.0 Automated eosinophil count 0.0 10*3/uL 0.0-0.3 Automated blood basophil count (count/volume) 0.1 10*3/uL 0.0-0.1 Blood manual differential performed detection - 07/17/17 16:22 Blood monocytes/100 leukocytes 8 % NRG Manual blood segmented neutrophils/100 leukocytes 61 % NRG Blood band neutrophils/100 leukocytes 0 % NRG Manual blood lymphocytes/100 leukocytes 30 % NRG Manual eosinophils/100 leukocytes in nose 1 % NRG Manual blood basophils/100 leukocytes 0 % NRG Blood erythrocyte morphology finding identification NORMAL NRG Serum or plasma choriogonadotropin ( test) detection - 07/17/17 16:22 Serum or plasma choriogonadotropin ( test) detection NEGATIVE NEGATIVE Comprehensive metabolic panel - 07/17/17 16:22 Serum or plasma sodium measurement (moles/volume) 136 mmol/L 135-145 Serum or plasma potassium measurement (moles/volume) 3.9 mmol/L 3.6-5.0 Serum or plasma chloride measurement (moles/volume) 97 mmol/L 98-107 Carbon dioxide 29 mmol/L 21-32 Serum or plasma anion gap determination (moles/volume) 10 mmol/L 5-14 Serum or plasma urea nitrogen measurement (mass/volume) 34 mg/dL 7-18 Serum or plasma creatinine measurement (mass/volume) 1.05 mg/dL 0.60-1.30 Serum or plasma urea nitrogen/creatinine mass ratio 32 NRG Serum or plasma creatinine measurement with calculation of estimated glomerular filtration rate 57 NRG Serum or plasma glucose measurement (mass/volume) 93 mg/dL 70-105 Serum or plasma calcium measurement (mass/volume) 9.1 mg/dL 8.5-10.1 Serum or plasma total bilirubin measurement (mass/volume) 0.9 mg/dL 0.1-1.0 Serum or plasma alkaline phosphatase measurement (enzymatic activity/volume) 68 U/L 40-136 Serum or plasma aspartate aminotransferase measurement (enzymatic activity/ volume) 48 U/L 5-34 Serum or plasma alanine aminotransferase measurement (enzymatic activity/volume ) 38 U/L 0-55 Serum or plasma protein measurement (mass/volume) 6.9 g/dL 6.4-8.2 Serum or plasma albumin measurement (mass/volume) 4.8 g/dL 3.2-4.5 THYROID STIMULATING HORMONE - 07/17/17 16:22 THYROID STIMULATING HORMONE 2.11 u[iU]/mL 0.35-4.94 Serum or plasma salicylates measurement (mass/volume) - 07/17/17 16:22 Serum or plasma salicylates measurement (mass/volume) < mg/dL 5.0-20.0 Magnesium - 07/17/17 16:22 Magnesium 2.4 mg/dL 1.8-2.4 Serum or plasma acetaminophen measurement (mass/volume) - 07/17/17 16:22 Serum or plasma acetaminophen measurement (mass/volume) < ug/mL 10-30 PDM - ATS (PROFILE 8 WITH CONFIRMATION) - 12/11/17 17:30 Creatinine 55.6 mg/dL > or=20.0 pH 6.18 4.5 - 9.0 Oxidant NEGATIVE mcg/mL <200 Amphetamines NEGATIVE ng/mL <500 medMATCH Amphetamines CONSISTENT NRG Benzodiazepines NEGATIVE ng/mL <100 medMATCH Benzodiazepines CONSISTENT NRG Marijuana Metabolite NEGATIVE ng/mL <20 medMATCH Marijuana Metab CONSISTENT NRG Cocaine Metabolite NEGATIVE ng/mL <150 medMATCH Cocaine Metab CONSISTENT NRG Opiates NEGATIVE ng/mL <100 medMATCH Opiates CONSISTENT NRG Oxycodone NEGATIVE ng/mL <100 medMATCH Oxycodone CONSISTENT NRG COMMENT NRG Buprenorphine NEGATIVE ng/mL <5 MDMA NEGATIVE ng/mL <500 medMATCH MDMA CONSISTENT NRG Alcohol Metabolites NEGATIVE ng/mL <500 medMATCH Alcohol Metab CONSISTENT NRG 6 Acetylmorphine NEGATIVE ng/mL <10 medMATCH 6 Acetylmorphine CONSISTENT NRG medMATCH Buprenorphine CONSISTENT NRG CULTURE, NASAL/SINUS - 12/12/17 12:29 CULTURE, [employer]OL [employer]YCH[employer] SPECIALIST/NASAL SEE NOTE NRG DIFFERENTIAL, MANUAL - 12/12/17 12:29 ABSOLUTE NEUTROPHILS 5839 cells/uL [id number] ABSOLUTE MONOCYTES 455 cells/uL 200-950 ABSOLUTE EOSINOPHILS 455 cells/uL 15-500 ABSOLUTE BASOPHILS 111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
[2018-02-03 18:23] LABS: BASOPHILS % (AUTO) 0 % (0-10); EOSINOPHILS # (AUTO) 0.1 10^3/uL (0.0-0.3); EOSINOPHILS % (AUTO) 1 % (0-10); HEMATOCRIT 39 % (35-52); HEMOGLOBIN 12.8 G/DL (11.5-16.0); LYMPHOCYTES # (AUTO) 3.2 X 10^3 (1.0-4.0); LYMPHOCYTES % (AUTO) 28 % (12-44); MEAN CORPUSCULAR HEMOGLOBIN 31 PG (25-34); MEAN CORPUSCULAR HGB CONC 33 G/DL (32-36); MEAN CORPUSCULAR VOLUME 93 FL (80-99); MEAN PLATELET VOLUME 8.2 FL (7.4-10.4); MONOCYTES % (AUTO) 9 % (0-12); NEUTROPHILS # (AUTO) 7.2 X 10^3 (1.8-7.8); NEUTROPHILS % (AUTO) 62 % (42-75); PLATELET COUNT 643 10^3/uL (130-400); RED BLOOD COUNT 4.16 10^6/uL (4.35-5.85); RED CELL DISTRIBUTION WIDTH 12.2 % (10.0-14.5); WHITE BLOOD COUNT 11.5 10^3/uL (4.3-11.0)
[2018-02-03 18:50] LABS: ALANINE AMINOTRANSFERASE 28 U/L (0-55); ALBUMIN 5.1 GM/DL (3.2-4.5); ALKALINE PHOSPHATASE 73 U/L (40-136); BILIRUBIN,TOTAL 0.5 MG/DL (0.1-1.0); BUN/CREATININE RATIO 17; CALCIUM 10.3 MG/DL (8.5-10.1); CARBON DIOXIDE 24 MMOL/L (21-32); CHLORIDE 102 MMOL/L (98-107); CREATININE SERUM 0.82 MG/DL (0.60-1.30); GFR ESTIMATED > 60; GLUCOSE 98 MG/DL (70-105); POTASSIUM 3.1 MMOL/L (3.6-5.0); SALICYLATE < 5.0 MG/DL (5.0-20.0); SODIUM 141 MMOL/L (135-145); TOTAL PROTEIN 7.7 GM/DL (6.4-8.2)
[2018-02-03 19:00] LABS: ACETAMINOPHEN < 10 UG/ML (10-30)
[2018-02-03] MEDS ORDERED: ALBE200T2 (19:25)
[2018-02-03] MEDS ORDERED: CETI10TA17 (19:25)
[2018-02-03] MEDS ORDERED: QUET200T57 (19:25)
[2018-02-03] MEDS ORDERED: FLUT16SP22 (19:25)
[2018-02-03] MEDS ORDERED: NS IV 1000 ML 1,000 ML ONE (19:27)
--- NOTE | 2018-02-03 19:27 | ED Psychosocial ---
General Chief Complaint: Psych/Social Disorder Stated Complaint: AMS Nursing Triage Note: PT ARRIVED PER EMS, PT IS CRYING AND CONT MOVING STATES HAS RADIUM POISONING. PT IS NAKED. PT STATES IS HURTING FROM BUGS CRAWLING ALL OVER HER MICROSCOPIC BUGS. SHE STATES CAN ONLY BE SEEN UNDER BLACK LIGHT. PT TO ROOM 8 ALL PSYCH PRECAUTIONS IN PLACE Source: patient, EMS Exam Limitations: clinical condition History of Present Illness Date Seen by Provider: Feb 03, 2018 Time Seen by Provider: 17:53 Initial Comments The patient presents to the ER by EMS with chief complaint she was at her home when she had called 911 multiple times making bizarre report so police requested that EMS come and pick her up to bring her in for psychiatric evaluation. She is complaining of having exposure to radium through the water as well as worms pinworms and molds and mildew secondary to her wash machine overflowing and other bizarre myriad complaints. She complains that her left ear has some pain which is something in it but she says is microscopic and you can't see it. She denies any cough fevers chills. She denies using any substances other than some [place] tree bark which she says it is stable to care cancer push out tumors worms and radiation. She took several of the [place] tree root tablets according to EMS while they were picking her up. She denies drug use or history of schizophrenia. Allergies and Home Medications Allergies Coded Allergies: Penicillins (Verified Allergy, Unknown, 12/17/15) ketorolac (Verified Allergy, Unknown, 12/17/15) Uncoded Allergies: PCN (Allergy, Mild, 07/28/15) Home Medications Clonazepam 1 Mg Tablet, 1 MG PO BID, (Reported) Hydroxyzine Pamoate 50 Mg Capsule, 50 MG PO TID, (Reported) Tramadol Hcl 50 Mg Tablet, 50 MG PO TID, (Reported) Patient Home Medication List Home Medication List Reviewed: Yes Review of Systems Constitutional: see HPI; No chills, No fever EENTM: ear pain; No ear discharge, No hearing loss Respiratory: No cough, No short of breath Cardiovascular: No chest pain, No palpitations Gastrointestinal: No abdominal pain, No constipation, No diarrhea Genitourinary: No discharge, No dysuria : No Control/STD Prophylaxis: None Musculoskeletal: No back pain, No joint pain Skin: No pruritus, No rash Past Adtidvk-Qwqtvw-Vkbczy Hx Patient Social History Alcohol Use: Denies Use Recreational Drug Use: No Smoking Status: Current Everyday Smoker Type Used: Cigarettes Recent Foreign Travel: No Contact w/Someone Who Travel: No Recent Infectious Disease Expo: No Recent Hopitalizations: No Immunizations Up To Date Tetanus Booster (TDap): Less than 5yrs Seasonal Allergies Seasonal Allergies: No Past Medical History Surgeries: Yes Gallbladder, Tubal Ligation Respiratory: No Cardiac: No Neurological: Yes (MIRGRAIN HEADACHES) Headaches /Migraines 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 Disorders: No 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 3.0oz. 63.745609dr; 21.79 BMI Method:Stated General Appearance: mild distress, other (naked) HEENT: PERRL/EOMI, normal ENT inspection, TMs normal, pharynx normal, other ( dental caries) Neck: non-tender, full range of motion Respiratory: chest non-tender, lungs clear, normal breath sounds, no respiratory distress, no accessory muscle use Cardiovascular: normal peripheral pulses, regular rate, rhythm, no edema Peripheral Pulses: 2+ Radial Pulses (R), 2+ Radial Pulses (L) Gastrointestinal: normal bowel sounds, non tender, soft Extremities: normal range of motion, non-tender, normal inspection, normal capillary refill Neurologic/Psychiatric: alert, other (Oriented to person and place but not asserted time or situation. Expressing bizarre delusions and tactile hallucinations) Behavior/Eye Contact: avoids eye contact, refused to answer Thoughts/Hallucinations: delusions, grandiose, obsessive, paranoid Skin: normal color, warm/dry Progress/Results/Core Measures Results/Orders Lab Results Laboratory Tests Test 02/03/18 18:15 02/03/18 20:58 Range/Units White Blood Count 11.5 H 4.3-11.0 10^3/uL Red Blood Count 4.16 L 4.35-5.85 10^6/uL Hemoglobin 12.8 11.5-16.0 G/DL Hematocrit 39 35-52 % Mean Corpuscular Volume 93 80-99 FL Mean Corpuscular Hemoglobin 31 25-34 PG Mean Corpuscular Hemoglobin Concent 33 32-36 G/DL Red Cell Distribution Width 12.2 10.0-14.5 % Platelet Count 643 H 130-400 10^3/uL Mean Platelet Volume 8.2 7.4-10.4 FL Neutrophils (%) (Auto) 62 42-75 % Lymphocytes (%) (Auto) 28 12-44 % Monocytes (%) (Auto) 9 0-12 % Eosinophils (%) (Auto) 1 0-10 % Basophils (%) (Auto) 0 0-10 % Neutrophils # (Auto) 7.2 1.8-7.8 X 10^3 Lymphocytes # (Auto) 3.2 1.0-4.0 X 10^3 Monocytes # (Auto) 1.0 0.0-1.0 X 10^3 Eosinophils # (Auto) 0.1 0.0-0.3 10^3/uL Basophils # (Auto) 0.0 0.0-0.1 10^3/uL Sodium Level 141 135-145 MMOL/L Potassium Level 3.1 L 3.6-5.0 MMOL/L Chloride Level 102 98-107 MMOL/L Carbon Dioxide Level 24 21-32 MMOL/L Anion Gap 15 H 5-14 MMOL/L Blood Urea Nitrogen 14 7-18 MG/DL Creatinine 0.82 0.60-1.30 MG/DL Estimat Glomerular Filtration Rate > 60 BUN/Creatinine Ratio 17 Glucose Level 98 70-105 MG/DL Calcium Level 10.3 H 8.5-10.1 MG/DL Corrected Calcium 8.5-10.1 MG/DL Total Bilirubin 0.5 0.1-1.0 MG/DL Aspartate Amino Transf (AST/SGOT) 25 5-34 U/L Alanine Aminotransferase (ALT/SGPT) 28 0-55 U/L Alkaline Phosphatase 73 40-136 U/L Total Protein 7.7 6.4-8.2 GM/DL Albumin 5.1 H 3.2-4.5 GM/DL Serum Test, Qualitative NEGATIVE NEGATIVE Salicylates Level < 5.0 L 5.0-20.0 MG/DL Acetaminophen Level < 10 L 10-30 UG/ML Serum Alcohol < 10 <10 MG/DL Urine Color YELLOW Urine Clarity VERY CLOUDY H Urine pH 7 5-9 Urine Specific [place] 1.015 L 1.016-1.022 Urine Protein 1+ H NEGATIVE Urine Glucose (UA) NEGATIVE NEGATIVE Urine Ketones 3+ H NEGATIVE Urine Nitrite NEGATIVE NEGATIVE Urine Bilirubin NEGATIVE NEGATIVE Urine Urobilinogen NORMAL NORMAL MG/DL Urine Leukocyte Esterase 1+ H NEGATIVE Urine RBC (Auto) NEGATIVE NEGATIVE Urine RBC NONE /HPF Urine WBC NONE /HPF Urine Squamous Epithelial Cells 0-2 /HPF Urine Crystals PRESENT H /LPF Urine Amorphous Sediment LARGE PEE URATES H /LPF Urine Bacteria NEGATIVE /HPF Urine Casts NONE /LPF Urine Mucus NEGATIVE /LPF Urine Culture Indicated NO Urine Opiates Screen NEGATIVE NEGATIVE Urine Oxycodone Screen NEGATIVE NEGATIVE Urine Methadone Screen NEGATIVE NEGATIVE Urine Propoxyphene Screen NEGATIVE NEGATIVE Urine Barbiturates Screen NEGATIVE NEGATIVE Ur Tricyclic Antidepressants Screen NEGATIVE NEGATIVE Urine Phencyclidine Screen NEGATIVE NEGATIVE Urine Amphetamines Screen POSITIVE H NEGATIVE Urine Methamphetamines Screen POSITIVE H NEGATIVE Urine Benzodiazepines Screen POSITIVE H NEGATIVE Urine Cocaine Screen NEGATIVE NEGATIVE Urine Cannabinoids Screen NEGATIVE NEGATIVE My Orders Orders - LAURA GALARZA Saline Lock/Iv-Start (02/03/18 19:31) Ns Iv 1000 Ml (Sodium Chloride 0.9%) (02/03/18 19:31) Ns Iv 1000 Ml (Sodium Chloride 0.9%) (02/03/18 19:27) Hcg,Qualitative Serum (02/03/18 19:38) Medications Given in ED Current Medications Medications Dose Ordered Sig/Aj Route Start Time Stop Time Status Last Admin Dose Admin Lorazepam 4 mg ONCE ONCE IVP 02/03/18 18:15 02/03/18 18:16 DC 02/03/18 18:15 4 MG Vital Signs/I&O 02/03/18 17:48 Temp 97.6 Pulse 88 Resp 24 B/P (MAP) 134/91 (105) Pulse Ox 99 Blood Pressure Mean: 105 Progress Progress Note #1: Time: 19:27 Progress Note Patient is responded very well to 4 mg Ativan IV and has allowed us to do some blood and collect urine. Progress Note #2: Time: 22:01 Progress Note The patient has an hour-long nap and is much more comfortable now. She is no danger to herself or anyone else. She is presently having a check with the right of way man per her request. We have made 2 attempts so far to get a hold of her mother might provide her with a ride home and left voicemail's. Progress Note #3: Time: 22:20 Progress Note Did get a hold of Charline, the patient's mother and she says she is out of town right now but she gave the phone number for a gentleman named Anil Mclaughlin who is a neighbor and might be able to help. Got a hold of Mr. Mclaughlin and he says he will be up within an half hour to collect the patient. Initial ECG Impression Date: Feb 03, 2018 Initial ECG Impression Time: 20:26 Initial ECG Rate: 90 Initial ECG Rhythm: Normal Sinus Initial ECG Intervals: QT (495) Initial ECG Impression: Nonspecific Changes Initial ECG Comparisson: No Previous ECG Available Comment No ST elevation or depression. Departure Impression Primary Impression: Delusions of parasitosis Additional Impression: Methamphetamine abuse Disposition: 01 HOME, SELF-CARE Condition: Stable Departure-Patient Inst. Decision time for Depature: 23:03 Referrals: SIDDHARTH ZARAGOZA DO (PCP/Family) Primary Care Physician Patient Instructions: ALCOHOL AND SUBSTANCE ABUSE Copy Copies To 1: SIDDHARTH ZARAGOZA TITUS J Feb 03, 2018 19:27
[2018-02-03] MEDS ORDERED: NS IV 1000 ML 1,000 ML IV SCH (19:31)
[2018-02-03 21:03] LABS: BILIRUBIN,URINE NEGATIVE (NEGATIVE); CLARITY,URINE VERY CLOUDY; COLOR,URINE YELLOW; GLUCOSE, URINE (UA) NEGATIVE (NEGATIVE); KETONES,URINE 3+ (NEGATIVE); LEUKOCYTE ESTERASE ,URINE 1+ (NEGATIVE); NITRITE,URINE NEGATIVE (NEGATIVE); PH,URINE 7 (5-9); PROTEIN,URINE 1+ (NEGATIVE); UROBILINOGEN,URINE NORMAL (NORMAL)
[2018-02-03 21:12] LABS: AMORPHOUS SEDIMENT,UR LARGE AMOR URATES /LPF; BACTERIA,URINE NEGATIVE /HPF; SQUAMOUS EPITHELIAL CELL,UR 0-2 /HPF
[2018-02-03 21:19] LABS: AMPHETAMINE SCREEN, URINE POSITIVE (NEGATIVE); BARBITURATE SCREEN URINE NEGATIVE (NEGATIVE); BENZODIAZEPINES SCREEN URINE POSITIVE (NEGATIVE); CANNABINOID SCREEN, URINE NEGATIVE (NEGATIVE); COCAINE SCREEN URINE NEGATIVE (NEGATIVE); METHADONE STAT NEGATIVE (NEGATIVE); METHAMPHETAMINE SCREEN URINE S POSITIVE (NEGATIVE); OPIATE SCREEN URINE NEGATIVE (NEGATIVE); OXYCODONE STAT NEGATIVE (NEGATIVE); PROPOXYPHENE STAT NEGATIVE (NEGATIVE); TRICYCLIC ANTIDEPRESSANTS SCRE NEGATIVE (NEGATIVE)
== END 2018-02-03 23:25 | disposition home or self-care (01) ==
LOC: EDUNIT# 17:48 → ER 17:49
DX: F06.2 Psychotic disorder with delusions due to known physiological condition (principal); F15.10 Other stimulant abuse, uncomplicated; G43.909 Migraine, unspecified, not intractable, without status migrainosus; F20.9 Schizophrenia, unspecified; F31.9 Bipolar disorder, unspecified; F17.210 Nicotine dependence, cigarettes, uncomplicated; Z87.19 Personal history of other diseases of the digestive system; Z88.0 Allergy status to penicillin; Z88.4 Allergy status to anesthetic agent; Z91.5 Personal history of self-harm; Z98.51 Tubal ligation status
CPT/HCPCS: 36415; 80053; 80306; 80320; 80329; 81000; 84703; 85025; 93005

== ENCOUNTER 2018-02-19 15:41 | Emergency (ER) | payer MEDICAID ==
[~2018-02-19] VITALS: Ht 167.6 cm; Wt 63.5 kg
[~2018-02-19 15:41] MED LIST changes: +ALBE200T2; +CETI10TA17; +FLUT16SP22; +QUET200T57
--- NOTE | 2018-02-19 18:16 | Diagnostic Imaging Report ---
INDICATION: Left foot pain. AP, oblique, and lateral views of the left foot are obtained. FINDINGS: No fracture or acute bony abnormality is seen. Joint spaces are unremarkable. IMPRESSION: Negative left foot. Dictated by: Dictated on workstation # [id number]
--- NOTE | 2018-02-19 18:46 | ED Lower Extremity ---
General Chief Complaint: Lower Extremity Stated Complaint: FOOT INJ/AMS Nursing Triage Note: 3 days ago Nursing Sepsis Screen: No Definite Risk Source: patient Exam Limitations: no limitations History of Present Illness Date Seen by Provider: Feb 19, 2018 Time Seen by Provider: 18:30 Initial Comments Patient is a 42 year old female who presents to the emergency room with reports of left ankle pain that started 3 days ago after she twisted her ankle on 4 inch heeled boots. She is able to ambulate. Onset: other (3 days ago) Pain/Injury Location: left ankle Method of Injury: twisted Modifying Factors: Worse With Movement Allergies and Home Medications Allergies Coded Allergies: Penicillins (Verified Allergy, Unknown, 12/17/15) ketorolac (Verified Allergy, Unknown, 12/17/15) Uncoded Allergies: PCN (Allergy, Mild, 07/28/15) Home Medications Clonazepam 1 Mg Tablet, 1 MG PO BID, (Reported) Hydroxyzine Pamoate 50 Mg Capsule, 50 MG PO TID, (Reported) Tramadol Hcl 50 Mg Tablet, 50 MG PO TID, (Reported) Patient Home Medication List Home Medication List Reviewed: Yes Review of Systems Constitutional: no symptoms reported, see HPI Musculoskeletal: see HPI, joint pain (left ankle) All Other Systems Reviewed Negative Unless Noted: Yes Past Gxxhgzh-Gdyceg-Qnnmme Hx Past Med/Social Hx: Reviewed Nursing Past Med/Soc Hx Patient Social History Alcohol Use: Denies Use Recreational Drug Use: Yes (NONE FOR OVER A YEAR) Smoking Status: Current Everyday Smoker Type Used: Cigarettes 2nd Hand Smoke Exposure: Yes Recent Foreign Travel: No Contact w/Someone Who Travel: No Recent Infectious Disease Expo: No Recent Hopitalizations: No Immunizations Up To Date Tetanus Booster (TDap): Less than 5yrs Seasonal Allergies Seasonal Allergies: No Past Medical History Surgeries: Yes Gallbladder, Tubal Ligation Respiratory: No Cardiac: No Neurological: Yes (MIRGRAIN HEADACHES) Headaches /Migraines Last Menstrual Period: Feb 12, 2018 Hx : 3 Hx Para: 3 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 Disorders: No 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 3.0oz. 63.523690xm; 21.79 BMI Method:Stated General Appearance: WD/WN, no apparent distress Cardiovascular: normal peripheral pulses, regular rate, rhythm, no edema, no gallop, no JVD, no murmur Respiratory: chest non-tender, lungs clear, normal breath sounds, no respiratory distress, no accessory muscle use Ankles: left ankle soft tissue tenderness, left ankle swelling Neurologic/Tendon: normal sensation, normal motor functions, normal tendon functions, responds to pain, no evidence tendon injury Neurologic/Psychiatric: alert, normal mood/affect, oriented x 3 Skin: normal color, warm/dry normal distal pulses Progress/Results/Core Measures Results/Orders My Orders Orders - SINGH ALCANTARA Foot, Left, 3 Views (02/19/18 17:41) Vital Signs/I&O 02/19/18 02/19/18 16:35 18:54 Temp 98.7 98.7 Pulse 106 106 Resp 24 24 B/P (MAP) 127/79 (95) 127/79 (95) Pulse Ox 100 Blood Pressure Mean: 95 Diagnostic Imaging Diagonstic Imaging: Xray Plain Films/CT/US/NM/MRI: ankle Comments NAME: PEREZ HERNANDEZ MED REC#: [id number] PHYSICIAN: SINGH ALCANTARA CC: RIVERA ALCANTARA ROBERT A MD Page 1 of 1 RADIOLOGY REPORT [place]IA [place] CC: SINGH ALCANTARA; AR SMITH MD Page 1 of 1 RADIOLOGY REPORT NAME: PEREZ HERNANDEZ MED REC#: [id number] PT STATUS: REG ER : 1975 PHYSICIAN: SINGH ALCANTARA ADMIT DATE: 02/19/18/ER Signed Date of Exam: 02/19/18 FOOT, LEFT, 3 VIEWS INDICATION: Left foot pain. AP, oblique, and lateral views of the left foot are obtained. FINDINGS: No fracture or acute bony abnormality is seen. Joint spaces are unremarkable. IMPRESSION: Negative left foot. Dictated by: Dictated on workstation # [id number] Dict: 02/19/181811 Trans: 02/19/181827 Interpreted by: AR SMITH MD Electronically signed by: AR SMTIH MD 02/19/181827 Reviewed: Reviewed by Me Departure Impression Primary Impression: Sprain and strain of foot Disposition: HOME, SELF-CARE Condition: Stable/Unchanged Departure-Patient Inst. Decision time for Depature: 18:45 Referrals: SIDDHARTH ZARAGOZA DO (PCP/Family) Primary Care Physician Patient Instructions: Ankle Sprain (DC) Add. Discharge Instructions: You may use ibuprofen and Tylenol as directed by the bottle for pain. Follow-up with your primary care provider within 1 week for recheck. Return back to the emergency room for any worsening symptoms or concerns as needed. All discharge instructions reviewed with patient and/or family. Voiced understanding. SINGH ALCANTARA Feb 19, 2018 18:46
[2018-02-19 18:54] VITALS: BP 127/79
== END 2018-02-19 19:04 | disposition home or self-care (01) ==
LOC: EDUNIT# 15:41 → ER 15:42
DX: S96.911A Strain of unspecified muscle and tendon at ankle and foot level, right foot, initial encounter (principal); G43.909 Migraine, unspecified, not intractable, without status migrainosus; F20.9 Schizophrenia, unspecified; F31.9 Bipolar disorder, unspecified; F17.210 Nicotine dependence, cigarettes, uncomplicated; Z87.19 Personal history of other diseases of the digestive system; Z91.5 Personal history of self-harm; Z88.0 Allergy status to penicillin; Z88.4 Allergy status to anesthetic agent; Z98.51 Tubal ligation status; X58.XXXA Exposure to other specified factors, initial encounter
CPT/HCPCS: 73630

== ENCOUNTER 2018-05-10 09:28 | Emergency (ER) | payer MEDICAID ==
[~2018-05-10] VITALS: Ht 167.6 cm; Wt 61.8 kg
--- OUTSIDE RECORDS SUMMARY | 2018-05-10 09:34 | XMS REPORT | Clinical Summary ---
Demographics Preferred Language Unknown Marital Status Unknown Synagogue Affiliation Unknown Race Unknown Ethnic Group Unknown Author Author [facility] Organization 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 Plan of Treatment Health Maintenance Due Date Last Done Comments Varicella Vaccines (1 of 1988 2 - 2-dose adolescent series) DTaP,Tdap,and Td Vaccines 1994 (1 - Tdap) CERVICAL CANCER SCREENING 1996 Influenza Vaccine (#1) 2017 Results Not on filefrom Last 3 Months
--- OUTSIDE RECORDS SUMMARY | 2018-05-10 09:34 | XMS REPORT | Clinical Summary ---
Author Author [facility] Organization [facility] Address Unknown Phone Unavailable Care Team Providers Care Network Control Operator Name Role Phone No Pcp, Na PCP Unavailable Source Comments Some departments are not documenting in the electronic medical record. If you do not see the information that you expected, contact Release of Information in the Health Information Management department at [phone] for further assistance in locating additional records.[facility] Allergies Comments Active Allergy Reactions Severity Noted Date Latex, Natural Rubber RASH Medium 05/15/2017 Ketorolac ANXIETY Low 05/15/2017 Medications End Date Status Medication Sig Dispensed Refills Start Date Active gabapentin (NEURONTIN) Take 800 mg 0 800 mg tablet by mouth every 8 hours. Active TRAMADOL HCL (TRAMADOL Take by 0 PO) mouth. Active hydrOXYzine (ATARAX) 10 Take 10 mg by 0 mg tablet mouth three times daily as needed for Itching. Active clonazePAM (KLONOPIN) 1 Take 1 mg by 0 mg tablet mouth twice daily. Active Problems Not on file Social History Date Tobacco Use Types Packs/Day Years Used Current Every Day Smoker Cigarettes 0.5 Alcohol Use Drinks/Week oz/Week Comments No Sex Assigned at Date Recorded Not on file Industry Job Start Date Occupation Not on file Not on file Not on file Travel End Travel History Travel Start No recent travel history available. Last Filed Vital Signs Time Taken Vital Sign Reading 05/15/2017 11:50 AM [employer] Blood Pressure 102/77 - Pulse - 05/15/2017 11:50 AM [employer] INST[employer] Temperature 36.7 C (98.1 F) - Respiratory Rate - 05/15/2017 11:50 AM [employer] INST[employer] Oxygen Saturation 96% - Inhaled Oxygen - Concentration 05/15/2017 11:50 AM [employer] INST[employer]ER Weight 59 kg (130 lb) 05/15/2017 11:50 AM [employer] INST[employer] Height 167.6 cm (5' 6") 05/15/2017 11:50 AM [employer] INST[employer]ER Body Mass Index 20.98 Plan of Treatment Health Maintenance Due Date Last Done Comments PHYSICAL (COMPREHENSIVE) 1982 EXAM HIV SCREENING 1990 DTAP/TDAP VACCINES (1 - 1993 Tdap) CERVICAL CANCER SCREENING 2005 BREAST CANCER SCREENING 2015 INFLUENZA VACCINE 11/22/2017 Results Not on filefrom Last 3 Months Insurance Payer Benefit Subscriber ID Type Phone Address Plan / Group [employer] [place] [employer] xxxxxxxxxxx Medicaid [employer] Advance Directives Patient has advance care planning documents on file. For more information, please contact: [facility] [address] [place] [address]
--- OUTSIDE RECORDS SUMMARY | 2018-05-10 09:35 | XMS REPORT ---
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 8906 Feb, [facility] [address] [id number] [place] [address]- 0366 Jan, [facility] [address] [id number] [place] [address]- 9026 Jan, [facility] [address] [id number] [place] [address]- 4446 Jan, [facility] [address] [id number] [place] [address]- 2639 Jan, [facility] [address] [id number] [place] [address]- 7441 Dec, [facility] [address] [id number] [place] [address]- 8269 Dec, [facility] [address] [id number] [place] [address]- 2300 Dec, [facility] [address] [id number] [place] [address]- 5107 Nov, [facility] [address] [id number] [place] [address]- 9762 Nov, [facility] [address] [id number] [place] [address]- 6736 Nov, [facility] [address] [id number] [place] [address]- 6116 Nov, [facility] [address] [id number] [place] [address]- 4118 Oct, [facility] [address] [id number] [place] [address]- 7456 Oct, [facility] [address] [id number] [place] [address]- 2546 Oct, [facility] [address] [id number] [place] [address]- 2476 Oct, [facility] [address] [id number] [place] [address]- 9785 Oct, [facility] [address] [id number] [place] [address]- 7622 Oct, [facility] [address] [id number] [place] [address]- 6015 Oct, [facility] [address] [id number] [place] [address]- 1309 Oct, [facility] [address] [id number] [place] [address]- 4475 Oct, [facility] [address] [id number] [place] [address]- 9794 Sep, [facility] [address] [id number] [place] [address]- 5994 Sep, [facility] [address] [id number] [place] [address]- 3506 August, [facility] [address] [id number] [place] [address]- 9762 August, [facility] [address] [id number] [place] [address]- 5570 August, [facility] [address] [id number] [place] [address]- 3545 August, [facility] [address] [id number] [place] [address]- 0332 August, [facility] [address] [id number] [place] [address]- 4653 August, [facility] [address] [id number] [place] [address]- 4456 Jul, [facility] [address] [id number] [place] [address]- 8878 Jul, [facility] [address] [id number] [place] [address]- 7782 24 Jul, 2011 [facility] [address] [id number] [place] [address]- 8994 24 Jul, 2011 [facility] [address] [id number] [place] [address]- 2266 23 Jul, 2011 [facility] [address] [id number] [place] [address]- 9596 16 Jul, 2011 [facility] [address] [id number] [place] [address]- 3908 09 Jul, 2011 [facility] [address] [id number] [place] [address]- 9750 Jul, [facility] [address] [id number] [place] [address]- 5406 Jun, [facility] [address] [id number] [place] [address]- 8840 Jun, [facility] [address] [id number] [place] [address]- 4142 05 Jun, 2011 [facility] [address] [id number] [place] [address]- 6111 May, [facility] [address] [id number] [place] [address]- 7493 May, [facility] [address] [id number] [place] [address]- 7924 15 May, 2011 [facility] [address] [id number] [place] [address]- 8511 08 May, 2011 [facility] [address] [id number] [place] [address]- 8644 May, [facility] [address] [id number] [place] [address]- 6436 Apr, [facility] [address] [id number] [place] [address]- 6670 Apr, [facility] [address] [id number] [place] [address]- 9109 Apr, [facility] [address] [id number] [place] [address]- 1164 Apr, [facility] [address] [id number] [place] [address]- 3510 Mar, [facility] [address] [id number] [place] [address]- 5843 Mar, [facility] [address] [id number] [place] [address]- 0616 Mar, [facility] [address] [id number] [place] [address]- 1906 Mar, [facility] [address] [id number] [place] [address]- 1348 Feb, [facility] [address] [id number] [place] [address]- 4310 Feb, [facility] [address] [id number] [place] [address]- 5373 Feb, [facility] [address] [id number] [place] [address]- 1647 Feb, [facility] [address] [id number] [place] [address]- 9584 Feb, [facility] [address] [id number], [place] [address]- 5533 Feb, [facility] [address] [id number] [place] [address]- 5473 Feb, [facility] [address] [id number], [place] [address]- 8786 Jan, [facility] [address] [id number] [place] [address]- 3427 Jan, [facility] [address] [id number], [place] [address]46 16 Dec, 2010 [facility] [id number], [place] [address]- [address]46 Nov, [facility] [id number], [place] [address]- 2546 15 May, 2010 [facility] [id number], [place] [address]- 2546 Apr, [facility] [id number], [place] [address]- 2546 Feb, [facility] [id number] [place] [address]- 2546 Jan, [facility] [id number], [place] [address]- 2546 August, [facility] [id number], [place] [address]- 2546 Mar, [facility] [address] [id number], [place] [address]- 2546 Jan, [facility] [id number], [place] [address]- 2546 Oct, IMMUNIZATIONS No Known Immunizations SOCIAL HISTORY Never Assessed REASON FOR VISIT medication request PLAN OF CARE VITAL SIGNS MEDICATIONS Medication Instructions Dosage Frequency Start Date End Date Duration Status Triamcinolone Acetonide 0.1 % Externally Twice a day 1 application to affected area 12h Mar, Active PredniSONE 20 mg Orally Once a day 2 tablet 24h Mar, 5 days Active RESULTS No Results PROCEDURES No [...] arm and artery repair Hospitalization History [facility] for suicidal idiations. surgery on left arm.
--- OUTSIDE RECORDS SUMMARY | 2018-05-10 09:36 | XMS REPORT ---
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 [place] [address]- 3696 Mar, [facility] [place] [facility] [address] [id number] [place] [address]- 7576 Mar, [facility] [place] [facility] [address] [id number] [place] [address]- 9659 Mar, [facility] [place] [facility] [address] [id number] [place] [address]- 2446 Mar, [facility] [place] [facility] [address] [id number] [place] [address]- 3149 Mar, [facility] [place] [facility] [address] [id number] [place] [address]- 7805 Mar, [facility] [place] [facility] [address] [id number] [place] [address]- 1472 Mar, [facility] [place] [facility] [address] [id number] [place] [address]- 9376 Mar, [facility] [place] [facility] [address] [id number] [place] [address]- 0307 Feb, [facility] [place] [facility] [address] [id number] [place] [address]- 5106 Feb, [facility] [place] [facility] [address] [id number] [place] [address]- 2629 Feb, [facility] [place] [facility] [address] [id number] [place] [address]- 2106 Feb, [facility] [place] [facility] [address] [id number] [place] [address]- 4572 Jan, [facility] [place] [facility] [address] [id number] [place] [address]- 5017 Jan, [facility] [place] [facility] [address] [id number] [place] [address]- 4576 Jan, [facility] [place] [facility] [address] [id number] [place] [address]- 6586 Jan, [facility] [place] [facility] [address] [id number] [place] [address]- 6176 Dec, [facility] [place] [facility] [address] [id number] [place] [address]- 7577 Dec, [facility] [place] [facility] [address] [id number] [place] [address]- 6173 Dec, [facility] [place] [facility] [address] [id number] [place] [address]- 2827 Nov, [facility] [place] [facility] [address] [id number] [place] [address]- 0524 Nov, [facility] [place] [facility] [address] [id number] [place] [address]- 5601 Nov, [facility] [place] [facility] [address] [id number] [place] [address]- 7729 Nov, [facility] [place] [facility] [address] [id number] [place] [address]- 8103 Oct, [facility] [place] [facility] [address] [id number] [place] [address]- 9006 Oct, [facility] [place] [facility] [address] [id number] [place] [address]- 8572 Oct, [facility] [place] [facility] [address] [id number] [place] [address]- 5289 Oct, [facility] [place] [facility] [address] [id number] [place] [address]- 7836 Oct, [facility] [place] [facility] [address] [id number] [place] [address]- 2541 Oct, [facility] [place] [facility] [address] [id number] [place] [address]- 9081 Oct, [facility] [address] [id number] [place] [address]- 4435 Oct, [facility] [address] [id number] [place] [address]- 7743 Oct, [facility] [address] [id number] [place] [address]- 4799 Sep, [facility] [address] [id number] [place] [address]- 5934 Sep, [facility] [address] [id number] [place] [address]- 1770 August, [facility] [address] [id number] [place] [address]- 0433 August, [facility] [address] [id number] [place] [address]- 7780 August, [facility] [address] [id number] [place] [address]- 9855 August, [facility] [address] [id number] [place] [address]- 2533 August, [facility] [address] [id number] [place] [address]- 1052 August, [facility] [address] [id number] [place] [address]- 6477 30 Jul, 2011 [facility] [address] [id number] [place] [address]- 0772 Jul, [facility] [address] [id number] [place] [address]- 0120 Jul, [facility] [address] [id number] [place] [address]- 8110 Jul, [facility] [address] [id number] [place] [address]- 9801 Jul, [facility] [address] [id number] [place] [address]- 7110 16 Jul, 2011 [facility] [place] [facility] [address] [id number] [place] [address]- 0266 Jul, [facility] [place] [facility] [address] [id number] [place] [address]- 1257 Jul, [facility] [place] [facility] [address] [id number] [place] [address]- 4226 Jun, [facility] [place] [facility] [address] [id number] [place] [address]- 9245 Jun, [facility] [place] [facility] [address] [id number] [place] [address]- 5173 Jun, [facility] [place] [facility] [address] [facility] [id number] [place] [address]- 9025 May, [facility] [place] [facility] [address] [id number] [place] [address]- 3892 May, [facility] [place] [facility] [address] [id number] [place] [address]- 4522 May, [facility] [place] [facility] [address] [facility] [id number] [place] [address]- 5548 May, [facility] [place] [facility] [address] [id number] [place] [address]- 3492 May, [facility] [place] [facility] [address] [id number], [place] [address]- 2616 Apr, [facility] [place] [facility] [address] [id number] [place] [address]- 7308 Apr, [facility] [place] [facility] [address] [id number] [place] [address]- 6310 Apr, [facility] [place] [facility] [address] [id number] [place] [address]- 4811 Apr, [facility] [place] [facility] [address] [id number] [place] [address]- 5176 28 Mar, 2011 [facility] [place] [facility] [address] [id number] [place] [address]- 0262 23 Mar, 2011 [facility] [place] [facility] [address] [id number] [place] [address]- 5032 14 Mar, 2011 [facility] [place] [facility] [address] [id number] [place] [address]- 8802 07 Mar, 2011 [facility] [place] [facility] [address] [id number] [place] [address]- 5880 30 Feb, 2011 [facility] [place] [facility] [address] [id number] [place] [address]- 9187 22 Feb, 2011 [facility] [place] [facility] [address] [id number] [place] [address]- 0759 15 Feb, 2011 [facility] [place] [facility] [address] [id number] [place] [address]- 0583 Feb, [facility] [place] [facility] [address] [id number] [place] [address]- 3960 08 Feb, 2011 [facility] [place] [facility] [address] [id number] [place] [address]- 5210 Feb, [facility] [place] [facility] [address] [id number] [place] [address]- 8764 Feb, [facility] [place] [facility] [address] [id number] [place] [address]- 4614 10 Jan, 2011 [facility] [place] [facility] [address] [id number] [place] [address]- 4216 10 Jan, 2011 [facility] [place] [facility] [address] [id number] [place] [address]- 7275 16 Dec, 2010 [facility] [place] [facility] [address] [id number] [place] [address]- 7949 Nov, [facility] [place] [facility] [address] [id number] [place] [address]- 7606 15 May, 2010 [facility] [address] [id number] [address] 2546 Apr, [facility] [id number], [place] [address]- 2546 Feb, [facility] [id number], [place] [address]- 2546 Jan, [facility] [id number] [place] [address]- 2546 August, [facility] [id number], [place] [address]- 2546 Mar, [facility] [id number], [place] [address]- 2546 Jan, [facility] [id number], [place] [address] 2546 Oct, IMMUNIZATIONS No Known Immunizations SOCIAL HISTORY Never Assessed REASON FOR VISIT Triage--tcuppettRN PLAN OF CARE VITAL SIGNS MEDICATIONS Unknown [...] arm and artery repair Hospitalization History [facility] for suicidal idiations. surgery on left arm.
--- OUTSIDE RECORDS SUMMARY | 2018-05-10 09:37 | XMS REPORT ---
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 [address]- 2606 Jan, [facility] [address] [id number] [place] [address]- 4710 Jan, [facility] [address] [id number] [place] [address]- 9062 Jan, [facility] [address] [id number] [place] [address]- 4356 Jan, [facility] [address] [id number] [place] [address]- 2414 Dec, [facility] [address] [id number] [place] [address]- 7620 Dec, [facility] [address] [id number] [place] [address]- 9438 Dec, [facility] [address] [id number] [place] [address]- 4066 Nov, [facility] [address] [id number] [place] [address]- 5337 Nov, [facility] [address] [id number] [place] [address]- 4648 Nov, [facility] [address] [id number] [place] [address]- 8417 Nov, [facility] [address] [id number] [place] [address]- 2132 Oct, [facility] [address] [id number] [place] [address]- 6896 Oct, [facility] [address] [id number] [place] [address]- 6391 Oct, [facility] [address] [id number] [place] [address]- 0445 Oct, [facility] [address] [id number] [place] [address]- 9956 Oct, [facility] [address] [id number] [place] [address]- 2888 Oct, [facility] [address] [id number] [place] [address]- 9099 Oct, [facility] [address] [id number] [place] [address]- 7912 Oct, [facility] [address] [id number] [place] [address]- 2496 Oct, [facility] [address] [id number] [place] [address]- 3217 Sep, [facility] [address] [id number] [place] [address]- 4393 Sep, [facility] [address] [id number] [place] [address]- 1178 August, [facility] [address] [id number] [place] [address]- 3286 August, [facility] [address] [id number] [place] [address]- 4708 August, [facility] [address] [id number] [place] [address]- 1941 August, [facility] [address] [id number] [place] [address]- 4236 August, [facility] [address] [id number] [place] [address]- 6649 August, [facility] [address] [id number] [place] [address]- 1524 30 Jul, 2011 [facility] [address] [id number] [place] [address]- 7442 Jul, [facility] [address] [id number] [place] [address]- 6826 Jul, [facility] [address] [id number] [place] [address]- 3345 Jul, [facility] [address] [id number] [place] [address]- 2381 Jul, [facility] [address] [id number] [place] [address]- 3915 16 Jul, 2011 [facility] [address] [id number] [place] [address]- 6283 Jul, [facility] [address] [id number] [place] [address]- 4711 Jul, [facility] [address] [id number] [place] [address]- 1950 Jun, [facility] [address] [id number] [place] [address]- 4402 Jun, [facility] [address] [id number] [place] [address]- 2581 Jun, [facility] [address] [id number] [place] [address]- 5977 May, [facility] [place] [facility] [address] [id number] [place] [address]- 7612 May, [facility] [address] [id number] [place] [address]- 4618 May, [facility] [address] [facility] [id number] [place] [address]- 0700 May, [facility] [address] [facility] [id number] [place] [address]- 0557 May, [facility] [address] [id number] [place] [address]- 6403 Apr, [facility] [facility] [address] [id number] [place] [address]- 4347 Apr, [facility] [place] [facility] [address] [id number] [place] [address]- 5490 Apr, [facility] [place] [facility] [address] [id number] [place] [address]- 2191 Apr, [facility] [place] [facility] [address] [id number] [place] [address]- 7636 28 Mar, 2011 [facility] [facility] [address] [id number] [place] [address]- 9082 23 Mar, 2011 [facility] [place] [facility] [address] [id number] [place] [address]- 5164 14 Mar, 2011 [facility] [place] [facility] [address] [id number] [place] [address]- 4627 Mar, [facility] [place] [facility] [address] [id number] [place] [address]- 8152 30 Feb, 2011 [facility] [place] [facility] [address] [id number] [place] [address]- 4616 Feb, [facility] [place] [facility] [address] [id number] [place] [address]- 1759 Feb, [facility] [place] [facility] [address] [id number] [place] [address]- 5684 Feb, [facility] [place] [facility] [address] [id number] [place] [address]- 5525 Feb, [facility] [place] [facility] [address] [id number] [place] [address]- 3351 Feb, [facility] [place] [facility] [address] [id number] [place] [address]- 9849 Feb, [facility] [place] [facility] [address] [id number] [place] [address]- 1532 Jan, [facility] [place] [facility] [address] [id number] [place] [address]- 5664 Jan, [facility] [place] [facility] [address] [id number] [place] [address]- 9721 16 Dec, 2010 [facility] [place] [facility] [address] [id number] [place] [address]- 5677 Nov, [facility] [place] [facility] [address] [id number] [place] [address]- 5961 15 May, 2010 [facility] [place] [facility] [address] [facility] [id number] [place] [address]- 1253 Apr, [facility] [address] [id number] [address] 0328 Feb, [facility] [address] [id number] [address] 8262 Jan, [facility] [address] [id number] [address]- 9227 August, [facility] [id number] [address] 8957 Mar, [facility] [address] [id number] [address]- 1325 Jan, [facility] [address] [id number] [address] Oct, IMMUNIZATIONS No Known Immunizations SOCIAL HISTORY Never Assessed REASON FOR VISIT std results-SAMIRA Schaffer PLAN OF CARE Activity Details Follow Up prn Reason: VITAL SIGNS Height 66 in 2018-03-26 Weight 140.8 lbs 2018-03-26 Temperature 98.0 degrees Fahrenheit 2018-03-26 Heart Rate 86 bpm 2018-03-26 Respiratory Rate 20 2018-03-26 BMI 22.72 kg/m2 2018-03-26 Blood pressure systolic 152 mmHg 2018-03-26 Blood pressure diastolic 88 mmHg 2018-03-26 MEDICATIONS Medication Instructions Dosage Frequency Start Date End Date Duration Status Sodium Fluoride 1.1 (0.5 F) mg/ml Dental Twice a day as directed Dec Active Triamcinolone Acetonide 0.1 % Externally Twice a day 1 application to affected area 12h Feb, 14 days Active PreviDent 1.1 % Dental 2 times a day 1 cm strip Dec, Active Seroquel 200 mg Orally Once a day at bedtime 3 tablet Active Cetirizine HCl 10 MG Orally Once a day 1 tablet 24h Feb, 30 day (s) Active Triamcinolone Acetonide 0.1 % Externally Twice a day 1 application to affected area Feb, Active Diflucan 150 MG Orally Once a day 1 tablet 24h Feb, 3 days Active Cromolyn Sodium 4 % Ophthalmic Four times a day 1 drop into affected eye 6h Feb, Active Fluconazole 150 MG Orally every 72hr 1 tablet Mar, 6 days Active PreviDent 5000 Booster 1.1% Dental 2 times a day as directed 12Dec, Apr, 28 days Active Diclofenac Sodium 75 MG Orally Twice a day 1 tablet with food or milk 12h Feb, 30 day(s) Active HydrOXYzine HCl 25 MG Orally 3 times a day 1 tablet 8h Active Chlorhexidine Gluconate 0.12 % Mouth/Throat 2 times a day as directed 12Dec, 28 days Active Flonase 50 mcg/act Nasally Once a day 1 spray in each nostril 24h Feb, 30 day(s) Active PredniSONE 20 mg Orally Once a day 2 tablets 24h Feb, 5 days Active Flonase 50 MCG/DOSE Nasally Once a day 1 spray in each nostril 24h Nov, 30 day(s) Active RESULTS No Results [...] arm and artery repair Hospitalization History [facility] for suicidal idiations. surgery on left arm.
--- OUTSIDE RECORDS SUMMARY | 2018-05-10 09:38 | XMS REPORT ---
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 [facility] [place] [facility] [address] [id number] [place] [address] 4346 Dec, [facility] [place] [facility] [address] [id number] [place] [address]- 3386 Dec, [facility] [place] [facility] [address] [id number] [place] [address]- 3518 Nov, [facility] [place] [facility] [address] [id number] [place] [address]- 6984 Nov, [facility] [place] [facility] [address] [id number] [place] [address]- 3085 Nov, [facility] [place] [facility] [address] [id number] [place] [address]- 8876 Nov, [facility] [place] [facility] [address] [id number] [place] [address]- 4116 Oct, [facility] [place] [facility] [address] [id number] [place] [address]- 5892 Oct, [facility] [place] [facility] [address] [id number] [place] [address]- 0521 Oct, [facility] [place] [facility] [address] [id number] [place] [address]- 1687 Oct, [facility] [place] [facility] [address] [id number] [place] [address]- 3587 Oct, [facility] [place] [facility] [address] [id number] [place] [address]- 5044 Oct, [facility] [place] [facility] [address] [id number] [place] [address]- 1506 Oct, [facility] [place] [facility] [address] [id number] [place] [address]- 4186 Oct, [facility] [place] [facility] [address] [id number] [place] [address]- 8354 Oct, [facility] [address] [id number] [place] [address]- 3357 Sep[facility] [place] [facility] [address] [id number] [place] [address]- 9816 Sep, [facility] [address] [id number] [place] [address]- 1887 August, [facility] [place] [facility] [address] [id number] [place] [address]- 5353 August, [facility] [address] [id number] [place] [address]- 2834 August, [facility] [address] [id number] [place] [address]- 7975 August, [facility] [address] [id number] [place] [address]- 3510 August, [facility] [address] [id number] [place] [address]- 0062 August, [facility] [address] [id number] [place] [address]- 8270 Jul, [facility] [address] [id number] [place] [address]- 3877 Jul, [facility] [place] [facility] [address] [id number] [place] [address]- 2693 Jul, [facility] [place] [facility] [address] [id number] [place] [address]- 6404 24 Jul, 2011 [facility] [place] [facility] [address] [id number] [place] [address]- 1915 Jul, [facility] [place] [facility] [address] [id number] [place] [address]- 3556 16 Jul, 2011 [facility] [place] [facility] [address] [id number] [place] [address]- 9257 Jul, [facility] [place] [facility] [address] [id number] [place] [address]- 2949 Jul, [facility] [place] [facility] [address] [id number] [place] [address]- 7556 Jun, [facility] [place] [facility] [address] [id number] [place] [address]- 2781 Jun, [facility] [place] [facility] [address] [id number] [place] [address]- 9599 Jun, [facility] [place] [facility] [address] [id number] [place] [address]- 6813 May, [facility] [place] [facility] [address] [id number] [place] [address]- 8846 May, [facility] [place] [facility] [address] [id number] [place] [address]- 6891 May, [facility] [place] [facility] [address] [id number] [place] [address]- 1399 May, [facility] [place] [facility] [address] [id number] [place] [address]- 9881 May, [facility] [place] [facility] [address] [id number] [place] [address]- 3941 Apr, [facility] [place] [facility] [address] [id number] [place] [address]- 4136 Apr, [facility] [place] [facility] [address] [id number] [place] [address]- 1460 Apr, [facility] [place] [facility] [address] [id number] [place] [address]- 4435 Apr, [facility] [place] [facility] [address] [id number] [place] [address]- 9667 Mar, [facility] [place] [facility] [address] [id number] [place] [address]- 4610 Mar, [facility] [place] [facility] [address] [id number] [place] [address]- 6636 14 Mar, 2011 [facility] [address] [id number] [place] [address] 07 Mar, 2011 [facility] [place] [facility] [address] [id number] [place] [address]- 2764 30 Feb, 2011 [facility] [address] [id number] [place] [address]- 3021 22 Feb, 2011 [facility] [place] [facility] [address] [id number] [place] [address]- 9087 15 Feb, 2011 [facility] [address] [id number] [place] [address], [place] [address]- 1349 Feb, [facility] [address] [id number] [place] [address]- 3899 Feb, [facility] [place] [facility] [address] [id number] [place] [address]- 5980 Feb, [facility] [address] [id number] [place] [address]- 4009 Feb, [facility] [place] [facility] [address] [facility] [id number] [place] [address]- 8145 Jan, [facility] [address] [facility] [id number] [place] [address]- 2829 10 Jan, 2011 [facility] [place] [facility] [address] [id number] [place] [address]- 4077 16 Dec, 2010 [facility] [place] [facility] [address] [id number] [place] [address]- 6257 Nov, [facility] [place] [facility] [address] [id number] [place] [address]- 3338 15 May, 2010 [facility] [place] [facility] [address] [id number] [place] [address]- 1447 14 Apr, 2010 [facility] [place] [facility] [address] [id number] [place] [address]- 7385 Feb, [facility] [address] [facility] [id number] [address] 9029 Jan, [facility] [address] [facility] [id number] [place] [address]- 0346 August, [facility] [address] [facility] [id number] [place] [address]- 9486 Mar, [facility] [address] [facility] [id number] [place] [address]- 7086 Jan, [facility] [address] [facility] [id number] [place] [address]- 9350 Oct, IMMUNIZATIONS No Known Immunizations SOCIAL HISTORY Never Assessed REASON FOR VISIT shaved her head et thinks she has mold on her head because it looks black et her hair is red. [email or web address] PLAN OF CARE Activity Details Follow Up prn Reason: VITAL SIGNS Height 66 in 2018-03-09 Weight 141.6 lbs 2018-03-09 Temperature 97.9 degrees Fahrenheit 2018-03-09 Heart Rate 84 bpm 2018-03-09 Respiratory Rate 20 2018-03-09 BMI 22.85 kg/m2 2018-03-09 Blood pressure systolic 126 mmHg 2018-03-09 Blood pressure diastolic 78 mmHg 2018-03-09 MEDICATIONS Medication Instructions Dosage Frequency Start Date End Date Duration Status PreviDent 1.1 % Dental 2 times a day 1 cm strip Dec, Active Flonase 50 MCG/DOSE Nasally Once a day 1 spray in each nostril 24h Nov, 30 day(s) Active Seroquel 200 mg Orally Once a day at bedtime 3 tablet Active Chlorhexidine Gluconate 0.12 % Mouth/Throat 2 times a day as directed Dec, 28 days Active Sodium Fluoride 1.1 (0.5 F) mg/ml Dental Twice a day as directed Dec Active Triamcinolone Acetonide 0.1 % Externally Twice a day 1 application to affected area 12h 05 Feb, 2018 Active Triamcinolone Acetonide 0.1 % Externally Twice a day 1 application to affected area 12Feb, 14 days Active HydrOXYzine HCl 25 MG Orally 3 times a day 1 tablet 8h Active PreviDent 5000 Booster 1.1% Dental 2 times a day as directed 12h 20 Dec, 2017 10 Apr, 2018 28 days Active RESULTS No Results PROCEDURES [...] arm and artery repair Hospitalization History [facility] for suicidal idiations. surgery on left arm.
--- OUTSIDE RECORDS SUMMARY | 2018-05-10 09:38 | XMS REPORT ---
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 [place] [address]- 8526 Jan, [facility] [place] [facility] [address] [id number] [place] [address]- 0215 Dec, [facility] [place] [facility] [address] [id number] [place] [address]- 4492 Dec, [facility] [place] [facility] [address] [id number] [place] [address]- 8819 Dec, [facility] [place] [facility] [address] [id number] [place] [address]- 3408 Nov, [facility] [place] [facility] [address] [id number] [place] [address]- 1921 Nov, [facility] [place] [facility] [address] [id number] [place] [address]- 3351 Nov, [facility] [place] [facility] [address] [id number] [place] [address]- 6404 Nov, [facility] [place] [facility] [address] [id number] [place] [address]- 2810 Oct, [facility] [place] [facility] [address] [id number] [place] [address]- 0681 Oct, [facility] [place] [facility] [address] [id number] [place] [address]- 4013 Oct, [facility] [place] [facility] [address] [id number] [place] [address]- 7882 Oct, [facility] [place] [facility] [address] [id number] [place] [address]- 6381 Oct, [facility] [place] [facility] [address] [id number] [place] [address]- 1987 Oct, [facility] [place] [facility] [address] [id number] [place] [address]- 6434 Oct, [facility] [place] [facility] [address] [id number] [place] [address]- 6465 Oct, [facility] [address] [id number] [place] [address]- 3234 Oct, [facility] [place] [facility] [address] [id number] [place] [address] Sep, [facility] [place] [facility] [address] [id number] [place] [address]- 1363 Sep, [facility] [place] [facility] [address] [id number] [place] [address]- 9304 August, [facility] [place] [facility] [address] [id number] [place] [address]- 6877 August, [facility] [place] [facility] [address] [id number] [place] [address]- 3614 August, [facility] [place] [facility] [address] [id number] [place] [address]- 1347 August, [facility] [place] [facility] [address] [id number] [place] [address]- 5661 August, [facility] [place] [facility] [address] [id number] [place] [address]- 8960 August, [facility] [place] [facility] [address] [id number] [place] [address]- 0223 30 Jul, 2011 [facility] [place] [facility] [address] [id number] [place] [address]- 2479 Jul, [facility] [place] [facility] [address] [id number] [place] [address]- 7661 24 Jul, 2011 [facility] [place] [facility] [address] [id number] [place] [address]- 7561 24 Jul, 2011 [facility] [place] [facility] [address] [id number] [place] [address]- 3338 23 Jul, 2011 [facility] [place] [facility] [address] [id number] [place] [address]- 2585 16 Jul, 2011 [facility] [place] [facility] [address] [id number] [place] [address]- 1399 Jul, [facility] [address] [id number] [place] [address]- 0983 Jul, [facility] [place] [facility] [address] [id number] [place] [address]- 6686 Jun, [facility] [address] [id number] [place] [address]- 7198 Jun, [facility] [place] [facility] [address] [id number] [place] [address]- 7336 Jun, [facility] [address] [id number] [place] [address]- 9667 May, [facility] [place] [facility] [address] [id number] [place] [address]- 8177 May, [facility] [address] [id number] [place] [address]- 0153 May, [facility] [address] [id number] [place] [address]- 3800 May, [facility] [address] [id number] [place] [address]- 7802 May, [facility] [address] [id number] [place] [address]- 8827 Apr, [facility] [address] [id number] [place] [address]- 3571 Apr, [facility] [place] [facility] [address] [id number] [place] [address]- 6790 Apr, [facility] [place] [facility] [address] [id number] [place] [address]- 8413 Apr, [facility] [place] [facility] [address] [id number] [place] [address]- 4550 Mar, [facility] [place] [facility] [address] [id number] [place] [address]- 3542 Mar, [facility] [place] [facility] [address] [id number] [place] [address]- 0266 14 Mar, 2011 [facility] [place] [facility] [address] [id number] [place] [address]- 3846 Mar, [facility] [place] [facility] [address] [id number] [place] [address]- 8750 Feb, [facility] [place] [facility] [address] [id number] [place] [address]- 0489 Feb, [facility] [place] [facility] [address] [id number] [place] [address]- 4504 Feb, [facility] [place] [facility] [address] [id number] [place] [address]- 8588 Feb, [facility] [place] [facility] [address] [id number] [place] [address]- 2538 Feb, [facility] [place] [facility] [address] [id number] [place] [address]- 2703 Feb, [facility] [place] [facility] [address] [id number] [place] [address]- 3995 Feb, [facility] [place] [facility] [address] [id number] [place] [address]- 4066 Jan, [facility] [place] [facility] [address] [id number] [address]- 5193 Jan, [facility] [place] [facility] [address] [id number] [place] [address]- 1426 16 Dec, 2010 [facility] [place] [facility] [address] [id number] [place] [address]- 1749 Nov, [facility] [place] [facility] [address] [id number] [place] [address]- 2366 15 May, 2010 [facility] [place] [facility] [address] [id number] [place] [address]- 3890 Apr, [facility] [place] [facility] [address] [id number] [place] [address]- 2546 Feb, [facility] [address] [id number] [address] 2546 Jan, [facility] [address] [id number] [address]- 2546 August, [facility] [address] [id number] [address]- 2546 Mar, [facility] [address] [id number] [address] 2546 Jan, [facility] [id number] [address] Oct, IMMUNIZATIONS No Known Immunizations SOCIAL HISTORY Never Assessed REASON FOR VISIT Lab results PLAN OF CARE VITAL SIGNS MEDICATIONS No [...] arm and artery repair Hospitalization History [facility] for suicidal idiations. surgery on left arm.
--- OUTSIDE RECORDS SUMMARY | 2018-05-10 09:39 | XMS REPORT ---
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 [place] [facility] [address] [id number] [place] [address]- 5590 Mar, [facility] [place] [facility] [address] [id number] [place] [address]- 7006 Mar, [facility] [address] [id number] [place] [address]- 3723 Mar, [facility] [place] [facility] [address] [id number] [place] [address]- 9408 Mar, [facility] [place] [facility] [address] [id number] [place] [address]- 9052 Feb, [facility] [place] [facility] [address] [id number] [place] [address]- 8997 Feb, [facility] [place] [facility] [address] [id number] [place] [address]- 4582 Feb, [facility] [place] [facility] [address] [id number] [address]- 4636 Feb, [facility] [place] [facility] [address] [id number] [place] [address]- 3417 Jan, [facility] [place] [facility] [address] [id number] [place] [address]- 6230 Jan, [facility] [place] [facility] [address] [id number] [place] [address]- 5578 Jan, [facility] [place] [facility] [address] [id number] [place] [address]- 2546 Jan, [facility] [place] [facility] [address] [id number] [place] [address]- 2712 Dec, [facility] [place] [facility] [address] [id number] [place] [address]- 4886 Dec, [facility] [place] [facility] [address] [id number] [place] [address]- 4226 Dec, [facility] [place] [facility] [address] [id number] [place] [address]- 1103 Nov, [facility] [place] [facility] [address] [id number] [place] [address]- 4525 Nov, [facility] [place] [facility] [address] [id number] [place] [address]- 8706 Nov, [facility] [place] [facility] [address] [id number] [place] [address]- 1123 Nov, [facility] [place] [facility] [address] [id number] [place] [address]- 7662 Oct, [facility] [place] [facility] [address] [id number] [place] [address]- 8896 Oct, [facility] [place] [facility] [address] [id number] [place] [address]- 2151 Oct, [facility] [place] [facility] [address] [id number] [place] [address]- 9197 Oct, [facility] [place] [facility] [address] [id number] [place] [address]- 2411 Oct, [facility] [place] [facility] [address] [id number] [place] [address]- 4643 Oct, [facility] [place] [facility] [address] [id number] [place] [address]- 4880 Oct, [facility] [place] [facility] [address] [id number] [place] [address]- 4918 Oct, [facility] [place] [facility] [address] [id number] [place] [address]- 6308 Oct, [facility] [address] [id number] [place] [address]- 6894 Sep, [facility] [address] [id number] [place] [address]- 8376 Sep, [facility] [address] [id number] [place] [address]- 3119 August, [facility] [address] [id number] [place] [address]- 6795 August, [facility] [address] [id number] [place] [address]- 9121 August, [facility] [address] [id number] [place] [address]- 2679 August, [facility] [address] [id number] [place] [address]- 9943 August, [facility] [address] [id number] [place] [address]- 9020 August, [facility] [address] [id number] [place] [address]- 2954 30 Jul, 2011 [facility] [address] [id number] [place] [address]- 1926 Jul, [facility] [address] [id number] [place] [address]- 0818 24 Jul, 2011 [facility] [address] [id number] [place] [address]- 8898 24 Jul, 2011 [facility] [place] [facility] [address] [id number] [place] [address]- 7549 Jul, [facility] [address] [id number] [place] [address]- 9686 16 Jul, 2011 [facility] [address] [id number] [place] [address]- 8597 Jul, [facility] [address] [id number] [place] [address]- 9437 Jul, [facility] [place] [facility] [address] [id number] [place] [address]- 6166 Jun, [facility] [address] [id number] [place] [address]- 1258 Jun, [facility] [place] [facility] [address] [id number] [place] [address]- 6016 Jun, [facility] [address] [id number] [place] [address]- 4863 May, [facility] [place] [facility] [address] [id number] [place] [address]- 1956 May, [facility] [address] [id number] [place] [address]- 6186 May, [facility] [place] [facility] [address] [id number] [place] [address]- 3885 May, [facility] [place] [facility] [address] [id number] [place] [address]- 3967 May, [facility] [place] [facility] [address] [id number] [place] [address]- 0496 Apr, [facility] [address] [id number] [place] [address]- 6506 Apr, [facility] [place] [facility] [address] [id number] [place] [address]- 0693 Apr, [facility] [place] [facility] [address] [id number] [place] [address]- 3626 Apr, [facility] [place] [facility] [address] [id number] [place] [address]- 5036 Mar, [facility] [place] [facility] [address] [id number] [place] [address]- 5336 Mar, [facility] [place] [facility] [address] [id number] [place] [address]- 4313 14 Mar, 2011 [facility] [place] [facility] [address] [id number] [place] [address]- 8896 07 Mar, 2011 [facility] [place] [facility] [address] [id number] [place] [address]- 4976 30 Feb, 2011 [facility] [place] [facility] [address] [id number] [place] [address]- 4961 Feb, [facility] [place] [facility] [address] [id number] [place] [address]- 2631 15 Feb, 2011 [facility] [place] [facility] [address] [id number] [place] [address]- 5840 Feb, [facility] [place] [facility] [address] [id number] [place] [address]- 0274 Feb, [facility] [place] [facility] [address] [id number] [place] [address]- 6846 Feb, [facility] [place] [facility] [address] [id number] [place] [address]- 2656 Feb, [facility] [place] [facility] [address] [id number] [place] [address]- 6498 10 Jan, 2011 [facility] [place] [facility] [address] [id number] [place] [address]- 5624 10 Jan, 2011 [facility] [place] [facility] [address] [id number] [place] [address]- 6181 16 Dec, 2010 [facility] [place] [facility] [address] [id number] [place] [address]- 4056 Nov, [facility] [place] [facility] [address] [id number] [place] [address]- 1405 15 May, 2010 [facility] [place] [facility] [address] [id number] [place] [address]- 1901 14 Apr, 2010 [facility] [place] [facility] [address] [id number] [place] [address]- 0302 Feb, [facility] [address] [facility] [id number] [address]- 9546 Jan, [facility] [address] [facility] [id number], [place] [address] 2546 August, [facility] [address] [facility] [id number][place] [address] 2546 Mar, [facility] [address] [facility] [id number] [address] 2546 Jan, [facility] [address] [facility] [id number][place] [address]- 8526 Oct, IMMUNIZATIONS No Known Immunizations SOCIAL HISTORY Never Assessed REASON FOR VISIT Vaginal discharge and odor. Pt was tested and treated for STD's last month. Pt states that she is still very inflamed and having discharge and believes she has a yeast infection.-awoods PLAN OF CARE Activity Details Follow Up prn Reason: Pending Test HIV ANTIGEN/ANTIBODY Pending Test HEP C ANTIBODY W/ REFLEX HCV Pending Test GC/CHLAMYDIA (SWAB OR URINE)-RAPID Pending Test CULTURE, GENITAL VITAL SIGNS Height 66 in 2018-03-20 Weight 140.9 lbs 2018-03-20 Temperature 98.8 degrees Fahrenheit 2018-03-20 Heart Rate 100 bpm 2018-03-20 Respiratory Rate 20 2018-03-20 BMI 22.74 kg/m2 2018-03-20 Blood pressure systolic 138 mmHg 2018-03-20 Blood pressure diastolic 82 mmHg 2018-03-20 MEDICATIONS Medication Instructions Dosage Frequency Start Date End Date Duration Status PreviDent 1.1 % Dental 2 times a day 1 cm strip 12h Dec, Active PreviDent 5000 Booster 1.1% Dental 2 times a day as directed 12h Dec, Apr, 28 days Active Flonase 50 MCG/DOSE Nasally Once a day 1 spray in each nostril 24h Nov, 30 day(s) Not-Taking Seroquel 200 mg Orally Once a day at bedtime 3 tablet Active Cromolyn Sodium 4 % Ophthalmic Four times a day 1 drop into affected eye 6h Feb, Active Diclofenac Sodium 75 MG Orally Twice a day 1 tablet with food or milk 12h Feb, 30 day(s) Active Diflucan 150 MG Orally Once a day 1 tablet 24h Feb, 3 days Not -Taking Cetirizine HCl 10 MG Orally Once a day 1 tablet 24h Feb, 30 day (s) Active Chlorhexidine Gluconate 0.12 % Mouth/Throat 2 times a day as directed Dec, 28 days Active Triamcinolone Acetonide 0.1 % Externally Twice a day 1 application to affected area 12 16 Feb, 2018 14 days Active Triamcinolone Acetonide 0.1 % Externally Twice a day 1 application to affected area 12 05 Feb, 2018 Not-Taking HydrOXYzine HCl 25 MG Orally 3 times a day 1 tablet 8h Active Sodium Fluoride 1.1 (0.5 F) mg/ml Dental Twice a day as directed Dec Active Flonase 50 mcg/act Nasally Once a day 1 spray in each nostril 24h Feb, 30 day(s) Active PredniSONE 20 mg Orally Once a day 2 tablets 24h Feb, 5 days Not-Taking RESULTS Name Result Date Reference Range TRICHOMONAS (IN HOUSE) 2018-03-20 TRICHOMONAS neg Control + Lot # [id number] Exp date 02/2019 BACTERIAL VAGINOSIS (IN HOUSE) 2018-03-20 RESULTS neg Control + Lot # [id number] Exp date 10/2018 UA LONG DIP (IN HOUSE) 2018-03-20 Lot # [id number] Exp date 12/2018 Clarity sl clody Color yellow Odor GLU neg JOSEPH neg KET neg SG 1.025 BLO neg pH 6.0 Protein neg URO 0.2 NIT neg JEREMY neg Lot # Exp date PROCEDURES Procedure Date Ordered Result Body Site [facility] Mar 20, 2018 Bacterial Vaginosis In House Mar 20, 2018 VENIPUNCT, ROUTINE* Mar 20, 2018 URINALYSIS, AUTO, W/O SCOPE Mar 20, 2018 INSTRUCTIONS MEDICATIONS ADMINISTERED No Known Medications MEDICAL (GENERAL) HISTORY Type Description Date Medical History hx of ulcers Medical History right ovarian cysts-recurring Medical History mood swings Medical History bipolar disorder Medical History drug abuse Medical History depression Surgical History orthopedic surgery-carpal tunnel 05/2011 Surgical History tubal ligation Surgical History cholecystectomy Surgical History surgery on left arm and artery repair Hospitalization History [facility] for suicidal idiations. surgery on left arm.
--- OUTSIDE RECORDS SUMMARY | 2018-05-10 09:40 | XMS REPORT ---
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 [place] [facility] [address] [id number] [place] [address]- 3359 Feb, [facility] [place] [facility] [address] [id number] [place] [address]- 4417 Jan, [facility] [place] [facility] [address] [id number] [place] [address]- 8540 Jan, [facility] [place] [facility] [address] [id number] [place] [address]- 1448 Jan, [facility] [place] [facility] [address] [id number] [place] [address]- 4330 Jan, [facility] [place] [facility] [address] [id number] [place] [address]- 4728 18 Dec, 2011 [facility] [place] [facility] [address] [id number] [place] [address]- 6798 Dec, [facility] [place] [facility] [address] [id number] [place] [address]- 4392 Dec, [facility] [place] [facility] [address] [id number] [place] [address]- 6905 Nov, [facility] [place] [facility] [address] [id number] [place] [address]- 3078 Nov, [facility] [place] [facility] [address] [id number] [place] [address]- 0115 Nov, [facility] [place] [facility] [address] [id number] [place] [address]- 4635 Nov, [facility] [place] [facility] [address] [id number] [place] [address]- 1339 Oct, [facility] [place] [facility] [address] [id number] [place] [address]- 9713 Oct, [facility] [place] [facility] [address] [id number] [place] [address]- 8653 Oct, [facility] [place] [facility] [address] [id number] [place] [address]- 4148 Oct, [facility] [place] [facility] [address] [id number] [place] [address]- 3220 Oct, [facility] [place] [facility] [address] [id number] [place] [address]- 0987 Oct, [facility] [place] [facility] [address] [id number] [place] [address]- 8497 Oct, [facility] [place] [facility] [address] [id number] [place] [address]- 8010 Oct, [facility] [place] [facility] [address] [id number] [place] [address]- 7134 05 Oct, 2011 [facility] [address] [id number] [place] [address]- 7893 Sep, [facility] [place] [facility] [address] [id number] [place] [address]- 2436 Sep, [facility] [place] [facility] [address] [id number] [place] [address]- 2346 August, [facility] [place] [facility] [address] [id number] [place] [address]- 0104 August, [facility] [place] [facility] [address] [id number] [place] [address]- 4383 August, [facility] [place] [facility] [address] [id number] [place] [address]- 4856 August, [facility] [address] [id number] [place] [address]- 3396 August, [facility] [place] [facility] [address] [id number] [place] [address]- 1460 August, [facility] [place] [facility] [address] [id number] [place] [address]- 8849 30 Jul, 2011 [facility] [place] [facility] [address] [id number] [place] [address]- 6161 Jul, [facility] [place] [facility] [address] [id number] [place] [address]- 5063 24 Jul, 2011 [facility] [place] [facility] [address] [id number] [place] [address]- 5441 24 Jul, 2011 [facility] [place] [facility] [address] [id number] [place] [address]- 5558 23 Jul, 2011 [facility] [place] [facility] [address] [id number] [place] [address]- 6666 16 Jul, 2011 [facility] [place] [facility] [address] [id number] [place] [address]- 1259 09 Jul, 2011 [facility] [place] [facility] [address] [id number] [place] [address]- 5013 Jul, [facility] [place] [facility] [address] [id number] [place] [address]- 0686 Jun, [facility] [place] [facility] [address] [id number] [place] [address]- 9596 Jun, [facility] [place] [facility] [address] [id number] [place] [address]- 5805 Jun, [facility] [place] [facility] [address] [id number] [place] [address]- 6772 May, [facility] [place] [facility] [address] [id number] [place] [address]- 3614 May, [facility] [place] [facility] [address] [facility] [place] [id number] [place] [address]- 2533 May, [facility] [place] [facility] [address] [id number] [place] [address]- 6508 May, [facility] [place] [facility] [address] [id number] [place] [address]- 2977 May, [facility] [place] [facility] [address] [facility] [place] [id number] [place] [address]- 5217 Apr, [facility] [place] [facility] [address] [facility] [place] [id number] [place] [address]- 3298 Apr, [facility] [place] [facility] [address] [id number] [place] [address]- 4536 Apr, [facility] [place] [facility] [address] [id number] [place] [address]- 0709 Apr, [facility] [place] [facility] [address] [id number] [place] [address]- 8066 Mar, [facility] [place] [facility] [address] [id number] [place] [address]- 0928 Mar, [facility] [place] [facility] [address] [id number], [place] [address]- 3056 14 Mar, 2011 [facility] [place] [facility] [address] [id number] [place] [address]- 4851 07 Mar, 2011 [facility] [place] [facility] [address] [id number] [place] [address]- 9574 30 Feb, 2011 [facility] [place] [facility] [address] [id number] [place] [address]- 0349 Feb, [facility] [place] [facility] [address] [id number] [place] [address]- 8232 15 Feb, 2011 [facility] [place] [facility] [address] [id number] [place] [address]- 5949 Feb, [facility] [place] [facility] [address] [id number] [place] [address]- 5219 Feb, [facility] [place] [facility] [address] [id number] [address]- 9322 Feb, [facility] [place] [facility] [address] [id number] [place] [address]- 4009 Feb, [facility] [place] [facility] [address] [facility] [place] [id number] [place] [address]- 3187 Jan, [facility] [place] [facility] [address] [facility] [place] [id number] [place] [address]- 6342 10 Jan, 2011 [facility] [place] [facility] [address] [id number], [place] [address]- 5372 16 Dec, 2010 [facility] [place] [facility] [address] [id number], [place] [address]- 4118 Nov, [facility] [place] [facility] [address] [id number] [place] [address]- 1912 15 May, 2010 [facility] [place] [facility] [address] [id number], [place] [address]- 6280 14 Apr, 2010 [facility] [place] [facility] [address] [facility] [place] [id number] [place] [address]- 4527 Feb, [facility] [place] [facility] [address] [facility] [place] [id number] [place] [address]- 2546 Jan, [facility] [address] [facility] [place] [id number], [place] [address] 2546 August, [facility] [address] [facility] [place]] [id number], [place] [address]- 2546 Mar, [facility] [address] [facility] [place]] [id number], [place] [address]- 2546 Jan, [facility] [address] [facility] [place] [id number], [place] [address]- 2546 Oct, IMMUNIZATIONS No Known Immunizations SOCIAL HISTORY Never Assessed REASON FOR VISIT Pain (acute) , Pain in her left side of her face, 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 - Toni HOGAN, PT reports her skin glows green, her feet glow orange and she feels she has some type of skin infection. PT notes she shaved her head because of it and feels it is still going on. -Toni HOGAN PLAN OF CARE Activity Details Future/Pending Procedure LACERATION REPAIR VITAL SIGNS Height 66 in 2018-03-14 Weight 136.0 lbs 2018-03-14 Temperature 98.0 degrees Fahrenheit 2018-03-14 Heart Rate 99 bpm 2018-03-14 Respiratory Rate 20 2018-03-14 Oximetry 98 % 2018-03-14 BMI 21.95 kg/m2 2018-03-14 Blood pressure systolic 128 mmHg 2018-03-14 Blood pressure diastolic 70 mmHg 2018-03-14 MEDICATIONS Medication Instructions Dosage Frequency Start Date End Date Duration Status Cromolyn Sodium 4 % Ophthalmic Four times a day 1 drop into affected eye 6h Feb, Active Seroquel 200 mg Orally Once a day at bedtime 3 tablet Active Cetirizine HCl 10 MG Orally Once a day 1 tablet 24h Feb, 30 day (s) Active Flonase 50 mcg/act Nasally Once a day 1 spray in each nostril 24h Feb, 30 day(s) Active PreviDent 1.1 % Dental 2 times a day 1 cm strip 12h Dec, Active PredniSONE 20 mg Orally Once a day 2 tablets 24h Feb, 5 days Active Chlorhexidine Gluconate 0.12 % Mouth/Throat 2 times a day as directed 12Dec, 28 days Active Flonase 50 MCG/DOSE Nasally Once a day 1 spray in each nostril 24h Nov, 30 day(s) Active Sodium Fluoride 1.1 (0.5 F) mg/ml Dental Twice a day as directed 12dec Active Diclofenac Sodium 75 MG Orally Twice a day 1 tablet with food or milk 12Feb, 30 day(s) Active Triamcinolone Acetonide 0.1 % Externally Twice a day 1 application to affected area 12h Feb, 14 days Active Diflucan 150 MG Orally Once a day 1 tablet 24h Feb, 03 days Active Triamcinolone Acetonide 0.1 % Externally Twice a day 1 application to affected area 12h Feb, Active HydrOXYzine HCl 25 MG Orally 3 times a day 1 tablet 8h Active PreviDent 5000 Booster 1.1% Dental 2 times a day as directed Dec, Apr, 28 days Active RESULTS No Results PROCEDURES Procedure Date Ordered Result Body Site LACERATION >2CM Mar 14, 2018 INSTRUCTIONS MEDICATIONS ADMINISTERED No Known Medications [...]
--- OUTSIDE RECORDS SUMMARY | 2018-05-10 09:41 | XMS REPORT ---
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 [address] [id number] [place] [address]- 0629 August, [facility] [address] [id number] [place] [address]- 9025 August, [facility] [address] [id number] [place] [address]- 4770 August, [facility] [address] [id number] [place] [address]- 1923 Jul, [facility] [address] [id number] [place] [address]- 6062 Jul, [facility] [address] [id number] [place] [address]- 7921 Jul, [facility] [address] [id number] [place] [address]- 8157 Jul, [facility] [address] [id number] [place] [address]- 7335 Jul, [facility] [place] [address] [id number] [place] [address]- 3417 Jul, [facility] [address] [id number] [place] [address]- 9569 Jul, [facility] [address] [id number] [place] [address]- 7773 Jul, [facility] [facility] [address] [id number] [place] [address]- 9383 Jun, [facility] [address] [id number] [place] [address]- 5294 Jun, [facility] [address] [id number] [place] [address]- 0478 Jun, [facility] [place] [facility] [address] [id number] [place] [address]- 4715 May, [facility] [facility] [address] [id number] [place] [address]- 7167 May, [facility] [facility] [address] [id number] [place] [address]- 7466 15 May, 2011 [facility] [facility] [address] [id number] [place] [address] 2544 08 May, 2011 [facility] [address] [id number] [place] [address]- 1969 May, [facility] [place] [facility] [address] [id number] [place] [address]- 7616 Apr, [facility] [place] [facility] [address] [id number] [place] [address]- 0260 Apr, [facility] [place] [facility] [address] [id number] [place] [address]- 9659 Apr, [facility] [facility] [address] [id number] [place] [address]- 7215 Apr, [facility] [address] [id number] [place] [address]- 9126 Mar, [facility] [address] [id number] [place] [address]- 9177 Mar, [facility] [address] [id number] [place] [address]- 4513 Mar, [facility] [address] [id number] [place] [address]- 0904 Mar, [facility] [address] [id number] [place] [address]- 2080 Feb, [facility] [address] [id number] [place] [address]- 3428 Feb, [facility] [address] [id number] [place] [address]- 1206 15 Feb, 2011 [facility] [address] [id number] [place] [address]- 7628 Feb, [facility] [address] [id number] [place] [address]- 6636 Feb, [facility] [facility] [address] [id number] [place] [address]- 2817 Feb, [facility] [address] [facility] [id number], [place] [address]- 8616 Feb, [facility] [id number], [place] [address] 6[address] Jan, [facility] [id number], [place] [address]- 4606 Jan, [facility] [address] [id number], [place] [address]- 8006 Dec, [facility] [address] [facility] [id number], [place] [address]- 4756 Nov, [facility] [id number] [place] [address]- 2006 May, [facility] [id number], [place] [address]- 2716 Apr, [facility] [id number], [place] [address]- 9435 Feb, [facility] [id number], [place] [address]- 1920 Jan, [facility] [id number], [place] [address]- 1126 August, [facility] [id number], [place] [address]- 7456 Mar, [facility] [id number], [place] [address]- 5776 Jan, [facility] [address] [id number], [place] [address] 3942 Oct, IMMUNIZATIONS No Known Immunizations SOCIAL HISTORY Never Assessed REASON FOR VISIT Lab (walk-in) PLAN OF CARE Activity Details Pending Test STOOL (O & P) Pending Test CULTURE, STOOL VITAL SIGNS MEDICATIONS Unknown Medications RESULTS No Results PROCEDURES Procedure Date Ordered Result Body Site LAB NOT BILLED BY [facility] Feb 28, 2018 INSTRUCTIONS MEDICATIONS ADMINISTERED No Known Medications MEDICAL (GENERAL) HISTORY Type Description Date Medical History hx of ulcers Medical History right ovarian cysts-recurring Medical History mood swings Medical History bipolar disorder Medical History drug abuse Medical History depression Surgical History orthopedic surgery-carpal tunnel 05/2011 Surgical History tubal ligation Surgical History cholecystectomy Surgical History surgery on left arm and artery repair Hospitalization History [facility] for suicidal idiations. surgery on left arm.
--- OUTSIDE RECORDS SUMMARY | 2018-05-10 09:41 | XMS REPORT ---
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 [place] [facility] [address] [id number], [place] [address] 9839 Jan, [facility] [place] [facility] [address] [id number] [place] [address]- 9960 Jan, [facility] [place] [facility] [address] [id number] [place] [address]- 3442 Jan, [facility] [place] [facility] [address] [id number] [place] [address]- 2496 Jan, [facility] [place] [facility] [address] [id number], [place] [address]- 0133 18 Dec, 2011 [facility] [place] [facility] [address] [id number] [place] [address]- 5906 17 Dec, 2011 [facility] [place] [facility] [address] [id number] [place] [address]- 2656 04 Dec, 2011 [facility] [place] [facility] [address] [id number] [place] [address]- 6484 Nov, [facility] [place] [facility] [address] [id number] [place] [address]- 8626 Nov, [facility] [place] [facility] [address] [id number] [place] [address]- 4420 Nov, [facility] [place] [facility] [address] [id number] [place] [address]- 7055 Nov, [facility] [place] [facility] [address] [id number] [place] [address]- 1033 Oct, [facility] [place] [facility] [address] [id number] [place] [address]- 2209 Oct, [facility] [place] [facility] [address] [id number] [place] [address]- 5316 Oct, [facility] [place] [facility] [address] [id number] [place] [address]- 6743 Oct, [facility] [place] [facility] [address] [id number] [place] [address]- 1892 16 Oct, 2011 [facility] [place] [facility] [address] [id number] [place] [address]- 3350 Oct, [facility] [place] [facility] [address] [id number] [place] [address]- 1280 Oct, [facility] [place] [facility] [address] [id number] [place] [address]- 8667 Oct, [facility] [place] [facility] [address] [id number] [place] [address]- 4432 Oct, [facility] [place] [facility] [address] [id number] [place] [address]- 3291 Sep, [facility] [address] [id number] [place] [address]- 1428 Sep, [facility] [address] [id number] [place] [address]- 5582 August, [facility] [address] [id number] [place] [address]- 2649 August, [facility] [address] [id number] [place] [address]- 2956 August, [facility] [address] [id number] [place] [address] August, [facility] [address] [id number] [place] [address]- 1409 August, [facility] [address] [id number] [place] [address]- 1264 August, [facility] [address] [id number] [place] [address]- 1153 30 Jul, 2011 [facility] [address] [id number] [place] [address]- 6776 Jul, [facility] [address] [id number] [place] [address]- 3630 Jul, [facility] [address] [id number] [place] [address]- 0541 24 Jul, 2011 [facility] [address] [id number] [place] [address]- 8692 23 Jul, 2011 [facility] [place] [facility] [address] [id number] [place] [address]- 2457 16 Jul, 2011 [facility] [address] [id number] [place] [address]- 8065 Jul, [facility] [address] [id number] [place] [address] Jul, [facility] [place] [facility] [address] [id number] [place] [address]- 7420 Jun, [facility] [place] [facility] [address] [id number] [place] [address]- 4516 Jun, [facility] [place] [facility] [address] [id number] [place] [address]- 7926 Jun, [facility] [place] [facility] [address] [id number] [place] [address]- 0116 May, [facility] [place] [facility] [address] [id number] [place] [address]- 7139 May, [facility] [place] [facility] [address] [id number] [place] [address]- 0816 May, [facility] [place] [facility] [address] [id number] [place] [address]- 9306 May, [facility] [place] [facility] [address] [id number] [place] [address]- 6326 May, [facility] [place] [facility] [address] [id number] [place] [address]- 2146 Apr, [facility] [place] [facility] [address] [id number] [place] [address]- 6316 Apr, [facility] [place] [facility] [address] [id number] [place] [address]- 9716 Apr, [facility] [place] [facility] [address] [id number] [place] [address]- 1016 Apr, [facility] [place] [facility] [address] [id number] [place] [address]- 5146 Mar, [facility] [place] [facility] [address] [id number] [place] [address]- 9696 Mar, [facility] [place] [facility] [address] [id number] [place] [address]- 6746 Mar, [facility] [place] [facility] [address] [id number] [place] [address]- 1488 07 Mar, 2011 [facility] [address] [id number] [place] [address]- 8705 30 Feb, 2011 [facility] [place] [facility] [address] [id number] [place] [address]- 6485 22 Feb, 2011 [facility] [place] [facility] [address] [id number] [place] [address]- 9271 Feb, [facility] [place] [facility] [address] [id number] [place] [address]- 3917 Feb, [facility] [place] [facility] [address] [id number] [place] [address], [place] [address]- 5804 Feb, [facility] [place] [facility] [address] [id number] [place] [address]- 1234 Feb, [facility] [place] [facility] [address] [id number] [place] [address]- 1312 Feb, [facility] [place] [facility] [address] [id number] [place] [address]- 0300 Jan, [facility] [place] [facility] [address] [id number] [place] [address]- 3078 10 Jan, 2011 [facility] [place] [facility] [address] [id number] [place] [address]- 7805 16 Dec, 2010 [facility] [place] [facility] [address] [id number] [place] [address]- 4055 Nov, [facility] [place] [facility] [address] [id number] [place] [address]- 1556 15 May, 2010 [facility] [place] [facility] [address] [id number] [place] [address]- 3179 14 Apr, 2010 [facility] [place] [facility] [address] [id number] [place] [address]- 6132 Feb, [facility] [place] [facility] [address] [id number] [place] [address]- 7133 Jan, [facility] [address] [facility] [id number], [place] [address]- 9166 August, [facility] [address] [id number], [place] [address]- 2546 Mar, [facility] [address] [facility] [id number], [place] [address]- 2546 Jan, [facility] [address] [id number], [place] [address]- 7136 Oct, IMMUNIZATIONS No Known Immunizations SOCIAL HISTORY Never Assessed REASON FOR VISIT lab PLAN OF CARE VITAL SIGNS MEDICATIONS Unknown [...] arm and artery repair Hospitalization History [facility] for suicidal idiations. surgery on left arm.
--- OUTSIDE RECORDS SUMMARY | 2018-05-10 09:42 | XMS REPORT ---
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 [facility] [address] [id number] [place] [address]- 9009 Nov, [facility] [place] [facility] [address] [id number], [place] [address]- 0388 Nov, [facility] [place] [facility] [address] [id number], [place] [address]- 4562 Nov, [facility] [place] [facility] [address] [id number] [place] [address]- 4128 Nov, [facility] [place] [facility] [address] [id number], [place] [address]- 2132 Oct, [facility] [place] [facility] [address] [id number] [place] [address]- 3629 Oct, [facility] [place] [facility] [address] [id number] [place] [address]- 4325 18 Oct, 2011 [facility] [place] [facility] [address] [id number] [place] [address]- 3206 Oct, [facility] [place] [facility] [address] [id number] [place] [address]- 9486 Oct, [facility] [place] [facility] [address] [id number] [place] [address]- 3826 Oct, [facility] [place] [facility] [address] [id number] [place] [address]- 5956 Oct, [facility] [place] [facility] [address] [id number] [place] [address]- 4853 Oct, [facility] [place] [facility] [address] [id number] [place] [address]- 1335 Oct, [facility] [address] [id number] [place] [address]- 6011 Sep, [facility] [place] [facility] [address] [id number] [place] [address]- 5059 Sep, [facility] [place] [facility] [address] [id number] [place] [address]- 5761 August, [facility] [place] [facility] [address] [id number] [place] [address]- 5981 August, [facility] [place] [facility] [address] [id number] [place] [address]- 2441 August, [facility] [place] [facility] [address] [id number] [place] [address]- 7089 August, [facility] [place] [facility] [address] [id number] [place] [address]- 3809 August, [facility] [place] [facility] [address] [id number] [place] [address]- 9336 August, [facility] [place] [facility] [address] [id number] [place] [address]- 2901 Jul, [facility] [place] [facility] [address] [id number] [place] [address]- 6682 Jul, [facility] [place] [facility] [address] [id number] [place] [address]- 9381 Jul, [facility] [place] [facility] [address] [id number] [place] [address]- 0285 Jul, [facility] [place] [facility] [address] [id number] [place] [address]- 8162 Jul, [facility] [place] [facility] [address] [id number] [place] [address]- 2605 16 Jul, 2011 [facility] [place] [facility] [address] [id number] [place] [address]- 9558 Jul, [facility] [place] [facility] [address] [id number] [place] [address]- 6279 Jul, [facility] [place] [facility] [address] [id number] [place] [address]- 0881 Jun, [facility] [place] [facility] [address] [id number] [place] [address]- 0979 Jun, [facility] [place] [facility] [address] [id number] [place] [address]- 5300 Jun, [facility] [place] [facility] [address] [id number] [place] [address]- 2288 May, [facility] [place] [facility] [address] [id number] [place] [address]- 9461 May, [facility] [place] [facility] [address] [id number] [place] [address]- 3141 May, [facility] [place] [facility] [address] [id number] [place] [address]- 0016 08 May, 2011 [facility] [place] [facility] [address] [id number] [place] [address]67 May, [facility] [place] [facility] [address] [id number] [place] [address]- 9171 Apr, [facility] [address] [id number] [place] [address]- 3229 18 Apr, 2011 [facility] [place] [facility] [address] [id number] [place] [address]- 0989 Apr, [facility] [place] [facility] [address] [id number] [place] [address]- 4544 Apr, [facility] [place] [facility] [address] [id number] [place] [address]- 0634 28 Mar, 2011 [facility] [place] [facility] [address] [id number] [place] [address]- 7524 Mar, [facility] [place] [facility] [address] [id number] [place] [address]- 5618 14 Mar, 2011 [facility] [address] [id number] [place] [address]- 8033 Mar, [facility] [place] [facility] [address] [id number] [place] [address]- 9187 30 Feb, 2011 [facility] [place] [facility] [address] [id number] [place] [address]- 9289 22 Feb, 2011 [facility] [place] [facility] [address] [id number] [place] [address]- 8533 15 Feb, 2011 [facility] [place] [facility] [address] [id number] [place] [address]- 7072 Feb, [facility] [place] [facility] [address] [id number], [place] [address]- 2190 08 Feb, 2011 [facility] [place] [facility] [address] [id number] [place] [address]- 2148 Feb, [facility] [place] [facility] [address] [id number] [place] [address]- 3882 Feb, [facility] [place] [facility] [address] [id number], [place] [address]- 6665 Jan, [facility] [place] [facility] [id number] [address]- 8715 10 Jan, 2011 [facility] [address], [place] [address]- 0538 16 Dec, 2010 [facility] [address] [address] Nov, [facility] [id number], [place] [address]- 0270 May, [facility] [id number], [place] [address]- 0782 Apr, [facility] [id number] [place] [address]- 3771 Feb, [facility] [address] [id number], [place] [address]- 8514 Jan, [facility] [id number] [place] [address]- 1927 August, [facility] [id number], [place] [address]- 3859 Mar, [facility] [id number], [place] [address]- 0383 Jan, [facility] [address] [id number], [place] [address]- 2048 Oct, IMMUNIZATIONS No Known Immunizations SOCIAL HISTORY Never Assessed REASON FOR VISIT Bilat ear pain JStrasserRN, States she has round worms in her private parts PLAN OF CARE Activity Details Follow Up prn Reason: Pending Test GC/CHLAMYDIA (SWAB OR URINE)-RAPID VITAL SIGNS Height 66 in 2018-02-26 Weight 135.0 lbs 2018-02-26 Temperature 98.0 degrees Fahrenheit 2018-02-26 Heart Rate 88 bpm 2018-02-26 Respiratory Rate 20 2018-02-26 BMI 21.79 kg/m2 2018-02-26 Blood pressure systolic 130 mmHg 2018-02-26 Blood pressure diastolic 90 mmHg 2018-02-26 MEDICATIONS Medication Instructions Dosage Frequency Start Date End Date Duration Status Triamcinolone Acetonide 0.1 % Externally Twice a day 1 application to affected area 12Feb, Active Chlorhexidine Gluconate 0.12 % Mouth/Throat 2 times a day as directed Dec, 28 days Active PreviDent 5000 Booster 1.1% Dental 2 times a day as directed Dec, Apr, 28 days Active Seroquel 200 mg Orally Once a day at bedtime 3 tablet Active Sodium Fluoride 1.1 (0.5 F) mg/ml Dental Twice a day as directed Dec Active PreviDent 1.1 % Dental 2 times a day 1 cm strip 12Dec, Active Flonase 50 MCG/DOSE Nasally Once a day 1 spray in each nostril 24h Nov, 30 day(s) Active HydrOXYzine HCl 25 MG Orally 3 times a day 1 tablet 8h Active RESULTS No Results PROCEDURES Procedure Date Ordered Result Body Site LAB NOT BILL[facility] BY [facility] Feb 26, 2018 INSTRUCTIONS MEDICATIONS ADMINISTERED No Known Medications MEDICAL (GENERAL) HISTORY Type Description Date Medical History hx of ulcers Medical History right ovarian cysts-recurring Medical History mood swings Medical History bipolar disorder Medical History drug abuse Medical History depression Surgical History orthopedic surgery-carpal tunnel 05/2011 Surgical History tubal ligation Surgical History cholecystectomy Surgical History surgery on left arm and artery repair Hospitalization History [facility] for suicidal idiations. surgery on left arm.
--- OUTSIDE RECORDS SUMMARY | 2018-05-10 09:43 | XMS REPORT ---
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 [address]- 0579 Oct, [facility] [address] [id number] [place] [address]- 4780 Oct, [facility] [address] [id number] [place] [address]- 8254 Oct, [facility] [address] [id number] [place] [address]- 6682 Oct, [facility] [address] [id number] [place] [address]- 3472 Oct, [facility] [address] [id number] [place] [address]- 0451 Sep, [facility] [address] [id number] [place] [address]- 9125 Sep, [facility] [address] [id number] [place] [address]- 3378 August, [facility] [address] [id number] [place] [address]- 9534 August, [facility] [address] [id number] [place] [address]- 7822 August, [facility] [address] [id number] [place] [address]- 9678 16 Aug, 2011 [facility] [address] [id number] [place] [address]- 2761 August, [facility] [address] [id number] [place] [address]- 3246 August, [facility] [address] [id number] [place] [address]- 8377 Jul, [facility] [address] [id number] [place] [address]- 7133 Jul, [facility] [address] [id number] [place] [address]- 1265 Jul, [facility] [address] [id number] [place] [address]- 7936 Jul, [facility] [address] [id number] [place] [address]- 5409 Jul, [facility] [address] [id number] [place] [address]- 0682 Jul, [facility] [address] [id number] [place] [address]- 7391 Jul, [facility] [address] [id number] [place] [address]- 5058 Jul, [facility] [address] [id number] [place] [address]- 6122 Jun, [facility] [address] [id number] [place] [address]- 1550 Jun, [facility] [address] [id number] [place] [address]- 4525 Jun, [facility] [address] [id number] [place] [address]- 8551 May, [facility] [address] [id number] [place] [address]- 3412 May, [facility] [address] [id number] [place] [address]- 4886 May, [facility] [address] [id number] [place] [address]- 9616 May, [facility] [address] [id number] [place] [address] 2546 May, [facility] [address] [id number] [place] [address] 2543 Apr, [facility] [address] [id number] [place] [address]- 2625 Apr, [facility] [address] [id number] [place] [address]- 1210 Apr, [facility] [address] [id number] [place] [address]- 0632 Apr, [facility] [address] [id number] [place] [address]- 9028 Mar, [facility] [address] [id number] [place] [address]- 3391 Mar, [facility] [address] [id number] [place] [address]- 8347 Mar, [facility] [address] [id number], [place] [address]- 5561 Mar, [facility] [address] [id number], [place] [address]- 6163 30 Feb, 2011 [facility] [address] [id number] [place] [address]- 4494 Feb, [facility] [address] [id number] [place] [address]- 3536 15 Feb, 2011 [facility] [facility] [address] [id number] [place] [address]- 7372 Feb, [facility] [id number], [place] [address] 2546 08 Feb, 2011 [facility] [id number], [place] [address]- 2356 Feb, [facility] [address] [id number], [place] [address]- 2546 Feb, [facility] [id number], [place] [address]- 7941 Jan, [facility] [address] [facility] [id number], [place] [address]- 0841 Jan, [facility] [id number] [place] [address]- 3328 Dec, [facility] [id number], [place] [address]- 7156 Nov, [facility] [id number] [place] [address]- 9568 May, [facility] [id number], [place] [address]- 8048 Apr, [facility] [id number], [place] [address]- 1885 Feb, [facility] [id number], [place] [address]- 3965 Jan, [facility] [id number], [place] [address]- 5699 August, [facility] [address] [id number], [place] [address]- 6639 Mar, [facility] [id number], [place] [address]- 1616 Jan, [facility] [address] [id number], [place] [address]- 6251 Oct, IMMUNIZATIONS No Known Immunizations SOCIAL HISTORY Never Assessed REASON FOR VISIT thinks she ring worm on her lower legs for the past 2 days. also reports SOB...O2 sats are 99% on RA. lorena, feels like her ears are caving in. thinks she needs a CXR. reports she has been posioned by mold. also reports she has worms PLAN OF CARE Activity Details Follow Up prn, 2 Weeks Reason: VITAL SIGNS Height 66 in 2018-01-26 Weight 138.0 lbs 2018-01-26 Temperature 97.6 degrees Fahrenheit 2018-01-26 Heart Rate 100 bpm 2018-01-26 Respiratory Rate 22 2018-01-26 Oximetry on room air:99 % 2018-01-26 BMI 22.27 kg/m2 2018-01-26 Blood pressure systolic 132 mmHg 2018-01-26 Blood pressure diastolic 88 mmHg 2018-01-26 MEDICATIONS Medication Instructions Dosage Frequency Start Date End Date Duration Status Sodium Fluoride 1.1 (0.5 F) mg/ml Dental Twice a day as directed 12dec Active Zyrtec Allergy 10 mg Orally Once a day 1 tablet 24h Nov, Jan, 30 day(s) Active PreviDent 1.1 % Dental 2 times a day 1 cm strip 12h Dec, Active Albendazole - Orally every 2 wk 2 tablets Dec, Jan, 14 days Active Albendazole - Orally 1 now repeat in 2weeks 1 tablet Dec, Active Flonase 50 MCG/DOSE Nasally Once a day 1 spray in each nostril 24h Nov, 30 day(s) Active Seroquel 200 mg Orally Once a day at bedtime 3 tablet Active HydrOXYzine HCl 25 MG Orally 3 times a day 1 tablet 8h Active Albendazole 200 mg Orally one tablet now, then repeat in 2 days 1 tablets Dec, Active Chlorhexidine Gluconate 0.12 % Mouth/Throat 2 [...] arm and artery repair Hospitalization History Via [facility] for suicidal idiations. surgery on left arm.
--- OUTSIDE RECORDS SUMMARY | 2018-05-10 10:04 | XMS REPORT | Continuity of Care Document ---
Author Author [facility] Address Unknown Phone Unavailable Allergies Active Description Code Type Severity Reaction Onset Reported/Identified Relationship to Patient Clinical Status Yes ALLERGIES UNKNOWN DUE TO PATIENT INCAPACITATION UNKNOWN ALLERGIES UNKNOWN DU Yes No Known Drug Allergies [id number] Drug Allergy Unknown N/A 06/17/2008 Yes latex Drug Allergy N/A N/A 05/24/2013 Yes PCN PCN Mild N/A 07/28/2015 Yes ketorolac [id number] Drug Allergy Unknown N/A 09/25/2015 Yes Penicillins [id number] Drug Allergy Unknown N/A 09/25/2015 Yes ketorolac [id number] Drug Allergy Unknown N/A 09/25/2015 Yes Penicillins [id number] Drug Allergy Unknown N/A 09/25/2015 Medications Medication [...] (ATIVAN VIAL) MG 08/28/2017 08/28/2017 PRN ONCE FAMOTIDINE VIAL INJ 20 MG/2CC (PEPCID VIAL) MG 02/21/2018 02/21/2018 ONCE&0727 DIPHENHYDRAMINE VIAL INJ 50 MG/CC (BENADRYL VIAL) MG 02/21/2018 02/21/2018 ONCE&0727 METHYLPREDNISOLONE VIAL INJ 125 MG/2CC (SOLU-MEDROL VIAL) MG 02/21/2018 02/21/2018 ONCE&0733 OLANZAPINE DISSOLVABLE TAB 5 MG (ZYPREXA ZYDIS) MG 02/21/2018 02/21/2018 ONCE&0745 LACTATED RINGERS 1000CC IV BAG INJ ml 02/21/2018 02/21/2018 ONCE&0800 NORMAL SALINE 1000CC IV BAG INJ 0.9 % (NS 1000CC IV BAG) ml 04/08/2018 04/08/2018 ONCE&0942 FLUCONAZOLE TAB 150 MG (DIFLUCAN) MG 04/08/2018 04/08/2018 ONCE&1008 NORMAL SALINE 500CC IV BAG INJ 0.9 % (NS 500CC IV BAG) ml 04/25/2018 04/25/2018 ONCE&2110 DIPHENHYDRAMINE VIAL INJ 50 MG/CC (BENADRYL VIAL) MG 04/25/2018 04/25/2018 ONCE&2133 ALPRAZOLAM TAB 0.25 MG (XANAX) MG 04/25/2018 04/25/2018 ONCE&2150 Problems Date Dx Coded Attending Type Code Diagnosis Diagnosed By 01/16/2008 RITA WARD APRN 780.52 INSOMNIA UNSPECIFIED 01/16/2008 RITA WARD APRN 784.0 HEADACHE 01/16/2008 RITA WARD APRN V58.69 MEDICATION HIGH RISK 01/16/2008 SIDDHARTH ZARAGOZA DO 780.52 INSOMNIA UNSPECIFIED 01/16/2008 SIDDHARTH ZARAGOZA DO 784.0 HEADACHE 01/16/2008 SIDDHARTH ZARAGOZA DO V58.69 MEDICATION HIGH RISK 01/16/2008 RONNA BELTRANS, JONO Spencer 780.52 INSOMNIA UNSPECIFIED 01/16/2008 RONNA ORANTES, JONO Spencer 784.0 HEADACHE 01/16/2008 RONNA BELTRANS, JONO Spencer V58.69 MEDICATION HIGH RISK 01/16/2008 RITA WARD [...] MEDICATION HIGH RISK 01/16/2008 PATRICIA MASSEY MD N 780.52 INSOMNIA UNSPECIFIED 01/16/2008 PATRICIA MASSEY MD N 784.0 HEADACHE 01/16/2008 PATRICIA MASSEY MD N V58.69 MEDICATION HIGH RISK 01/16/2008 WHITE DDS, [...] 346.90 MIGRAINE UNSPECIFIED WITHOUT INTRACTABLE MIGRAINE 01/21/2008 JOSE LUIS DDS, MT J 346.90 MIGRAINE UNSPECIFIED WITHOUT INTRACTABLE MIGRAINE 01/21/2008 RITA WARD APRN 346.90 MIGRAINE UNSPECIFIED WITHOUT INTRACTABLE MIGRAINE 01/21/2008 WHITE DDS, MT J 346.90 MIGRAINE UNSPECIFIED WITHOUT INTRACTABLE MIGRAINE 01/21/2008 ZARAGOZA DO, SIDDHARTH K 346.90 MIGRAINE UNSPECIFIED WITHOUT INTRACTABLE MIGRAINE 01/21/2008 RITA WARD APRN T 346.90 MIGRAINE UNSPECIFIED WITHOUT INTRACTABLE MIGRAINE 01/21/2008 WHITE DDS, MT J 346.90 MIGRAINE UNSPECIFIED WITHOUT INTRACTABLE MIGRAINE 01/21/2008 ZARAGOZA DO, SIDDHARTH K 346.90 MIGRAINE UNSPECIFIED WITHOUT INTRACTABLE MIGRAINE 01/21/2008 RITA WARD APRN 346.90 MIGRAINE UNSPECIFIED WITHOUT INTRACTABLE MIGRAINE 01/28/2008 RITA WARD APRN 625.9 UNSPECIFIED SYMPTOM ASSOCIATED WITH FEMALE GENITAL ORGANS 01/28/2008 RITA WARD APRN V72.31 ROUTINE GYNECOLOGICAL EXAMINATION 01/28/2008 ZARAGOZA DO, SIDDHARTH K 625.9 UNSPECIFIED SYMPTOM ASSOCIATED WITH FEMALE GENITAL ORGANS 01/28/2008 ZARAGOZA DO, SIDDHARTH K V72.31 ROUTINE GYNECOLOGICAL EXAMINATION 01/28/2008 GENSWEIDER DDS, JONO M 625.9 UNSPECIFIED SYMPTOM ASSOCIATED WITH FEMALE GENITAL ORGANS 01/28/2008 GENSWEIDER DDS, JONO M V72.31 ROUTINE GYNECOLOGICAL EXAMINATION 01/28/2008 RITA WARD [...] SYMPTOM ASSOCIATED WITH FEMALE GENITAL ORGANS 01/28/2008 MT AMAYA DDS V72.31 ROUTINE GYNECOLOGICAL EXAMINATION 01/28/2008 RITA WARD APRN 625.9 UNSPECIFIED SYMPTOM ASSOCIATED WITH FEMALE GENITAL ORGANS 01/28/2008 RITA WARD APRN V72.31 ROUTINE GYNECOLOGICAL EXAMINATION 01/28/2008 MT AMAYA DDS 625.9 UNSPECIFIED SYMPTOM ASSOCIATED WITH FEMALE GENITAL ORGANS 01/28/2008 MT AMAYA DDS V72.31 ROUTINE GYNECOLOGICAL EXAMINATION 01/28/2008 ZARAGOZA DO SIDDHARTH K 625.9 UNSPECIFIED SYMPTOM ASSOCIATED WITH FEMALE GENITAL ORGANS 01/28/2008 ZARAGOZA DO, SIDDHARTH K V72.31 ROUTINE GYNECOLOGICAL EXAMINATION 01/28/2008 RITA WARD APRN 625.9 UNSPECIFIED SYMPTOM ASSOCIATED WITH FEMALE GENITAL ORGANS 01/28/2008 RITA WARD APRN V72.31 ROUTINE GYNECOLOGICAL EXAMINATION 01/28/2008 MT AMAYA DDS 625.9 UNSPECIFIED SYMPTOM ASSOCIATED WITH FEMALE GENITAL ORGANS 01/28/2008 MT AMAYA DDS V72.31 ROUTINE GYNECOLOGICAL EXAMINATION 01/28/2008 ZARAGOZA DO SIDDHARTH K 625.9 UNSPECIFIED SYMPTOM ASSOCIATED WITH FEMALE GENITAL ORGANS 01/28/2008 ZARAGOZA DO SIDDHARTH K V72.31 ROUTINE GYNECOLOGICAL EXAMINATION 01/28/2008 RITA WARD APRN 625.9 UNSPECIFIED SYMPTOM ASSOCIATED WITH FEMALE GENITAL ORGANS 01/28/2008 RITA WARD APRN V72.31 ROUTINE GYNECOLOGICAL EXAMINATION 02/18/2008 RITA WARD APRN 338.4 PAIN CHRONIC SYNDROME 02/18/2008 ZARAGOZA DOCATHIEA K 338.4 PAIN CHRONIC SYNDROME 02/18/2008 GENSWJONO RAPHAEL DDS 338.4 PAIN CHRONIC SYNDROME 02/18/2008 RITA WARD APRN 338.4 PAIN CHRONIC SYNDROME 02/18/2008 RITA WARD APRN 338.4 PAIN CHRONIC SYNDROME 02/18/2008 338.4 PAIN CHRONIC SYNDROME 02/18/2008 338.4 PAIN CHRONIC SYNDROME 02/18/2008 RITA WARD APRN 338.4 PAIN CHRONIC SYNDROME 02/18/2008 RITA WARD APRN 338.4 PAIN CHRONIC SYNDROME 02/18/2008 SHILPA WOLF, PATRICIA Ortiz 338.4 PAIN CHRONIC SYNDROME 02/18/2008 MT AMAYA DDS 338.4 PAIN CHRONIC SYNDROME 02/18/2008 RITA WARD APRN 338.4 PAIN CHRONIC SYNDROME 02/18/2008 MT AMAYA DDS 338.4 PAIN CHRONIC SYNDROME 02/18/2008 ZARAGOZA DO SIDDHARTH K 338.4 PAIN CHRONIC SYNDROME 02/18/2008 RITA WARD APRN 338.4 PAIN CHRONIC SYNDROME 02/18/2008 WHITE DDS, MT J 338.4 PAIN CHRONIC SYNDROME 02/18/2008 ZARAGOZA DO, SIDDHARTH K 338.4 PAIN CHRONIC SYNDROME 02/18/2008 RITA WARD APRN 338.4 PAIN CHRONIC SYNDROME 05/07/2008 RITA WARD APRN 616.10 VAGINITIS AND VULVOVAGINITIS UNSPECIFIED 05/07/2008 RITA WARD APRN V74.5 SCREENING EXAMINATION FOR VENEREAL DISEASE 05/07/2008 ZARAGOZA DOCATHIEA K 616.10 VAGINITIS AND VULVOVAGINITIS UNSPECIFIED 05/07/2008 ZARAGOZA DO, SIDDHARTH K V74.5 SCREENING EXAMINATION FOR VENEREAL DISEASE 05/07/2008 [facility] JONO Spencer 616.10 VAGINITIS AND VULVOVAGINITIS UNSPECIFIED 05/07/2008 [facility] DDS, JONO Spencer V74.5 SCREENING EXAMINATION FOR VENEREAL [...] V74.5 SCREENING EXAMINATION FOR VENEREAL DISEASE 05/07/2008 SHILPA WOLF, PATRICIA Ortiz 616.10 VAGINITIS AND VULVOVAGINITIS UNSPECIFIED 05/07/2008 SHILPA WOLF, PATRICIA Ortiz V74.5 SCREENING EXAMINATION FOR VENEREAL DISEASE 05/07/2008 MT AMAYA DDS J 616.10 VAGINITIS AND VULVOVAGINITIS UNSPECIFIED 05/07/2008 MT AMAYA DDS J V74.5 SCREENING EXAMINATION FOR VENEREAL DISEASE 05/07/2008 RITA WARD APRN 616.10 VAGINITIS AND VULVOVAGINITIS UNSPECIFIED 05/07/2008 RITA WARD APRN V74.5 SCREENING EXAMINATION FOR VENEREAL DISEASE 05/07/2008 MT AMAYA DDS J 616.10 VAGINITIS AND VULVOVAGINITIS UNSPECIFIED 05/07/2008 MT AMAYA DDS J V74.5 SCREENING EXAMINATION FOR VENEREAL DISEASE 05/07/2008 SIDDHARTH ZARAGOZA DO K 616.10 VAGINITIS AND VULVOVAGINITIS UNSPECIFIED 05/07/2008 CATHIE ZARAGOZA DOA K V74.5 SCREENING EXAMINATION FOR VENEREAL DISEASE 05/07/2008 RITA WARD APRN 616.10 VAGINITIS AND VULVOVAGINITIS UNSPECIFIED 05/07/2008 RITA WARD APRN V74.5 SCREENING EXAMINATION FOR VENEREAL DISEASE 05/07/2008 MT AMAYA DDS J 616.10 VAGINITIS AND VULVOVAGINITIS UNSPECIFIED 05/07/2008 MT AMAYA DDS J V74.5 SCREENING EXAMINATION FOR VENEREAL DISEASE 05/07/2008 MILA FELDMAN SIDDHARTH K 616.10 VAGINITIS AND VULVOVAGINITIS UNSPECIFIED 05/07/2008 CATHIE ZARAGOZA DOA K V74.5 SCREENING EXAMINATION FOR VENEREAL DISEASE 05/07/2008 RITA WARD APRN 616.10 VAGINITIS AND VULVOVAGINITIS UNSPECIFIED 05/07/2008 RITA WARD APRN V74.5 SCREENING EXAMINATION FOR VENEREAL DISEASE 05/27/2008 RITA WARD APRN 461.0 ACUTE MAXILLARY SINUSITIS 05/27/2008 SIDDHARTH ZARAGOZA DO 461.0 ACUTE MAXILLARY SINUSITIS 05/27/2008 GENSWEIFRY, JONO Spencer 461.0 ACUTE MAXILLARY SINUSITIS 05/27/2008 RITA WARD APRN 461.0 ACUTE MAXILLARY SINUSITIS 05/27/2008 RITA WARD APRN 461.0 ACUTE MAXILLARY SINUSITIS 05/27/2008 461.0 ACUTE MAXILLARY SINUSITIS 05/27/2008 461.0 ACUTE MAXILLARY SINUSITIS 05/27/2008 RITA WARD APRN 461.0 ACUTE MAXILLARY SINUSITIS 05/27/2008 RITA WARD APRN T 461.0 ACUTE MAXILLARY SINUSITIS 05/27/2008 PATRICIA MASSEY MD 461.0 ACUTE MAXILLARY SINUSITIS 05/27/2008 WHITE DDS, MT J 461.0 ACUTE MAXILLARY SINUSITIS 05/27/2008 RITA WARD APRN 461.0 ACUTE MAXILLARY SINUSITIS 05/27/2008 WHITE DDS, MT J 461.0 ACUTE MAXILLARY SINUSITIS 05/27/2008 ZARAGOZA DO, SIDDHARTH K 461.0 ACUTE MAXILLARY SINUSITIS 05/27/2008 RITA WARD APRN 461.0 ACUTE MAXILLARY SINUSITIS 05/27/2008 WHITE DDS, MT J 461.0 ACUTE MAXILLARY SINUSITIS 05/27/2008 ZARAGOZA DO, SIDDHARTH K 461.0 ACUTE MAXILLARY SINUSITIS 05/27/2008 RITA WARD APRN 461.0 ACUTE MAXILLARY SINUSITIS 07/10/2008 RITA WARD APRN 296.90 MO MOOD DIS NOS 07/10/2008 ZARAGOZA DO SIDDHARTH K 296.90 MO MOOD DIS NOS 07/10/2008 JONO FRIEND DDS 296.90 MO MOOD DIS NOS 07/10/2008 RITA WARD APRN 296.90 MO MOOD DIS NOS 07/10/2008 RITA WARD APRN 296.90 MO MOOD DIS NOS 07/10/2008 296.90 MO MOOD DIS NOS 07/10/2008 296.90 MO MOOD DIS NOS 07/10/2008 RITA WARD APRN 296.90 MO MOOD DIS NOS 07/10/2008 RITA WARD APRN 296.90 MO MOOD DIS NOS 07/10/2008 PATRICIA MASSEY MD 296.90 MO MOOD DIS NOS 07/10/2008 WHITE DEVINSWILLIANON J 296.90 MO MOOD DIS NOS 07/10/2008 RITA WARD APRN 296.90 MO MOOD DIS NOS 07/10/2008 JOSE LUIS BELTRANSMT J 296.90 MO MOOD DIS NOS 07/10/2008 ZARAGOZA DO SIDDHARTH K 296.90 MO MOOD DIS NOS 07/10/2008 RITA WARD APRN T 296.90 MO MOOD DIS NOS 07/10/2008 MT AMAYA DDS J 296.90 MO MOOD DIS NOS 07/10/2008 ZARAGOZA DO, SIDDHARTH K 296.90 MO MOOD DIS NOS 07/10/2008 RITA WARD APRN T 296.90 MO MOOD DIS NOS 07/22/2008 RITA WARD APRN T 296.30 MO DEPRESSIVE RECURRENT UNSPECIFIED 07/22/2008 RITA WARD APRN 307.47 SI DYSSOMNIA NOS 07/22/2008 ZARAGOZA DO, SIDDHARTH K 296.30 MO DEPRESSIVE RECURRENT UNSPECIFIED 07/22/2008 ZARAGOZA DO, SIDDHARTH K 307.47 SI DYSSOMNIA NOS 07/22/2008 DONAVON BELTRANS, JONO M 296.30 MO DEPRESSIVE RECURRENT UNSPECIFIED 07/22/2008 DONAVON BELTRANS, JONO M 307.47 SI DYSSOMNIA NOS 07/22/2008 RITA WARD [...] MASSEY MD 307.47 SI DYSSOMNIA NOS 07/22/2008 JOSE LUIS BELTRANS, MT J 296.30 MO DEPRESSIVE RECURRENT UNSPECIFIED 07/22/2008 JOSE LUIS BELTRANSMT J 307.47 SI DYSSOMNIA NOS 07/22/2008 RITA [...] V25.49 SURVEILLANCE OF OTHER CONTRACEPTIVE METHOD 07/29/2008 JONO FRIEND DDS V25.49 SURVEILLANCE OF OTHER CONTRACEPTIVE METHOD [...] V25.49 SURVEILLANCE OF OTHER CONTRACEPTIVE METHOD 07/29/2008 TM AMAYA DDS V25.49 SURVEILLANCE OF OTHER CONTRACEPTIVE METHOD 07/29/2008 RITA WARD APRN V25.49 SURVEILLANCE OF OTHER CONTRACEPTIVE METHOD 07/29/2008 WHITE DDS, MT J V25.49 SURVEILLANCE OF OTHER CONTRACEPTIVE METHOD 07/29/2008 ZARAGOZA DO SIDDHARTH K V25.49 SURVEILLANCE OF OTHER CONTRACEPTIVE METHOD 07/29/2008 RITA WARD APRN V25.49 SURVEILLANCE OF OTHER CONTRACEPTIVE METHOD 07/29/2008 JOSE LUIS DDSMT J V25.49 SURVEILLANCE OF OTHER CONTRACEPTIVE METHOD 07/29/2008 ZARAGOZA DOCATHIEA K V25.49 SURVEILLANCE OF OTHER CONTRACEPTIVE METHOD 07/29/2008 RITA WARD APRN V25.49 SURVEILLANCE OF OTHER CONTRACEPTIVE METHOD 07/30/2008 RITA WARD APRN 788.1 DYSURIA 07/30/2008 ZARAGOZA DOCATHIEA K 788.1 DYSURIA 07/30/2008 GENSWDONAVON BELTRANSJONO 788.1 DYSURIA 07/30/2008 RITA WARD APRN 788.1 DYSURIA 07/30/2008 RITA WARD APRN 788.1 DYSURIA 07/30/2008 788.1 DYSURIA 07/30/2008 788.1 DYSURIA 07/30/2008 RITA WARD APRN 788.1 DYSURIA 07/30/2008 RITA WARD APRN 788.1 DYSURIA 07/30/2008 SHILPA WOLF, PATRICIA Ortiz 788.1 DYSURIA 07/30/2008 WHITE DDS, MT J 788.1 DYSURIA 07/30/2008 RITA WARD APRN 788.1 DYSURIA 07/30/2008 WHITE DDS, MT J 788.1 DYSURIA 07/30/2008 ZARAGOZA DOCATHIEA K 788.1 DYSURIA 07/30/2008 RITA WARD APRN 788.1 DYSURIA 07/30/2008 WHITE DDS, MT J 788.1 DYSURIA 07/30/2008 ZARAGOZA DO, SIDDHARTH K 788.1 DYSURIA 07/30/2008 RITA WARD APRN 788.1 DYSURIA 08/13/2008 RITA WARD APRN 300.02 AN GEN ANXIETY 08/13/2008 ZARAGOZA DOCATHIEA K 300.02 AN GEN ANXIETY 08/13/2008 GENSWEIJONO RAMIREZ DDS 300.02 AN GEN ANXIETY 08/13/2008 RITA WARD APRN 300.02 AN GEN ANXIETY 08/13/2008 RITA WARD APRN 300.02 AN GEN ANXIETY 08/13/2008 300.02 AN GEN ANXIETY 08/13/2008 300.02 AN GEN ANXIETY 08/13/2008 RITA WARD APRN T 300.02 AN GEN ANXIETY 08/13/2008 RITA WARD APRN T 300.02 AN GEN ANXIETY 08/13/2008 PATRICIA MASSEY MD 300.02 AN GEN ANXIETY 08/13/2008 WHITE DDS, MT J 300.02 AN GEN ANXIETY 08/13/2008 RITA WARD APRN T 300.02 AN GEN ANXIETY 08/13/2008 WHITE DDS, MT J 300.02 AN GEN ANXIETY 08/13/2008 ZARAGOZA DO, SIDDHARTH K 300.02 AN GEN ANXIETY 08/13/2008 RITA WARD APRN T 300.02 AN GEN ANXIETY 08/13/2008 WHITE DDS, MT J 300.02 AN GEN ANXIETY 08/13/2008 ZARAGOZA DO, SIDDHARTH K 300.02 AN GEN ANXIETY 08/13/2008 RITA WARD APRN 300.02 AN GEN ANXIETY 08/21/2008 RITA WARD APRN 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 08/21/2008 ZARAGOZA DO, SIDDHARTH K 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 08/21/2008 GENSWEIDER DDS, JONO M 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 08/21/2008 RITA WARD APRN 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 08/21/2008 RITA WARD APRN T 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 08/21/2008 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 08/21/2008 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 08/21/2008 RITA WARD APRN 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 08/21/2008 RITA WARD APRN T 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 08/21/2008 SHILPA OWLF, PATRICIA Ortiz 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 08/21/2008 WHITE DDS, MT J 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 08/21/2008 RITA WARD APRN T 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 08/21/2008 WHITE DDS, MT J 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 08/21/2008 ZARAGOZA DO, SIDDHARTH K 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 08/21/2008 RITA WARD APRN T 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 08/21/2008 WHITE DDS, [...] APRN 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 10/04/2008 MILA DOSIDDHARTH K 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 10/04/2008 GENSWEIDER DDS, JONO M 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 10/04/2008 RITA [...] J 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 10/04/2008 ZARAGOZA DO, SIDDHARTH K 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 10/04/2008 RITA WARD APRN 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 10/04/2008 WHITE DDS, MT J 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 10/04/2008 ZARAGOZA DO, SIDDHARTH K 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 10/04/2008 RITA WARD APRN 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 10/20/2008 RITA WARD APRN 242.90 THYROTOXICOSIS WITHOUT GOITER OR OTHER CAUSE AND WITHOUT THYROTOXIC CRISIS OR STORM 10/20/2008 RITA WARD APRN 296.89 MO BIPOLAR II 10/20/2008 ZARAGOZA DO SIDDHARTH K 242.90 THYROTOXICOSIS WITHOUT GOITER OR OTHER CAUSE AND WITHOUT THYROTOXIC CRISIS OR STORM 10/20/2008 MILA DO SIDDHARTH K 296.89 MO BIPOLAR II 10/20/2008 RONNA BELTRANS, JOON M 242.90 THYROTOXICOSIS WITHOUT GOITER OR OTHER CAUSE AND WITHOUT THYROTOXIC CRISIS OR STORM 10/20/2008 RONNA BELTRANS, JONO M 296.89 MO BIPOLAR II 10/20/2008 RITA WARD [...] MD N 296.89 MO BIPOLAR II 10/20/2008 JOSE LUIS DDS MT J 242.90 THYROTOXICOSIS WITHOUT GOITER OR OTHER CAUSE AND WITHOUT THYROTOXIC CRISIS OR STORM 10/20/2008 JOSE LUIS DDS, MT J 296.89 MO BIPOLAR II 10/20/2008 RITA WARD APRN 242.90 THYROTOXICOSIS WITHOUT GOITER OR OTHER CAUSE AND WITHOUT THYROTOXIC CRISIS OR STORM 10/20/2008 RITA WARD APRN 296.89 MO BIPOLAR II 10/20/2008 JOSE LUIS DDSWILLIANON J 242.90 THYROTOXICOSIS WITHOUT GOITER OR OTHER CAUSE AND WITHOUT THYROTOXIC CRISIS OR STORM 10/20/2008 WHITE DDS, MT J 296.89 MO BIPOLAR II 10/20/2008 ZARAGOZA DO SIDDHARTH K 242.90 THYROTOXICOSIS WITHOUT GOITER OR OTHER CAUSE AND WITHOUT THYROTOXIC CRISIS OR STORM 10/20/2008 ZARAGOZA DO SIDDHARTH K 296.89 MO BIPOLAR II 10/20/2008 RITA WARD APRN 242.90 THYROTOXICOSIS WITHOUT GOITER OR OTHER CAUSE AND WITHOUT THYROTOXIC CRISIS OR STORM 10/20/2008 RITA WARD APRN 296.89 MO BIPOLAR II 10/20/2008 JOSE LUIS DDS, MT J 242.90 THYROTOXICOSIS WITHOUT GOITER OR OTHER CAUSE AND WITHOUT THYROTOXIC CRISIS OR STORM 10/20/2008 WHITE DDS, MT J 296.89 MO BIPOLAR II 10/20/2008 ZARAGOZA DO, SIDDHARTH K 242.90 THYROTOXICOSIS WITHOUT GOITER OR OTHER CAUSE AND WITHOUT THYROTOXIC CRISIS OR STORM 10/20/2008 ZARAGOZA DO SIDDHARTH K 296.89 MO BIPOLAR II 10/20/2008 RITA WARD APRN 242.90 THYROTOXICOSIS WITHOUT GOITER OR OTHER CAUSE AND WITHOUT THYROTOXIC CRISIS OR STORM 10/20/2008 RITA WARD APRN 296.89 MO BIPOLAR II 10/31/2008 RITA WARD APRN 244.9 HYPOTHYROIDISM 10/31/2008 MILA FELDMAN SIDDHARTH K 244.9 HYPOTHYROIDISM 10/31/2008 GENSWEIDER DDS, JONO [...] WARD APRN 304.80 SA POLYSUB DEP 11/21/2008 CATHIE ZARAGOZA DOA K 300.00 AN ANXIETY UNSPEC 11/21/2008 CATHIE ZARAGOZA DOA K 304.80 SA POLYSUB DEP 11/21/2008 GENSWEIDER DDS, JONO M 300.00 AN ANXIETY UNSPEC 11/21/2008 GENSWEIDER DDS, JONO M 304.80 SA POLYSUB DEP [...] AN ANXIETY UNSPEC 11/21/2008 PATRICIA MASSEY MD N 304.80 SA POLYSUB DEP 11/21/2008 WHITE DDS, MT J 300.00 AN ANXIETY UNSPEC 11/21/2008 WHITE DDS, MT J 304.80 SA POLYSUB DEP 11/21/2008 RITA WARD APRN 300.00 AN ANXIETY UNSPEC 11/21/2008 RITA WARD APRN 304.80 SA POLYSUB DEP 11/21/2008 WHITE DDS, MT J 300.00 AN ANXIETY UNSPEC 11/21/2008 WHITE DDS, MT J 304.80 SA POLYSUB DEP 11/21/2008 MILA FELDMAN, SIDDHARTH K 300.00 AN ANXIETY UNSPEC 11/21/2008 [...] WARD APRN 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 12/11/2008 MILA FELDMAN SIDDHARTH K 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 12/11/2008 GENSWEIDER DDS, JNOO Spencer 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 12/11/2008 RITA WARD APRN 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 12/11/2008 RITA WARD APRN 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 12/11/2008 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 12/11/2008 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 12/11/2008 RITA WARD APRN 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 12/11/2008 RITA WARD APRN T 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 12/11/2008 SHILPA WOLF, [...] OCCUPATIONAL CIRCUMSTANCES OR MALADJUSTMENT 02/16/2009 JOSE LUIS BELTRANS, MT Ba V15.81 OTHER SPECIFIED PERSONAL HISTORY PRESENTING HAZARDS [...] V62.29 OTHER OCCUPATIONAL CIRCUMSTANCES OR MALADJUSTMENT 02/16/2009 CATHIE ZARAGOZA DOA K V15.81 OTHER SPECIFIED PERSONAL HISTORY PRESENTING [...] OTHER OCCUPATIONAL CIRCUMSTANCES OR MALADJUSTMENT 02/16/2009 ZARAGOZA DO SIDDHARTH K V15.81 OTHER SPECIFIED PERSONAL HISTORY [...] WARD APRN 724.5 BACKACHE UNSPECIFIED 03/30/2009 ZARAGOZA DOCATHIEA K 724.5 BACKACHE UNSPECIFIED 03/30/2009 JONO FRIEND [...] 724.5 BACKACHE UNSPECIFIED 03/30/2009 RITA WARD APRN T 724.5 BACKACHE UNSPECIFIED 03/30/2009 WHITE DDS, MT J 724.5 BACKACHE UNSPECIFIED 03/30/2009 ZARAGOZA DO, SIDDHARTH K 724.5 BACKACHE UNSPECIFIED 03/30/2009 RITA WARD APRN T 724.5 BACKACHE UNSPECIFIED 03/30/2009 WHITE DDS, MT J 724.5 BACKACHE UNSPECIFIED 03/30/2009 ZARAGOZA DO, SIDDHARTH K 724.5 BACKACHE UNSPECIFIED 03/30/2009 RITA WARD APRN 724.5 BACKACHE UNSPECIFIED 06/15/2009 RITA WARD APRN 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 06/15/2009 CATHIE ZARAGOZA DOA K 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 06/15/2009 GENSWEIDER DDS, JONO M 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 06/15/2009 RITA WARD APRN 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 06/15/2009 RITA WARD APRN 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 06/15/2009 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 06/15/2009 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 06/15/2009 RITA WARD APRN 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 06/15/2009 RITA WARD APRN 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 06/15/2009 PATRICIA MASSEY MD 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 06/15/2009 WHITE DDS, MT J 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 06/15/2009 RITA WARD APRN 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 06/15/2009 WHITE DDSWILLIANON J 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 06/15/2009 SIDDHARTH ZARAGOZA DO K 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 06/15/2009 RITA WARD APRN 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 06/15/2009 WHITE DDS, MT J 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 06/15/2009 CATHIE ZARAGOZA DOA K 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 06/15/2009 RITA WARD APRN 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 08/27/2009 RITA WARD APRN 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 08/27/2009 MILA FELDMAN SIDDHARTH K 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 08/27/2009 EIJAMES DDS, JONO M 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 08/27/2009 [...] 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 08/27/2009 ZARAGOZA DO, SIDDHARTH K 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 08/27/2009 RITA WARD APRN T 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 08/27/2009 WHITE DDS, MT J 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 08/27/2009 ZARAGOZA DO, SIDDHARTH K 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 08/27/2009 RITA WARD APRN 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 09/12/2009 RITA WARD APRN 079.4 HUMAN PAPILLOMAVIRUS IN CONDITIONS CLASSIFIED ELSEWHERE AND OF UNSPECIFIED SITE 09/12/2009 RITA WARD APRN V69.2 HIGH-RISK SEXUAL BEHAVIOR 09/12/2009 ZARAGOZA DO, SIDDHARTH K 079.4 HUMAN PAPILLOMAVIRUS IN CONDITIONS CLASSIFIED ELSEWHERE AND OF UNSPECIFIED SITE 09/12/2009 ZARAGOZA DO, SIDDHARTH K V69.2 HIGH-RISK SEXUAL BEHAVIOR 09/12/2009 GENSWEIDER DDS, JONO M 079.4 HUMAN PAPILLOMAVIRUS IN CONDITIONS CLASSIFIED ELSEWHERE AND OF UNSPECIFIED SITE 09/12/2009 GENSWEIDER DDS, JONO M V69.2 HIGH-RISK SEXUAL BEHAVIOR 09/12/2009 [...] MASSEY MD V69.2 HIGH-RISK SEXUAL BEHAVIOR 09/12/2009 JOSE LUIS DDSMT J 079.4 HUMAN PAPILLOMAVIRUS IN CONDITIONS CLASSIFIED ELSEWHERE AND OF UNSPECIFIED SITE 09/12/2009 JOSE LUIS DDS, MT J V69.2 HIGH-RISK SEXUAL BEHAVIOR 09/12/2009 RITA WARD APRN 079.4 HUMAN PAPILLOMAVIRUS IN CONDITIONS CLASSIFIED ELSEWHERE AND OF UNSPECIFIED SITE 09/12/2009 RITA WARD APRN V69.2 HIGH-RISK SEXUAL BEHAVIOR 09/12/2009 JOSE LUIS BELTRANSMT J 079.4 HUMAN PAPILLOMAVIRUS IN CONDITIONS CLASSIFIED ELSEWHERE AND OF UNSPECIFIED SITE 09/12/2009 JOSE LUIS DDS, MT J V69.2 HIGH-RISK SEXUAL BEHAVIOR 09/12/2009 ZARAGOZA DO, SIDDHARTH K 079.4 HUMAN PAPILLOMAVIRUS IN CONDITIONS CLASSIFIED ELSEWHERE AND OF UNSPECIFIED SITE 09/12/2009 ZARAGOZA DO, SIDDHARTH K V69.2 HIGH-RISK SEXUAL BEHAVIOR 09/12/2009 RITA WARD APRN 079.4 HUMAN PAPILLOMAVIRUS IN CONDITIONS CLASSIFIED ELSEWHERE AND OF UNSPECIFIED SITE 09/12/2009 RITA WARD APRN V69.2 HIGH-RISK SEXUAL BEHAVIOR 09/12/2009 JOSE LUIS DDSWILLIANON J 079.4 HUMAN PAPILLOMAVIRUS IN CONDITIONS CLASSIFIED ELSEWHERE AND OF UNSPECIFIED SITE 09/12/2009 WHITE DDS MT J V69.2 HIGH-RISK SEXUAL BEHAVIOR 09/12/2009 ZARAGOZA DO, SIDDHARTH K 079.4 HUMAN PAPILLOMAVIRUS IN CONDITIONS CLASSIFIED ELSEWHERE AND OF UNSPECIFIED SITE 09/12/2009 ZARAGOZA DO, SIDDHARTH K V69.2 HIGH-RISK SEXUAL BEHAVIOR 09/12/2009 RITA WARD APRN 079.4 HUMAN PAPILLOMAVIRUS IN CONDITIONS CLASSIFIED ELSEWHERE AND OF UNSPECIFIED SITE 09/12/2009 RITA WARD APRN V69.2 HIGH-RISK SEXUAL BEHAVIOR 09/28/2009 RITA WARD APRN 535.50 GASTRITIS UNSPEC 09/28/2009 SIDDHARTH ZARAGOZA DO K 535.50 GASTRITIS UNSPEC 09/28/2009 GENSWEIDER DDS, JONO M 535.50 GASTRITIS UNSPEC 09/28/2009 RITA WARD APRN 535.50 GASTRITIS UNSPEC 09/28/2009 RITA WARD APRN 535.50 GASTRITIS UNSPEC 09/28/2009 535.50 GASTRITIS UNSPEC 09/28/2009 535.50 GASTRITIS UNSPEC 09/28/2009 RITA WARD APRN 535.50 GASTRITIS UNSPEC 09/28/2009 RITA WARD APRN 535.50 GASTRITIS UNSPEC 09/28/2009 SHILPA WOLF, PATRICIA Ortiz 535.50 GASTRITIS UNSPEC 09/28/2009 WHITE DDS, MT J 535.50 GASTRITIS UNSPEC 09/28/2009 RITA WARD APRN 535.50 GASTRITIS UNSPEC 09/28/2009 WHITE DDS, MT J 535.50 GASTRITIS UNSPEC 09/28/2009 MILA FELDMAN SIDDHARTH K 535.50 GASTRITIS UNSPEC 09/28/2009 RITA WARD APRN 535.50 GASTRITIS UNSPEC 09/28/2009 WHITE DDS, MT J 535.50 GASTRITIS UNSPEC 09/28/2009 ZARAGOZA DO SIDDHARTH K 535.50 GASTRITIS UNSPEC 09/28/2009 RITA WARD APRN 535.50 GASTRITIS UNSPEC 02/10/2010 RITA WARD APRN 780.4 DIZZINESS AND VERTIGO 02/10/2010 RITA WARD APRN 780.79 MALAISE AND FATIGUE 02/10/2010 CATHIE ZARAGOZA DOA K 780.4 DIZZINESS AND VERTIGO 02/10/2010 CATHIE ZARAGOZA DOA K 780.79 MALAISE AND FATIGUE 02/10/2010 GENSWEIDER DDS, JNOO M 780.4 DIZZINESS AND VERTIGO 02/10/2010 GENSWEIDER [...] RITA WARD APRN 462 PHARYNGITIS ACUTE 2010 ZARAGOZA DO SIDDHARTH K 462 PHARYNGITIS ACUTE 2010 GENSWEIDER DDS, JONO M 462 PHARYNGITIS ACUTE 2010 RITA WARD APRN 462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
--- NOTE | 2018-05-10 10:39 | ED Abdominal Pain ---
General Chief Complaint: Abdominal/GI Problems Stated Complaint: UPSET STOMACH Nursing Triage Note: PT AMBULATED TO TRIAGE ROOM. "ATE EGGS" C/O N/V/D. ALSO C/O JAW, EAR, NECK PAIN. A/O X4. VS STABLE Sepsis Screen: No Definite Risk Source of Information: Patient Exam Limitations: No Limitations History of Present Illness Date Seen by Provider: May 10, 2018 Time Seen by Provider: 10:36 Initial Comments 42-year-old female who presents to the emergency room with complaints of nausea , vomiting, diarrhea for the past 3 days. She reports that 2 days ago she ate some over medium eggs but believes that this is unrelated. She also reports that she has a yeast infection that she would like treated for. Denies any abdominal pain. Timing/Duration: 2-3 Days Associated Symptoms: Nausea/Vomiting Allergies and Home Medications Allergies Coded Allergies: Penicillins (Verified Allergy, Unknown, 12/17/15) ketorolac (Verified Allergy, Unknown, 12/17/15) Uncoded Allergies: PCN (Allergy, Mild, 07/28/15) Home Medications Clonazepam 1 Mg Tablet, 1 MG PO BID, (Reported) Hydroxyzine Pamoate 50 Mg Capsule, 50 MG PO TID, (Reported) Ondansetron HCl 4 Mg Tab, 4 MG PO Q4H PRN for NAUSEA/VOMITING-1ST LINE Prescribed by: SINGH ALCANTARA on 05/10/18 1156 Tramadol Hcl 50 Mg Tablet, 50 MG PO TID, (Reported) Patient Home Medication List Home Medication List Reviewed: Yes Review of Systems Review of Systems Constitutional: no symptoms reported, see HPI Gastrointestinal: See HPI, Diarrhea, Nausea, Vomiting Genitourinary: See HPI, Other (yeast infection) All Other Systems Reviewed Negative Unless Noted: Yes Past Svtuchs-Hamzys-Inedga Hx Past Med/Social Hx: Reviewed Nursing Past Med/Soc Hx Patient Social History Type Used: Cigarettes 2nd Hand Smoke Exposure: Yes Recent Foreign Travel: No Contact w/Someone Who Travel: No Recent Infectious Disease Expo: No Recent Hopitalizations: No Immunizations Up To Date Tetanus Booster (TDap): Less than 5yrs Seasonal Allergies Seasonal Allergies: No Past Medical History Surgeries: Yes Gallbladder, Tubal Ligation Respiratory: No Cardiac: No Neurological: Yes (MIRGRAIN HEADACHES) Headaches /Migraines : No 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 Disorders: No 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 4.0oz. 61.287765au; 21.79 BMI Method:Actual General Appearance: WD/WN, no apparent distress Respiratory: chest non-tender, lungs clear, normal breath sounds, no respiratory distress, no accessory muscle use Cardiovascular: normal peripheral pulses, regular rate, rhythm, no edema, no gallop, no JVD, no murmur Gastrointestinal: normal bowel sounds, non tender, soft, no organomegaly, no pulsatile mass Neurologic/Psychiatric: alert, normal mood/affect, oriented x 3 Skin: normal color, warm/dry Progress/Results/Core Measures Results/Orders Lab Results Laboratory Tests Test 05/10/18 10:57 05/10/18 11:00 Range/Units White Blood Count 12.4 H 4.3-11.0 10^3/uL Red Blood Count 4.36 4.35-5.85 10^6/uL Hemoglobin 13.0 11.5-16.0 G/DL Hematocrit 39 35-52 % Mean Corpuscular Volume 90 80-99 FL Mean Corpuscular Hemoglobin 30 25-34 PG Mean Corpuscular Hemoglobin Concent 33 32-36 G/DL Red Cell Distribution Width 12.9 10.0-14.5 % Platelet Count 567 H 130-400 10^3/uL Mean Platelet Volume 8.6 7.4-10.4 FL Neutrophils (%) (Auto) 72 42-75 % Lymphocytes (%) (Auto) 22 12-44 % Monocytes (%) (Auto) 5 0-12 % Eosinophils (%) (Auto) 1 0-10 % Basophils (%) (Auto) 0 0-10 % Neutrophils # (Auto) 9.0 H 1.8-7.8 X 10^3 Lymphocytes # (Auto) 2.7 1.0-4.0 X 10^3 Monocytes # (Auto) 0.6 0.0-1.0 X 10^3 Eosinophils # (Auto) 0.1 0.0-0.3 10^3/uL Basophils # (Auto) 0.0 0.0-0.1 10^3/uL Urine Color YELLOW Urine Clarity CLEAR Urine pH 5 5-9 Urine Specific [place] 1.025 H 1.016-1.022 Urine Protein NEGATIVE NEGATIVE Urine Glucose (UA) NEGATIVE NEGATIVE Urine Ketones NEGATIVE NEGATIVE Urine Nitrite NEGATIVE NEGATIVE Urine Bilirubin NEGATIVE NEGATIVE Urine Urobilinogen NORMAL NORMAL MG/DL Urine Leukocyte Esterase NEGATIVE NEGATIVE Urine RBC (Auto) 1+ H NEGATIVE Urine RBC RARE /HPF Urine WBC RARE /HPF Urine Squamous Epithelial Cells 10-25 H /HPF Urine Crystals NONE /LPF Urine Bacteria NEGATIVE /HPF Urine Casts NONE /LPF Urine Mucus SMALL H /LPF Urine Culture Indicated NO Sodium Level 139 135-145 MMOL/L Potassium Level 3.6 3.6-5.0 MMOL/L Chloride Level 103 98-107 MMOL/L Carbon Dioxide Level 28 21-32 MMOL/L Anion Gap 8 5-14 MMOL/L Blood Urea Nitrogen 16 7-18 MG/DL Creatinine 0.75 0.60-1.30 MG/DL Estimat Glomerular Filtration Rate > 60 BUN/Creatinine Ratio 21 Glucose Level 94 70-105 MG/DL Calcium Level 9.3 8.5-10.1 MG/DL Corrected Calcium 8.5-10.1 MG/DL Total Bilirubin 0.4 0.1-1.0 MG/DL Aspartate Amino Transf (AST/SGOT) 19 5-34 U/L Alanine Aminotransferase (ALT/SGPT) 17 0-55 U/L Alkaline Phosphatase 73 40-136 U/L Total Protein 7.1 6.4-8.2 GM/DL Albumin 4.6 H 3.2-4.5 GM/DL Amylase Level 47 25-125 U/L Lipase 39 8-78 U/L Serum Test, Qualitative NEGATIVE NEGATIVE Urine Opiates Screen NEGATIVE NEGATIVE Urine Oxycodone Screen NEGATIVE NEGATIVE Urine Methadone Screen NEGATIVE NEGATIVE Urine Propoxyphene Screen NEGATIVE NEGATIVE Urine Barbiturates Screen NEGATIVE NEGATIVE Ur Tricyclic Antidepressants Screen NEGATIVE NEGATIVE Urine Phencyclidine Screen NEGATIVE NEGATIVE Urine Amphetamines Screen POSITIVE H NEGATIVE Urine Methamphetamines Screen NEGATIVE NEGATIVE Urine Benzodiazepines Screen NEGATIVE NEGATIVE Urine Cocaine Screen NEGATIVE NEGATIVE Urine Cannabinoids Screen NEGATIVE NEGATIVE My Orders Orders - SINGH ALCANTARA Comprehensive Metabolic Panel (05/10/18 10:34) Lipase (05/10/18 10:34) Amylase (05/10/18 10:34) Ua Culture If Indicated (05/10/18 10:34) Hcg,Qualitative Serum (05/10/18 10:34) Saline Lock/Iv-Start (05/10/18 10:34) Cbc With Automated Diff (05/10/18 10:34) Ns Iv 1000 Ml (Sodium Chloride 0.9%) (05/10/18 10:45) Ondansetron Injection (Zofran Injectio (05/10/18 10:45) Diphenhydramine Injection (Benadryl Inje (05/10/18 11:00) Drug Screen Stat (Urine) (05/10/18 10:59) Fluconazole Tablet (Ed Only) (Diflucan T (05/10/18 12:00) Medications Given in ED Vital Signs/I&O 05/10/18 05/10/18 09:40 12:05 Temp 98.3 Pulse 74 80 Resp 16 B/P (MAP) 136/72 (93) 123/78 (93) Pulse Ox 99 98 O2 Delivery Room Air Blood Pressure Mean: 93 Departure Impression Primary Impression: Nausea vomiting and diarrhea Additional Impression: Yeast infection of the vagina Disposition: 01 HOME, SELF-CARE Condition: Stable/Unchanged Departure-Patient Inst. Decision time for Depature: 11:54 Referrals: SIDDHARTH ZARAGOZA DO (PCP/Family) Primary Care Physician Patient Instructions: Nausea and Vomiting, Adult Add. Discharge Instructions: Take medications as directed. Follow-up with her primary care provider within 1 week for recheck. Return back to the emergency room for any worsening symptoms or concerns as needed. All discharge instructions reviewed with patient and/or family. Voiced understanding. Scripts Ondansetron HCl (Zofran) 4 Mg Tab 4 MG PO Q4H PRN for NAUSEA/VOMITING-1ST LINE, #14 TAB Prov: SINGH ALCANTARA 05/10/18 SINGH ALCANTARA May 10, 2018 10:39
[2018-05-10] MEDS ORDERED: ONDANSETRON 4 MG/2 ML (SDV) Z0FRAN IVP ONE (10:45)
[2018-05-10] MEDS ORDERED: NS IV 1000 ML 1,000 ML IV SCH (10:45)
[2018-05-10 11:00] LABS: BASOPHILS % (AUTO) 0 % (0-10); EOSINOPHILS # (AUTO) 0.1 10^3/uL (0.0-0.3); EOSINOPHILS % (AUTO) 1 % (0-10); HEMATOCRIT 39 % (35-52); LYMPHOCYTES # (AUTO) 2.7 X 10^3 (1.0-4.0); LYMPHOCYTES % (AUTO) 22 % (12-44); MEAN CORPUSCULAR HEMOGLOBIN 30 PG (25-34); MEAN CORPUSCULAR HGB CONC 33 G/DL (32-36); MEAN CORPUSCULAR VOLUME 90 FL (80-99); MEAN PLATELET VOLUME 8.6 FL (7.4-10.4); MONOCYTES # (AUTO) 0.6 X 10^3 (0.0-1.0); MONOCYTES % (AUTO) 5 % (0-12); NEUTROPHILS % (AUTO) 72 % (42-75); PLATELET COUNT 567 10^3/uL (130-400); RED BLOOD COUNT 4.36 10^6/uL (4.35-5.85); RED CELL DISTRIBUTION WIDTH 12.9 % (10.0-14.5); WHITE BLOOD COUNT 12.4 10^3/uL (4.3-11.0)
[2018-05-10] MEDS ORDERED: diphenhydrAMINE 50 MG/ML INJ (BENADRYL) IVP ONE (11:00)
[2018-05-10 11:01] LABS: BILIRUBIN,URINE NEGATIVE (NEGATIVE); CLARITY,URINE CLEAR; COLOR,URINE YELLOW; GLUCOSE, URINE (UA) NEGATIVE (NEGATIVE); KETONES,URINE NEGATIVE (NEGATIVE); LEUKOCYTE ESTERASE ,URINE NEGATIVE (NEGATIVE); NITRITE,URINE NEGATIVE (NEGATIVE); PH,URINE 5 (5-9); PROTEIN,URINE NEGATIVE (NEGATIVE); UROBILINOGEN,URINE NORMAL (NORMAL)
[2018-05-10 11:14] LABS: BACTERIA,URINE NEGATIVE /HPF; RBC,URINE RARE /HPF; WBC,URINE RARE /HPF
[2018-05-10 11:19] LABS: AMPHETAMINE SCREEN, URINE POSITIVE (NEGATIVE); BARBITURATE SCREEN URINE NEGATIVE (NEGATIVE); BENZODIAZEPINES SCREEN URINE NEGATIVE (NEGATIVE); CANNABINOID SCREEN, URINE NEGATIVE (NEGATIVE); COCAINE SCREEN URINE NEGATIVE (NEGATIVE); METHADONE STAT NEGATIVE (NEGATIVE); METHAMPHETAMINE SCREEN URINE S NEGATIVE (NEGATIVE); OPIATE SCREEN URINE NEGATIVE (NEGATIVE); OXYCODONE STAT NEGATIVE (NEGATIVE); PROPOXYPHENE STAT NEGATIVE (NEGATIVE); TRICYCLIC ANTIDEPRESSANTS SCRE NEGATIVE (NEGATIVE)
[2018-05-10 11:19] LABS: ALANINE AMINOTRANSFERASE 17 U/L (0-55); ALBUMIN 4.6 GM/DL (3.2-4.5); ALKALINE PHOSPHATASE 73 U/L (40-136); AMYLASE 47 U/L (25-125); BILIRUBIN,TOTAL 0.4 MG/DL (0.1-1.0); BUN/CREATININE RATIO 21; CALCIUM 9.3 MG/DL (8.5-10.1); CARBON DIOXIDE 28 MMOL/L (21-32); CHLORIDE 103 MMOL/L (98-107); CREATININE SERUM 0.75 MG/DL (0.60-1.30); GFR ESTIMATED > 60; GLUCOSE 94 MG/DL (70-105); LIPASE 39 U/L (8-78); POTASSIUM 3.6 MMOL/L (3.6-5.0); SODIUM 139 MMOL/L (135-145); TOTAL PROTEIN 7.1 GM/DL (6.4-8.2)
[2018-05-10] MEDS ORDERED: ONDN4T PO (11:56)
[2018-05-10] MEDS ORDERED: FLUCONAZOLE 150 MG TABLET (ED ONLY) PO ONE (12:00)
[2018-05-10 12:05] VITALS: BP 123/78
--- NOTE | 2018-05-10 13:39 | NUR ---
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 She was needing transportation home. Called [facility] capacitor inspector (Ilya) and he will arrange transportation home.
== END 2018-05-10 12:05 | disposition home or self-care (01) ==
LOC: EDUNIT# 09:28 → ER 09:30
DX: B37.3 Candidiasis of vulva and vagina (principal); R11.2 Nausea with vomiting, unspecified; R19.7 Diarrhea, unspecified; G43.909 Migraine, unspecified, not intractable, without status migrainosus; F31.9 Bipolar disorder, unspecified; F20.9 Schizophrenia, unspecified; Z91.5 Personal history of self-harm; Z87.19 Personal history of other diseases of the digestive system; Z98.51 Tubal ligation status; Z88.0 Allergy status to penicillin; Z88.4 Allergy status to anesthetic agent; Z77.22 Contact with and (suspected) exposure to environmental tobacco smoke (acute) (chronic); Z98.890 Other specified postprocedural states
CPT/HCPCS: 36415; 80053; 80306; 81000; 82150; 83690; 84703; 85025

== ENCOUNTER 2018-06-27 20:04 | Emergency (ER) | payer MEDICAID ==
[~2018-06-27] VITALS: Ht 167.6 cm; Wt 63.5 kg
[~2018-06-27 20:04] MED LIST changes: +ONDN4T PO
--- NOTE | 2018-06-27 20:29 | ED EENT ---
History of Present Illness General Chief Complaint: Oral/Throat Problems Stated Complaint: PAIN IN THROAT Source: patient Exam Limitations: no limitations History of Present Illness Date Seen by Provider: Jun 27, 2018 Time Seen by Provider: 20:28 Initial Comments To ER with a sore in the back of the throat on the right side for about a month. She's also had discharge from both nipples for about a month with no redness or swelling in either nipple. Quit methamphetamine use recently and is also having some lesions on her skin. Timing/Duration: abrupt Severity: moderate Location: throat Associated Symptoms: No change in hearing, No fever Allergies and Home Medications Allergies Coded Allergies: Penicillins (Verified Allergy, Unknown, 12/17/15) ketorolac (Verified Allergy, Unknown, 12/17/15) Uncoded Allergies: PCN (Allergy, Mild, 07/28/15) Home Medications Clonazepam 1 Mg Tablet, 1 MG PO BID, (Reported) Hydroxyzine Pamoate 50 Mg Capsule, 50 MG PO TID, (Reported) Ondansetron HCl 4 Mg Tab, 4 MG PO Q4H PRN for NAUSEA/VOMITING-1ST LINE Prescribed by: SINGH ALCANTARA on 05/10/18 1156 Tramadol Hcl 50 Mg Tablet, 50 MG PO TID, (Reported) Patient Home Medication List Home Medication List Reviewed: Yes Review of Systems Review of Systems Constitutional: see HPI Eyes: No Symptoms Reported Ears: No Symptoms Reported Nose: no symptoms reported Mouth: no symptoms reported Throat: see HPI Respiratory: no symptoms reported Cardiovascular: no symptoms reported Musculoskeletal: no symptoms reported Skin: see HPI, lesions Neurological: No Symptoms Reported Hematologic/Lymphatic: No Symptoms Reported Immunological/Allergic: no symptoms reported Past Sxulwyd-Ksdkhi-Adpnjp Hx Patient Social History Alcohol Use: Denies Use Recreational Drug Use: Yes (NONE FOR OVER A YEAR) Type Used: Cigarettes 2nd Hand Smoke Exposure: Yes Recent Foreign Travel: No Contact w/Someone Who Travel: No Recent Hopitalizations: No Immunizations Up To Date Tetanus Booster (TDap): Less than 5yrs Seasonal Allergies Seasonal Allergies: No Past Medical History Surgeries: Yes Gallbladder, Tubal Ligation Respiratory: No Cardiac: No Neurological: Yes (MIRGRAIN HEADACHES) Headaches /Migraines 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 Disorders: No 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 4.0oz. 61.830684qp; 21.79 BMI Method:Actual General Appearance: WD/WN, no apparent distress Eyes: bilateral eye normal inspection, bilateral eye PERRL, bilateral eye EOMI Ears: bilateral ear auricle normal, bilateral ear canal normal, bilateral ear TM normal Mouth/Throat: normal mouth inspection, pharynx normal; No dental tenderness, No excessive drooling, No foreign body, No mandibular swelling Neck: non-tender, lymphadenopathy (R), lymphadenopathy (L) Cardiovascular: no murmur Respiratory: no respiratory distress Gastrointestinal: non tender, soft Neurologic/Psychiatric: alert, normal mood/affect, oriented x 3 Skin: normal color, warm/dry Patient squeezes her own nipple and expresses a grayish material. Culture was collected and sent to lab the there is no erythema or edema of either breast or areole a to suggest mastitis. KIERSTEN Wakefield at the bedside during this exam. Progress/Results/Core Measures Results/Orders My Orders Orders - REHANA MARQUEZ APRN Body Fluid Culture (06/27/18 20:32) Vital Signs/I&O 06/27/18 20:17 Temp 96.8 Pulse 87 Resp 16 B/P (MAP) 120/83 (95) Pulse Ox 98 Departure Impression Primary Impression: Nipple discharge Disposition: HOME, SELF-CARE Condition: Stable Departure-Patient Inst. Decision time for Depature: 20:35 Referrals: SIDDHARTH ZARAGOZA DO (PCP/Family) Primary Care Physician Patient Instructions: General (DC) Add. Discharge Instructions: 1. Follow-up with [facility] 2. Return to ER for any concerns All discharge instructions reviewed with patient and/or family. Voiced understanding. Scripts Doxycycline Hyclate (Doxycycline Hyclate) 100 Mg Capsule 100 MG PO BID, #14 CAP Prov: REHANA MARQUEZ APRN 06/27/18 REHANA MARQUEZ APRN Jun 27, 2018 20:29
[2018-06-27] MEDS ORDERED: DOXY100C2 PO (20:44)
[2018-06-27 20:55] VITALS: BP 123/76
== END 2018-06-27 20:56 | disposition home or self-care (01) ==
LOC: EDUNIT# 20:04 → ER 20:05
DX: N64.52 Nipple discharge (principal); G43.909 Migraine, unspecified, not intractable, without status migrainosus; F31.9 Bipolar disorder, unspecified; F20.9 Schizophrenia, unspecified; M41.9 Scoliosis, unspecified; Z87.19 Personal history of other diseases of the digestive system; Z88.0 Allergy status to penicillin; Z91.5 Personal history of self-harm; Z88.4 Allergy status to anesthetic agent; Z77.22 Contact with and (suspected) exposure to environmental tobacco smoke (acute) (chronic); Z98.51 Tubal ligation status; Z98.890 Other specified postprocedural states
CPT/HCPCS: 87070; 87205; 99283

== ENCOUNTER 2018-07-03 14:03 | Emergency (ER) | payer MEDICAID ==
[~2018-07-03] VITALS: Ht 167.6 cm; Wt 63.5 kg
--- OUTSIDE RECORDS SUMMARY | 2018-07-03 14:09 | XMS REPORT | Clinical Summary ---
Author Author [facility] Organization [facility] Address Unknown Phone Unavailable Care Team Providers [employer] Professor Name Role Phone No Pcp, Na PCP Unavailable Source Comments Some departments are not documenting in the electronic medical record. If you do not see the information that you expected, contact Release of Information in the Health Information Management department at [phone] for further assistance in locating additional records.[facility] Allergies Comments Active Allergy Reactions Severity [...] Taken Vital Sign Reading 05/15/2017 11:50 AM REPORT CLERK Blood Pressure 102/77 - Pulse - 05/15/2017 11:50 AM REPORT CLERK Temperature 36.7 C (98.1 F) - Respiratory Rate - 05/15/2017 11:50 AM REPORT CLERK Oxygen Saturation 96% - Inhaled Oxygen - Concentration 05/15/2017 11:50 AM REPORT CLERK Weight 59 kg (130 lb) 05/15/2017 11:50 AM REPORT CLERK Height 167.6 cm (5' 6") 05/15/2017 11:50 AM REPORT CLERK Body Mass Index 20.98 Plan of Treatment [...] on file. For more information, please contact: [facility] [address] [place] [address]
--- OUTSIDE RECORDS SUMMARY | 2018-07-03 14:09 | XMS REPORT | Clinical Summary ---
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
--- NOTE | 2018-07-03 14:37 | ED GU-Female ---
General Chief Complaint: Abdominal/GI Problems Stated Complaint: MAY BE HAVING PAINS Nursing Triage Note: pt arrived in ED today because she thinks she is 3 months but has not ever taken a test. pt's abd is bigger than normal and her breast are bigger and tender with brown fluid leaking. Pt wants a test and to "make sure the baby is alive". She has been having abd pain for 2 weeks Nursing Sepsis Screen: No Definite Risk Source: patient Exam Limitations: no limitations History of Present Illness Date Seen by Provider: Jul 03, 2018 Time Seen by Provider: 14:37 Allergies and Home Medications Allergies Coded Allergies: Penicillins (Verified Allergy, Unknown, 12/17/15) ketorolac (Verified Allergy, Unknown, 12/17/15) Uncoded Allergies: PCN (Allergy, Mild, 07/28/15) Home Medications Clonazepam 1 Mg Tablet, 1 MG PO BID, (Reported) Doxycycline Hyclate 100 Mg Capsule, 100 MG PO BID Prescribed by: REHANA MARQUEZ on 06/27/182043 Hydroxyzine Pamoate 50 Mg Capsule, 50 MG PO TID, (Reported) Ondansetron HCl 4 Mg Tab, 4 MG PO Q4H PRN for NAUSEA/VOMITING-1ST LINE Prescribed by: SINGH ALCANTARA on 05/10/18 1156 Tramadol Hcl 50 Mg Tablet, 50 MG PO TID, (Reported) Past Fjdqrst-Wpyikl-Lianni Hx Patient Social History Alcohol Use: Occasionally Uses Recreational Drug Use: No Smoking Status: Current Everyday Smoker Type Used: Cigarettes 2nd Hand Smoke Exposure: Yes Recent Foreign Travel: No Contact w/Someone Who Travel: No Recent Infectious Disease Expo: No Recent Hopitalizations: No Immunizations Up To Date Tetanus Booster (TDap): Less than 5yrs Seasonal Allergies Seasonal Allergies: No Past Medical History Surgeries: Yes Gallbladder, Tubal Ligation Respiratory: No Cardiac: No Neurological: Yes (MIRGRAIN HEADACHES) Headaches /Migraines Last Menstrual Period: Jun 05, 2018 Hx : 3 Hx Para: 3 Hx Total # of Abortions (Sp): 0 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 Disorders: No HOME CARE PROVIDER History: Tubal Ligation Sexually Transmitted Disease: No Gastrointestinal: Yes (PEPTIC ULCER 2002) Musculoskeletal: Yes (SCOLIOSIS) Endocrine: No Cancer: No Psychosocial: Yes (BI-POLAR, PREVIOUS SUICIDE ATTEMPT) Bipolar, Schizophrenia Integumentary: No Blood Disorders: No Adverse Reaction/Blood Tranf: No Family Medical History No Pertinent Family Hx Physical Exam Vital Signs Vital Signs - First Documented 07/03/18 14:13 Temp 97.1 Pulse 83 Resp 20 B/P (MAP) 117/57 (77) Pulse Ox 99 O2 Delivery Room Air Capillary Refill : Less Than 3 Seconds Height, Weight, BMI Height: 5'6.00" Weight: 140lbs. 4.0oz. [id number]; 21.79 BMI Method:Stated Progress/Results/Core Measures Suspected Sepsis Recent Fever Within 48 Hours: No Infection Criteria Present: None New/Unexplained Altered Menta: No Sepsis Screen: No Definite Risk SIRS Temperature:97.1 Pulse: 83 Respiratory Rate: 20 Blood Pressure 117 /57 Mean: 77 Results/Orders Lab Results Laboratory Tests Test 07/03/18 14:28 Range/Units Urine Color YELLOW Urine Clarity CLEAR Urine pH 5 5-9 Urine Specific [place] 1.010 L 1.016-1.022 Urine Protein NEGATIVE NEGATIVE Urine Glucose (UA) NEGATIVE NEGATIVE Urine Ketones NEGATIVE NEGATIVE Urine Nitrite NEGATIVE NEGATIVE Urine Bilirubin NEGATIVE NEGATIVE Urine Urobilinogen NORMAL NORMAL MG/DL Urine Leukocyte Esterase NEGATIVE NEGATIVE Urine RBC (Auto) NEGATIVE NEGATIVE Urine RBC NONE /HPF Urine WBC NONE /HPF Urine Squamous Epithelial Cells 2-5 /HPF Urine Crystals NONE /LPF Urine Bacteria NEGATIVE /HPF Urine Casts NONE /LPF Urine Mucus NEGATIVE /LPF Urine Culture Indicated NO Urine Test NEGATIVE NEGATIVE My Orders Orders - SINGH ALCANTARA Ua Culture If Indicated (07/03/18 14:38) Urine Bedside (07/03/18 14:38) Hcg,Qualitative Urine (07/03/18 14:44) Triamcinolone 0.025% Cream (Kenalog 0.02 (07/03/18 21:00) Fluconazole Tablet (Ed Only) (Diflucan T (07/03/18 15:00) Vital Signs/I&O 07/03/18 14:13 Temp 97.1 Pulse 83 Resp 20 B/P (MAP) 117/57 (77) Pulse Ox 99 O2 Delivery Room Air Capillary Refill : Less Than 3 Seconds Blood Pressure Mean: 77 Departure Impression Primary Impression: Yeast infection Additional Impression: Skin rash Disposition: 01 HOME, SELF-CARE Condition: Stable/Unchanged Departure-Patient Inst. Decision time for Depature: 15:04 Referrals: ZARAGOZA,SIDDHARTH K DO (PCP/Family) Primary Care Physician Patient Instructions: Skin Rash (DC), Vaginal Yeast Infection Add. Discharge Instructions: Use the topical ointment as prescribed. Follow-up with primary care provider within 1 week for recheck. Return back to the emergency room for worsening symptoms or concerns as needed. All discharge instructions reviewed with patient and/or family. Voiced understanding. SINGH ALCANTARA Jul 03, 2018 14:37
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
[2018-07-03 14:49] LABS: BILIRUBIN,URINE NEGATIVE (NEGATIVE); GLUCOSE, URINE (UA) NEGATIVE (NEGATIVE); KETONES,URINE NEGATIVE (NEGATIVE); LEUKOCYTE ESTERASE ,URINE NEGATIVE (NEGATIVE); NITRITE,URINE NEGATIVE (NEGATIVE); PH,URINE 5 (5-9); PROTEIN,URINE NEGATIVE (NEGATIVE); UROBILINOGEN,URINE NORMAL (NORMAL)
[2018-07-03 14:52] LABS: BACTERIA,URINE NEGATIVE /HPF; CLARITY,URINE CLEAR; COLOR,URINE YELLOW
[2018-07-03] MEDS ORDERED: FLUCONAZOLE 150 MG TABLET (ED ONLY) PO ONE (15:00)
[2018-07-03 15:40] VITALS: BP 148/74
[2018-07-03] MEDS ORDERED: TRIAMCINOLONE 0.025% CR (KENALOG) 15 GM TUBE TOP SCH (21:00)
== END 2018-07-03 15:31 | disposition home or self-care (01) ==
LOC: EDUNIT# 14:03 → ER 14:06
DX: B37.2 Candidiasis of skin and nail (principal); G43.909 Migraine, unspecified, not intractable, without status migrainosus; M41.9 Scoliosis, unspecified; F31.9 Bipolar disorder, unspecified; F20.9 Schizophrenia, unspecified; F17.210 Nicotine dependence, cigarettes, uncomplicated; Z91.5 Personal history of self-harm; Z87.19 Personal history of other diseases of the digestive system; Z88.0 Allergy status to penicillin; Z88.4 Allergy status to anesthetic agent; Z98.51 Tubal ligation status; Z98.890 Other specified postprocedural states
CPT/HCPCS: 81000; 84703; 99283

== ENCOUNTER → 2018-07-31 | Outpatient (CLI) | payer MEDICAID ==
--- NOTE | 2018-08-01 12:07 | Diagnostic Imaging Report ---
EXAMINATION: Bilateral screening mammogram with 3D tomosynthesis. INDICATION: Screening. This study was compared to the prior exam 06/08/15. At this time there are no current complaints. The current study was also evaluated with a Computer Aided Detection (CAD) system. FINDINGS: The fibroglandular tissue in both breasts is heterogeneously dense. This does limit the sensitivity of this exam. Overall, there does not appear to have been any significant change when compared to the prior study. No primary or secondary sign of malignancy is noted. IMPRESSION: 1. There is no radiographic evidence for malignancy. 2. The patient should have her annual bilateral screening mammogram on schedule in July of 2019. ACR BI-RADS Category 1: Negative. Result letter will be mailed to the patient. Note: At least 10% of breast cancer is not imaged by mammography. Dictated by: Dictated on workstation # [id number]
== END ==
LOC: RAD 14:12
PROVIDERS: ATTEND Obstetrics & Gynecology
DX: Z12.31 Encounter for screening mammogram for malignant neoplasm of breast (principal); Z01.419 Encounter for gynecological examination (general) (routine) without abnormal findings
CPT/HCPCS: 77067

== ENCOUNTER 2018-08-19 21:56 | Emergency (ER) | payer MEDICAID ==
[~2018-08-19] VITALS: Ht 167.6 cm; Wt 63.5 kg
--- OUTSIDE RECORDS SUMMARY | 2018-08-19 22:01 | XMS REPORT | Clinical Summary ---
Author Author [facility] Organization [facility] Address Unknown Phone Unavailable Care Team Providers Care Campaign Marketing Specialist Name Role Phone No Pcp, Na PCP Unavailable Source Comments Some departments are not documenting in the electronic medical record. If you do not see the information that you expected, contact Release of Information in the Health Information Management department at [phone] for further assistance in locating additional records.[facility] Allergies Comments Active Allergy Reactions Severity [...] Taken Vital Sign Reading 05/15/2017 11:50 AM [employer] Blood Pressure 102/77 - Pulse - 05/15/2017 11:50 AM [employer] Temperature 36.7 C (98.1 F) - Respiratory Rate - 05/15/2017 11:50 AM [employer] Oxygen Saturation 96% - Inhaled Oxygen - Concentration 05/15/2017 11:50 AM [employer] Weight 59 kg (130 lb) 05/15/2017 11:50 AM [employer] Height 167.6 cm (5' 6") 05/15/2017 11:50 AM [employer] Body Mass Index 20.98 Plan of Treatment Health Maintenance Due Date Last Done Comments PHYSICAL (COMPREHENSIVE) 1982 EXAM HIV SCREENING 1990 DTAP/TDAP VACCINES (1 - 1993 Tdap) CERVICAL CANCER SCREENING 2005 BREAST CANCER SCREENING 2015 INFLUENZA VACCINE 11/22/2018 Results Not on filefrom Last 3 Months Insurance Type Payer Benefit Subscriber ID Effective Phone Address Plan / Dates Group Medicaid [place] [employer] xxxxxxxxxxx 2017- [facility] Present HEALTH Advance Directives Patient has advance care planning documents on file. For more information, please contact: [facility] [address] [place] [address]
--- OUTSIDE RECORDS SUMMARY | 2018-08-19 22:01 | XMS REPORT | Clinical Summary ---
Demographics Preferred Language Unknown Marital Status Unknown Islam Affiliation Unknown Race Unknown Ethnic Group Unknown Author Author [facility] Organization [facility] Address Unknown Phone Unavailable Care Team Providers Care Licensed Occupational Therapist Name Role Phone PP Unavailable Allergies Not [...] Tdap) CERVICAL CANCER SCREENING 1996 Influenza Vaccine (Season 12/23/2018 Ended) Results Not on filefrom Last 3 Months
--- OUTSIDE RECORDS SUMMARY | 2018-08-19 22:02 | XMS REPORT ---
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 [address]- 1892 Mar, [facility] [place] [facility] [address] [id number] [place] [address]- 4342 Mar, [facility] [place] [facility] [address] [id number] [place] [address]- 8002 Mar, [facility] [place] [facility] [address] [id number] [place] [address]- 1146 Mar, [facility] [place] [facility] [address] [id number] [place] [address]- 5306 Mar, [facility] [place] [facility] [address] [id number] [place] [address]- 3371 Mar, [facility] [place] [facility] [address] [id number] [place] [address]- 2955 Mar, [facility] [place] [facility] [address] [id number] [place] [address]- 6494 Mar, [facility] [place] [facility] [address] [id number] [place] [address]- 8816 Mar, [facility] [address] [id number] [place] [address]- 3292 Feb, [facility] [place] [facility] [address] [id number] [place] [address]- 6060 Feb, [facility] [place] [facility] [address] [facility] [id number] [place] [address]- 5579 Feb, [facility] [place] [facility] [address] [id number] [place] [address]- 0211 Feb, [facility] [place] [facility] [address] [id number] [place] [address]- 3907 Jan, [facility] [place] [facility] [address] [id number] [place] [address]- 3458 Jan, [facility] [place] [facility] [address] [id number] [place] [address]- 7180 Jan, [facility] [place] [facility] [address] [id number] [place] [address]- 9520 Jan, [facility] [place] [facility] [address] [id number] [place] [address]- 6670 18 Dec, 2011 [facility] [place] [facility] [address] [id number] [place] [address]- 3786 Dec, [facility] [place] [facility] [address] [id number] [place] [address]- 9182 Dec, [facility] [place] [facility] [address] [id number] [place] [address]- 4872 Nov, [facility] [place] [facility] [address] [id number] [place] [address]- 5936 Nov, [facility] [place] [facility] [address] [id number] [place] [address]- 8517 Nov, [facility] [place] [facility] [address] [id number] [place] [address]- 4490 Nov, [facility] [place] [facility] [address] [id number] [place] [address]- 1382 Oct, [facility] [place] [facility] [address] [id number] [place] [address]- 7873 Oct, [facility] [place] [facility] [address] [id number] [place] [address]- 7487 Oct, [facility] [place] [facility] [address] [id number] [place] [address]- 4596 Oct, [facility] [place] [facility] [address] [id number] [place] [address]- 9548 Oct, [facility] [place] [facility] [address] [id number] [place] [address]- 8987 Oct, [facility] [place] [facility] [address] [id number] [place] [address]- 5991 Oct, [facility] [place] [facility] [address] [id number] [place] [address]- 9825 Oct, [facility] [place] [facility] [address] [id number] [place] [address]- 3094 Oct, [facility] [address] [id number] [place] [address]- 1482 Sep, [facility] [place] [facility] [address] [id number] [place] [address]- 7759 Sep, [facility] [address] [id number] [place] [address]- 4034 August, [facility] [place] [facility] [address] [id number] [place] [address]- 9435 August, [facility] [address] [id number] [place] [address]- 1732 August, [facility] [address] [id number] [place] [address]- 2059 August, [facility] [address] [id number] [place] [address]- 6315 August, [facility] [address] [id number] [place] [address]- 0597 August, [facility] [address] [id number] [place] [address]- 1443 30 Jul, 2011 [facility] [address] [id number] [place] [address]- 0855 Jul, [facility] [address] [id number] [place] [address]- 2255 Jul, [facility] [place] [facility] [address] [id number] [place] [address]- 1742 24 Jul, 2011 [facility] [place] [facility] [address] [id number] [place] [address]- 7820 Jul, [facility] [place] [facility] [address] [id number] [place] [address]- 5024 16 Jul, 2011 [facility] [place] [facility] [address] [id number] [place] [address]- 8016 Jul, [facility] [place] [facility] [address] [id number] [place] [address]- 2964 Jul, [facility] [place] [facility] [address] [id number] [place] [address]- 4641 Jun, [facility] [place] [facility] [address] [id number] [place] [address]- 8696 Jun, [facility] [place] [facility] [address] [id number] [place] [address]- 4066 Jun, [facility] [place] [facility] [address] [id number] [place] [address]- 3696 May, [facility] [place] [facility] [address] [id number] [place] [address]- 7738 May, [facility] [place] [facility] [address] [id number] [place] [address]- 6292 May, [facility] [place] [facility] [address] [id number] [place] [address]- 7745 May, [facility] [place] [facility] [address] [id number] [place] [address]- 6367 May, [facility] [place] [facility] [address] [id number] [place] [address]- 9383 Apr, [facility] [place] [facility] [address] [id number] [place] [address]- 9651 Apr, [facility] [place] [facility] [address] [id number] [place] [address]- 3854 Apr, [facility] [place] [facility] [address] [id number] [place] [address]- 5231 Apr, [facility] [place] [facility] [address] [id number] [place] [address]- 0326 Mar, [facility] [place] [facility] [address] [id number] [place] [address]- 6716 Mar, [facility] [place] [facility] [address] [id number], [place] [address]- 4056 14 Mar, 2011 [facility] [place] [facility] [address] [id number] [place] [address]- 5181 07 Mar, 2011 [facility] [place] [facility] [address] [id number] [place] [address]- 1735 30 Feb, 2011 [facility] [place] [facility] [address] [id number] [place] [address]- 5259 Feb, [facility] [place] [facility] [address] [id number] [place] [address]- 3408 Feb, [facility] [place] [facility] [address] [id number] [place] [address]- 8634 Feb, [facility] [place] [facility] [address] [id number] [place] [address]- 8381 Feb, [facility] [place] [facility] [address] [facility] [id number] [place] [address]- 0178 Feb, [facility] [place] [facility] [address] [id number] [place] [address]- 5243 Feb, [facility] [place] [facility] [address] [facility] [id number] [place] [address]- 2832 Jan, [facility] [place] [facility] [address] [facility] [id number] [place] [address]- 4232 10 Jan, 2011 [facility] [place] [facility] [address] [id number][place] [address]- 2033 16 Dec, 2010 [facility] [place] [facility] [address] [id number], [place] [address]- 9522 Nov, [facility] [place] [facility] [address] [id number] [place] [address]- 2077 15 May, 2010 [facility] [place] [facility] [address] [id number] [place] [address]- 5420 14 Apr, 2010 [facility] [place] [facility] [address] [facility] [id number] [place] [address]- 0226 Feb, [facility] [place] [facility] [address] [facility] [id number] [place] [address]- [address]46 Jan, [facility] [address] [facility] [id number] [address]66 August, [facility] [address] [id number] [address]- 2546 Mar, [facility] [address] [facility] [id number], [place] [address] 2546 Jan, [facility] [address] [facility] [id number][place] [address]- 0449 Oct, IMMUNIZATIONS No Known Immunizations SOCIAL HISTORY Never Assessed REASON FOR VISIT EMR-[facility] PLAN OF CARE VITAL SIGNS MEDICATIONS Unknown [...]
--- OUTSIDE RECORDS SUMMARY | 2018-08-19 22:03 | XMS REPORT ---
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 [place] [address]- 1975 08 May, 2012 [facility] [place] [facility] [address] [id number] [place] [address]- 9477 04 May, 2012 [facility] [place] [facility] [address] [id number] [place] [address]- 1225 May, [facility] [place] [facility] [address] [id number] [place] [address]- 5169 Apr, [facility] [place] [facility] [address] [id number] [place] [address]- 7897 Apr, [facility] [place] [facility] [address] [id number] [place] [address]- 3190 Apr, [facility] [place] [facility] [address] [id number] [place] [address] Mar, [facility] [place] [facility] [address] [id number] [place] [address]- 9886 Mar, [facility] [place] [facility] [address] [id number] [place] [address]- 7150 Mar, [facility] [place] [facility] [address] [id number] [place] [address]- 2798 Mar, [facility] [place] [facility] [address] [id number] [place] [address]- 3896 Mar, [facility] [place] [facility] [address] [id number] [place] [address]- 0376 Mar, [facility] [place] [facility] [address] [id number] [place] [address]- 5487 Mar, [facility] [place] [facility] [address] [id number] [place] [address]- 9140 Mar, [facility] [place] [facility] [address] [id number] [place] [address]- 3122 Mar, [facility] [place] [facility] [address] [id number] [place] [address]- 5013 Mar, [facility] [address] [id number] [place] [address]- 9990 Feb, [facility] [place] [facility] [address] [id number] [place] [address]- 4525 Feb, [facility] [place] [facility] [address] [facility] [id number] [place] [address]- 1602 Feb, [facility] [place] [facility] [address] [id number] [place] [address]- 5734 Feb, [facility] [place] [facility] [address] [id number] [place] [address]- 7722 Jan, [facility] [place] [facility] [address] [id number] [place] [address]- 2245 Jan, [facility] [place] [facility] [address] [id number] [place] [address]- 5767 Jan, [facility] [place] [facility] [address] [id number] [place] [address]- 6027 Jan, [facility] [place] [facility] [address] [id number] [place] [address]- 0177 18 Dec, 2011 [facility] [place] [facility] [address] [id number] [place] [address]- 4666 Dec, [facility] [place] [facility] [address] [id number] [place] [address]- 3207 Dec, [facility] [place] [facility] [address] [id number] [place] [address]- 9845 Nov, [facility] [place] [facility] [address] [id number] [place] [address]- 8716 Nov, [facility] [place] [facility] [address] [id number] [place] [address]- 0854 Nov, [facility] [place] [facility] [address] [id number] [place] [address]- 3513 Nov, [facility] [place] [facility] [address] [id number] [place] [address]- 6574 Oct, [facility] [place] [facility] [address] [id number] [place] [address]- 6722 Oct, [facility] [place] [facility] [address] [id number] [place] [address]- 3474 Oct, [facility] [place] [facility] [address] [id number] [place] [address]- 3012 Oct, [facility] [place] [facility] [address] [id number] [place] [address]- 9476 Oct, [facility] [place] [facility] [address] [id number] [place] [address]- 1757 Oct, [facility] [place] [facility] [address] [id number] [place] [address]- 8886 Oct, [facility] [place] [facility] [address] [id number] [place] [address]- 7940 Oct, [facility] [place] [facility] [address] [id number] [place] [address]- 8579 Oct, [facility] [address] [id number] [place] [address]- 4725 Sep, [facility] [place] [facility] [address] [id number] [place] [address]- 0560 Sep, [facility] [address] [id number] [place] [address]- 0834 August, [facility] [place] [facility] [address] [id number] [place] [address]- 4875 August, [facility] [address] [id number] [place] [address]- 8543 August, [facility] [address] [id number] [place] [address]- 4563 August, [facility] [address] [id number] [place] [address]- 4963 August, [facility] [address] [id number] [place] [address]- 4406 August, [facility] [address] [id number] [place] [address]- 8315 30 Jul, 2011 [facility] [address] [id number] [place] [address]- 1039 Jul, [facility] [address] [id number] [place] [address]- 4135 Jul, [facility] [place] [facility] [address] [id number] [place] [address]- 9301 24 Jul, 2011 [facility] [place] [facility] [address] [id number] [place] [address]- 7527 Jul, [facility] [place] [facility] [address] [id number] [place] [address]- 4379 16 Jul, 2011 [facility] [place] [facility] [address] [id number] [place] [address]- 2162 Jul, [facility] [place] [facility] [address] [id number] [place] [address]- 2909 Jul, [facility] [place] [facility] [address] [id number] [place] [address]- 8323 Jun, [facility] [place] [facility] [address] [id number] [place] [address]- 8286 Jun, [facility] [place] [facility] [address] [id number] [place] [address]- 7860 Jun, [facility] [place] [facility] [address] [id number] [place] [address]- 3833 May, [facility] [place] [facility] [address] [id number] [place] [address]- 7881 May, [facility] [place] [facility] [address] [id number] [place] [address]- 9102 May, [facility] [place] [facility] [address] [id number] [place] [address]- 1035 May, [facility] [place] [facility] [address] [id number] [place] [address]- 3546 May, [facility] [place] [facility] [address] [id number] [place] [address]- 7905 Apr, [facility] [place] [facility] [address] [id number] [place] [address]- 9545 Apr, [facility] [place] [facility] [address] [id number] [place] [address]- 4215 Apr, [facility] [place] [facility] [address] [id number] [place] [address]- 9914 Apr, [facility] [place] [facility] [address] [id number] [place] [address]- 2146 Mar, [facility] [place] [facility] [address] [id number] [place] [address]- 7664 Mar, [facility] [place] [facility] [address] [id number], [place] [address]- 8404 14 Mar, 2011 [facility] [place] [facility] [address] [id number] [place] [address]- 8760 07 Mar, 2011 [facility] [place] [facility] [address] [id number] [place] [address]- 8490 30 Feb, 2011 [facility] [place] [facility] [address] [id number] [place] [address]- 9815 Feb, [facility] [place] [facility] [address] [id number] [place] [address]- 4238 Feb, [facility] [place] [facility] [address] [id number] [place] [address]- 1588 Feb, [facility] [place] [facility] [address] [id number] [place] [address]- 1621 Feb, [facility] [place] [facility] [address] [facility] [id number] [place] [address]- 4[address] Feb, [facility] [place] [facility] [address] [id number] [place] [address] Feb, [facility] [place] [facility] [address] [facility] [id number] [place] [address] Jan, [facility] [place] [facility] [address] [facility] [id number] [place] [address] 10 Jan, 2011 [facility] [place] [facility] [address] [id number], [place] [address] 16 Dec, 2010 [facility] [place] [facility] [address] [id number], [place] [address] Nov, [facility] [place] [facility] [address] [id number] [place] [address] 15 May, 2010 [facility] [place] [facility] [address] [id number] [place] [address] 14 Apr, 2010 [facility] [place] [facility] [address] [facility] [id number] [place] [address] Feb, [facility] [place] [facility] [address] [facility] [id number] [place] [address] Jan, [facility] [place] [address] [facility] [id number], [place] [address] August, [facility] [place] [address] [id number], [place] [address] Mar, [facility] [place] [address] [facility] [id number], [place] [address] Jan, [facility] [place] [address] [facility] [id number], [place] [address] Oct, IMMUNIZATIONS No Known Immunizations SOCIAL HISTORY Never Assessed REASON FOR VISIT [facility]MR-[facility] PLAN OF CARE VITAL SIGNS MEDICATIONS Unknown [...]
--- OUTSIDE RECORDS SUMMARY | 2018-08-19 22:04 | XMS REPORT ---
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 [address] [id number] [place] [address]- 0833 Dec, [facility] [address] [id number] [place] [address]- 5686 Nov, [facility] [address] [id number] [place] [address]- 5180 Nov, [facility] [address] [id number] [place] [address]- 1739 Nov, [facility] [address] [id number] [place] [address]- 8444 Nov, [facility] [address] [id number] [place] [address]- 2139 Oct, [facility] [address] [id number] [place] [address]- 7938 Oct, [facility] [address] [id number] [place] [address]- 0344 Oct, [facility] [address] [id number] [place] [address]- 6390 Oct, [facility] [address] [id number] [place] [address]- 9041 Oct, [facility] [address] [id number] [place] [address]- 6876 Oct, [facility] [address] [id number] [place] [address]- 8156 Oct, [facility] [address] [id number] [place] [address]- 9805 Oct, [facility] [address] [id number] [place] [address]- 2840 Oct, [facility] [address] [id number] [place] [address]- 5174 Sep, [facility] [address] [id number] [place] [address]- 5840 Sep, [facility] [address] [id number] [place] [address]- 4122 August, [facility] [address] [id number] [place] [address]- 3692 August, [facility] [address] [id number] [place] [address]- 1732 August, [facility] [address] [id number] [place] [address]- 2147 August, [facility] [address] [id number] [place] [address]- 0951 August, [facility] [address] [id number] [place] [address]- 3369 August, [facility] [address] [id number] [place] [address]- 1347 30 Jul, 2011 [facility] [address] [id number] [place] [address]- 1246 Jul, [facility] [address] [id number] [place] [address]- 3980 Jul, [facility] [address] [id number] [place] [address]- 1992 24 Jul, 2011 [facility] [address] [id number] [place] [address]- 5536 Jul, [facility] [address] [id number] [place] [address]- 1235 16 Jul, 2011 [facility] [address] [id number] [place] [address]- 6306 Jul, [facility] [address] [id number] [place] [address]- 1816 Jul, [facility] [address] [id number] [place] [address]- 9631 Jun, [facility] [address] [id number] [place] [address]- 0966 Jun, [facility] [address] [id number] [place] [address]- 9548 Jun, [facility] [address] [id number] [place] [address]- 3766 May, [facility] [address] [id number] [place] [address]- 8389 May, [facility] [address] [id number] [place] [address]- 5505 May, [facility] [address] [id number] [place] [address]- 4900 May, [facility] [address] [id number] [place] [address]- 5045 May, [facility] [facility] [address] [id number] [place] [address]- 0264 Apr, [facility] [address] [id number] [place] [address]- 7768 Apr, [facility] [address] [id number] [place] [address]- 5353 Apr, [facility] [address] [id number] [place] [address]- 9823 Apr, [facility] [address] [id number] [place] [address]- 4046 Mar, [facility] [address] [id number] [place] [address]- 9077 Mar, [facility] [address] [id number], [place] [address]- 8908 14 Mar, 2011 [facility] [address] [id number] [place] [address]- 8250 07 Mar, 2011 [facility] [address] [id number] [place] [address]- 5188 30 Feb, 2011 [facility] [address] [id number] [place] [address]- 8826 Feb, [facility] [facility] [address] [id number] [place] [address]- 1911 Feb, [facility] [facility] [address] [id number] [place] [address]- 4452 Feb, [facility] [place] [facility] [address] [id number] [place] [address]- 8178 Feb, [facility] [address] [facility] [id number] [place] [address]- 5936 Feb, [facility] [place] [facility] [address] [id number] [place] [address]- 9352 Feb, [facility] [place] [facility] [address] [facility] [id number] [place] [address]- 9126 Jan, [facility] [place] [facility] [address] [facility] [id number] [place] [address]- 5388 10 Jan, 2011 [facility] [place] [facility] [address] [id number], [place] [address]- 9742 16 Dec, 2010 [facility] [place] [facility] [address] [id number], [place] [address]- 8609 Nov, [facility] [place] [facility] [address] [id number] [place] [address]- 8817 15 May, 2010 [facility] [place] [facility] [address] [id number] [place] [address]- 9979 14 Apr, 2010 [facility] [place] [facility] [address] [facility] [id number] [place] [address]- 8906 Feb, [facility] [place] [facility] [address] [facility] [id number] [place] [address]- 2546 Jan, [facility] [address] [facility] [id number], [place] [address]- 9536 August, [facility] [address] [id number], [place] [address]- 2546 Mar, [facility] [address] [facility] [id number], [place] [address] 2546 Jan, [facility] [address] [facility] [id number], [place] [address]- 8411 Oct, IMMUNIZATIONS No Known Immunizations SOCIAL HISTORY Never Assessed REASON FOR VISIT EMR-[facility] PLAN OF CARE VITAL SIGNS MEDICATIONS Unknown [...] arm and artery repair Hospitalization History [facility] for suicidal idiations. surgery on left arm.
--- OUTSIDE RECORDS SUMMARY | 2018-08-19 22:05 | XMS REPORT ---
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 [facility] [place] [facility] [address] [id number] [place] [address]- 4563 Mar, [facility] [place] [facility] [address] [id number] [place] [address]- 2851 Mar, [facility] [place] [facility] [address] [id number] [place] [address]- 4816 Mar, [facility] [place] [facility] [address] [id number] [place] [address]- 8236 Mar, [facility] [place] [facility] [address] [id number] [place] [address]- 4416 Mar, [facility] [place] [facility] [address] [id number] [place] [address]- 7608 Mar, [facility] [place] [facility] [address] [id number] [place] [address]- 6116 Mar, [facility] [place] [facility] [address] [id number] [place] [address]- 2233 Mar, [facility] [address] [id number] [place] [address]- 2796 Feb, [facility] [place] [facility] [address] [id number] [place] [address]- 9588 Feb, [facility] [place] [facility] [address] [facility] [place] [id number] [place] [address]- 9672 Feb, [facility] [place] [facility] [address] [id number] [place] [address]- 9643 Feb, [facility] [place] [facility] [address] [id number] [place] [address]- 7464 Jan, [facility] [place] [facility] [address] [id number] [place] [address]- 2586 Jan, [facility] [place] [facility] [address] [id number] [place] [address]- 9296 Jan, [facility] [place] [facility] [address] [id number] [place] [address]- 3414 Jan, [facility] [place] [facility] [address] [id number] [place] [address]- 5644 18 Dec, 2011 [facility] [place] [facility] [address] [id number] [place] [address]- 4816 Dec, [facility] [place] [facility] [address] [id number] [place] [address]- 7663 Dec, [facility] [place] [facility] [address] [id number] [place] [address]- 8118 Nov, [facility] [place] [facility] [address] [id number] [place] [address]- 2543 Nov, [facility] [place] [facility] [address] [id number] [place] [address]- 3864 Nov, [facility] [place] [facility] [address] [id number] [place] [address]- 2918 Nov, [facility] [place] [facility] [address] [id number] [place] [address]- 1151 Oct, [facility] [place] [facility] [address] [id number] [place] [address]- 0254 Oct, [facility] [place] [facility] [address] [id number] [place] [address]- 4490 Oct, [facility] [place] [facility] [address] [id number] [place] [address]- 8783 Oct, [facility] [place] [facility] [address] [id number] [place] [address]- 9119 Oct, [facility] [place] [facility] [address] [id number] [place] [address]- 6373 Oct, [facility] [place] [facility] [address] [id number] [place] [address]- 5762 Oct, [facility] [place] [facility] [address] [id number] [place] [address]- 9920 Oct, [facility] [place] [facility] [address] [id number] [place] [address]- 9376 Oct, [facility] [address] [id number] [place] [address]- 8702 Sep, [facility] [place] [facility] [address] [id number] [place] [address]- 6937 Sep, [facility] [address] [id number] [place] [address]- 0333 August, [facility] [place] [facility] [address] [id number] [place] [address]- 3295 August, [facility] [address] [id number] [place] [address]- 5126 August, [facility] [address] [id number] [place] [address]- 0290 August, [facility] [address] [id number] [place] [address]- 8559 August, [facility] [address] [id number] [place] [address]- 8636 August, [facility] [address] [id number] [place] [address]- 5406 30 Jul, 2011 [facility] [address] [id number] [place] [address]- 5919 Jul, [facility] [address] [id number] [place] [address]- 9866 Jul, [facility] [place] [facility] [address] [id number] [place] [address]- 6604 24 Jul, 2011 [facility] [place] [facility] [address] [id number] [place] [address]- 6007 Jul, [facility] [place] [facility] [address] [id number] [place] [address]- 7405 16 Jul, 2011 [facility] [place] [facility] [address] [id number] [place] [address]- 8998 Jul, [facility] [place] [facility] [address] [id number] [place] [address]- 9441 Jul, [facility] [place] [facility] [address] [id number] [place] [address]- 9993 Jun, [facility] [place] [facility] [address] [id number] [place] [address]- 5396 Jun, [facility] [place] [facility] [address] [id number] [place] [address]- 3838 Jun, [facility] [place] [facility] [address] [id number] [place] [address]- 9402 May, [facility] [place] [facility] [address] [id number] [place] [address]- 7550 May, [facility] [place] [facility] [address] [id number] [place] [address]- 7925 May, [facility] [place] [facility] [address] [id number] [place] [address]- 7108 May, [facility] [place] [facility] [address] [id number] [place] [address]- 2139 May, [facility] [place] [facility] [address] [id number] [place] [address]- 3740 Apr, [facility] [place] [facility] [address] [id number] [place] [address]- 2048 Apr, [facility] [place] [facility] [address] [id number] [place] [address]- 8516 Apr, [facility] [place] [facility] [address] [id number] [place] [address]- 5197 Apr, [facility] [place] [facility] [address] [id number] [place] [address]- 4126 Mar, [facility] [place] [facility] [address] [id number] [place] [address]- 0442 Mar, [facility] [place] [facility] [address] [id number], [place] [address]- 4411 14 Mar, 2011 [facility] [place] [facility] [address] [id number] [place] [address]- 9665 07 Mar, 2011 [facility] [place] [facility] [address] [id number] [place] [address]- 6504 30 Feb, 2011 [facility] [place] [facility] [address] [id number] [place] [address]- 2128 Feb, [facility] [place] [facility] [address] [id number] [place] [address]- 8630 Feb, [facility] [place] [facility] [address] [id number] [place] [address]- 7230 Feb, [facility] [place] [facility] [address] [id number] [place] [address]- 3173 Feb, [facility] [place] [facility] [address] [facility] [id number] [place] [address]- 0093 Feb, [facility] [place] [facility] [address] [id number] [place] [address]- 4898 Feb, [facility] [place] [facility] [address] [facility] [facility] [id number] [place] [address]- 7356 Jan, [facility] [place] [facility] [address] [facility] [place] [id number] [place] [address]- 5912 10 Jan, 2011 [facility] [place] [facility] [address] [id number], [place] [address]- 7572 16 Dec, 2010 [facility] [place] [facility] [address] [id number], [place] [address]- 0614 Nov, [facility] [place] [facility] [address] [id number] [place] [address]- 6542 15 May, 2010 [facility] [place] [facility] [address] [id number] [place] [address]- 2629 14 Apr, 2010 [facility] [place] [facility] [address] [facility] [id number] [place] [address]- 0006 Feb, [facility] [place] [facility] [address] [facility] [id number] [place] [address]- 2546 Jan, [facility] [address] [facility] [id number], [place] [address]- 0636 August, [facility] [address] [id number], [place] [address]- 2546 Mar, [facility] [address] [facility] [place] [id number], [place] [address] 2546 Jan, [facility] [address] [facility] [id number], [place] [address]- 6093 Oct, IMMUNIZATIONS No Known Immunizations SOCIAL HISTORY Never Assessed REASON [place] [place] VITAL SIGNS MEDICATIONS Unknown [...]
--- OUTSIDE RECORDS SUMMARY | 2018-08-19 22:05 | XMS REPORT ---
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 9651 Mar, [facility] [place] [facility] [address] [id number] [place] [address]- 2555 Mar, [facility] [place] [facility] [address] [id number] [place] [address]- 9206 Mar, [facility] [place] [facility] [address] [id number] [place] [address]- 4326 Mar, [facility] [place] [facility] [address] [id number] [place] [address]- 6516 Mar, [facility] [place] [facility] [address] [id number] [place] [address]- 2622 Mar, [facility] [place] [facility] [address] [id number] [place] [address]- 4664 Mar, [facility] [place] [facility] [address] [id number] [place] [address]- 9264 Mar, [facility] [address] [id number] [place] [address]- 3299 Feb, [facility] [place] [facility] [address] [id number] [place] [address]- 0867 Feb, [facility] [place] [facility] [address] [facility] [id number] [place] [address]- 3402 Feb, [facility] [place] [facility] [address] [id number] [place] [address]- 1194 Feb, [facility] [place] [facility] [address] [id number] [place] [address]- 3258 Jan, [facility] [place] [facility] [address] [id number] [place] [address]- 6919 Jan, [facility] [place] [facility] [address] [id number] [place] [address]- 0560 Jan, [facility] [place] [facility] [address] [id number] [place] [address]- 2502 Jan, [facility] [place] [facility] [address] [id number] [place] [address]- 9079 18 Dec, 2011 [facility] [place] [facility] [address] [id number] [place] [address]- 4816 Dec, [facility] [place] [facility] [address] [id number] [place] [address]- 5053 Dec, [facility] [place] [facility] [address] [id number] [place] [address]- 6332 Nov, [facility] [place] [facility] [address] [id number] [place] [address]- 4622 Nov, [facility] [place] [facility] [address] [id number] [place] [address]- 9271 Nov, [facility] [place] [facility] [address] [id number] [place] [address]- 6230 Nov, [facility] [place] [facility] [address] [id number] [place] [address]- 1781 Oct, [facility] [place] [facility] [address] [id number] [place] [address]- 1320 Oct, [facility] [place] [facility] [address] [id number] [place] [address]- 9866 Oct, [facility] [place] [facility] [address] [id number] [place] [address]- 4072 Oct, [facility] [place] [facility] [address] [id number] [place] [address]- 3503 Oct, [facility] [place] [facility] [address] [id number] [place] [address]- 9713 Oct, [facility] [place] [facility] [address] [id number] [place] [address]- 1304 Oct, [facility] [place] [facility] [address] [id number] [place] [address]- 4157 Oct, [facility] [place] [facility] [address] [id number] [place] [address]- 9702 Oct, [facility] [address] [id number] [place] [address]- 5134 Sep, [facility] [place] [facility] [address] [id number] [place] [address]- 3896 Sep, [facility] [address] [id number] [place] [address]- 9717 August, [facility] [place] [facility] [address] [id number] [place] [address]- 9312 August, [facility] [address] [id number] [place] [address]- 2826 August, [facility] [address] [id number] [place] [address]- 0278 August, [facility] [address] [id number] [place] [address]- 9428 August, [facility] [address] [id number] [place] [address]- 1715 August, [facility] [address] [id number] [place] [address]- 8672 30 Jul, 2011 [facility] [address] [id number] [place] [address]- 8241 Jul, [facility] [address] [id number] [place] [address]- 1391 Jul, [facility] [place] [facility] [address] [id number] [place] [address]- 8742 24 Jul, 2011 [facility] [place] [facility] [address] [id number] [place] [address]- 8982 Jul, [facility] [place] [facility] [address] [id number] [place] [address]- 4169 16 Jul, 2011 [facility] [place] [facility] [address] [id number] [place] [address]- 9550 Jul, [facility] [place] [facility] [address] [id number] [place] [address]- 8335 Jul, [facility] [place] [facility] [address] [id number] [place] [address]- 2179 Jun, [facility] [place] [facility] [address] [id number] [place] [address]- 4656 Jun, [facility] [place] [facility] [address] [id number] [place] [address]- 5218 Jun, [facility] [place] [facility] [address] [id number] [place] [address]- 8121 May, [facility] [place] [facility] [address] [id number] [place] [address]- 0662 May, [facility] [place] [facility] [address] [id number] [place] [address]- 2120 May, [facility] [place] [facility] [address] [id number] [place] [address]- 8616 May, [facility] [place] [facility] [address] [id number] [place] [address]- 6353 May, [facility] [place] [facility] [address] [id number] [place] [address]- 3155 Apr, [facility] [place] [facility] [address] [id number] [place] [address]- 5739 Apr, [facility] [place] [facility] [address] [id number] [place] [address]- 6215 Apr, [facility] [place] [facility] [address] [id number] [place] [address]- 2009 Apr, [facility] [place] [facility] [address] [id number] [place] [address]- 0966 Mar, [facility] [place] [facility] [address] [id number] [place] [address]- 8958 Mar, [facility] [place] [facility] [address] [id number], [place] [address]- 4297 14 Mar, 2011 [facility] [place] [facility] [address] [id number] [place] [address]- 8914 07 Mar, 2011 [facility] [place] [facility] [address] [id number] [place] [address]- 2516 30 Feb, 2011 [facility] [place] [facility] [address] [id number] [place] [address]- 1051 Feb, [facility] [place] [facility] [address] [id number] [place] [address]- 6803 Feb, [facility] [place] [facility] [address] [id number] [place] [address]- 9101 Feb, [facility] [place] [facility] [address] [id number] [place] [address]- 2616 Feb, [facility] [place] [facility] [address] [facility] [id number] [place] [address]- 4350 Feb, [facility] [place] [facility] [address] [id number] [place] [address]- 7399 Feb, [facility] [place] [facility] [address] [facility] [id number] [place] [address]- 2494 Jan, [facility] [place] [facility] [address] [facility] [id number] [place] [address]- 1171 10 Jan, 2011 [facility] [place] [facility] [address] [id number], [place] [address]- 7194 16 Dec, 2010 [facility] [place] [facility] [address] [id number], [place] [address]- 4062 Nov, [facility] [place] [facility] [address] [id number] [place] [address]- 1301 15 May, 2010 [facility] [place] [facility] [address] [id number] [place] [address]- 6967 14 Apr, 2010 [facility] [place] [facility] [address] [facility] [id number] [place] [address]- 2207 Feb, [facility] [place] [facility] [address] [facility] [id number] [place] [address]- 2546 Jan, [facility] [address] [facility] [id number], [place] [address]- 8976 August, [facility] [address] [id number], [place] [address]- 2546 Mar, [facility] [address] [facility] [id number], [place] [address] 2546 Jan, [facility] [address] [facility] [id number], [place] [address]- 9308 Oct, IMMUNIZATIONS No Known Immunizations SOCIAL HISTORY Never Assessed REASON FOR VISIT EMR-[facility] PLAN OF CARE VITAL SIGNS MEDICATIONS Unknown [...]
--- OUTSIDE RECORDS SUMMARY | 2018-08-19 22:06 | XMS REPORT ---
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 [id number] [place] [address]- 2210 Mar, [facility] [place] [facility] [address] [id number] [place] [address]- 1398 Mar, [facility] [place] [facility] [address] [id number] [place] [address]- 2926 Mar, [facility] [place] [facility] [address] [id number] [place] [address]- 9586 Mar, [facility] [place] [facility] [address] [id number] [place] [address]- 4880 Mar, [facility] [place] [facility] [address] [id number] [place] [address]- 5783 Mar, [facility] [place] [facility] [address] [id number] [place] [address]- 0786 Mar, [facility] [place] [facility] [address] [id number] [place] [address]- 8006 Mar, [facility] [address] [id number] [place] [address]- 8153 Feb, [facility] [place] [facility] [address] [id number] [place] [address]- 1221 Feb, [facility] [place] [facility] [address] [facility] [id number] [place] [address]- 9328 Feb, [facility] [place] [facility] [address] [id number] [place] [address]- 8126 Feb, [facility] [place] [facility] [address] [id number] [place] [address]- 2565 Jan, [facility] [place] [facility] [address] [id number] [place] [address]- 4245 Jan, [facility] [place] [facility] [address] [id number] [place] [address]- 2588 Jan, [facility] [place] [facility] [address] [id number] [place] [address]- 7553 Jan, [facility] [place] [facility] [address] [id number] [place] [address]- 0874 18 Dec, 2011 [facility] [place] [facility] [address] [id number] [place] [address]- 0136 Dec, [facility] [place] [facility] [address] [id number] [place] [address]- 9210 Dec, [facility] [place] [facility] [address] [id number] [place] [address]- 9519 Nov, [facility] [place] [facility] [address] [id number] [place] [address]- 1623 Nov, [facility] [place] [facility] [address] [id number] [place] [address]- 5887 Nov, [facility] [place] [facility] [address] [id number] [place] [address]- 4966 Nov, [facility] [place] [facility] [address] [id number] [place] [address]- 6852 Oct, [facility] [place] [facility] [address] [id number] [place] [address]- 1527 Oct, [facility] [place] [facility] [address] [id number] [place] [address]- 4553 Oct, [facility] [place] [facility] [address] [id number] [place] [address]- 1523 Oct, [facility] [place] [facility] [address] [id number] [place] [address]- 2614 Oct, [facility] [place] [facility] [address] [id number] [place] [address]- 4926 Oct, [facility] [place] [facility] [address] [id number] [place] [address]- 8250 Oct, [facility] [place] [facility] [address] [id number] [place] [address]- 3004 Oct, [facility] [place] [facility] [address] [id number] [place] [address]- 4328 Oct, [facility] [address] [id number] [place] [address]- 2582 Sep, [facility] [place] [facility] [address] [id number] [place] [address]- 6536 Sep, [facility] [address] [id number] [place] [address]- 0080 August, [facility] [place] [facility] [address] [id number] [place] [address]- 3815 August, [facility] [address] [id number] [place] [address]- 7995 August, [facility] [address] [id number] [place] [address]- 0638 August, [facility] [address] [id number] [place] [address]- 9531 August, [facility] [address] [id number] [place] [address]- 0797 August, [facility] [address] [id number] [place] [address]- 3295 30 Jul, 2011 [facility] [address] [id number] [place] [address]- 7225 Jul, [facility] [address] [id number] [place] [address]- 6311 Jul, [facility] [place] [facility] [address] [id number] [place] [address]- 5993 24 Jul, 2011 [facility] [place] [facility] [address] [id number] [place] [address]- 1976 Jul, [facility] [place] [facility] [address] [id number] [place] [address]- 3483 16 Jul, 2011 [facility] [place] [facility] [address] [id number] [place] [address]- 5979 Jul, [facility] [place] [facility] [address] [id number] [place] [address]- 4391 Jul, [facility] [place] [facility] [address] [id number] [place] [address]- 4699 Jun, [facility] [place] [facility] [address] [id number] [place] [address]- 9896 Jun, [facility] [place] [facility] [address] [id number] [place] [address]- 1358 Jun, [facility] [place] [facility] [address] [id number] [place] [address]- 6340 May, [facility] [place] [facility] [address] [id number] [place] [address]- 7161 May, [facility] [place] [facility] [address] [id number] [place] [address]- 4846 May, [facility] [place] [facility] [address] [id number] [place] [address]- 5370 May, [facility] [place] [facility] [address] [id number] [place] [address]- 1619 May, [facility] [place] [facility] [address] [id number] [place] [address]- 7375 Apr, [facility] [place] [facility] [address] [id number] [place] [address]- 4993 Apr, [facility] [place] [facility] [address] [id number] [place] [address]- 3000 Apr, [facility] [place] [facility] [address] [id number] [place] [address]- 3628 Apr, [facility] [place] [facility] [address] [id number] [place] [address]- 6706 Mar, [facility] [place] [facility] [address] [id number] [place] [address]- 2966 Mar, [facility] [place] [facility] [address] [id number], [place] [address]- 0172 14 Mar, 2011 [facility] [place] [facility] [address] [id number] [place] [address]- 2648 07 Mar, 2011 [facility] [place] [facility] [address] [id number] [place] [address]- 0320 30 Feb, 2011 [facility] [place] [facility] [address] [id number] [place] [address]- 2144 Feb, [facility] [place] [facility] [address] [id number] [place] [address]- 6313 Feb, [facility] [place] [facility] [address] [id number] [place] [address]- 9182 Feb, [facility] [place] [facility] [address] [id number] [place] [address]- 9151 Feb, [facility] [place] [facility] [address] [facility] [id number] [place] [address]- 3520 Feb, [facility] [place] [facility] [address] [id number] [place] [address]- 2737 Feb, [facility] [place] [facility] [address] [facility] [id number] [place] [address]- 0240 Jan, [facility] [place] [facility] [address] [facility] [id number] [place] [address]- 4863 10 Jan, 2011 [facility] [place] [facility] [address] [id number], [place] [address]- 9008 16 Dec, 2010 [facility] [place] [facility] [address] [id number], [place] [address]- 0185 Nov, [facility] [place] [facility] [address] [id number] [place] [address]- 4342 15 May, 2010 [facility] [place] [facility] [address] [id number] [place] [address]- 6443 14 Apr, 2010 [facility] [place] [facility] [address] [facility] [id number] [place] [address]- 5896 Feb, [facility] [place] [facility] [address] [facility] [id number] [place] [address]- 2546 Jan, [facility] [address] [facility] [id number], [place] [address]- 7766 August, [facility] [address] [id number], [place] [address]- 2546 Mar, [facility] [address] [facility] [id number], [place] [address] 2546 Jan, [facility] [address] [facility] [id number], [place] [address]- 6088 Oct, IMMUNIZATIONS No Known Immunizations SOCIAL HISTORY Never Assessed REASON FOR VISIT EMR[place] [place]ARE VITAL SIGNS MEDICATIONS Unknown [...] arm and artery repair Hospitalization History [facility] for suicidal idiations. surgery on left arm.
--- OUTSIDE RECORDS SUMMARY | 2018-08-19 22:07 | XMS REPORT ---
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 [address]- 2378 18 Dec, 2011 [facility] [place] [facility] [address] [id number] [place] [address]- 4686 17 Dec, 2011 [facility] [place] [facility] [address] [id number] [place] [address]- 6789 04 Dec, 2011 [facility] [place] [facility] [address] [id number] [place] [address]- 1816 Nov, [facility] [place] [facility] [address] [id number] [place] [address] 2548 Nov, [facility] [place] [facility] [address] [id number] [place] [address]- 4645 Nov, [facility] [place] [facility] [address] [id number] [place] [address]- 3837 Nov, [facility] [place] [facility] [address] [id number] [place] [address]- 6538 Oct, [facility] [place] [facility] [address] [id number] [place] [address]- 1191 Oct, [facility] [place] [facility] [address] [id number] [place] [address]- 9297 Oct, [facility] [place] [facility] [address] [id number] [place] [address]- 9960 Oct, [facility] [place] [facility] [address] [id number] [place] [address]- 2952 Oct, [facility] [place] [facility] [address] [id number] [place] [address]- 3107 Oct, [facility] [place] [facility] [address] [id number] [place] [address]- 9321 Oct, [facility] [place] [facility] [address] [id number] [place] [address]- 5302 Oct, [facility] [place] [facility] [address] [id number] [place] [address]- 7499 Oct, [facility] [place] [facility] [address] [id number] [place] [address]- 3539 Sep, [facility] [place] [facility] [address] [id number] [place] [address]- 9831 Sep, [facility] [place] [facility] [address] [id number] [place] [address]- 6552 August, [facility] [place] [facility] [address] [id number] [place] [address]- 9581 August, [facility] [place] [facility] [address] [id number] [place] [address]- 9034 August, [facility] [place] [facility] [address] [id number] [place] [address]- 3885 August, [facility] [address] [id number] [place] [address]- 2230 August, [facility] [place] [facility] [address] [id number] [place] [address]- 2086 August, [facility] [address] [id number] [place] [address]- 1124 Jul, [facility] [place] [facility] [address] [id number] [place] [address]- 8472 Jul, [facility] [address] [id number] [place] [address]- 2419 Jul, [facility] [place] [facility] [address] [id number] [place] [address]- 0921 Jul, [facility] [address] [id number] [place] [address]- 4253 Jul, [facility] [address] [id number] [place] [address]- 9654 Jul, [facility] [place] [facility] [address] [id number] [place] [address]- 4572 Jul, [facility] [address] [id number] [place] [address]- 4305 Jul, [facility] [place] [facility] [address] [id number] [place] [address]- 9936 Jun, [facility] [place] [facility] [address] [id number] [place] [address]- 5357 Jun, [facility] [place] [facility] [address] [id number] [place] [address] Jun, [facility] [place] [facility] [address] [id number] [place] [address]- 2833 May, [facility] [place] [facility] [address] [id number] [place] [address]- 7562 May, [facility] [address] [id number] [place] [address]- 8792 15 May, 2011 [facility] [place] [facility] [address] [id number] [place] [address]- 8896 May, [facility] [place] [facility] [address] [id number] [place] [address]- 2902 May, [facility] [place] [facility] [address] [id number] [place] [address]- 8529 Apr, [facility] [address] [id number] [place] [address]- 4630 Apr, [facility] [address] [id number] [place] [address]- 5614 Apr, [facility] [address] [id number] [place] [address]- 5487 Apr, [facility] [address] [id number] [place] [address]- 4370 Mar, [facility] [place] [facility] [address] [id number] [place] [address]- 9632 Mar, [facility] [place] [facility] [address] [id number] [place] [address]- 6571 14 Mar, 2011 [facility] [place] [facility] [address] [id number] [place] [address]- 0499 Mar, [facility] [place] [facility] [address] [id number], [place] [address]- 3477 30 Feb, 2011 [facility] [place] [facility] [address] [id number] [place] [address]- 6048 Feb, [facility] [place] [facility] [address] [id number] [place] [address]- 3998 15 Feb, 2011 [facility] [place] [facility] [address] [id number] [place] [address]- 6332 Feb, [facility] [place] [facility] [id number], [place] [address]- 6716 08 Feb, 2011 [facility] [id number], [place] [address]- 5483 Feb, [facility] [id number], [place] [address]- 3036 Feb, [facility] [id number], [place] [address]- 7886 Jan, [facility] [id number], [place] [address]- 3311 Jan, [facility] [id number] [place] [address]- 3677 Dec, [facility] [id number], [place] [address]- 4566 Nov, [facility] [id number] [place] [address]- 7959 15 May, 2010 [facility] [id number], [place] [address]- 3433 Apr, [facility] [id number], [place] [address]- 1552 Feb, [facility] [id number], [place] [address]- 8318 Jan, [facility] [id number], [place] [address]- 8730 August, [facility] [id number], [place] [address]- 1942 Mar, [facility] [id number], [place] [address]- 6895 Jan, [facility] [id number] [address] Oct, IMMUNIZATIONS No Known Immunizations SOCIAL HISTORY Never Assessed REASON FOR VISIT EMR[place] [place] CARE VITAL SIGNS MEDICATIONS Unknown [...]
--- OUTSIDE RECORDS SUMMARY | 2018-08-19 22:07 | XMS REPORT ---
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 [facility] [address] [id number] [place] [address]- 2012 Jan, [facility] [place] [facility] [address] [id number] [place] [address]- 1312 18 Dec, 2011 [facility] [place] [facility] [address] [id number] [place] [address]- 0456 17 Dec, 2011 [facility] [place] [facility] [address] [id number] [place] [address]- 0802 04 Dec, 2011 [facility] [place] [facility] [address] [id number] [place] [address]- 7636 Nov, [facility] [place] [facility] [address] [id number] [place] [address] 2549 Nov, [facility] [place] [facility] [address] [id number] [place] [address]- 9537 Nov, [facility] [place] [facility] [address] [id number] [place] [address]- 4167 Nov, [facility] [place] [facility] [address] [id number] [place] [address]- 4269 Oct, [facility] [place] [facility] [address] [id number] [place] [address]- 2990 Oct, [facility] [place] [facility] [address] [id number] [place] [address]- 2744 Oct, [facility] [place] [facility] [address] [id number] [place] [address]- 2030 Oct, [facility] [place] [facility] [address] [id number] [place] [address]- 6386 Oct, [facility] [place] [facility] [address] [id number] [place] [address]- 2146 Oct, [facility] [place] [facility] [address] [id number] [place] [address]- 0265 Oct, [facility] [place] [facility] [address] [id number] [place] [address]- 0717 Oct, [facility] [place] [facility] [address] [id number] [place] [address]- 5366 Oct, [facility] [place] [facility] [address] [id number] [place] [address]- 3654 Sep, [facility] [place] [facility] [address] [id number] [place] [address]- 2949 Sep, [facility] [place] [facility] [address] [id number] [place] [address]- 7982 August, [facility] [place] [facility] [address] [id number] [place] [address]- 0182 August, [facility] [place] [facility] [address] [id number] [place] [address]- 7912 August, [facility] [place] [facility] [address] [id number] [place] [address]- 9829 August, [facility] [address] [id number] [place] [address]- 0567 August, [facility] [place] [facility] [address] [id number] [place] [address]- 0236 August, [facility] [address] [id number] [place] [address]- 3080 Jul, [facility] [place] [facility] [address] [id number] [place] [address]- 8749 Jul, [facility] [address] [id number] [place] [address]- 2480 Jul, [facility] [place] [facility] [address] [id number] [place] [address]- 8966 Jul, [facility] [address] [id number] [place] [address]- 8810 Jul, [facility] [address] [id number] [place] [address]- 0571 Jul, [facility] [place] [facility] [address] [id number] [place] [address]- 7761 Jul, [facility] [address] [id number] [place] [address]- 6667 Jul, [facility] [place] [facility] [address] [id number] [place] [address]- 3039 Jun, [facility] [place] [facility] [address] [id number] [place] [address]- 3063 Jun, [facility] [place] [facility] [address] [id number] [place] [address]75 Jun, [facility] [place] [facility] [address] [id number] [place] [address]- 7053 May, [facility] [place] [facility] [address] [id number] [place] [address]- 6131 May, [facility] [address] [id number] [place] [address]- 9365 15 May, 2011 [facility] [place] [facility] [address] [id number] [place] [address]- 4836 May, [facility] [place] [facility] [address] [id number] [place] [address]- 9831 May, [facility] [place] [facility] [address] [id number] [place] [address]- 8402 Apr, [facility] [address] [id number] [place] [address]- 5393 Apr, [facility] [address] [id number] [place] [address]- 6325 Apr, [facility] [address] [id number] [place] [address]- 0666 Apr, [facility] [address] [id number] [place] [address]- 6469 Mar, [facility] [place] [facility] [address] [id number] [place] [address]- 0091 Mar, [facility] [place] [facility] [address] [id number] [place] [address]- 8932 14 Mar, 2011 [facility] [place] [facility] [address] [id number] [place] [address]- 0166 Mar, [facility] [place] [facility] [address] [id number] [address]- 2115 30 Feb, 2011 [facility] [place] [facility] [address] [id number] [place] [address]- 7335 Feb, [facility] [place] [facility] [address] [id number] [place] [address]- 0052 15 Feb, 2011 [facility] [place] [facility] [address] [id number] [place] [address]- 1084 Feb, [facility] [place] [facility] [id number] [address]- 1006 08 Feb, 2011 [facility] [id number] [address] Feb, [facility] [id number] [address]- 5526 Feb, [facility] [id number] [address]- 9105 Jan, [facility] [id number] [address]- 5011 Jan, [facility] [id number] [place] [address]- 6790 Dec, [facility] [id number] [address]- 3206 Nov, [facility] [id number] [place] [address] 1980[address]- 7200 15 May, 2010 [facility] [id number] [address]- 4550 Apr, [facility] [id number] [address]- 9593 Feb, [facility] [id number] [address]- 9911 Jan, [facility] [id number] [address]- 2537 August, [facility] [id number] [address]- 2512 Mar, [facility] [id number] [address]- 6175 Jan, [facility] [id number] [address] Oct, IMMUNIZATIONS No Known Immunizations SOCIAL HISTORY Never Assessed REASON FOR VISIT EMR-[facility] [place] PLAN OF CARE VITAL SIGNS MEDICATIONS Unknown [...] arm and artery repair Hospitalization History [facility] for suicidal idiations. surgery on left arm.
--- OUTSIDE RECORDS SUMMARY | 2018-08-19 22:08 | XMS REPORT ---
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 [facility] [place] [facility] [address] [id number] [place] [address]- 1696 17 Dec, 2011 [facility] [place] [facility] [address] [id number] [place] [address]- 1062 04 Dec, 2011 [facility] [place] [facility] [address] [id number] [place] [address]- 2556 Nov, [facility] [place] [facility] [address] [id number] [place] [address] 2541 Nov, [facility] [place] [facility] [address] [id number] [place] [address]- 4863 Nov, [facility] [place] [facility] [address] [id number] [place] [address]- 0439 Nov, [facility] [place] [facility] [address] [id number] [place] [address]- 6007 Oct, [facility] [place] [facility] [address] [id number] [place] [address]- 0824 Oct, [facility] [place] [facility] [address] [id number] [place] [address]- 3793 Oct, [facility] [place] [facility] [address] [id number] [place] [address]- 4204 Oct, [facility] [place] [facility] [address] [id number] [place] [address]- 8236 Oct, [facility] [place] [facility] [address] [id number] [place] [address]- 6228 Oct, [facility] [place] [facility] [address] [id number] [place] [address]- 5958 Oct, [facility] [place] [facility] [address] [id number] [place] [address]- 4882 Oct, [facility] [place] [facility] [address] [id number] [place] [address]- 9961 Oct, [facility] [place] [facility] [address] [id number] [place] [address]- 8371 Sep, [facility] [place] [facility] [address] [id number] [place] [address]- 3826 Sep, [facility] [place] [facility] [address] [id number] [place] [address]- 1645 August, [facility] [place] [facility] [address] [id number] [place] [address]- 6405 August, [facility] [place] [facility] [address] [id number] [place] [address]- 4950 August, [facility] [place] [facility] [address] [id number] [place] [address]- 8142 August, [facility] [address] [id number] [place] [address]- 5907 August, [facility] [place] [facility] [address] [id number] [place] [address]- 3146 August, [facility] [address] [id number] [place] [address]- 0746 Jul, [facility] [place] [facility] [address] [id number] [place] [address]- 4925 Jul, [facility] [address] [id number] [place] [address]- 2318 Jul, [facility] [place] [facility] [address] [id number] [place] [address]- 0786 Jul, [facility] [address] [id number] [place] [address]- 5217 Jul, [facility] [address] [id number] [place] [address]- 9386 Jul, [facility] [place] [facility] [address] [id number] [place] [address]- 6531 Jul, [facility] [address] [id number] [place] [address]- 3177 Jul, [facility] [place] [facility] [address] [id number] [place] [address]- 0973 Jun, [facility] [place] [facility] [address] [id number] [place] [address]- 8521 Jun, [facility] [place] [facility] [address] [id number] [place] [address] Jun, [facility] [place] [facility] [address] [id number] [place] [address]- 1123 May, [facility] [place] [facility] [address] [id number] [place] [address]- 3595 May, [facility] [address] [id number] [place] [address]- 3731 15 May, 2011 [facility] [place] [facility] [address] [id number] [place] [address]- 0296 May, [facility] [place] [facility] [address] [id number] [place] [address]- 3435 May, [facility] [place] [facility] [address] [id number] [place] [address]- 6402 Apr, [facility] [address] [id number] [place] [address]- 6663 Apr, [facility] [address] [id number] [place] [address]- 7237 Apr, [facility] [address] [id number] [place] [address]- 0593 Apr, [facility] [address] [id number] [place] [address]- 2708 Mar, [facility] [place] [facility] [address] [id number] [place] [address]- 8153 Mar, [facility] [place] [facility] [address] [id number] [place] [address]- 1059 14 Mar, 2011 [facility] [place] [facility] [address] [id number] [place] [address]- 4914 Mar, [facility] [place] [facility] [address] [id number] [place] [address]- 5120 30 Feb, 2011 [facility] [place] [facility] [address] [id number] [place] [address]- 8466 Feb, [facility] [place] [facility] [address] [id number] [place] [address]- 8985 15 Feb, 2011 [facility] [place] [facility] [address] [id number] [place] [address]- 6119 Feb, [facility] [place] [facility] [address] [address]- 2366 08 Feb, 2011 [facility] [id number] [address]- 3295 Feb, [facility] [address] [address]- 2966 Feb, [facility] [address] [address]- 7798 Jan, [facility] [address] [address]- 4259 Jan, [facility] [id number] [place] [address]- 3668 Dec, [facility] [address] [address]- 5736 Nov, [facility] [id number] [place] [address]- 9196 15 May, 2010 [facility] [address] [address]- 8990 Apr, [facility] [address] [address]- 3883 Feb, [facility] [address] [address]- 2055 Jan, [facility] [id number] [address]- 4300 August, [facility] [address] [address]- 8056 Mar, [facility] [address] [address]- 6840 Jan, [facility] [address] [address] [address]1 Oct, IMMUNIZATIONS No Known Immunizations SOCIAL HISTORY Never Assessed REASON FOR VISIT EMR-[facility] PLAN OF CARE VITAL SIGNS MEDICATIONS Unknown [...] arm and artery repair Hospitalization History [facility] for suicidal idiations. surgery on left arm.
--- OUTSIDE RECORDS SUMMARY | 2018-08-19 22:09 | XMS REPORT ---
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 [id number] [place] [address]- 8736 Apr, [facility] [place] [facility] [address] [id number] [place] [address]- 0376 Mar, [facility] [place] [facility] [address] [id number] [place] [address]- 7545 Mar, [facility] [place] [facility] [address] [id number] [place] [address]- 3414 Mar, [facility] [place] [facility] [address] [id number] [place] [address]- 9903 Mar, [facility] [place] [facility] [address] [id number] [place] [address]- 8616 Mar, [facility] [place] [facility] [address] [id number] [place] [address]- 9308 Mar, [facility] [place] [facility] [address] [id number] [place] [address]- 0162 Mar, [facility] [place] [facility] [address] [id number] [place] [address]- 8945 Mar, [facility] [place] [facility] [address] [id number] [place] [address]- 7456 Mar, [facility] [place] [facility] [address] [id number] [place] [address]- 4350 Mar, [facility] [place] [facility] [address] [id number] [place] [address]- 9390 Feb, [facility] [place] [facility] [address] [id number] [place] [address]- 4032 Feb, [facility] [place] [facility] [address] [id number] [place] [address]- 8894 Feb, [facility] [place] [facility] [address] [id number] [place] [address] 2545 Feb, [facility] [place] [facility] [address] [id number] [place] [address]- 0257 Jan, [facility] [place] [facility] [address] [id number] [place] [address] 2546 Jan, [facility] [place] [facility] [address] [id number] [place] [address] 2546 Jan, [facility] [place] [facility] [address] [id number] [place] [address] 2544 Jan, [facility] [place] [facility] [address] [id number] [place] [address]- 8354 Dec, [facility] [place] [facility] [address] [id number] [place] [address]- 3126 Dec, [facility] [place] [facility] [address] [id number] [place] [address]- 2202 Dec, [facility] [place] [facility] [address] [id number] [place] [address]- 3770 Nov, [facility] [place] [facility] [address] [id number] [place] [address]- 2191 Nov, [facility] [place] [facility] [address] [id number] [place] [address]- 2450 Nov, [facility] [place] [facility] [address] [id number] [place] [address]- 1516 Nov, [facility] [place] [facility] [address] [id number] [place] [address]- 0534 Oct, [facility] [place] [facility] [address] [id number] [place] [address]- 3945 Oct, [facility] [place] [facility] [address] [id number] [place] [address]- 2546 Oct, [facility] [place] [facility] [address] [id number] [place] [address]- 3076 Oct, [facility] [place] [facility] [address] [id number] [place] [address]- 2979 Oct, [facility] [place] [facility] [address] [id number] [place] [address]- 6003 Oct, [facility] [place] [facility] [address] [id number] [place] [address]- 8395 Oct, [facility] [place] [facility] [address] [id number] [place] [address]- 2433 Oct, [facility] [place] [facility] [address] [id number] [place] [address]- 5603 Oct, [facility] [place] [facility] [address] [id number] [place] [address]- 5217 Sep, [facility] [place] [facility] [address] [id number] [place] [address]- 4640 Sep, [facility] [place] [facility] [address] [id number] [place] [address]- 7734 August, [facility] [place] [facility] [address] [id number] [place] [address]- 4532 August, [facility] [place] [facility] [address] [id number] [place] [address]- 7717 August, [facility] [place] [facility] [address] [id number] [place] [address]- 8885 August, [facility] [place] [facility] [address] [id number] [place] [address]- 9480 August, [facility] [place] [facility] [address] [id number] [place] [address]- 4771 August, [facility] [place] [facility] [address] [id number] [place] [address]- 9069 Jul, [facility] [place] [facility] [address] [id number] [place] [address]- 6765 Jul, [facility] [place] [facility] [address] [id number] [place] [address]- 4068 24 Jul, 2011 [facility] [address] [id number] [place] [address]- 3801 24 Jul, 2011 [facility] [place] [facility] [address] [id number] [place] [address]- 6912 23 Jul, 2011 [facility] [address] [id number] [place] [address]- 7516 16 Jul, 2011 [facility] [place] [facility] [address] [id number] [place] [address]- 2308 09 Jul, 2011 [facility] [address] [id number] [place] [address]- 5041 Jul, [facility] [address] [id number] [place] [address]- 6526 Jun, [facility] [address] [id number] [place] [address]- 3531 Jun, [facility] [address] [id number] [place] [address]- 6938 Jun, [facility] [address] [id number] [place] [address]- 5322 May, [facility] [address] [id number] [place] [address]- 1973 May, [facility] [place] [facility] [address] [id number] [place] [address]- 6586 15 May, 2011 [facility] [place] [facility] [address] [id number] [place] [address]- 8061 08 May, 2011 [facility] [place] [facility] [address] [id number] [place] [address]- 3316 May, [facility] [place] [facility] [address] [id number] [place] [address] Apr, [facility] [place] [facility] [address] [id number] [place] [address]- 4824 Apr, [facility] [place] [facility] [address] [id number] [place] [address]- 0972 Apr, [facility] [place] [facility] [address] [id number] [place] [address]- 3212 Apr, [facility] [place] [facility] [address] [id number] [place] [address]- 4842 Mar, [facility] [place] [facility] [address] [id number] [place] [address]- 8535 Mar, [facility] [place] [facility] [address] [id number] [place] [address]- 6769 Mar, [facility] [place] [facility] [address] [id number] [place] [address]- 0976 Mar, [facility] [place] [facility] [address] [id number] [place] [address]- 6918 Feb, [facility] [place] [facility] [address] [id number] [place] [address]- 1461 Feb, [facility] [place] [facility] [address] [id number] [place] [address]- 0563 Feb, [facility] [place] [facility] [address] [id number] [place] [address]- 5548 Feb, [facility] [place] [facility] [address] [id number] [place] [address]- 9149 Feb, [facility] [place] [facility] [address] [id number], [place] [address]- 9391 Feb, [facility] [place] [facility] [address] [id number] [place] [address]- 8628 Feb, [facility] [place] [facility] [address] [id number] [place] [address]- 4706 Jan, [facility] [place] [facility] [address] [id number], [place] [address]- 2016 Jan, [facility] [place] [facility] [address] [id number], [place] [address]- 2546 16 Dec, 2010 [facility] [address], [place] [address]- 2546 Nov, [facility] [address], [place] [address]- 2546 15 May, 2010 [facility] [address], [place] [address]- 2546 Apr, [facility] [id number] [place] [address]- 2546 Feb, [facility] [id number] [place] [address]- 2546 Jan, [facility] [id number] [place] [address]- 2546 August, [facility] [address], [place] [address]- 2546 Mar, [facility] [address], [place] [address]- 2546 Jan, [facility] [address], [place] [address]- 2546 Oct, IMMUNIZATIONS No Known Immunizations SOCIAL HISTORY Never Assessed REASON FOR VISIT EMR-[facility] [place] PLAN OF CARE VITAL SIGNS MEDICATIONS Unknown [...]
[2018-08-19 22:15] LABS: BILIRUBIN,URINE NEGATIVE (NEGATIVE); CLARITY,URINE CLEAR; COLOR,URINE YELLOW; GLUCOSE, URINE (UA) NEGATIVE (NEGATIVE); KETONES,URINE NEGATIVE (NEGATIVE); LEUKOCYTE ESTERASE ,URINE NEGATIVE (NEGATIVE); NITRITE,URINE NEGATIVE (NEGATIVE); PH,URINE 6 (5-9); PROTEIN,URINE NEGATIVE (NEGATIVE); UROBILINOGEN,URINE NORMAL (NORMAL)
[2018-08-19] MEDS ORDERED: diphenhydrAMINE 50 MG/ML INJ (BENADRYL) IM ONE (22:15)
[2018-08-19 22:26] LABS: WBC,URINE RARE /HPF
[2018-08-19 22:27] LABS: BACTERIA,URINE TRACE /HPF; SQUAMOUS EPITHELIAL CELL,UR 0-2 /HPF
--- NOTE | 2018-08-19 22:35 | ED GU-Female ---
General Chief Complaint: - Urinary Stated Complaint: UTI Nursing Triage Note: complaint of prob UTI and anxiety Nursing Sepsis Screen: No Definite Risk Source: patient Exam Limitations: no limitations History of Present Illness Date Seen by Provider: Aug 19, 2018 Time Seen by Provider: 22:00 Initial Comments 43-year-old female who presents to the emergency room with complaints of burning and pain with urination. She reports that she also has anxiety and request a shot of Benadryl. She denies fevers, nausea, vomiting. Timing/Duration: week Allergies and Home Medications Allergies Coded Allergies: Penicillins (Verified Allergy, Unknown, 12/17/15) ketorolac (Verified Allergy, Unknown, 12/17/15) Uncoded Allergies: PCN (Allergy, Mild, 07/28/15) Home Medications Clonazepam 1 Mg Tablet, 1 MG PO BID, (Reported) Doxycycline Hyclate 100 Mg Capsule, 100 MG PO BID Prescribed by: REHANA MARQUEZ on 06/27/182043 Hydroxyzine Pamoate 50 Mg Capsule, 50 MG PO TID, (Reported) Ondansetron HCl 4 Mg Tab, 4 MG PO Q4H PRN for NAUSEA/VOMITING-1ST LINE Prescribed by: SINGH ALCANTARA on 05/10/18 1156 Tramadol Hcl 50 Mg Tablet, 50 MG PO TID, (Reported) Past Uodrxbb-Jddpnm-Kpigiz Hx Patient Social History Type Used: Cigarettes 2nd Hand Smoke Exposure: Yes Recent Foreign Travel: No Contact w/Someone Who Travel: No Recent Infectious Disease Expo: No Recent Hopitalizations: No Immunizations Up To Date Tetanus Booster (TDap): Less than 5yrs Seasonal Allergies Seasonal Allergies: No Past Medical History Surgeries: Yes Gallbladder, Tubal Ligation Respiratory: No Cardiac: No Neurological: Yes (MIRGRAIN HEADACHES) Headaches /Migraines 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 Disorders: No FOUNDER History: Tubal Ligation Sexually Transmitted Disease: No Gastrointestinal: Yes (PEPTIC ULCER 2003) Musculoskeletal: Yes (SCOLIOSIS) Endocrine: No Cancer: No Psychosocial: Yes (BI-POLAR, PREVIOUS SUICIDE ATTEMPT) Bipolar, Schizophrenia Integumentary: No Blood Disorders: No Adverse Reaction/Blood Tranf: No Family Medical History No Pertinent Family Hx Physical Exam Vital Signs Vital Signs - First Documented 08/19/18 22:21 Temp 98.0 Pulse 80 Resp 18 B/P (MAP) 109/55 (73) Pulse Ox 98 O2 Delivery Room Air Capillary Refill : Less Than 3 Seconds Height, Weight, BMI Height: 5'6.00" Weight: 140lbs. 4.0oz. 63.714234pf; 21.79 BMI Method:Estimated Progress/Results/Core Measures Suspected Sepsis Recent Fever Within 48 Hours: No Infection Criteria Present: None New/Unexplained Altered Menta: No Sepsis Screen: No Definite Risk SIRS Temperature:98.0 Pulse: 80 Respiratory Rate: 18 Blood Pressure 109 /55 Mean: 73 Results/Orders Lab Results Laboratory Tests Test 08/19/18 22:05 Range/Units Urine Color YELLOW Urine Clarity CLEAR Urine pH 6 5-9 Urine Specific [place] 1.010 L 1.016-1.022 Urine Protein NEGATIVE NEGATIVE Urine Glucose (UA) NEGATIVE NEGATIVE Urine Ketones NEGATIVE NEGATIVE Urine Nitrite NEGATIVE NEGATIVE Urine Bilirubin NEGATIVE NEGATIVE Urine Urobilinogen NORMAL NORMAL MG/DL Urine Leukocyte Esterase NEGATIVE NEGATIVE Urine RBC (Auto) NEGATIVE NEGATIVE Urine RBC NONE /HPF Urine WBC RARE /HPF Urine Squamous Epithelial Cells 0-2 /HPF Urine Crystals NONE /LPF Urine Bacteria TRACE /HPF Urine Casts NONE /LPF Urine Mucus NEGATIVE /LPF Urine Culture Indicated NO My Orders Orders - SINGH ALCANTARA Ua Culture If Indicated (08/19/18 22:01) Diphenhydramine Injection (Benadryl Inje (08/19/18 22:15) Medications Given in ED Current Medications Medications Dose Ordered Sig/Aj Route Start Time Stop Time Status Last Admin Dose Admin Diphenhydramine HCl 50 mg ONCE ONCE IM 08/19/18 22:15 08/19/18 22:16 DC 08/19/18 22:20 50 MG Vital Signs/I&O 08/19/18 22:21 Temp 98.0 Pulse 80 Resp 18 B/P (MAP) 109/55 (73) Pulse Ox 98 O2 Delivery Room Air Capillary Refill : Less Than 3 Seconds Blood Pressure Mean: 73 Departure Impression Primary Impression: Dysuria Disposition: 01 HOME, SELF-CARE Condition: Stable/Unchanged Departure-Patient Inst. Decision time for Depature: 22:34 Referrals: SIDDHARTH ZARAGOZA DO (PCP) Primary Care Physician YEIMI BANKS APRN (Family) Primary Care Physician Patient Instructions: Dysuria, Adult (DC) Add. Discharge Instructions: You may use ibuprofen and Tylenol as directed by the bottle for pain relief. You might also try cxjr-djz-vbfqodd Azo or similar products for pain with urination. Follow-up with Nabil Pearson at [facility] by calling tomorrow morning for an appointment time. Return back to the emergency room for worsening symptoms or concerns as needed. All discharge instructions reviewed with patient and/or family. Voiced understanding. SINGH ALCANTARA Aug 19, 2018 22:35
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
[2018-08-19 22:40] VITALS: BP 109/60
== END 2018-08-19 22:40 | disposition home or self-care (01) ==
LOC: EDUNIT# 21:56 → ER 21:58
DX: R30.0 Dysuria (principal); G43.909 Migraine, unspecified, not intractable, without status migrainosus; M41.9 Scoliosis, unspecified; F31.9 Bipolar disorder, unspecified; F20.9 Schizophrenia, unspecified; Z91.5 Personal history of self-harm; Z87.19 Personal history of other diseases of the digestive system; Z88.0 Allergy status to penicillin; Z88.4 Allergy status to anesthetic agent; Z77.22 Contact with and (suspected) exposure to environmental tobacco smoke (acute) (chronic); Z98.51 Tubal ligation status
CPT/HCPCS: 81000; 99284

== ENCOUNTER 2018-12-11 19:02 | Emergency (ER) | payer MEDICAID ==
[2018-12-11] MEDS ORDERED: LACTATED RINGERS 1,000 ML IV ONE (19:06)
--- NOTE | 2018-12-11 19:19 | NUR ---
Pt arrives per cc ems to family room d/t ED bed availbility with c/o "micro-organisms on skin." Pt noted to be covered with mylar blanket with no clothing underneath. Pt reports she wants to leave with her s/o. Pt given scrubs prior to departure. Pt amb out of ED care w/o difficulty. a&ox4.
== END 2018-12-11 19:19 | disposition left against medical advice (07) ==
LOC: EDUNIT# 19:02 → ER 19:04
DX: L98.9 Disorder of the skin and subcutaneous tissue, unspecified (principal)

== ENCOUNTER 2019-01-28 08:22 | Emergency (ER) | payer MEDICAID ==
[~2019-01-28] VITALS: Ht 170 cm; Wt 68.0 kg
[2019-01-28 09:47] LABS: BASOPHILS % (AUTO) 0 % (0-10); EOSINOPHILS # (AUTO) 0.1 10^3/uL (0.0-0.3); EOSINOPHILS % (AUTO) 1 % (0-10); HEMATOCRIT 35 % (35-52); HEMOGLOBIN 11.5 G/DL (11.5-16.0); LYMPHOCYTES # (AUTO) 2.7 X 10^3 (1.0-4.0); LYMPHOCYTES % (AUTO) 29 % (12-44); MEAN CORPUSCULAR HEMOGLOBIN 29 PG (25-34); MEAN CORPUSCULAR HGB CONC 33 G/DL (32-36); MEAN CORPUSCULAR VOLUME 89 FL (80-99); MEAN PLATELET VOLUME 9.2 FL (7.4-10.4); MONOCYTES # (AUTO) 0.8 X 10^3 (0.0-1.0); MONOCYTES % (AUTO) 9 % (0-12); NEUTROPHILS # (AUTO) 5.9 X 10^3 (1.8-7.8); NEUTROPHILS % (AUTO) 61 % (42-75); PLATELET COUNT 514 10^3/uL (130-400); RED CELL DISTRIBUTION WIDTH 13.4 % (10.0-14.5); WHITE BLOOD COUNT 9.6 10^3/uL (4.3-11.0)
[2019-01-28] MEDS ORDERED: HYDR-700 (09:50)
[2019-01-28] MEDS ORDERED: QUET100T PO (09:50)
[2019-01-28 09:55] LABS: BILIRUBIN,URINE NEGATIVE (NEGATIVE); CLARITY,URINE CLEAR; COLOR,URINE YELLOW; GLUCOSE, URINE (UA) NEGATIVE (NEGATIVE); KETONES,URINE 1+ (NEGATIVE); LEUKOCYTE ESTERASE ,URINE 1+ (NEGATIVE); NITRITE,URINE NEGATIVE (NEGATIVE); PH,URINE 6 (5-9); PROTEIN,URINE 2+ (NEGATIVE); UROBILINOGEN,URINE 1 MG/DL (NORMAL)
[2019-01-28 10:05] LABS: ALANINE AMINOTRANSFERASE 34 U/L (0-55); ALBUMIN 4.5 GM/DL (3.2-4.5); ALKALINE PHOSPHATASE 99 U/L (40-136); BILIRUBIN,TOTAL 0.7 MG/DL (0.1-1.0); BUN/CREATININE RATIO 20; CALCIUM 9.4 MG/DL (8.5-10.1); CARBON DIOXIDE 23 MMOL/L (21-32); CHLORIDE 103 MMOL/L (98-107); CREATININE SERUM 0.75 MG/DL (0.60-1.30); GFR ESTIMATED > 60; GLUCOSE 91 MG/DL (70-105); POTASSIUM 3.3 MMOL/L (3.6-5.0); SALICYLATE < 5.0 MG/DL (5.0-20.0); SODIUM 139 MMOL/L (135-145); TOTAL PROTEIN 7.4 GM/DL (6.4-8.2)
[2019-01-28 10:06] LABS: AMORPHOUS SEDIMENT,UR RARE AMOR URATES /LPF; BACTERIA,URINE NEGATIVE /HPF; RBC,URINE RARE /HPF; WBC,URINE 0-2 /HPF
[2019-01-28 10:06] LABS: ACETAMINOPHEN < 10 UG/ML (10-30)
[2019-01-28 10:09] LABS: AMPHETAMINE SCREEN, URINE POSITIVE (NEGATIVE); BARBITURATE SCREEN URINE NEGATIVE (NEGATIVE); BENZODIAZEPINES SCREEN URINE NEGATIVE (NEGATIVE); CANNABINOID SCREEN, URINE POSITIVE (NEGATIVE); COCAINE SCREEN URINE NEGATIVE (NEGATIVE); METHADONE STAT NEGATIVE (NEGATIVE); METHAMPHETAMINE SCREEN URINE S NEGATIVE (NEGATIVE); OPIATE SCREEN URINE NEGATIVE (NEGATIVE); OXYCODONE STAT NEGATIVE (NEGATIVE); PROPOXYPHENE STAT NEGATIVE (NEGATIVE); TRICYCLIC ANTIDEPRESSANTS SCRE NEGATIVE (NEGATIVE)
[2019-01-28] MEDS ORDERED: LACTATED RINGERS 1,000 ML IV ONE (10:17)
[2019-01-28] MEDS ORDERED: hydrOXYzine (VISTARIL/ATARAX) 25 MG capsule/tablet PO ONE (10:45)
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
[2019-01-28 10:59] VITALS: BP 142/96
== END 2019-01-28 10:58 | disposition home or self-care (01) ==
LOC: EDUNIT# 08:22 → ER 08:22
DX: F20.9 Schizophrenia, unspecified (principal); F22 Delusional disorders; F31.9 Bipolar disorder, unspecified; G43.909 Migraine, unspecified, not intractable, without status migrainosus; F17.210 Nicotine dependence, cigarettes, uncomplicated; Z98.51 Tubal ligation status; Z91.5 Personal history of self-harm; Z88.0 Allergy status to penicillin; Z88.6 Allergy status to analgesic agent
CPT/HCPCS: 36415; 51701; 80053; 80306; 80320; 80329; 81000; 84703; 85025; 93005; 93041

== ENCOUNTER 2019-02-19 04:13 | Emergency (ER) | payer MEDICAID ==
[~2019-02-19] VITALS: Ht 170 cm; Wt 68.0 kg
[~2019-02-19 04:13] MED LIST changes: +HYDR-700; +QUET100T PO
[2019-02-19 04:32] LABS: BASOPHILS % (AUTO) 0 % (0-10); EOSINOPHILS # (AUTO) 0.1 10^3/uL (0.0-0.3); EOSINOPHILS % (AUTO) 1 % (0-10); HEMATOCRIT 35 % (35-52); HEMOGLOBIN 11.6 G/DL (11.5-16.0); LYMPHOCYTES # (AUTO) 3.6 X 10^3 (1.0-4.0); LYMPHOCYTES % (AUTO) 31 % (12-44); MEAN CORPUSCULAR HEMOGLOBIN 29 PG (25-34); MEAN CORPUSCULAR HGB CONC 33 G/DL (32-36); MEAN CORPUSCULAR VOLUME 87 FL (80-99); MEAN PLATELET VOLUME 8.6 FL (7.4-10.4); MONOCYTES # (AUTO) 1.3 X 10^3 (0.0-1.0); MONOCYTES % (AUTO) 11 % (0-12); NEUTROPHILS # (AUTO) 6.6 X 10^3 (1.8-7.8); NEUTROPHILS % (AUTO) 57 % (42-75); PLATELET COUNT 569 10^3/uL (130-400); RED CELL DISTRIBUTION WIDTH 13.5 % (10.0-14.5); WHITE BLOOD COUNT 11.7 10^3/uL (4.3-11.0)
[2019-02-19] MEDS ORDERED: diphenhydrAMINE 50 MG/ML INJ (BENADRYL) ONE (04:34)
[2019-02-19] MEDS ORDERED: LORazepam INJ 2 MG/ML (ATIVAN) VIAL ONE (04:45)
[2019-02-19] MEDS ORDERED: diphenhydrAMINE 50 MG/ML INJ (BENADRYL) IVP ONE (04:45)
[2019-02-19] MEDS ORDERED: LORazepam INJ 2 MG/ML (ATIVAN) VIAL IVP ONE (04:45)
[2019-02-19 04:48] LABS: ALANINE AMINOTRANSFERASE 22 U/L (0-55); ALBUMIN 4.4 GM/DL (3.2-4.5); ALKALINE PHOSPHATASE 82 U/L (40-136); BILIRUBIN,TOTAL 0.7 MG/DL (0.1-1.0); BUN/CREATININE RATIO 30; CALCIUM 9.3 MG/DL (8.5-10.1); CARBON DIOXIDE 23 MMOL/L (21-32); CHLORIDE 103 MMOL/L (98-107); CREATINE KINASE 401 U/L (29-168); CREATININE SERUM 0.81 MG/DL (0.60-1.30); GFR ESTIMATED > 60; GLUCOSE 102 MG/DL (70-105); MAGNESIUM 1.8 MG/DL (1.6-2.4); POTASSIUM 3.5 MMOL/L (3.6-5.0); SODIUM 138 MMOL/L (135-145); TOTAL PROTEIN 6.7 GM/DL (6.4-8.2)
[2019-02-19] MEDS ORDERED: GABAPENTIN 300 MG (NEURONTIN) CAP PO ONE (05:00)
[2019-02-19] MEDS ORDERED: QUEtiapine 200 MG (SEROquel) TAB IMMEDIATE RELEASE PO ONE (05:00)
[2019-02-19] MEDS ORDERED: QUEtiapine 200 MG (SEROquel) TAB IMMEDIATE RELEASE ONE (05:01)
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
[2019-02-19] MEDS ORDERED: LACTATED RINGERS 1,000 ML IV ONE (05:17)
[2019-02-19 05:52] VITALS: BP 143/84
== END 2019-02-19 05:59 | disposition home or self-care (01) ==
LOC: EDUNIT# 04:13 → ER 04:15
DX: F28 Other psychotic disorder not due to a substance or known physiological condition (principal); F15.90 Other stimulant use, unspecified, uncomplicated; G43.909 Migraine, unspecified, not intractable, without status migrainosus; F31.9 Bipolar disorder, unspecified; F20.9 Schizophrenia, unspecified; F17.290 Nicotine dependence, other tobacco product, uncomplicated; Z88.0 Allergy status to penicillin; Z88.6 Allergy status to analgesic agent; Z91.5 Personal history of self-harm; Z98.51 Tubal ligation status
CPT/HCPCS: 36415; 80053; 80320; 82550; 83735; 84703; 85025; 96374; 96375; 99282

== ENCOUNTER 2019-02-27 06:23 | Emergency (ER) | payer MEDICAID ==
[~2019-02-27] VITALS: Ht 170 cm; Wt 63.4 kg
[~2019-02-27 06:23] MED LIST changes: -HYDR-700; +HYDR-700 PO
[2019-02-27] MEDS ORDERED: KETOROLAC 30 MG/ML VIAL IVP STA (06:36)
[2019-02-27] MEDS ORDERED: hydrOXYzine (VISTARIL/ATARAX) 25 MG capsule/tablet PO ONE (06:45)
[2019-02-27 06:54] LABS: BASOPHILS % (AUTO) 0 % (0-10); EOSINOPHILS # (AUTO) 0.1 10^3/uL (0.0-0.3); EOSINOPHILS % (AUTO) 1 % (0-10); HEMATOCRIT 38 % (35-52); HEMOGLOBIN 12.2 G/DL (11.5-16.0); LYMPHOCYTES # (AUTO) 3.1 X 10^3 (1.0-4.0); LYMPHOCYTES % (AUTO) 30 % (12-44); MEAN CORPUSCULAR HEMOGLOBIN 28 PG (25-34); MEAN CORPUSCULAR HGB CONC 32 G/DL (32-36); MEAN CORPUSCULAR VOLUME 88 FL (80-99); MEAN PLATELET VOLUME 8.7 FL (7.4-10.4); MONOCYTES # (AUTO) 0.6 X 10^3 (0.0-1.0); MONOCYTES % (AUTO) 5 % (0-12); NEUTROPHILS # (AUTO) 6.4 X 10^3 (1.8-7.8); NEUTROPHILS % (AUTO) 63 % (42-75); PLATELET COUNT 522 10^3/uL (130-400); RED CELL DISTRIBUTION WIDTH 14.2 % (10.0-14.5); WHITE BLOOD COUNT 10.1 10^3/uL (4.3-11.0)
--- NOTE | 2019-02-27 06:54 | ED Chest Pain ---
General Chief Complaint: Chest Pain Stated Complaint: CP Nursing Triage Note: Pt to [facility] via [facility] with c/o left sided chest pain that started approx 2 hrs ago. EMS reports giving 324 mg ASA and 2 NTG prior to arrival, pt reports no relief. Pt is also reporting neck pain at time of arrival. Nursing Sepsis Screen: No Definite Risk Source: patient Exam Limitations: no limitations History of Present Illness Date Seen by Provider: Feb 27, 2019 Time Seen by Provider: 06:30 Initial Comments Here with left-sided chest pain that started a couple hours ago that radiates to her neck and her back. She called EMS. They did give her 324 mg of ASA as well as 2 nitroglycerin without relief. She is also reporting being somewhat anxious. She does have a history of methamphetamine use and states the last use was yesterday or so. EMS reported essentially normal vital signs although slightly tachycardic. They did initiate normal saline bolus. No reported nausea, vomiting or diarrhea. Patient is asking for something for the pain. Does state that this has been coming and going for a little while but worse this morning. 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 OPERATOR: Yes Associated Symptoms: No abdominal pain, No back pain, No fever/chills, No nausea/vomiting, No shortness of breath, No weakness Allergies and Home Medications Allergies Coded Allergies: Penicillins (Verified Allergy, Unknown, 12/17/15) ketorolac (Verified Allergy, Unknown, 12/17/15) Uncoded Allergies: PCN (Allergy, Mild, 07/28/15) Patient Home Medication List Home Medication List Reviewed: Yes Review of Systems Review of Systems Constitutional: no symptoms reported EENTM: No Symptoms Reported Respiratory: Shortness of Air; Denies Wheezing Cardiovascular: Chest Pain; Denies Edema Gastrointestinal: Denies Nausea, Denies Vomiting Genitourinary: No Symptoms Reported Musculoskeletal: muscle pain, muscle twitching, neck pain Skin: no symptoms reported Psychiatric/Neurological: Anxiety; Denies Weakness Endocrine: No Symptoms Reported All Other Systems Reviewed Negative Unless Noted: Yes Past Salfqre-Lcwmfv-Bmtuzv Hx Past Med/Social Hx: Reviewed Nursing Past Med/Soc Hx Patient Social History Alcohol Use: Denies Use Number of Drinks Today: Alcohol Beverage of Choice: Wine Recreational Drug Use: Yes Drug of Choice: USED METH AND MARIJUANNA TODAY Smoking Status: Current Everyday Smoker Type Used: Cigars 2nd Hand Smoke Exposure: Yes Recent Foreign Travel: No Contact w/Someone Who Travel: No Recent Infectious Disease Expo: No Recent Hopitalizations: No Physical Abuse: No Sexual Abuse: No Mistreated: No Fear: No Immunizations Up To Date Tetanus Booster (TDap): Unknown PED Vaccines UTD: Yes Seasonal Allergies Seasonal Allergies: No Past Medical History Surgeries: Yes Gallbladder, Tubal Ligation Respiratory: No Cardiac: No Neurological: Yes (MIRGRAIN HEADACHES) Headaches /Migraines 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 Disorders: No 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 Sexually Transmitted Disease: No Genitourinary: No Gastrointestinal: Yes (PEPTIC ULCER 2002) Musculoskeletal: Yes (SCOLIOSIS) Endocrine: No HEENT: No Cancer: No Psychosocial: Yes (BI-POLAR, PREVIOUS SUICIDE ATTEMPT) Suicide Attempts, Bipolar, Schizophrenia Integumentary: No Blood Disorders: No Adverse Reaction/Blood Tranf: No Family Medical History Reviewed Nursing Family Hx No Pertinent Family Hx Physical Exam Vital Signs Vital Signs - First Documented 02/27/19 06:26 Temp 36.7 Pulse 90 Resp 20 B/P (MAP) 130/78 (95) Pulse Ox 99 O2 Delivery Room Air Capillary Refill : Less Than 3 Seconds Height, Weight, BMI Height: 5'6.00" Weight: 140lbs. 4.0oz. 63.003944rn; 21.00 BMI Method:Estimated General Appearance: Anxious, Thin HEENT: PERRL/EOMI, Pharynx Normal Neck: Normal Inspection, Non Tender, Supple Respiratory: Lungs Clear, Normal Breath Sounds Cardiovascular: No Murmur, Tachycardia Gastrointestinal: Non Tender, Soft Extremity: Normal Range of Motion, Non Tender Neurologic/Psychiatric: Alert, Oriented x3 Skin: Normal Color, Warm/Dry Progress/Results/Core Measures Results/Orders Lab Results Laboratory Tests Test 02/27/19 06:30 Range/Units White Blood Count 10.1 4.3-11.0 10^3/uL Red Blood Count 4.29 L 4.35-5.85 10^6/uL Hemoglobin 12.2 11.5-16.0 G/DL Hematocrit 38 35-52 % Mean Corpuscular Volume 88 80-99 FL Mean Corpuscular Hemoglobin 28 25-34 PG Mean Corpuscular Hemoglobin Concent 32 32-36 G/DL Red Cell Distribution Width 14.2 10.0-14.5 % Platelet Count 522 H 130-400 10^3/uL Mean Platelet Volume 8.7 7.4-10.4 FL Neutrophils (%) (Auto) 63 42-75 % Lymphocytes (%) (Auto) 30 12-44 % Monocytes (%) (Auto) 5 0-12 % Eosinophils (%) (Auto) 1 0-10 % Basophils (%) (Auto) 0 0-10 % Neutrophils # (Auto) 6.4 1.8-7.8 X 10^3 Lymphocytes # (Auto) 3.1 1.0-4.0 X 10^3 Monocytes # (Auto) 0.6 0.0-1.0 X 10^3 Eosinophils # (Auto) 0.1 0.0-0.3 10^3/uL Basophils # (Auto) 0.0 0.0-0.1 10^3/uL Prothrombin Time 13.2 12.2-14.7 SEC INR Comment 1.0 0.8-1.4 Activated Partial Thromboplast Time 32 24-35 SEC Sodium Level 141 135-145 MMOL/L Potassium Level 3.8 3.6-5.0 MMOL/L Chloride Level 104 98-107 MMOL/L Carbon Dioxide Level 26 21-32 MMOL/L Anion Gap 11 5-14 MMOL/L Blood Urea Nitrogen 17 7-18 MG/DL Creatinine 0.70 0.60-1.30 MG/DL Estimat Glomerular Filtration Rate > 60 BUN/Creatinine Ratio 24 Glucose Level 82 70-105 MG/DL Calcium Level 9.0 8.5-10.1 MG/DL Corrected Calcium 8.8 8.5-10.1 MG/DL Magnesium Level 1.9 1.6-2.4 MG/DL Total Bilirubin 0.5 0.1-1.0 MG/DL Aspartate Amino Transf (AST/SGOT) 22 5-34 U/L Alanine Aminotransferase (ALT/SGPT) 18 0-55 U/L Alkaline Phosphatase 81 40-136 U/L Myoglobin 48.3 10.0-92.0 NG/ML Troponin I < 0.028 <0.028 NG/ML Total Protein 6.4 6.4-8.2 GM/DL Albumin 4.2 3.2-4.5 GM/DL My Orders Orders - YAIR BOYLE MD Cbc With Automated Diff (02/27/19 06:36) Magnesium (02/27/19 06:36) Chest 1 View, Ap/Pa Only (02/27/19 06:36) Ekg Tracing (02/27/19 06:36) Cardiac Profile 1 (02/27/19 06:36) Comprehensive Metabolic Panel (02/27/19 06:36) Myoglobin Serum (02/27/19 06:36) Protime With Inr (02/27/19 06:36) Partial Thromboplastin Time (02/27/19 06:36) O2 (02/27/19 06:36) Monitor-Rhythm Ecg Trace Only (02/27/19 06:36) Lipid Panel (02/28/19 06:00) Ed Iv/Invasive Line Start (02/27/19 06:36) Ketorolac Injection (Toradol Injection) (02/27/19 06:36) Hydroxyzine Cap/Tab (Vistaril) (02/27/19 06:45) Medications Given in ED Current Medications Medications Dose Ordered Sig/Aj Route Start Time Stop Time Status Last Admin Dose Admin Hydroxyzine Pamoate 25 mg ONCE ONCE PO 02/27/19 06:45 02/27/19 06:46 DC 02/27/19 06:48 25 MG Vital Signs/I&O 02/27/19 02/27/19 06:26 06:35 Temp 36.7 Pulse 90 Resp 20 B/P (MAP) 130/78 (95) Pulse Ox 99 O2 Delivery Room Air Room Air Blood Pressure Mean: 95 POS Progress Progress Note : Progress Note Seen and evaluated on arrival by EMS. IV by EMS. Normal saline 1 L bolus running and ill be continued. Labs, EKG, chest x-ray ordered. Toradol 30 mg IV ordered. Patient previously as stated that she has ketorolac allergy but states actually it started early in allergy that she just got anxious one time. She is asking for Benadryl for anxiousness with the Toradol. We have elected to do Vistaril 25 mg by mouth with that. 0715: Patient refused chest x-ray. Pending labs. 0750: Labs reviewed and are negative. Went to talk with the patient and she is apparently eloped. Nurse reports that she just went to the bathroom and apparently had left as the route of the patient back. Police will be called as she still has IV in. 0756: Patient apparently had left the department to find sugar for coffee. She is not currently having any chest pain and overall feels better after she cleaned herself off. She thinks she may have had an allergic reaction to dye that she was using for stained-glass. Discharged home with return precautions. Patient verbalize understanding instructions and agreement with plan. Initial ECG Impression Date: Feb 27, 2019 Initial ECG Impression Time: 06:40 Initial ECG Rate: 88 Initial ECG Rhythm: Normal Sinus Comment Sinus rhythm with normal axis but rightward. No evidence of ST elevation DC. Similar to previous of 02/03/18. Interpreted by me. Departure Impression Primary Impression: Chest pain Qualified Codes: R07.9 - Chest pain, unspecified Disposition: 01 HOME, SELF-CARE Condition: Stable Departure-Patient Inst. Decision time for Depature: 07:53 Referrals: SIDDHARTH ZARAGOZA DO (PCP) Primary Care Physician YEIMI BANKS APRN (Family) Primary Care Physician Patient Instructions: Chest Pain (DC) Add. Discharge Instructions: All discharge instructions reviewed with patient and/or family. Voiced understanding. Follow-up with your DrPhilipp in a few days for recheck. Return for worse pain, fever, vomiting, breathing problems or other concerns as needed. You should avoid methamphetamine. You should also avoid the dye that you believed you may have had an allergic reaction to. YAIR BOYLE MD Feb 27, 2019 06:54 POS
--- NOTE | 2019-02-27 07:00 | NUR ---
ASSUMED CARE OF PT. PT CHANGING FROM HER CLOTHES AND CLEANING HERSELF UP WITH HER .
[2019-02-27 07:07] LABS: PROTHROMBIN TIME PATIENT 13.2 SEC (12.2-14.7)
[2019-02-27 07:12] LABS: ALANINE AMINOTRANSFERASE 18 U/L (0-55); ALBUMIN 4.2 GM/DL (3.2-4.5); ALKALINE PHOSPHATASE 81 U/L (40-136); BILIRUBIN,TOTAL 0.5 MG/DL (0.1-1.0); BUN/CREATININE RATIO 24; CARBON DIOXIDE 26 MMOL/L (21-32); CHLORIDE 104 MMOL/L (98-107); GFR ESTIMATED > 60; GLUCOSE 82 MG/DL (70-105); MAGNESIUM 1.9 MG/DL (1.6-2.4); POTASSIUM 3.8 MMOL/L (3.6-5.0); SODIUM 141 MMOL/L (135-145); TOTAL PROTEIN 6.4 GM/DL (6.4-8.2)
--- NOTE | 2019-02-27 07:25 | NUR ---
PT REFUSED CHEST XRAY
--- NOTE | 2019-02-27 07:50 | NUR ---
[facility] DISPATCH NOTIFEID THAT PT LEFT HOSPITAL WITHOUT TELLING ANYBODY AND THAT SHE STILL HAS HER IV IN.
--- NOTE | 2019-02-27 07:54 | NUR ---
PT FOUND WONDERING IN THE HALLS ET BROUGHT BACK TO THE ROOM. [place] [employer] NOTIFIED.
[2019-02-27 08:01] VITALS: BP 144/71
--- NOTE | 2019-02-27 08:01 | NUR ---
[place] [employer] HERE ET ESCORTING PT FROM HOSPITAL.
== END 2019-02-27 08:01 | disposition home or self-care (01) ==
LOC: EDUNIT# 06:23 → ER 06:24
DX: R07.9 Chest pain, unspecified (principal); G43.909 Migraine, unspecified, not intractable, without status migrainosus; F31.9 Bipolar disorder, unspecified; F20.9 Schizophrenia, unspecified; F17.290 Nicotine dependence, other tobacco product, uncomplicated; Z91.5 Personal history of self-harm; Z98.51 Tubal ligation status; Z88.0 Allergy status to penicillin; Z88.6 Allergy status to analgesic agent
CPT/HCPCS: 36415; 80053; 83735; 83874; 84484; 85025; 85610; 85730; 93005; 93041

== ENCOUNTER 2019-02-28 09:03 | Emergency (ER) | payer MEDICAID ==
--- NOTE | 2019-02-28 09:15 | NUR ---
PT PRESENTS TO ED VIA EMS FROM HOME FOR INTIAL COMPLAINTS OF CP REPORTED BY EMS. UPON ARRIVAL TO ED PT REFUSED TO LET STAFF GET VITALS AND REFUSED TO TELL STAFF HER COMPLAINTS. PT REPORTS, "I WANT TO GO TO [place]." PT REPORTS, "I WOULD LIKE TO TALK TO PD."
--- NOTE | 2019-02-28 09:20 | NUR ---
pt refuses to let ed staff get vitals, lab work, or tough her. reports she wants to be sent to [facility].
--- NOTE | 2019-02-28 09:30 | ED Psychosocial ---
General Chief Complaint: Psych/Social Disorder Stated Complaint: GENERAL PROBLEMS Source: EMS Exam Limitations: other (pt refusing to communicate ) History of Present Illness Date Seen by Provider: Feb 28, 2019 Time Seen by Provider: 09:05 Initial Comments 43-year-old female brought in by EMS. Patient's initial called EMS was for "ches t pain" when EMS arrived the patient she reported that she wanted to go to [place]. They told her that they could not bypass us undertakers recommended [place]. Patient then states she wanted to go to the [place]. Patient then became very angry and agitated and will not provide any further information to EMS or to me upon arrival to the ER. Police were on scene with EMS and patient was told that she had to go with EMS her with them she chose EMS. Patient was seen yesterday for "chest pain" with a negative workup and no further evaluation information is available at this Allergies and Home Medications Allergies Coded Allergies: Penicillins (Verified Allergy, Unknown, 12/17/15) ketorolac (Verified Allergy, Unknown, 12/17/15) Uncoded Allergies: PCN (Allergy, Mild, 07/28/15) Patient Home Medication List Home Medication List Reviewed: Yes Review of Systems Constitutional: see HPI Past Jvtapsc-Nisasb-Gfrcjn Hx Past Med/Social Hx: Reviewed Nursing Past Med/Soc Hx Patient Social History Alcohol Beverage of Choice: Wine Drug of Choice: USED METH AND MARIJUANNA TODAY Type Used: Cigars 2nd Hand Smoke Exposure: Yes Recent Hopitalizations: No Immunizations Up To Date Tetanus Booster (TDap): Unknown PED Vaccines UTD: Yes Seasonal Allergies Seasonal Allergies: No Past Medical History Surgeries: Yes Gallbladder, Tubal Ligation Respiratory: No Cardiac: No Neurological: Yes (MIRGRAIN HEADACHES) Headaches /Migraines 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 Disorders: No 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 4.0oz. 63.843033mc; 21.00 BMI Method:Estimated General Appearance: other (patient seems to be intoxicated or under the influence , patient refused physical exam) Respiratory: no respiratory distress Extremities: normal range of motion Appearance/Memory: disheveled Behavior/Eye Contact: avoids eye contact Progress/Results/Core Measures Progress Progress Note : Time: 09:41 Progress Note Patient continued to refuse evaluation. PD arrived and cleared patient to leave AGAINST MEDICAL ADVICE. There was no known thread of suicidal or homicidal ideation. Patient seems to be having a schizoaffective episode. Patient co ntinually refused to have any labs or further evaluation resize basic blood pressure evaluation by the nurse. Patient did tell nurse that she just wants to leave. She signed an AMA paperwork and left. Departure Impression Primary Impression: Psychosis Qualified Codes: F29 - Unspecified psychosis not due to a substance or known physiological condition Disposition: 01 HOME, SELF-CARE Condition: Against Medical Advice Departure-Patient Inst. Referrals: SIDDHARTH ZARAGOZA DO (PCP) Primary Care Physician YEIMI BANKS APRN (Family) Primary Care Physician RUPAL BERMUDEZ DO Feb 28, 2019 09:30 POS
--- NOTE | 2019-02-28 09:32 | NUR ---
taylor mcdonnell presents to help with pt.
--- NOTE | 2019-02-28 09:33 | NUR ---
PT ALLOWS ED STAFF TO OBTAIN VITALS BUT REPORTS SHE DOES NOT WANT LAB WORK DONE OR ANY PSYCHIATRIC HELP. PT PB 142/86. PT HR 84, PT O2 SAT AT 94%.
--- NOTE | 2019-02-28 09:35 | NUR ---
PT REPORTS SHE DOES NOT WANT HELP AND WOULD LIKE TO GO. PT SIGNS AMA PAPER AND AMBULATES WITHOUT DIFFICULTY TO WAITING ROOM.
[2019-03-01] MEDS ORDERED: BUPR150T14 PO (09:57)
[2019-03-01] MEDS ORDERED: QUET200T57 PO (09:57)
[2019-03-01] MEDS ORDERED: CETI10TA17 PO (09:57)
[2019-03-01] MEDS ORDERED: GABA800T10 PO (09:57)
[2019-03-01] MEDS ORDERED: OMEP20CA13 PO (10:06)
[2019-03-01] MEDS ORDERED: DICL75TA2 PO (10:06)
[2019-03-01] MEDS ORDERED: FLUT16SP22 NS (10:06)
[2019-03-01] MEDS ORDERED: TR1C15 TOP (10:06)
[2019-03-01] MEDS ORDERED: OLOP5DRO13 OU (10:09)
== END 2019-02-28 09:35 | disposition home or self-care (01) ==
LOC: EDUNIT# 09:03 → ER 09:04
DX: F28 Other psychotic disorder not due to a substance or known physiological condition (principal); G43.909 Migraine, unspecified, not intractable, without status migrainosus; F31.9 Bipolar disorder, unspecified; F20.9 Schizophrenia, unspecified; Z91.5 Personal history of self-harm; Z88.0 Allergy status to penicillin; Z88.6 Allergy status to analgesic agent; Z77.22 Contact with and (suspected) exposure to environmental tobacco smoke (acute) (chronic); Z98.51 Tubal ligation status

== ENCOUNTER 2019-02-28 21:05 | Observation (INO) | payer MEDICAID ==
[~2019-02-28] VITALS: Ht 165 cm; Wt 71.1 kg
[2019-02-28] MEDS ORDERED: LACTATED RINGERS 1,000 ML IV ONE (21:13)
[2019-02-28 21:39] LABS: BASOPHILS % (AUTO) 0 % (0-10); EOSINOPHILS # (AUTO) 0.1 10^3/uL (0.0-0.3); EOSINOPHILS % (AUTO) 1 % (0-10); HEMATOCRIT 40 % (35-52); HEMOGLOBIN 13.4 G/DL (11.5-16.0); LYMPHOCYTES # (AUTO) 3.1 X 10^3 (1.0-4.0); LYMPHOCYTES % (AUTO) 21 % (12-44); MEAN CORPUSCULAR HEMOGLOBIN 29 PG (25-34); MEAN CORPUSCULAR HGB CONC 34 G/DL (32-36); MEAN CORPUSCULAR VOLUME 86 FL (80-99); MEAN PLATELET VOLUME 8.7 FL (7.4-10.4); MONOCYTES # (AUTO) 1.2 X 10^3 (0.0-1.0); MONOCYTES % (AUTO) 8 % (0-12); NEUTROPHILS # (AUTO) 10.1 X 10^3 (1.8-7.8); NEUTROPHILS % (AUTO) 70 % (42-75); PLATELET COUNT 556 10^3/uL (130-400); RED CELL DISTRIBUTION WIDTH 13.9 % (10.0-14.5); WHITE BLOOD COUNT 14.5 10^3/uL (4.3-11.0)
[2019-02-28 21:40] LABS: ABG BASE EXCESS 2.7 MMOL/L (-2.5-2.5); ABG PCO2 30 MMHG (35-45); ABG PH 7.54 (7.37-7.43); ABG PO2 140 MMHG (79-93); ABG TCO2 26.2 MMOL/L (21.0-31.0)
[2019-02-28 21:41] LABS: BILIRUBIN,URINE NEGATIVE (NEGATIVE); CLARITY,URINE CLEAR; COLOR,URINE YELLOW; GLUCOSE, URINE (UA) NEGATIVE (NEGATIVE); KETONES,URINE NEGATIVE (NEGATIVE); LEUKOCYTE ESTERASE ,URINE NEGATIVE (NEGATIVE); NITRITE,URINE NEGATIVE (NEGATIVE); PH,URINE 5.5 (5-9); PROTEIN,URINE NEGATIVE (NEGATIVE)
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
[2019-02-28 21:45] LABS: ABG OXYGEN SATURATION 99 % (94-100)
[2019-02-28 21:46] LABS: ALLENS TEST POSITIVE; INSPIRED O2 ROOM AIR; PATIENT TEMP 36.8; VENTILATOR NO
[2019-02-28 21:49] LABS: BACTERIA,URINE TRACE /HPF; RBC,URINE 0-2 /HPF
[2019-02-28 21:54] LABS: PROTHROMBIN TIME PATIENT 13.2 SEC (12.2-14.7)
[2019-02-28 21:55] LABS: AMPHETAMINE SCREEN, URINE POSITIVE (NEGATIVE); BARBITURATE SCREEN URINE NEGATIVE (NEGATIVE); BENZODIAZEPINES SCREEN URINE NEGATIVE (NEGATIVE); CANNABINOID SCREEN, URINE NEGATIVE (NEGATIVE); COCAINE SCREEN URINE NEGATIVE (NEGATIVE); METHADONE STAT NEGATIVE (NEGATIVE); METHAMPHETAMINE SCREEN URINE S POSITIVE (NEGATIVE); OPIATE SCREEN URINE NEGATIVE (NEGATIVE); OXYCODONE STAT NEGATIVE (NEGATIVE); PROPOXYPHENE STAT NEGATIVE (NEGATIVE); TRICYCLIC ANTIDEPRESSANTS SCRE NEGATIVE (NEGATIVE)
[2019-02-28] MEDS ORDERED: LORazepam INJ 2 MG/ML (ATIVAN) VIAL ONE (21:57)
[2019-02-28] MEDS ORDERED: HALOPERIDOL 5 MG/ML (HALDOL) AMP ONE (21:57)
[2019-02-28] MEDS ORDERED: diphenhydrAMINE 50 MG/ML INJ (BENADRYL) ONE (21:57)
[2019-02-28] MEDS ORDERED: HALOPERIDOL 5 MG/ML (HALDOL) AMP IV ONE (22:00)
[2019-02-28] MEDS ORDERED: diphenhydrAMINE 50 MG/ML INJ (BENADRYL) IVP ONE (22:00)
[2019-02-28] MEDS ORDERED: LORazepam INJ 2 MG/ML (ATIVAN) VIAL IVP ONE (22:00)
[2019-02-28] MEDS ORDERED: OLANZapine 5 MG ODT (ZyPREXA ZYDIS) PO ONE (22:00)
[2019-02-28 22:01] LABS: BASOPHILS % (MANUAL) 1 %; EOSINOPHILS % (MANUAL) 1 %; LYMPHOCYTES % (MANUAL) 28 %; MONOCYTES % (MANUAL) 6 %; NEUTROPHILS % (MANUAL) 64 %
[2019-02-28 22:02] LABS: RBC MORPH NORMAL
[2019-02-28 22:20] LABS: ALANINE AMINOTRANSFERASE 29 U/L (0-55); ALBUMIN 4.9 GM/DL (3.2-4.5); ALKALINE PHOSPHATASE 98 U/L (40-136); BILIRUBIN,TOTAL 0.9 MG/DL (0.1-1.0); BUN/CREATININE RATIO 16; CALCIUM 9.8 MG/DL (8.5-10.1); CARBON DIOXIDE 23 MMOL/L (21-32); CREATININE SERUM 0.76 MG/DL (0.60-1.30); GFR ESTIMATED > 60; GLUCOSE 96 MG/DL (70-105); MAGNESIUM 2.1 MG/DL (1.6-2.4); TOTAL PROTEIN 7.4 GM/DL (6.4-8.2)
[2019-02-28 22:42] LABS: CHLORIDE 106 MMOL/L (98-107); POTASSIUM 3.5 MMOL/L (3.6-5.0); SODIUM 144 MMOL/L (135-145)
[2019-02-28 22:46] LABS: ACETAMINOPHEN < 10 UG/ML (10-30)
[2019-02-28 23:00] VITALS: BP 111/93
[2019-02-28] MEDS ORDERED: LORazepam INJ 2 MG/ML (ATIVAN) VIAL IV PRN (23:15)
[2019-02-28] MEDS ORDERED: HALOPERIDOL 5 MG/ML (HALDOL) AMP IV PRN (23:15)
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
[2019-03-01] VITALS (17 sets, daily range): BP systolic 105–140; BP diastolic 64–87
--- NOTE | 2019-03-01 00:13 | NUR ---
E-ICU CONTACTED ABOUT PT DVT PROPHYLAXIS RISK ASSESSMENT SCORE.
[2019-03-01] MEDS ORDERED: D5 1/2 NS W/KCL 20 MEQ/L 1,000 ML IV ONE (00:57)
[2019-03-01] MEDS: D5 1/2 NS W/KCL 20 MEQ/L 1,000 ML IV SCH ×4 (01:00→15:58)
[2019-03-01] MEDS ORDERED: RT-ALBUTEROL SULF 2.5 MG/3 ML PRE-MIX VIAL INH PRN (01:15)
[2019-03-01 03:22] LABS: BASOPHILS % (AUTO) 0 % (0-10); EOSINOPHILS # (AUTO) 0.2 10^3/uL (0.0-0.3); EOSINOPHILS % (AUTO) 2 % (0-10); HEMATOCRIT 35 % (35-52); HEMOGLOBIN 11.6 G/DL (11.5-16.0); LYMPHOCYTES # (AUTO) 4.3 X 10^3 (1.0-4.0); LYMPHOCYTES % (AUTO) 37 % (12-44); MEAN CORPUSCULAR HEMOGLOBIN 29 PG (25-34); MEAN CORPUSCULAR HGB CONC 33 G/DL (32-36); MEAN CORPUSCULAR VOLUME 87 FL (80-99); MEAN PLATELET VOLUME 8.7 FL (7.4-10.4); MONOCYTES % (AUTO) 8 % (0-12); NEUTROPHILS # (AUTO) 6.1 X 10^3 (1.8-7.8); NEUTROPHILS % (AUTO) 53 % (42-75); PLATELET COUNT 483 10^3/uL (130-400); RED CELL DISTRIBUTION WIDTH 13.9 % (10.0-14.5); WHITE BLOOD COUNT 11.6 10^3/uL (4.3-11.0)
[2019-03-01 03:39] LABS: ALANINE AMINOTRANSFERASE 22 U/L (0-55); ALBUMIN 3.8 GM/DL (3.2-4.5); ALKALINE PHOSPHATASE 81 U/L (40-136); BILIRUBIN,TOTAL 0.8 MG/DL (0.1-1.0); BUN/CREATININE RATIO 15; CALCIUM 8.6 MG/DL (8.5-10.1); CARBON DIOXIDE 24 MMOL/L (21-32); CHLORIDE 108 MMOL/L (98-107); CREATININE SERUM 0.75 MG/DL (0.60-1.30); GFR ESTIMATED > 60; GLUCOSE 119 MG/DL (70-105); POTASSIUM 3.4 MMOL/L (3.6-5.0); SODIUM 142 MMOL/L (135-145); TOTAL PROTEIN 5.6 GM/DL (6.4-8.2)
[2019-03-01] MEDS: POTASSIUM CL 10MEQ/50ML IVPB 50 ML IV SCH ×3 (04:27→05:24)
[2019-03-01 05:28] LABS: MAGNESIUM 1.9 MG/DL (1.6-2.4); PHOSPHORUS 2.3 MG/DL (2.3-4.7)
[2019-03-01] MEDS ORDERED: NS IV 1000 ML 1,000 ML IV SCH (05:45)
[2019-03-01] MEDS: KCL 20 MEQ TAB (K-DUR) PO SCH (05:52)
[2019-03-01] MEDS: MAGNESIUM 1 GM/100 ML IVPB 100 ML IV SCH (05:52)
--- NOTE | 2019-03-01 05:55 | NUR ---
0505- E-ICU CONTACTED ABOUT DECREASED URINE OUTPUT FROM PT. 0535- ORDERS GIVEN FROM E-ICU TO GIVE 1 L BOLUS OF NS AND LAB DRAW OF CK.
--- NOTE | 2019-03-01 06:50 | Diagnostic Imaging Report ---
INDICATION: Induced psychoses COMPARISON: 10/10/2009 TECHNIQUE: Single frontal radiograph of the chest dated 02/28/2019 FINDINGS: The cardiac silhouette is within normal limits in size. No significant pulmonary vascular congestion. Calcified granuloma are again noted overlying the right hilar region. The lungs are clear of focal pulmonary opacity. No pleural effusion. No pneumothorax. No acute osseous abnormality. IMPRESSION: No acute cardiopulmonary abnormality. Dictated by: Dictated on workstation # [id number]
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
[2019-03-01] MEDS ORDERED: BUPR150T14 PO (09:57)
[2019-03-01] MEDS ORDERED: CETI10TA17 PO (09:57)
[2019-03-01] MEDS ORDERED: GABA800T10 PO (09:57)
[2019-03-01] MEDS ORDERED: QUET200T57 PO (09:57)
[2019-03-01] MEDS ORDERED: DICL75TA2 PO (10:06)
[2019-03-01] MEDS ORDERED: TR1C15 TOP (10:06)
[2019-03-01] MEDS ORDERED: FLUT16SP22 NS (10:06)
[2019-03-01] MEDS ORDERED: OMEP20CA13 PO (10:06)
[2019-03-01] MEDS ORDERED: OLOP5DRO13 OU (10:09)
--- NOTE | 2019-03-01 10:09 | NUR ---
UNABLE TO SPEAK WITH THE PATIENT ABOUT MEDICATIONS AT THIS TIME. I CALLED AND HAD A LIST FAXED OVER FROM [facility] MEDICAL RECORDS. I COMPARED THAT LIST WITH THE [facility] MED HX. IN ADDITION TO THE LIST FROM [facility] SHE HAS FILLED SEROQUEL, AND OLOPATADINE EYE DROPS- I ADDED THEM TO THE MED REC. SEROQUEL, BUPROPION, AND HYDROXYZINE ARE PRESCRIBED BY [facility]. I CALLED THEIR OFFICE TO VERIFY THESE ARE THE ONLY THREE MEDICATIONS PRESCRIBED BY THEM BUT HAD TO LEAVE A MESSAGE. I WILL UPDATE IF NEEDED WHEN THE CALL ME BACK. THE LIST FROM [facility] HAD WELLBUTRIN 150MG BID HOWEVER IT IS ONLY FILLED ONCE DAILY. THEY ALSO HAD HYDROXYZINE HCL AND PAMOATE. THE HCL HAS BEEN FILLED MOST RECENTLY SO THAT IS WHAT I INCLUDED ON THE MED REC. SHE IS PAST DUE FOR REFILL ON OMEPRAZOLE, FLONASE, AND DICLOFENAC. I LEFT THEM ON THE MED REC PRN AND NOTED THE PAST DUE FILL DATES. I DID NOT INCLUDE THE FOLLOWING: DIFLUCAN (START DATE 02-12-19 #1) SODIUM FLUORIDE 1.1 (HAS NOT BEEN FILLED SINCE 2017) IBU 600MG (HAS NOT BEEN FILLED SINCE 07-05-18) NYSTATIN SUSPENSION (02-12-19 FOR 7 DAYS) HYDROXYZINE PAMOATE (HCL HAS BEEN FILLED MORE RECENTLY, PAMOATE IS PAST DUE) Addendum: 03/01/19 at 1056 by JUDITH FRANCISCO [facility] RECEIVED A FAX BACK AT THIS TIME FROM [facility]. THE ONLY SCRIPTS THEY PRESCRIBE ARE THE WELLBUTRIN SR 150 1AM, VISTARIL 25 TID PRN, AND SEROQUEL 200MG 2 HS.
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
[2019-03-01] MEDS ORDERED: NS IV 500 ML 500 ML ONE (12:02)
[2019-03-01] MEDS: NS IV 1000 ML 500 ML IV SCH ×3 (12:05→14:17)
--- NOTE | 2019-03-01 14:05 | ST Dysphagia Evaluation ---
Speech Evaluation-General Medical Diagnosis Drug induced psychosis Onset Date: Mar 01, 2019 Therapy Diagnosis Therapy Diagnosis: Orophryngeal Dysphagia Referral Referring Physician: Dr. Weaver Medical History Reviewed History: Yes Social History Current Living Status: Alone Speech PLF/Current-Dysphagia Prior Level of Function Patient has a history of drug use and related psychosis. Patient's prior level of function is unknown. Subjective Patient was compliant with Bedside Dysphagia Evaluation. Oral Motor Skills Dentition: Natural Ability to Follow Directions: Fair Patient was NPO pending BDE. Oral Expression Ability: Moderate Impairment Voice Voice Phonatory-Based Quality: Weak Voice Loudness: Moderately Soft/Quiet Face Facial Symmetry: Symmetrical Oral-Facial Assessment Oral-Facial Dentition: Normal Labial Seal Description: Normal Lingual Protrusion: Normal Lingual ROM: Normal Lingual Strength: Normal Dysphagia Evaluation Consistencies Presented: Regular, Thin Liquid, Mechanical Soft, Pureed Oral phase is within normal range of function. Pharyngeal phase is within normal range of function. Dietary Recommendations: Regular Liquid Recommendations: Thin Swallowing Precautions: Alternate Liquids/Solids, Liquids from Straw, Small Bites and Sips, Sitting Upright 90 Degrees, Sitting 90 Degrees 30 Post Intake Dysphagia Evaluation Summary Patient is a 43 year old female who was admitted to the ICU via ED due to drug induced psychosis. The patient completed a BDE with presentations of the following: Thin via 1/2 tsp x2 and via straw, small sips x2 without difficulty. She was given 1/2 tsp trials of puree, mechanical soft and regular without difficulty. No overt s/s of aspiration were noted this date. Patient is recommended for regular diet level with thin liquids. This was provided to her nurse, Chris as well as written on the white board in her room. Barriers to Learning Patient has health issues related to drug use and psychosis. Speech-Plan Patient/Family Goals Patient/Family Goals: Patient's plan upon discharge is unknown at this time. Treatment Plan Speech Therapy Treatment Plan: Discontinue ST Patient does not require further skilled ST at this time. Treatment Duration: Mar 01, 2019 Frequency: 1 time per week Estimated Hrs Per Day: .25 hour per day Rehab Potential: Poor Barriers to Learning: Patient has issues related to her history of drug use. Pt/Family Agrees to Plan: Yes Safety Risks/Education Teaching Recipient: Patient Teaching Methods: Discussion Response to Teaching: Reinforcement Needed Education Topics Provided: Safety or oral intake and diet level Time Speech Therapy Time In: 12:45 Speech Therapy Time Out: 13:00 Total Billed Time: 15 Billed Treatment Time 1, RUPESH Verdugo Mar 01, 2019 14:05 POS
--- NOTE | 2019-03-01 14:18 | NUR ---
RD ASSESSMENT PMHx: No significant PMH PT INTERACTION: Pt was semi-awake and pleasant during consult for MST score. Note pt was difficult to communicate with due to sleepy state. Pt states current appetite is poor, but did not say how long their appetite was in this state. Pt states following a regular diet and currently has no issues with chewing/swallowing food. Pt states recent episodes of nausea and vomiting. Pt states no recent issues with constipation or diarrhea at this time. Note no BM has been recorded and pt did not say when last BM was. Pt did respond to questions on recent wt hx. Note unable to determine recent wt hx, per chart review. ABNORMAL NUTRITION-RELATED LAB VALUES: K 3.4 (L); Pro 5.6 (L); Cl 108 (H); glu 119 (H) Est. kcal needs: 3716-4431 kcal (25-30 kcal/kg) Est. Pro needs: 53-66 g Pro (0.8-1.0 g Pro/kg) PES STATEMENT: Inadequate oral intake (NI-2.1) related to loss of appetite as evidenced by pt interview INTERVENTION: Continue with current diet order of Regular diet. MONITOR/EVALUATE: PO Intake; Plan of Care; Hydration Status; Weight Status; Lab Values Giacomo Rosales, MS, RD, LD Ext. [phone]
[2019-03-01] MEDS: diphenhydrAMINE 50 MG/ML INJ (BENADRYL) IV PRN (19:30)
[2019-03-02] VITALS: BP 133/67
[2019-03-02] MEDS: diphenhydrAMINE 50 MG/ML INJ (BENADRYL) IV PRN (01:07)
[2019-03-02] MEDS: D5 1/2 NS W/KCL 20 MEQ/L 1,000 ML IV SCH ×2 (01:07→07:39)
--- NOTE | 2019-03-02 01:30 | NUR ---
0100 pt requesting Benadryl-pt states that she is anxious, sitting up on side of the bed, pt becoming agitated when this assisted pt to restroom. this rn spoke with pt about taking Haldol or Ativan pt states she doesn't want to take either of those medications as she "doesn't like them" pt requesting Benadryl 0110-prn iv Benadryl given 0130-pt resting in bed with eyes closed, this rn awoke pt, pt states she feels better not as nervous feeling
[2019-03-02 04:00] VITALS: BP 117/68
[2019-03-02 05:24] LABS: BASOPHILS % (AUTO) 0 % (0-10); EOSINOPHILS # (AUTO) 0.2 10^3/uL (0.0-0.3); EOSINOPHILS % (AUTO) 2 % (0-10); HEMATOCRIT 33 % (35-52); HEMOGLOBIN 10.8 G/DL (11.5-16.0); LYMPHOCYTES # (AUTO) 3.6 X 10^3 (1.0-4.0); LYMPHOCYTES % (AUTO) 33 % (12-44); MEAN CORPUSCULAR HEMOGLOBIN 29 PG (25-34); MEAN CORPUSCULAR HGB CONC 32 G/DL (32-36); MEAN CORPUSCULAR VOLUME 89 FL (80-99); MONOCYTES # (AUTO) 0.7 X 10^3 (0.0-1.0); MONOCYTES % (AUTO) 7 % (0-12); NEUTROPHILS # (AUTO) 6.2 X 10^3 (1.8-7.8); NEUTROPHILS % (AUTO) 58 % (42-75); PLATELET COUNT 408 10^3/uL (130-400); RED CELL DISTRIBUTION WIDTH 14.5 % (10.0-14.5); WHITE BLOOD COUNT 10.7 10^3/uL (4.3-11.0)
[2019-03-02 05:48] LABS: BUN/CREATININE RATIO 12; CARBON DIOXIDE 21 MMOL/L (21-32); CHLORIDE 110 MMOL/L (98-107); CREATININE SERUM 0.66 MG/DL (0.60-1.30); GFR ESTIMATED > 60; GLUCOSE 98 MG/DL (70-105); MAGNESIUM 1.8 MG/DL (1.6-2.4); POTASSIUM 4.1 MMOL/L (3.6-5.0); SODIUM 139 MMOL/L (135-145)
[2019-03-02] MEDS: POTASSIUM CL 10MEQ/50ML IVPB 50 ML IV SCH (05:51)
[2019-03-02] MEDS: MAGNESIUM 1 GM/100 ML IVPB 100 ML IV SCH (05:52)
[2019-03-02] MEDS: KCL 20 MEQ TAB (K-DUR) PO SCH (05:52)
[2019-03-02 08:00] VITALS: BP 129/81
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
[2019-03-02 12:00] VITALS: BP_SYST 129; BP_SYST 133; BP_DIAS 82; BP_DIAS 90
[2019-03-02 15:15] VITALS: BP 133/82
--- NOTE | 2019-03-02 15:15 | NUR ---
PEREZ HERNANDEZ demonstrates understanding of discharge instructions and accurately returns instructions upon questioning. Copy of Post-Discharge Instructions given to PT. PEREZ HERNANDEZ is able to manage continuing needs after discharge. Patients belongings returned to PT. Patient discharged from [facility] on 03/02/19 at 1515. PEREZ HERNANDEZ left floor via W/C WITH VOUCHER FROM [employer] FOR [employer] [facility], accompanied by STAFF AND TOPOGRAPHICAL ENGINEER TO HOME.
[2019-03-02] MEDS ORDERED: QUEtiapine 200 MG (SEROquel) TAB IMMEDIATE RELEASE PO SCH (21:00)
== END 2019-03-02 13:49 | disposition home or self-care (01) ==
LOC: EDUNIT# 21:05 → ER 21:07 → UNDOADMOB 22:15 → ICU 22:15 → 4TH 03-01 16:05 → ICU 03-01 16:05 → UNDODISOB 03-02 15:15
PROVIDERS: ADMIT Internal Medicine; ATTEND Internal Medicine
DX: F15.951 Other stimulant use, unspecified with stimulant-induced psychotic disorder with hallucinations (principal); F15.150 Other stimulant abuse with stimulant-induced psychotic disorder with delusions; R13.10 Dysphagia, unspecified; F06.2 Psychotic disorder with delusions due to known physiological condition; F31.9 Bipolar disorder, unspecified; F20.9 Schizophrenia, unspecified; G43.909 Migraine, unspecified, not intractable, without status migrainosus; F45.9 Somatoform disorder, unspecified; Z88.8 Allergy status to other drugs, medicaments and biological substances; Z98.51 Tubal ligation status; Z91.5 Personal history of self-harm; Z88.0 Allergy status to penicillin
CPT/HCPCS: 36415; 51701; 51702; 71045; 80048; 80053; 80306; 80320; 80329; 81000; 82375; 82550; 82805; 83735; 84100; 84703; 85007; 85025; 85027; 85610; 85730; 87081; 93005; 93041

== ENCOUNTER 2019-03-12 03:31 | Emergency (ER) | payer MEDICAID ==
[~2019-03-12] VITALS: Ht 165 cm; Wt 71.1 kg
[~2019-03-12 03:31] MED LIST changes: +BUPR150T14 PO; +CETI10TA17 PO; +DICL75TA2 PO; +FLUT16SP22 NS; +GABA800T10 PO; +OLOP5DRO13 OU; +OMEP20CA13 PO; +QUET200T57 PO; +TR1C15 TOP
[2019-03-12 03:34] VITALS: BP 134/82
[2019-03-12] MEDS ORDERED: hydrOXYzine (VISTARIL/ATARAX) 25 MG capsule/tablet PO ONE (04:00)
[2019-03-12] MEDS ORDERED: RX-NEO/POLYB/HC OTIC (CORTISPORIN) SUSP 10 ML BTL OT STA (04:15)
[2019-03-12] MEDS ORDERED: CIPROFLOXACIN 0.3% (CILOXAN) 2.5 ML BTL OP SCH (04:15)
--- NOTE | 2019-03-12 04:15 | ED General ---
General Chief Complaint: Substance Abuse Stated Complaint: ILLNESS Nursing Triage Note: BROUGHT IN BY [facility] FOR C/O FEELING SICK. Nursing Sepsis Screen: No Definite Risk Source of Information: Patient Exam Limitations: No Limitations History of Present Illness Date Seen by Provider: Mar 12, 2019 Time Seen by Provider: 03:33 Initial Comments Here with report of left ear pain and right foot pain. Patient has long-standing history of methamphetamine abuse and various psychoses associated with that. Did have recent admission for this. Tonight she arrives with red lipstick or other substance around her lips like poorly applied makeup and other colors on her face and her hair covered in coconut oil tea tree oil. She is asking for her medicine (usually Vistaril), water and coffee with cream and sugar. She is also asking for something to eat if she can get it. Reports last methamphetamine use was a few days ago. Timing/Duration: 1 Hour Severity: Moderate Associated Systoms: No Weakness Allergies and Home Medications Allergies Coded Allergies: Penicillins (Verified Allergy, Unknown, 12/17/15) ketorolac (Verified Allergy, Unknown, 12/17/15) Uncoded Allergies: PCN (Allergy, Mild, 07/28/15) Home Medications Bupropion HCl 150 Mg Tablet.er, 150 MG PO DAILY, (Reported) Cetirizine HCl 10 Mg Tablet, 10 MG PO DAILY, (Reported) Fluticasone Propionate 16 Gm [place].susp, 1 SPRAY NS DAILY PRN for ALLERGIES, (Reported) Gabapentin 800 Mg Tablet, 800 MG PO TID, (Reported) Omeprazole 20 Mg Capsule.dr, 20 MG PO DAILY PRN for HEARTBURN, (Reported) LAST FILLED #30 11-13-18 Quetiapine Fumarate 200 Mg Tablet, 400 MG PO HS, (Reported) TAKES 2 (200MG) TABLETS Patient Home Medication List Home Medication List Reviewed: Yes Review of Systems Review of Systems Constitutional: see HPI; No chills, No fever EENTM: ear pain; No ear discharge Respiratory: No cough, No short of breath Cardiovascular: no symptoms reported Gastrointestinal: no symptoms reported Musculoskeletal: joint pain, other (right foot pain) Psychiatric/Neurological: Anxiety, Emotional Problems Past Vhdsjat-Tjohhh-Vmfpct Hx Past Med/Social Hx: Reviewed Nursing Past Med/Soc Hx Patient Social History Alcohol Use: Denies Use Number of Drinks Today: Alcohol Beverage of Choice: Wine Recreational Drug Use: Yes Drug of Choice: METH, MARIJUANA Smoking Status: Current Everyday Smoker Type Used: Cigars, Cigarettes 2nd Hand Smoke Exposure: Yes Recent Foreign Travel: No Contact w/Someone Who Travel: No Recent Infectious Disease Expo: No Recent Hopitalizations: No Physical Abuse: No Sexual Abuse: No Mistreated: No Fear: No Immunizations Up To Date Tetanus Booster (TDap): Unknown PED Vaccines UTD: Yes Seasonal Allergies Seasonal Allergies: No Past Medical History Surgeries: Yes Gallbladder, Tubal Ligation Respiratory: No Cardiac: No Neurological: Yes (MIRGRAINE HEADACHES) Headaches /Migraines : No 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 Disorders: No COLLEGE INTERN History: Tubal Ligation Sexually Transmitted Disease: No Genitourinary: No Gastrointestinal: Yes Musculoskeletal: Yes (SCOLIOSIS) Endocrine: No HEENT: No Cancer: No Psychosocial: Yes Suicide Attempts, Bipolar, Schizophrenia Integumentary: No Blood Disorders: No Adverse Reaction/Blood Tranf: No Family Medical History Reviewed Nursing Family Hx No Pertinent Family Hx Physical Exam Vital Signs Vital Signs - First Documented 03/12/19 03:34 Temp 36.5 Pulse 88 Resp 22 B/P (MAP) 134/82 (99) Pulse Ox 100 O2 Delivery Room Air Capillary Refill : Less Than 3 Seconds Height, Weight, BMI Height: 5'6.00" Weight: 140lbs. 4.0oz. [id number]; 26.00 BMI Method:Estimated General Appearance: Anxious, Thin HEENT: PERRL/EOMI, Other (findings of left otitis externa with mild swelling of the canal right TM and canal normal.) Neck: Non Tender, Supple Respiratory: Lungs Clear, Normal Breath Sounds Cardiovascular: Regular Rate, Rhythm, No Murmur Gastrointestinal: Non Tender, Soft Back: Normal Inspection, No CVA Tenderness, No Vertebral Tenderness Extremity: Normal Inspection, Normal Range of Motion, Non Tender Neurologic/Psychiatric: Alert, Other (anxious but answers questions appropriately and responds to redirection.) Skin: Warm/Dry, Other (poorly applied lipstick to the face and blue paint or makeup to eyebrows noted. Does have pink paint or some other substance on her hands. Various picking sores noted to arms and legs bilateral. None seem to be significantly infected.) Progress/Results/Core Measures Suspected Sepsis Recent Fever Within 48 Hours: No Infection Criteria Present: None New/Unexplained Altered Menta: No Sepsis Screen: No Definite Risk SIRS Temperature: Pulse: 88 Respiratory Rate: 22 Blood Pressure 134 /82 Mean: 99 Results/Orders My Orders Medications Given in ED Vital Signs/I&O Capillary Refill : Less Than 3 Seconds Blood Pressure Mean: 99 POS Progress Note : Progress Note Seen and evaluated. Vistaril 50 mg by mouth given. We will give Cortisporin otic. TM does not appear to be ruptured and Cipro ophthalmic not available. 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 No obvious foreign bodies within the ear. She did state that there was black substance in the ear but I do not see anything like that at this time. Patient was allowed to use moist wipes for cleaning body as she typically wants to do this during the visit. She tolerated water and coffee with cream and sugar without difficulty. 0435: Patient is still redirectable and denies wanting to hurt herself or others. She obviously suffers chronically from methamphetamine abuse but has no further medical indications or mental health indications currently. She lives in [place] and we are trying to figure out a way to get her home. PD does not have man power currently. We will continue to monitor her for now. 0505: Patient is doing better. She has done self-care and feels better. We were able to get her a taxi home. Patient concurred. Departure Impression Primary Impression: Methamphetamine abuse Additional Impression: Otitis externa, left Qualified Codes: H60.312 - Diffuse otitis externa, left ear Disposition: HOME, SELF-CARE Condition: Stable Departure-Patient Inst. Decision time for Depature: 05:05 Referrals: SIDDHARTH ZARAGOZA DO (PCP) Primary Care Physician YEIMI BANKS APRN (Family) Primary Care Physician Patient Instructions: ALCOHOL AND SUBSTANCE ABUSE, Methamphetamine, Outer Ear Infection (DC) Add. Discharge Instructions: All discharge instructions reviewed with patient and/or family. Voiced understanding. Stop using methamphetamine. Follow up with [facility] in one to 2 days for recheck and further evaluation. Use the eardrops 3 drops to the left ear 3 times a day for 7 days and then stop. Return for worse pain, fever, vomiting, weakness, breathing problems or other concerns as needed. YAIR BOYLE MD Mar 12, 2019 04:15 POS
== END 2019-03-12 05:05 | disposition home or self-care (01) ==
LOC: EDUNIT# 03:31 → ER 03:33
DX: F15.10 Other stimulant abuse, uncomplicated (principal); H60.92 Unspecified otitis externa, left ear; G43.909 Migraine, unspecified, not intractable, without status migrainosus; F31.9 Bipolar disorder, unspecified; F20.9 Schizophrenia, unspecified; F17.210 Nicotine dependence, cigarettes, uncomplicated; F17.290 Nicotine dependence, other tobacco product, uncomplicated; Z98.51 Tubal ligation status; Z91.5 Personal history of self-harm; Z88.0 Allergy status to penicillin; Z88.6 Allergy status to analgesic agent; Z79.52 Long term (current) use of systemic steroids
CPT/HCPCS: 99283

== ENCOUNTER 2019-04-18 14:01 | Observation (INO) | payer MEDICAID ==
[~2019-04-18] VITALS: Ht 170 cm; Wt 63.6 kg
--- NOTE | 2019-04-18 14:08 | NUR ---
Pt arrival per POV with male reporting process consultant providing better history as pt with histrionic behaviors sitting on floor then jumping up, screaming, flailing arms, running, and inappropriate responses to questions. Male reporting process consultant states pt is usually confused almost every day and not thinking clearly. Pt has mental health hx anxiety, meth usage hx, THC hx, Pyschosis from drug use, schizophrenia. Male states she thought she taking her 9 daily morning meds at 0800 and with distraction took 9 pills from Bupropion ER 150 mg. To ED 5 ambulatory stopping at bathroom to provide UA first.
[2019-04-18] MEDS ORDERED: NS IV 1000 ML 1,000 ML IV SCH ×2 (14:30→22:45)
[2019-04-18] MEDS ORDERED: LORazepam INJ 2 MG/ML (ATIVAN) VIAL IVP ONE (14:30)
--- NOTE | 2019-04-18 14:37 | ED General ---
General Chief Complaint: Overdose Stated Complaint: BUPROPION OVERDOSE Source of Information: Patient, Family Exam Limitations: No Limitations History of Present Illness Date Seen by Provider: Apr 18, 2019 Time Seen by Provider: 14:34 Initial Comments This 43-year-old white female presents after she inadvertently took 9 of her 150 mg XR Wellbutrin this morning. The patient takes 9 different medicines in the morning and inadvertently took 9 tablets of Wellbutrin instead. She denies suicide attempt. She denies other harm to self. Since the ingestion the patient has been agitated. There is been no seizure activity. Patient denies hallucinations. Patient is able to offer helpful history. Allergies and Home Medications Allergies Coded Allergies: Penicillins (Verified Allergy, Unknown, 12/17/15) ketorolac (Verified Allergy, Unknown, 12/17/15) Uncoded Allergies: PCN (Allergy, Mild, 07/28/15) Home Medications Bupropion HCl 150 Mg Tablet.er, 150 MG PO DAILY, (Reported) Cetirizine HCl 10 Mg Tablet, 10 MG PO DAILY, (Reported) Fluticasone Propionate 16 Gm [place].susp, 1 SPRAY NS DAILY PRN for ALLERGIES, (Reported) Gabapentin 800 Mg Tablet, 800 MG PO TID, (Reported) Omeprazole 20 Mg Capsule.dr, 20 MG PO DAILY PRN for HEARTBURN, (Reported) LAST FILLED #30 11-13-18 Quetiapine Fumarate 200 Mg Tablet, 400 MG PO HS, (Reported) TAKES 2 (200MG) TABLETS Patient Home Medication List Home Medication List Reviewed: Yes Review of Systems Review of Systems Constitutional: No chills, No fever EENTM: no symptoms reported Respiratory: No cough Cardiovascular: No chest pain Gastrointestinal: no symptoms reported Genitourinary: no symptoms reported Musculoskeletal: no symptoms reported Skin: no symptoms reported Psychiatric/Neurological: See HPI, Anxiety, Depressed, Emotional Problems; Denies Seizure Hematologic/Lymphatic: No Symptoms Reported Immunological/Allergic: no symptoms reported Past Cwxoaqb-Rphwtu-Peyysq Hx Past Med/Social Hx: Reviewed Nursing Past Med/Soc Hx Patient Social History Alcohol Beverage of Choice: Wine Drug of Choice: METH, MARIJUANA Type Used: Cigars, Cigarettes 2nd Hand Smoke Exposure: Yes Recent Foreign Travel: No Recent Hopitalizations: No Immunizations Up To Date Tetanus Booster (TDap): Unknown PED Vaccines UTD: Yes Seasonal Allergies Seasonal Allergies: No Past Medical History Surgeries: Yes Gallbladder, Tubal Ligation Respiratory: No Cardiac: No Neurological: Yes (MIRGRAINE HEADACHES) Headaches /Migraines 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 Disorders: No THROAT CUTTER History: Tubal Ligation Sexually Transmitted Disease: No Genitourinary: No Gastrointestinal: Yes Musculoskeletal: Yes (SCOLIOSIS) Endocrine: No HEENT: No Cancer: No Psychosocial: Yes Suicide Attempts, Bipolar, Schizophrenia Integumentary: No Blood Disorders: No Adverse Reaction/Blood Tranf: No Family Medical History No Pertinent Family Hx Physical Exam Vital Signs Vital Signs - First Documented 04/18/19 14:08 Temp 35.6 Pulse 104 Resp 22 B/P (MAP) 156/56 (89) Pulse Ox 97 O2 Delivery Room Air Capillary Refill : Height, Weight, BMI Height: 5'6.00" Weight: 140lbs. 4.0oz. 63.458490sl; 26.00 BMI Method:Estimated General Appearance: WD/WN, Anxious Eyes: Bilateral Eye Normal Inspection HEENT: Normal ENT Inspection Neck: Normal Inspection Respiratory: Lungs Clear Cardiovascular: Regular Rate, Rhythm Gastrointestinal: Normal Bowel Sounds Back: Normal Inspection Extremity: Normal Capillary Refill, Normal Inspection, Normal Range of Motion Neurologic/Psychiatric: Oriented x3, No Motor/Sensory Deficits, Other Skin: Normal Color (patient is agitated and anxious.), Warm/Dry Progress/Results/Core Measures Suspected Sepsis SIRS Temperature: Pulse: Respiratory Rate: Laboratory Tests 04/18/19 14:18: White Blood Count 11.3H Blood Pressure / Mean: Laboratory Tests 04/18/19 14:18: Creatinine 0.92, Platelet Count 522H, Total Bilirubin 0.3 Results/Orders Lab Results Laboratory Tests Test 04/18/19 14:08 04/18/19 14:18 Range/Units Urine Opiates Screen NEGATIVE NEGATIVE Urine Oxycodone Screen NEGATIVE NEGATIVE Urine Methadone Screen NEGATIVE NEGATIVE Urine Propoxyphene Screen NEGATIVE NEGATIVE Urine Barbiturates Screen NEGATIVE NEGATIVE Ur Tricyclic Antidepressants Screen POSITIVE H NEGATIVE Urine Phencyclidine Screen NEGATIVE NEGATIVE Urine Amphetamines Screen NEGATIVE NEGATIVE Urine Methamphetamines Screen NEGATIVE NEGATIVE Urine Benzodiazepines Screen NEGATIVE NEGATIVE Urine Cocaine Screen NEGATIVE NEGATIVE Urine Cannabinoids Screen POSITIVE H NEGATIVE White Blood Count 11.3 H 4.3-11.0 10^3/uL Red Blood Count 4.02 L 4.35-5.85 10^6/uL Hemoglobin 11.6 11.5-16.0 G/DL Hematocrit 36 35-52 % Mean Corpuscular Volume 90 80-99 FL Mean Corpuscular Hemoglobin 29 25-34 PG Mean Corpuscular Hemoglobin Concent 32 32-36 G/DL Red Cell Distribution Width 14.9 H 10.0-14.5 % Platelet Count 522 H 130-400 10^3/uL Mean Platelet Volume 8.4 7.4-10.4 FL Neutrophils (%) (Auto) 74 42-75 % Lymphocytes (%) (Auto) 18 12-44 % Monocytes (%) (Auto) 6 0-12 % Eosinophils (%) (Auto) 1 0-10 % Basophils (%) (Auto) 0 0-10 % Neutrophils # (Auto) 8.4 H 1.8-7.8 X 10^3 Lymphocytes # (Auto) 2.1 1.0-4.0 X 10^3 Monocytes # (Auto) 0.6 0.0-1.0 X 10^3 Eosinophils # (Auto) 0.1 0.0-0.3 10^3/uL Basophils # (Auto) 0.1 0.0-0.1 10^3/uL Sodium Level 140 135-145 MMOL/L Potassium Level 3.7 3.6-5.0 MMOL/L Chloride Level 101 98-107 MMOL/L Carbon Dioxide Level 25 21-32 MMOL/L Anion Gap 14 5-14 MMOL/L Blood Urea Nitrogen 9 7-18 MG/DL Creatinine 0.92 0.60-1.30 MG/DL Estimat Glomerular Filtration Rate > 60 BUN/Creatinine Ratio 10 Glucose Level 116 H 70-105 MG/DL Calcium Level 9.0 8.5-10.1 MG/DL Corrected Calcium 8.5-10.1 MG/DL Total Bilirubin 0.3 0.1-1.0 MG/DL Aspartate Amino Transf (AST/SGOT) 17 5-34 U/L Alanine Aminotransferase (ALT/SGPT) 13 0-55 U/L Alkaline Phosphatase 108 40-136 U/L Total Protein 6.9 6.4-8.2 GM/DL Albumin 4.6 H 3.2-4.5 GM/DL Salicylates Level < 5.0 L 5.0-20.0 MG/DL Acetaminophen Level < 10 L 10-30 UG/ML Serum Alcohol < 10 <10 MG/DL My Orders Orders - JULI ORNELAS MD Lorazepam Injection (Ativan Injection) (04/18/19 14:30) Drug Screen Stat (Urine) (04/18/19 14:30) Cbc With Automated Diff (04/18/19 14:30) Comprehensive Metabolic Panel (04/18/19 14:30) Ns Iv 1000 Ml (Sodium Chloride 0.9%) (04/18/19 14:30) Ekg Tracing (04/18/19 14:33) Salicylate (04/18/19 14:33) Acetaminophen (04/18/19 14:33) Alcohol (04/18/19 14:33) Diphenhydramine Injection (Benadryl Inje (04/18/19 16:00) Medications Given in ED Current Medications Medications Dose Ordered Sig/Aj Route Start Time Stop Time Status Last Admin Dose Admin Diphenhydramine HCl 25 mg ONCE ONCE IVP 04/18/19 16:00 04/18/19 16:01 DC 04/18/19 16:00 25 MG Lorazepam 2 mg ONCE ONCE IVP 04/18/19 14:30 04/18/19 14:32 DC 04/18/19 14:40 2 MG Vital Signs/I&O 04/18/19 14:08 Temp 35.6 Pulse 104 Resp 22 B/P (MAP) 156/56 (89) Pulse Ox 97 O2 Delivery Room Air Capillary Refill : Progress Note : Time: 15:01 Progress Note Telephone consultation was undertaken with poison control. Upon their recommendation the patient be observed following the ingestion for seizures and treated with Ativan prophylactically 2 mg of Ativan were given to the patient. The patient's agitation and anxiety resolved quickly. She rested quietly in the emergency department. 415 p.m. Telephone consultation was undertaken again with poison control who recommended patient be closely observed for 24 hours following the ingestion of the Wellbutrin as seizures were still possible. I called and spoke with Dr. Chang who is kind enough to admit the patient for further observation. Departure Communication (Admissions) Time/Spoke to Admitting Phy: 16:17 Dr. Chang Impression Primary Impression: Drug overdose Qualified Codes: T50.904A - Poisoning by unspecified drugs, medicaments and biological substances, undetermined, initial encounter Disposition: ADMITTED INPATIENT Condition: Improved Admissions Decision to Admit Reason: Admit from ER (General) Decision to Admit/Date: Apr 18, 2019 Time/Decision to Admit Time: 16:18 Departure-Patient Inst. Referrals: SIDDHARTH ZARAGOZA DO (PCP) Primary Care Physician YEIMI BANKS APRN (Family) Primary Care Physician Patient Instructions: ALCOHOL AND SUBSTANCE ABUSE JULI ORNELAS MD Apr 18, 2019 14:37
[2019-04-18 14:39] LABS: HEMATOCRIT 36 % (35-52); HEMOGLOBIN 11.6 G/DL (11.5-16.0); MEAN CORPUSCULAR HEMOGLOBIN 29 PG (25-34); MEAN CORPUSCULAR HGB CONC 32 G/DL (32-36); MEAN CORPUSCULAR VOLUME 90 FL (80-99); RED CELL DISTRIBUTION WIDTH 14.9 % (10.0-14.5); WHITE BLOOD COUNT 11.3 10^3/uL (4.3-11.0)
[2019-04-18 14:40] LABS: BASOPHILS # (AUTO) 0.1 10^3/uL (0.0-0.1); BASOPHILS % (AUTO) 0 % (0-10); EOSINOPHILS # (AUTO) 0.1 10^3/uL (0.0-0.3); EOSINOPHILS % (AUTO) 1 % (0-10); LYMPHOCYTES # (AUTO) 2.1 X 10^3 (1.0-4.0); LYMPHOCYTES % (AUTO) 18 % (12-44); MEAN PLATELET VOLUME 8.4 FL (7.4-10.4); MONOCYTES # (AUTO) 0.6 X 10^3 (0.0-1.0); MONOCYTES % (AUTO) 6 % (0-12); NEUTROPHILS # (AUTO) 8.4 X 10^3 (1.8-7.8); NEUTROPHILS % (AUTO) 74 % (42-75); PLATELET COUNT 522 10^3/uL (130-400)
--- NOTE | 2019-04-18 14:40 | NUR ---
Ativan 2 mg IV as ordered per Dr Blackmon as recommended by Poison Control to get patient calmed down and seizure prevention.
[2019-04-18 15:03] LABS: ACETAMINOPHEN < 10 UG/ML (10-30); ALANINE AMINOTRANSFERASE 13 U/L (0-55); ALKALINE PHOSPHATASE 108 U/L (40-136); BILIRUBIN,TOTAL 0.3 MG/DL (0.1-1.0); BUN/CREATININE RATIO 10; CARBON DIOXIDE 25 MMOL/L (21-32); CHLORIDE 101 MMOL/L (98-107); CREATININE SERUM 0.92 MG/DL (0.60-1.30); GFR ESTIMATED > 60; GLUCOSE 116 MG/DL (70-105); POTASSIUM 3.7 MMOL/L (3.6-5.0); SALICYLATE < 5.0 MG/DL (5.0-20.0); SODIUM 140 MMOL/L (135-145)
[2019-04-18 15:04] LABS: ALBUMIN 4.6 GM/DL (3.2-4.5); TOTAL PROTEIN 6.9 GM/DL (6.4-8.2)
[2019-04-18 15:05] LABS: AMPHETAMINE SCREEN, URINE NEGATIVE (NEGATIVE); BARBITURATE SCREEN URINE NEGATIVE (NEGATIVE); BENZODIAZEPINES SCREEN URINE NEGATIVE (NEGATIVE); CANNABINOID SCREEN, URINE POSITIVE (NEGATIVE); COCAINE SCREEN URINE NEGATIVE (NEGATIVE); METHAMPHETAMINE SCREEN URINE S NEGATIVE (NEGATIVE); OPIATE SCREEN URINE NEGATIVE (NEGATIVE)
[2019-04-18 15:06] LABS: METHADONE STAT NEGATIVE (NEGATIVE); OXYCODONE STAT NEGATIVE (NEGATIVE); PROPOXYPHENE STAT NEGATIVE (NEGATIVE); TRICYCLIC ANTIDEPRESSANTS SCRE POSITIVE (NEGATIVE)
--- NOTE | 2019-04-18 15:30 | NUR ---
Pt resting in room on cart with rails up x 2. A few frequent reminders to remain in bed and quit playing with monitors and IV that will be maintained. Male brokerage office manager talking with patient and pt appearing somewhat more relaxed and calm. Very easily distracted and inattentive then appears confused when inquiring what someone is talking about. Male brokerage office manager states "this is her normally".
[2019-04-18] MEDS ORDERED: diphenhydrAMINE 50 MG/ML INJ (BENADRYL) IVP ONE (16:00)
--- NOTE | 2019-04-18 16:10 | NUR ---
Call to [facility] to request bed (medical with tele). Poison control has advised ALL Sustained Release Ingestions should be admitted for minimum 24 hrs for observation as delayed toxicity may occur.
--- NOTE | 2019-04-18 16:20 | NUR ---
Up to bathroom to void. Warm blanket applied.
[2019-04-18] MEDS: MAGNESIUM 1 GM/100 ML IVPB 100 ML IV SCH ×2 (16:55→17:20)
--- NOTE | 2019-04-18 17:00 | NUR ---
Male tile conduit layer is leaving as aware of transfer recommended by EMS.
--- NOTE | 2019-04-18 18:15 | NUR ---
The patient has completed a total 2 GM Magnesium for prevention of tachycardia dysrhythmia with prolonged QTc noted on 1st EKG. Poison Control spoke earlier with this nurse and relayed to of need to keep at upper level of normal like 2.2. Pt will have next serial EKG around 1830 as recommended Q 4 hrs.
--- NOTE | 2019-04-18 18:37 | NUR ---
#2 EKG completed and given to Dr Gallo with report of current status and planned admission with Poison Controls guidelines to complete a 23 hr stay based on pt using Extend Release Wellbutrin not Immediate Release which is only 12 hr monitoring for side effects et toxicity.
--- NOTE | 2019-04-18 19:00 | NUR ---
Pt out of bed up walking to bathroom. Pt still easily distracted and forgetful like upon arrival.
--- NOTE | 2019-04-18 19:19 | NUR ---
Report to Sadnra BURCH on 4th floor. Room number changed to 417.
--- NOTE | 2019-04-18 19:30 | NUR ---
Call to [facility] for dispatch for transfer of pt to [facility]. The pt is Code yellow, requires cardiac monitoring and seizure precautions. Report to Maggy BURCH.
--- NOTE | 2019-04-18 21:40 | NUR ---
PEREZ HERNANDEZ admitted to room 417-1, with an admitting diagnosis of Wellbutrin XL overdose from [facility], on 04/18/19 via EMS, accompanied by EMS.PEREZ HERNANDEZ introduced to surroundings, call light, bed controls, phone, TV, temperature control, lights, meal times, smoking policy, visitor policy, side rail policy, bathrooms and showers. Patient Rights given to patient in the handbook. PEREZ HERNANDEZ verbalizes understanding that [facility] is not responsible for the loss or damage to any personal effects or valuables that are kept in the patients posession during their hospitalization.
[2019-04-18 21:50] VITALS: BP 147/91
--- NOTE | 2019-04-18 22:08 | NUR ---
Dr. Chang notified of BP at 147/91, pt request for Benadryl, Magnesium level of 1.9. New order rec to obtain Mag level now, Benadryl 25mg IV q 6 hr PRN agitation; and instructed to give 1 gm Magnesium IV that was ordered on admit if Magnesium level is less than 2.0.
[2019-04-18] MEDS ORDERED: MAGNESIUM 1 GM/D5W 100 ML IVPB IV ONE (22:45)
[2019-04-18] MEDS ORDERED: diphenhydrAMINE 50 MG/ML INJ (BENADRYL) IVP PRN (22:45)
[2019-04-18] MEDS: LORazepam INJ 2 MG/ML (ATIVAN) VIAL IV PRN (22:55)
[2019-04-19] VITALS: BP 130/85
[2019-04-19 04:59] VITALS: BP 133/80
[2019-04-19 05:44] LABS: BASOPHILS % (AUTO) 0 % (0-10); EOSINOPHILS # (AUTO) 0.2 10^3/uL (0.0-0.3); EOSINOPHILS % (AUTO) 2 % (0-10); HEMATOCRIT 33 % (35-52); HEMOGLOBIN 10.4 G/DL (11.5-16.0); LYMPHOCYTES # (AUTO) 2.7 X 10^3 (1.0-4.0); LYMPHOCYTES % (AUTO) 29 % (12-44); MEAN CORPUSCULAR HEMOGLOBIN 28 PG (25-34); MEAN CORPUSCULAR HGB CONC 31 G/DL (32-36); MEAN CORPUSCULAR VOLUME 90 FL (80-99); MEAN PLATELET VOLUME 8.3 FL (7.4-10.4); MONOCYTES # (AUTO) 0.6 X 10^3 (0.0-1.0); MONOCYTES % (AUTO) 7 % (0-12); NEUTROPHILS # (AUTO) 5.9 X 10^3 (1.8-7.8); NEUTROPHILS % (AUTO) 62 % (42-75); PLATELET COUNT 419 10^3/uL (130-400); RED CELL DISTRIBUTION WIDTH 15.4 % (10.0-14.5); WHITE BLOOD COUNT 9.5 10^3/uL (4.3-11.0)
[2019-04-19 06:18] LABS: ALANINE AMINOTRANSFERASE 26 U/L (0-55); ALBUMIN 3.8 GM/DL (3.2-4.5); ALKALINE PHOSPHATASE 96 U/L (40-136); BILIRUBIN,TOTAL 0.5 MG/DL (0.1-1.0); BUN/CREATININE RATIO 8; CALCIUM 7.8 MG/DL (8.5-10.1); CARBON DIOXIDE 22 MMOL/L (21-32); CHLORIDE 109 MMOL/L (98-107); CREATININE SERUM 0.88 MG/DL (0.60-1.30); GFR ESTIMATED > 60; GLUCOSE 87 MG/DL (70-105); POTASSIUM 4.2 MMOL/L (3.6-5.0); SODIUM 140 MMOL/L (135-145); TOTAL PROTEIN 5.5 GM/DL (6.4-8.2)
[2019-04-19] MEDS: LORazepam INJ 2 MG/ML (ATIVAN) VIAL IV PRN (06:46)
[2019-04-19 08:00] VITALS: BP 118/73
--- NOTE | 2019-04-19 08:00 | NUR ---
PATIENT CONFUSED AT THIS TIME BED ALARM, TRYS TO GET UP BY SELF, TAKING CLEAR LIQUID DIET WELL, HAD DIARRHEA STOOL, DR MASSEY INFORMED, TELLE SITTER AT BEDSIDE.
[2019-04-19] MEDS ORDERED: HYDR50CA3 PO (11:14)
[2019-04-19] MEDS ORDERED: IBUP-1780 PO (11:14)
[2019-04-19] MEDS ORDERED: TR1C15 TOP (11:14)
[2019-04-19] MEDS ORDERED: DICL75TA2 PO (11:14)
[2019-04-19] MEDS ORDERED: CROM10DR2 OP (11:14)
[2019-04-19] MEDS ORDERED: DULO30CA49 PO (11:14)
[2019-04-19] MEDS ORDERED: GBPN600T PO (11:14)
[2019-04-19] MEDS ORDERED: OXCA150T18 PO (11:14)
[2019-04-19] MEDS ORDERED: QUET300T44 PO (11:14)
[2019-04-19] MEDS ORDERED: OLOP5DRO13 OU (11:14)
--- NOTE | 2019-04-19 11:21 | NUR ---
UNABLE TO SPEAK WITH THE PATIENT ABOUT HER MEDICATIONS AT THIS TIME. I HAD A LIST FAXED OVER FROM [facility] AND COMPARED THAT WITH THE EXT MED HX. IN ADDITION TO THE LIST [facility] SENT OVER SHE HAS FILLED TRIAMCINOLONE CREAM, OLOPATADINE DROPS, AND CROMOLYN DROPS AT [facility] THAT I ADDED TO THE MED REC AT THIS TIME. ADDITIONALLY ERON HAS FILLED THE FOLLOWIN04-11-19 SEROQUEL 200MG 2 HS #60 (VIVI REYNOLDS) 03-28-19 SEROQUEL 300MG HS #30 (KENYA SHIELDS) 03-28-19 GABAPENTIN 600MG #90 FOR 30 DAYS (KENYA SHIELDS) 03-28-19 OXCARBAZEPINE 150MG #60 FOR 30 DAYS (KENYA SHIELDS) 03-28-19 DULOXETINE 30MG #30 (KENYA SHIELDS) I CALLED THE NUMBER ERON HAD ON FILE FOR KENYA CORNELIUS TO GET CLARIFICATION IF HE WAS CHANGING PREVIOUSLY PRESCRIBED MEDICATIONS OR IF HE WAS AWARE SHE HAD FILLED SOME OF THOSE MEDS PREVIOUSLY. THE NUMBER WAS [phone] AND I GOT HIM DIRECTLY, HE ASKED THAT I CALL HIS OFFICE AT [phone] BUT THAT WAS JUST A VOICEMAIL SO I DID NOT LEAVE A MESSAGE AT THIS TIME. I AM UNSURE IF THE PATIENT IS TAKING ALL OF THESE MEDICATIONS OR IF SOME REPLACED OTHERS BUT I AM NOT ABLE TO VERIFY WITH HER AT THIS TIME SO I INCLUDED THEM ALL ON THE MED REC SINCE SHE HAS THEM ALL AVAILABLE TO HER.
[2019-04-19 12:00] VITALS: BP 120/74
--- NOTE | 2019-04-19 14:02 | Short Stay Summary ---
Discharge Summary Hospital Course Final Diagnosis: Non-intentional overdose Hospital Course Date of Admission: Apr 18, 2019 at 17:47 Admission Diagnosis : Non intentional overdose Family Physician/Provider: Jazmín Tariq Aprn Date of Discharge: 04/19/19 Discharge Diagnosis: Nonintentional overdose with Wellbutrin Hospital Course: Pt was admitted and monitored for over 24 hours per poison control recommendation after accidentally taking 9 tabs of Wellbutrin instead of her 9 different medications. She was initially agitated and received ativan and benadryl and then was relatively drowsy and mildly confused. By the afternoon she was alert and oriented x 3 and tolerated PO intake. Recommended to hold Wellbutrin and Cymbalta for next 3 days. Labs and Pending Lab Test: Laboratory Tests 04/18/19 14:08: Urine Opiates Screen NEGATIVE, Urine Oxycodone Screen NEGATIVE, Urine Methadone Screen NEGATIVE, Urine Propoxyphene Screen NEGATIVE, Urine Barbiturates Screen NEGATIVE, Ur Tricyclic Antidepressants Screen POSITIVEH, Urine Phencyclidine Screen NEGATIVE, Urine Amphetamines Screen NEGATIVE, Urine Methamphetamines Screen NEGATIVE, Urine Benzodiazepines Screen NEGATIVE, Urine Cocaine Screen NEGATIVE, Urine Cannabinoids Screen POSITIVEH 04/18/19 14:18: White Blood Count 11.3H, Red Blood Count 4.02L, Hemoglobin 11.6, Hematocrit 36, Mean Corpuscular Volume 90, Mean Corpuscular Hemoglobin 29, Mean Corpuscular Hemoglobin Concent 32, Red Cell Distribution Width 14.9H, Platelet Count 522H, Mean Platelet Volume 8.4, Neutrophils (%) (Auto) 74, Lymphocytes (%) (Auto) 18, Monocytes (%) (Auto) 6, Eosinophils (%) (Auto) 1, Basophils (%) (Auto) 0, Neutrophils # (Auto) 8.4H, Lymphocytes # (Auto) 2.1, Monocytes # (Auto) 0.6, Eosinophils # (Auto) 0.1, Basophils # (Auto) 0.1, Sodium Level 140, Potassium Level 3.7, Chloride Level 101, Carbon Dioxide Level 25, Anion Gap 14, Blood Urea Nitrogen 9, Creatinine 0.92, Estimat Glomerular Filtration Rate > 60, BUN/Creatinine Ratio 10, Glucose Level 116H, Calcium Level 9.0, Corrected Calcium , Magnesium Level 1.9, Total Bilirubin 0.3, Aspartate Amino Transf (AST/SGOT) 17, Alanine Aminotransferase (ALT/SGPT) 13, Alkaline Phosphatase 108, Total Protein 6.9, Albumin 4.6H, Salicylates Level < 5.0L, Acetaminophen Level < 10L, Serum Alcohol < 10 04/18/19 23:02: Magnesium Level 2.3 04/19/19 05:23: White Blood Count 9.5, Red Blood Count 3.69L, Hemoglobin 10.4L, Hematocrit 33L, Mean Corpuscular Volume 90, Mean Corpuscular Hemoglobin 28, Mean Corpuscular Hemoglobin Concent 31L, Red Cell Distribution Width 15.4H, Platelet Count 419H, Mean Platelet Volume 8.3, Neutrophils (%) (Auto) 62, Lymphocytes (%) (Auto) 29, Monocytes (%) (Auto) 7, Eosinophils (%) (Auto) 2, Basophils (%) (Auto) 0, Neutr ophils # (Auto) 5.9, Lymphocytes # (Auto) 2.7, Monocytes # (Auto) 0.6, Eosinophils # (Auto) 0.2, Basophils # (Auto) 0.0, Sodium Level 140, Potassium Level 4.2, Chloride Level 109H, Carbon Dioxide Level 22, Anion Gap 9, Blood Urea Nitrogen 7, Creatinine 0.88, Estimat Glomerular Filtration Rate > 60, BUN/Creatinine Ratio 8, Glucose Level 87, Calcium Level 7.8L, Corrected Calcium 8.0L, Magnesium Level 2.2, Total Bilirubin 0.5, Aspartate Amino Transf (AST/SGOT) 39H, Alanine Aminotransferase (ALT/SGPT) 26, Alkaline Phosphatase 96, Total Protein 5.5L, Albumin 3.8 Home Meds Active Reported Duloxetine HCl 30 Mg Capsule.dr 30 Mg PO DAILY Quetiapine Fumarate 300 Mg Tablet 300 Mg PO HS Oxcarbazepine 150 Mg Tablet 150 Mg PO BID Gabapentin 600 Mg Tablet 600 Mg PO TID Cromolyn Sodium 10 Ml Drops 1 Drop OP QID Olopatadine HCl 5 Ml Drops 1 Drop OU BID Triamcinolone Acetonide 0.1% Cream (Triamcinolone Acet) 15 Gm Cr TOP BID Diclofenac Sodium 75 Mg Tablet.dr 75 Mg PO BID Ibuprofen 800 Mg Tablet 800 Mg PO TID PRN Hydroxyzine Pamoate 50 Mg Capsule 50 Mg PO Q8H Omeprazole 20 Mg Capsule.dr 20 Mg PO DAILY PRN LAST FILLED #30 11-13-18 Fluticasone Propionate 16 Gm Cos Cob.susp 1 Cos Cob NS DAILY PRN Gabapentin 800 Mg Tablet 800 Mg PO TID Cetirizine HCl 10 Mg Tablet 10 Mg PO DAILY Bupropion HCl Sr (Bupropion HCl) 150 Mg Tablet.er 150 Mg PO BID Quetiapine Fumarate 200 Mg Tablet 400 Mg PO HS TAKES 2 (200MG) TABLETS Assessment/Pt Instructions Follow up with Nabil Pearson APRN on 05/02 at 1:40 pm. Do not take Wellbutrin or Cymbalta until Apr 23. Discharge Instructions Discharge Diet: Regular Diet Activity as Tolerated: Yes Discharge Physical Examination General Appearance: Alert, Oriented X3 HEENT: Atraumatic, EOMI, Other (Bilateral TM clear) Respiratory: Clear to Auscultation Cardiovascular: Regular Rate, No Murmurs Abdominal: Normal Bowel Sounds, Soft Neuro: Normal Gait, Normal Speech Psych/Mental Status: Mood NL Allergies: Coded Allergies: Penicillins (Verified Allergy, Unknown, 12/17/15) ketorolac (Verified Allergy, Unknown, 12/17/15) Uncoded Allergies: PCN (Allergy, Mild, 07/28/15) Copy Copies To 1: Nabil Pearson APRN Discharge Summary Date of Admission Apr 18, 2019 at 17:47 Date of Discharge Clinical Quality Measures DVT/VTE Risk/Contraindication: Risk Factor Score Per Nursin RFS Level Per Nursing on Admit: 1=Low/No VTE PPX PATRICIA MASSEY MD Apr 19, 2019 13:58
--- NOTE | 2019-04-19 14:30 | NUR ---
IV DC, SITE WITHOUT REDNESS OR SWELLING, DISCHARGE INSTRUCTIONS GIVEN, VERBALIZED UNDERSTANDING, TELEMETRY DC, WAITING FOR RIDE.
[2019-04-19 15:19] VITALS: BP 120/74
--- NOTE | 2019-04-19 15:22 | NUR ---
PEREZ HERNANDEZ demonstrates understanding of discharge instructions and accurately returns instructions upon questioning. Copy of Post-Discharge Instructions and Medication Discharge Instructions given to PATIENT. PEREZ HERNANDEZ is able to manage continuing needs after discharge. Patients belongings returned to PATIENT. Skin dry and intact; no breakdown noted. Patient discharged from [facility] on 04/19/19 at 1520. PEREZ HERNANDEZ left floor via W/C, accompanied by STAFF.
--- NOTE | 2019-04-19 15:34 | NUR ---
CM/SS: Visited with pt to obtain information as to a ride home. Plan: Pt to be discharged to home with no services needed. Summary: Pt was able to provide her mother's Charline phone number [phone]. Charline called and was able to provide another number for the neighbor Anil [phone] or [phone]. Anil was called and was able to come and sheepskin pickler pt. Anil was en route after the phone call. Pt and RN informed that ride for pt would be coming shortly.
== END 2019-04-19 15:26 | disposition home or self-care (01) ==
LOC: EDUNIT# 14:01 → ER FS 14:02 → 4TH 17:47
PROVIDERS: ADMIT Family Medicine; ATTEND Family Medicine
DX: T43.291A Poisoning by other antidepressants, accidental (unintentional), initial encounter (principal); G43.909 Migraine, unspecified, not intractable, without status migrainosus; F31.9 Bipolar disorder, unspecified; F20.9 Schizophrenia, unspecified; Z88.0 Allergy status to penicillin; Z79.899 Other long term (current) drug therapy; Z98.51 Tubal ligation status
CPT/HCPCS: 36415; 80053; 80306; 80320; 80329; 83735; 85025; 93005; 96374; 96375; G0378

== ENCOUNTER 2019-12-31 03:46 | Emergency (ER) | payer MEDICAID ==
[~2019-12-31] VITALS: Ht 167 cm; Wt 63.5 kg
[~2019-12-31 03:46] MED LIST changes: +CROM10DR2 OP; +DULO30CA49 PO; +GBPN600T PO; +IBUP-1780 PO; -OMEP20CA13 PO; +OMEP20CA18 PO; +OXCA150T18 PO; +QUET200T29; +QUET200T29 PO; -QUET200T57; -QUET200T57 PO; +QUET300T44 PO
[2019-12-31 04:35] LABS: BASOPHILS % (AUTO) 1 % (0-10); EOSINOPHILS % (AUTO) 1 % (0-10); HEMATOCRIT 39 % (35-52); HEMOGLOBIN 13.2 G/DL (11.5-16.0); LYMPHOCYTES # (AUTO) 2.3 X 10^3 (1.0-4.0); LYMPHOCYTES % (AUTO) 25 % (12-44); MEAN CORPUSCULAR HEMOGLOBIN 30 PG (25-34); MEAN CORPUSCULAR HGB CONC 34 G/DL (32-36); MEAN CORPUSCULAR VOLUME 90 FL (80-99); MEAN PLATELET VOLUME 8.1 FL (7.4-10.4); MONOCYTES # (AUTO) 0.7 X 10^3 (0.0-1.0); MONOCYTES % (AUTO) 8 % (0-12); NEUTROPHILS # (AUTO) 5.9 X 10^3 (1.8-7.8); NEUTROPHILS % (AUTO) 66 % (42-75); PLATELET COUNT 533 10^3/uL (130-400); WHITE BLOOD COUNT 8.9 10^3/uL (4.3-11.0)
[2019-12-31 04:45] LABS: CLARITY,URINE CLEAR; COLOR,URINE YELLOW; GLUCOSE, URINE (UA) NEGATIVE (NEGATIVE); KETONES,URINE 2+ (NEGATIVE); LEUKOCYTE ESTERASE ,URINE NEGATIVE (NEGATIVE); NITRITE,URINE NEGATIVE (NEGATIVE); PH,URINE 5.5 (5-9); PROTEIN,URINE 2+ (NEGATIVE)
[2019-12-31 04:49] LABS: ALBUMIN 4.7 GM/DL (3.2-4.5); CHLORIDE 104 MMOL/L (98-107); POTASSIUM 3.3 MMOL/L (3.6-5.0); SODIUM 140 MMOL/L (135-145)
[2019-12-31 04:50] LABS: CALCIUM 10.1 MG/DL (8.5-10.1)
[2019-12-31 04:52] LABS: GLUCOSE 88 MG/DL (70-105); TOTAL PROTEIN 7.6 GM/DL (6.4-8.2)
[2019-12-31 04:53] LABS: AMPHETAMINE SCREEN, URINE POSITIVE (NEGATIVE); BARBITURATE SCREEN URINE NEGATIVE (NEGATIVE); BENZODIAZEPINES SCREEN URINE NEGATIVE (NEGATIVE); CANNABINOID SCREEN, URINE POSITIVE (NEGATIVE); COCAINE SCREEN URINE NEGATIVE (NEGATIVE); METHADONE STAT NEGATIVE (NEGATIVE); METHAMPHETAMINE SCREEN URINE S POSITIVE (NEGATIVE); OPIATE SCREEN URINE NEGATIVE (NEGATIVE); TRICYCLIC ANTIDEPRESSANTS SCRE NEGATIVE (NEGATIVE)
[2019-12-31 04:53] LABS: CARBON DIOXIDE 22 MMOL/L (21-32)
[2019-12-31 04:54] LABS: OXYCODONE STAT NEGATIVE (NEGATIVE); PROPOXYPHENE STAT NEGATIVE (NEGATIVE)
[2019-12-31 04:55] LABS: ALKALINE PHOSPHATASE 80 U/L (40-136); CREATININE SERUM 0.99 MG/DL (0.60-1.30); GFR ESTIMATED > 60
[2019-12-31 04:55] LABS: BACTERIA,URINE TRACE /HPF; BILIRUBIN,URINE 2+ (NEGATIVE); RBC,URINE RARE /HPF
[2019-12-31 04:56] LABS: CALCIUM OXALATE CRYSTALS,UR FEW /LPF
[2019-12-31 04:56] LABS: ACETAMINOPHEN < 10 UG/ML (10-30)
[2019-12-31 04:57] LABS: BUN/CREATININE RATIO 21
[2019-12-31 04:58] LABS: ALANINE AMINOTRANSFERASE 14 U/L (0-55); MAGNESIUM 1.9 MG/DL (1.6-2.4); SALICYLATE < 5.0 MG/DL (5.0-20.0)
[2019-12-31 04:59] LABS: LIPASE 21 U/L (8-78)
[2019-12-31 05:19] LABS: TSH (THYROID ANALYZER) 1.65 UIU/ML (0.35-4.94)
--- NOTE | 2019-12-31 06:24 | Diagnostic Imaging Report ---
PROCEDURE: CT abdomen and pelvis without contrast. TECHNIQUE: Multiple contiguous axial images were obtained through the abdomen and pelvis without the use of intravenous contrast. Auto Exposure Controls were utilized during the CT exam to meet ALARA standards for radiation dose reduction. INDICATION: Bloody diarrhea, abdominal pain. COMPARISON: None. FINDINGS: Lung bases are clear. The gallbladder is surgically absent. Solid organs, vascular structures and bowel are unremarkable. There is no free air or free fluid. No inflammatory process is seen. The appendix is normal. 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 organs and distal urinary bladder are normal. There is no hernia. No obvious lymphadenopathy is seen. Osseous structures are unremarkable. IMPRESSION: Surgically absent gallbladder otherwise unremarkable CT abdomen and pelvis. If symptoms do not resolve, consider post contrast imaging. Dictated by: Dictated on workstation # [id number]
[2019-12-31] MEDS ORDERED: LACTATED RINGERS 1,000 ML IV ONE (06:58)
[2019-12-31] MEDS ORDERED: LORazepam INJ 2 MG/ML (ATIVAN) VIAL IVP ONE (07:00)
[2019-12-31] MEDS ORDERED: BENZTROPINE 2 MG/2 ML INJ (COGENTIN) AMP IM ONE (07:00)
--- NOTE | 2019-12-31 07:19 | ED Abdominal Pain ---
General Chief Complaint: Abdominal/GI Problems Stated Complaint: ABD PAIN Nursing Triage Note: brought in by [facility] c/o abdominal pain, bloody stools, not eating x3 days. Sepsis Screen: No Definite Risk Source of Information: Patient, EMS Exam Limitations: No Limitations History of Present Illness Date Seen by Provider: Dec 31, 2019 Time Seen by Provider: 03:48 Initial Comments This 44-year-old woman presents to the emergency room with complaints of generalized abdominal pain. She reports she has had some bloody diarrhea as well. She is afebrile. She has had recent methamphetamine use and has significant dystonic movements related to that. She is essentially homeless at this point in time. [place] police and EMS [place] last night. Allergies and Home Medications Allergies Coded Allergies: Penicillins (Verified Allergy, Unknown, 12/17/15) ketorolac (Verified Allergy, Unknown, 12/17/15) Uncoded Allergies: PCN (Allergy, Mild, 07/28/15) Home Medications Hydroxyzine Pamoate 50 Mg Capsule, 50 MG PO Q8H, (Reported) Quetiapine Fumarate 300 Mg Tablet, 300 MG PO HS, (Reported) Patient Home Medication List Home Medication List Reviewed: Yes Review of Systems Review of Systems Constitutional: no symptoms reported EENTM: No Symptoms Reported Respiratory: No Symptoms Reported Cardiovascular: No Symptoms Reported Gastrointestinal: See HPI Genitourinary: No Symptoms Reported Musculoskeletal: no symptoms reported Skin: no symptoms reported Psychiatric/Neurological: See HPI Endocrine: No Symptoms Reported Hematologic/Lymphatic: No Symptoms Reported Past Frrhram-Gewnze-Jdkgoj Hx Past Med/Social Hx: Reviewed Nursing Past Med/Soc Hx Patient Social History Alcohol Use: Occasionally Uses Number of Drinks Today: Alcohol Beverage of Choice: Wine Recreational Drug Use: Yes Drug of Choice: METH, MARIJUANA HX Smoking Status: Current Everyday Smoker Type Used: Cigars, Cigarettes 2nd Hand Smoke Exposure: Yes Recent Foreign Travel: No Contact w/Someone Who Travel: No Recent Infectious Disease Expo: No Recent Hopitalizations: No Immunizations Up To Date Tetanus Booster (TDap): Unknown PED Vaccines UTD: Yes Seasonal Allergies Seasonal Allergies: No Past Medical History Surgeries: Yes Gallbladder, Tubal Ligation Respiratory: No Cardiac: No Neurological: Yes (MIRGRAINE HEADACHES) Headaches /Migraines : No 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 Disorders: No CONE WINDER History: Tubal Ligation Sexually Transmitted Disease: No Genitourinary: No Gastrointestinal: Yes Hepatitis Musculoskeletal: Yes Scoliosis Endocrine: No HEENT: No Cancer: No Psychosocial: Yes Suicide Attempts, Bipolar, Schizophrenia Integumentary: No Blood Disorders: No Adverse Reaction/Blood Tranf: No Family Medical History Hypertension 19 FATHER Thyroid disease 19 MOTHER No Pertinent Family Hx Physical Exam Vital Signs Vital Signs - First Documented 12/31/19 03:50 Temp 37.1 Pulse 90 Resp 22 B/P (MAP) 135/91 (106) Pulse Ox 99 O2 Delivery Room Air Capillary Refill : Less Than 3 Seconds Height/Weight/BMI Height: 5'6.00" Weight: 140lbs. 4.0oz. 63.692635ba; 22.00 BMI Method:Estimated General Appearance: WD/WN, mild distress HEENT: normal ENT inspection, pharynx normal Neck: normal inspection Respiratory: lungs clear, normal breath sounds, no respiratory distress Cardiovascular: regular rate, rhythm, no edema, no murmur Gastrointestinal: normal bowel sounds, soft, tenderness (generalized) Extremities: normal inspection, no pedal edema Neurologic/Psychiatric: alert, other (patient anxious and has rather severe dystonic movements related to methamphetamine use) Skin: normal color, warm/dry Progress/Results/Core Measures Results/Orders Lab Results Laboratory Tests Test 12/31/19 04:24 12/31/19 04:30 12/31/19 04:35 Range/Units White Blood Count 8.9 4.3-11.0 10^3/uL Red Blood Count 4.34 L 4.35-5.85 10^6/uL Hemoglobin 13.2 11.5-16.0 G/DL Hematocrit 39 35-52 % Mean Corpuscular Volume 90 80-99 FL Mean Corpuscular Hemoglobin 30 25-34 PG Mean Corpuscular Hemoglobin Concent 34 32-36 G/DL Red Cell Distribution Width 12.2 10.0-14.5 % Platelet Count 533 H 130-400 10^3/uL Mean Platelet Volume 8.1 7.4-10.4 FL Neutrophils (%) (Auto) 66 42-75 % Lymphocytes (%) (Auto) 25 12-44 % Monocytes (%) (Auto) 8 0-12 % Eosinophils (%) (Auto) 1 0-10 % Basophils (%) (Auto) 1 0-10 % Neutrophils # (Auto) 5.9 1.8-7.8 X 10^3 Lymphocytes # (Auto) 2.3 1.0-4.0 X 10^3 Monocytes # (Auto) 0.7 0.0-1.0 X 10^3 Eosinophils # (Auto) 0.0 0.0-0.3 10^3/uL Basophils # (Auto) 0.0 0.0-0.1 10^3/uL Sodium Level 140 135-145 MMOL/L Potassium Level 3.3 L 3.6-5.0 MMOL/L Chloride Level 104 98-107 MMOL/L Carbon Dioxide Level 22 21-32 MMOL/L Anion Gap 14 5-14 MMOL/L Blood Urea Nitrogen 21 H 7-18 MG/DL Creatinine 0.99 0.60-1.30 MG/DL Estimat Glomerular Filtration Rate > 60 BUN/Creatinine Ratio 21 Glucose Level 88 70-105 MG/DL Calcium Level 10.1 8.5-10.1 MG/DL Corrected Calcium 8.5-10.1 MG/DL Magnesium Level 1.9 1.6-2.4 MG/DL Total Bilirubin 1.0 0.1-1.0 MG/DL Aspartate Amino Transf (AST/SGOT) 21 5-34 U/L Alanine Aminotransferase (ALT/SGPT) 14 0-55 U/L Alkaline Phosphatase 80 40-136 U/L C-Reactive Protein High Sensitivity 0.04 0.00-0.50 MG/DL Total Protein 7.6 6.4-8.2 GM/DL Albumin 4.7 H 3.2-4.5 GM/DL Lipase 21 8-78 U/L TSH [place] Testing 1.65 0.35-4.94 UIU/ML Serum Test, Qualitative NEGATIVE NEGATIVE Salicylates Level < 5.0 L 5.0-20.0 MG/DL Acetaminophen Level < 10 L 10-30 UG/ML Serum Alcohol < 10 <10 MG/DL Urine Color YELLOW Urine Clarity CLEAR Urine pH 5.5 5-9 Urine Specific [place] >=1.030 1.016-1.022 Urine Protein 2+ H NEGATIVE Urine Glucose (UA) NEGATIVE NEGATIVE Urine Ketones 2+ H NEGATIVE Urine Nitrite NEGATIVE NEGATIVE Urine Bilirubin 2+ H NEGATIVE Urine Urobilinogen 0.2 < = 1.0 MG/DL Urine Leukocyte Esterase NEGATIVE NEGATIVE Urine RBC (Auto) NEGATIVE NEGATIVE Urine RBC RARE /HPF Urine WBC NONE /HPF Urine Squamous Epithelial Cells 10-25 H /HPF Urine Crystals PRESENT H /LPF Urine Calcium Oxalate Crystals FEW H /LPF Urine Bacteria TRACE /HPF Urine Casts PRESENT /LPF Urine Hyaline Casts 2-5 H /LPF Urine Mucus LARGE H /LPF Urine Culture Indicated NO Urine Opiates Screen NEGATIVE NEGATIVE Urine Oxycodone Screen NEGATIVE NEGATIVE Urine Methadone Screen NEGATIVE NEGATIVE Urine Propoxyphene Screen NEGATIVE NEGATIVE Urine Barbiturates Screen NEGATIVE NEGATIVE Ur Tricyclic Antidepressants Screen NEGATIVE NEGATIVE Urine Phencyclidine Screen NEGATIVE NEGATIVE Urine Amphetamines Screen POSITIVE H NEGATIVE Urine Methamphetamines Screen POSITIVE H NEGATIVE Urine Benzodiazepines Screen NEGATIVE NEGATIVE Urine Cocaine Screen NEGATIVE NEGATIVE Urine Cannabinoids Screen POSITIVE H NEGATIVE Total Creatine Kinase 106 29-168 U/L My Orders Orders - NASIM CAMACHO MD Acetaminophen (12/31/19 04:07) Alcohol (12/31/19 04:07) Cbc With Automated Diff (12/31/19 04:07) Comprehensive Metabolic Panel (12/31/19 04:07) Hs C Reactive Protein (12/31/19 04:07) Drug Screen Stat (Urine) (12/31/19 04:07) Hcg,Qualitative Serum (12/31/19 04:07) Magnesium (12/31/19 04:07) Salicylate (12/31/19 04:07) Thyroid Analyzer (12/31/19 04:07) Ua Culture If Indicated (12/31/19 04:07) Ed Iv/Invasive Line Start (12/31/19 04:07) Fecal Occult Bedside (12/31/19 04:07) Lipase (12/31/19 04:07) Ct Abdomen/Pelvis Wo (12/31/19 05:37) Lorazepam Injection (Ativan Injection) (12/31/19 07:00) Benztropine Injection (Cogentin Injectio (12/31/19 07:00) Lactated Ringers (Lr 1000 Ml Iv Solution (12/31/19 06:58) Creatine Kinase (12/31/19 06:58) Medications Given in ED Vital Signs/I&O 12/31/19 12/31/19 03:50 07:55 Temp 37.1 37.1 Pulse 90 90 Resp 22 22 B/P (MAP) 135/91 (106) 135/91 (106) Pulse Ox 99 99 O2 Delivery Room Air Blood Pressure Mean: 106 Progress Progress Note #1: Progress Note Patient was seen and examined. Labs were reviewed. CT abdomen and pelvis showed no significant acute pathology. I am concerned about the severity of the patient's dystonic reactions because of methamphetamine abuse. Patient has demonstrated difficulty walking on her own. We are going to hydrate her with a liter of IV fluids and treated with Cogentin and Ativan. Dr. Pete will monit or her and discharge when condition improves. Progress Note #2: Time: 07:57 Progress Note Patient took the Ativan but declined IV fluids are Cogentin. She signed out AGAINST MEDICAL ADVICE. She was able to ambulate safely at the time. Diagnostic Imaging Diagonstic Imaging: CT Plain Films/CT/US/NM/MRI: abdomen, pelvis Comments NAME: PEREZ HERNANDEZ MED REC#: [id number] PT STATUS: REG ER : 1975 PHYSICIAN: NASIM CAMACHO MD ADMIT DATE: 12/31/19/ER Draft Date of Exam:12/31/19 CT ABDOMEN/PELVIS WO PROCEDURE: CT abdomen and pelvis without contrast. TECHNIQUE: Multiple contiguous axial images were obtained through the abdomen and pelvis without the use of intravenous contrast. Auto Exposure Controls were utilized during the CT exam to meet ALARA standards for radiation dose reduction. INDICATION: Bloody diarrhea, abdominal pain. COMPARISON: None. FINDINGS: Lung bases are clear. The gallbladder is surgically absent. Solid organs, vascular structures and bowel are unremarkable. There is no free air or free fluid. No inflammatory process is seen. The appendix is normal. 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 organs and distal urinary bladder are normal. There is no hernia. No obvious lymphadenopathy is seen. Osseous structures are unremarkable. IMPRESSION: Surgically absent gallbladder otherwise unremarkable CT abdomen and pelvis. If symptoms do not resolve, consider post contrast imaging. Dictated on workstation # [id number] Dict: 12/31/1918 Trans: 12/31/1923 [id number] Interpreted by: CRUZ ALBRECHT Reviewed: Reviewed by Me Departure Impression Primary Impression: Generalized abdominal pain Additional Impressions: Polysubstance abuse Dystonic movements Disposition: AGAINST MEDICAL ADVICE Condition: Against Medical Advice Departure-Patient Inst. Decision time for Depature: 07:36 Referrals: SIDDHARTH ZARAGOZA DO (PCP) Primary Care Physician YEIMI BANKS APRN (Family) Primary Care Physician Patient Instructions: Methamphetamine, Severe Abdominal Pain Add. Discharge Instructions: All discharge instructions reviewed with patient and/or family. Voiced understanding. Copy Copies To 1: SIDDHARTH ZARAGOZA JOSHUA T MD Dec 31, 2019 07:19
--- NOTE | 2019-12-31 07:40 | NUR ---
PT ACTING UPSET, SAYING SHE NEEDS TO GET THE " BODIES TO THE MORTUARY" AND ASKING ME WHERE THE BODIES ARE. PT PACING AROUND, SAYS SHE WANTS TO LEAVE SO SHE CAN TAKE CARE OF THE BODIES. PT INFORMED THAT SHE WOULD BE LEAVING AGAINST MEDICAL ADVISE AND THAT WE CAN'T TREAT HER IF SHE LEAVES. PT ASKS WHY SHE IS HERE AND THAT SHE JUST NEEDS TO LEAVE.
--- NOTE | 2019-12-31 07:49 | NUR ---
PT REFUSED COGENTIN AND LR, STATES SHE JUST WANTS TO LEAVE.
[2019-12-31 07:55] VITALS: BP 135/91
== END 2019-12-31 07:55 | disposition home or self-care (01) ==
LOC: EDUNIT# 03:46 → ER 03:48
DX: R10.84 Generalized abdominal pain (principal); F15.10 Other stimulant abuse, uncomplicated; R25.8 Other abnormal involuntary movements; F20.9 Schizophrenia, unspecified; F31.9 Bipolar disorder, unspecified; F41.9 Anxiety disorder, unspecified; F17.210 Nicotine dependence, cigarettes, uncomplicated; Z88.0 Allergy status to penicillin; Z88.6 Allergy status to analgesic agent; Z82.49 Family history of ischemic heart disease and other diseases of the circulatory system
CPT/HCPCS: 74176; 80053; 80306; 81000; 82550; 83690; 83735; 84443; 84703; 85025; 86141; 99284; G0480 ×3; 36415; 80320; 80329

== ENCOUNTER 2020-02-27 03:55 | Emergency (ER) | payer MEDICAID ==
[~2020-02-27] VITALS: Ht 170.1 cm; Wt 65.7 kg
[2020-02-27 03:55] VITALS: BP 131/95
[2020-02-27] MEDS ORDERED: TETANUS,DIPTH,PERTUSS P/F (BOOSTRIX) 0.5 ML VIAL IM ONE (04:15)
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
[2020-02-27 05:17] LABS: AMPHETAMINE SCREEN, URINE POSITIVE (NEGATIVE); BARBITURATE SCREEN URINE NEGATIVE (NEGATIVE); BENZODIAZEPINES SCREEN URINE NEGATIVE (NEGATIVE); CANNABINOID SCREEN, URINE POSITIVE (NEGATIVE); COCAINE SCREEN URINE NEGATIVE (NEGATIVE); METHADONE STAT NEGATIVE (NEGATIVE); METHAMPHETAMINE SCREEN URINE S POSITIVE (NEGATIVE); OPIATE SCREEN URINE NEGATIVE (NEGATIVE); OXYCODONE STAT NEGATIVE (NEGATIVE); PROPOXYPHENE STAT NEGATIVE (NEGATIVE); TRICYCLIC ANTIDEPRESSANTS SCRE NEGATIVE (NEGATIVE)
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
--- NOTE | 2020-02-27 06:58 | Diagnostic Imaging Report ---
INDICATION: Pain. 4 views were obtained. FINDINGS: The osseous alignment is normal. There is no acute fracture or dislocation. The soft tissues are unremarkable. IMPRESSION: No acute abnormality. Dictated by: Dictated on workstation # [id number]
--- NOTE | 2020-02-27 06:58 | Diagnostic Imaging Report ---
INDICATION: Knee pain. 3 views were obtained FINDINGS: The alignment is normal. There is no fracture or dislocation. Soft tissues are unremarkable. There are mild degenerative changes. IMPRESSION: Mild degenerative changes, otherwise unremarkable. Dictated by: Dictated on workstation # [id number]
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
== END 2020-02-27 05:44 | disposition left against medical advice (07) ==
LOC: EDUNIT# 04:01 → ER 04:02
DX: S80.02XA Contusion of left knee, initial encounter (principal); S00.83XA Contusion of other part of head, initial encounter; F15.90 Other stimulant use, unspecified, uncomplicated; F12.90 Cannabis use, unspecified, uncomplicated; F41.9 Anxiety disorder, unspecified; F31.9 Bipolar disorder, unspecified; F20.9 Schizophrenia, unspecified; F17.210 Nicotine dependence, cigarettes, uncomplicated; Z23 Encounter for immunization; Z82.49 Family history of ischemic heart disease and other diseases of the circulatory system; Z88.0 Allergy status to penicillin; Z88.1 Allergy status to other antibiotic agents; W22.8XXA Striking against or struck by other objects, initial encounter
CPT/HCPCS: 70450; 70486; 72125; 73030; 73562; 73590; 80306; 84703; 90715; 99282

== ENCOUNTER 2020-03-01 17:41 | Emergency (ER) | payer MEDICAID ==
[~2020-03-01] VITALS: Ht 170 cm; Wt 65.0 kg
[2020-03-01 18:00] VITALS: BP 126/80
[2020-03-01] MEDS ORDERED: HYDROcodone/APAP 5 MG/325 MG (LORTAB) TAB PO ONE (18:15)
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
--- NOTE | 2020-03-01 18:29 | NUR ---
IN TALKING WITH PT AT THIS TIME.
== END 2020-03-01 18:38 | disposition home or self-care (01) ==
LOC: EDUNIT# 17:41 → ER 17:42
DX: S80.11XA Contusion of right lower leg, initial encounter (principal); F31.9 Bipolar disorder, unspecified; F20.9 Schizophrenia, unspecified; F17.290 Nicotine dependence, other tobacco product, uncomplicated; Z91.5 Personal history of self-harm; Z88.8 Allergy status to other drugs, medicaments and biological substances; Z88.0 Allergy status to penicillin; Z88.6 Allergy status to analgesic agent; Z82.49 Family history of ischemic heart disease and other diseases of the circulatory system; Y00.XXXA Assault by blunt object, initial encounter
CPT/HCPCS: 99283

== ENCOUNTER 2020-03-03 01:01 | Emergency (ER) | payer MEDICAID ==
[~2020-03-03] VITALS: Ht 167 cm; Wt 75.0 kg
[2020-03-03 01:14] VITALS: BP 148/110
[2020-03-03] MEDS ORDERED: LACTATED RINGERS 1,000 ML IV ONE (01:17)
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
[2020-03-03 01:53] LABS: BUN/CREATININE RATIO 15; CALCIUM 9.8 MG/DL (8.5-10.1); CARBON DIOXIDE 25 MMOL/L (21-32); CHLORIDE 99 MMOL/L (98-107); CREATINE KINASE 189 U/L (29-168); CREATININE SERUM 0.81 MG/DL (0.60-1.30); GFR ESTIMATED > 60; GLUCOSE 94 MG/DL (70-105); MAGNESIUM 2.1 MG/DL (1.6-2.4); POTASSIUM 3.4 MMOL/L (3.6-5.0); SODIUM 138 MMOL/L (135-145)
== END 2020-03-03 02:19 | disposition home or self-care (01) ==
LOC: EDUNIT# 01:01 → ER 01:02
DX: S80.11XA Contusion of right lower leg, initial encounter (principal); F19.10 Other psychoactive substance abuse, uncomplicated; F31.9 Bipolar disorder, unspecified; F20.9 Schizophrenia, unspecified; F17.290 Nicotine dependence, other tobacco product, uncomplicated; Z82.49 Family history of ischemic heart disease and other diseases of the circulatory system; Z88.0 Allergy status to penicillin; Z88.1 Allergy status to other antibiotic agents; Y04.2XXA Assault by strike against or bumped into by another person, initial encounter
CPT/HCPCS: 36415; 80048; 82550; 83735; 84703

== ENCOUNTER 2020-07-20 00:47 | Emergency (ER) | payer MEDICAID ==
[~2020-07-20] VITALS: Ht 172 cm; Wt 63.5 kg
[~2020-07-20 00:47] MED LIST changes: +ALBE200T13; -ALBE200T2; +QUET300T19 PO; -QUET300T44 PO
[2020-07-20] MEDS ORDERED: NF-CIPDEC OT (01:55)
[2020-07-20] MEDS ORDERED: HYDR50TA76 PO (01:56)
[2020-07-20] MEDS ORDERED: MOME45CR3 TP (01:56)
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
[2020-07-20 02:12] VITALS: BP 125/92
== END 2020-07-20 02:13 | disposition home or self-care (01) ==
LOC: EDUNIT# 00:47 → ER 00:50
DX: L29.9 Pruritus, unspecified (principal); F22 Delusional disorders; H60.91 Unspecified otitis externa, right ear; M41.9 Scoliosis, unspecified; F41.9 Anxiety disorder, unspecified; F43.10 Post-traumatic stress disorder, unspecified; F31.9 Bipolar disorder, unspecified; F20.9 Schizophrenia, unspecified; F17.290 Nicotine dependence, other tobacco product, uncomplicated; Z20.822 Contact with and (suspected) exposure to COVID-19; Z91.5 Personal history of self-harm; Z79.899 Other long term (current) drug therapy; Z88.0 Allergy status to penicillin; Z88.6 Allergy status to analgesic agent
CPT/HCPCS: 87804; 99282; U0002; 87635

== ENCOUNTER 2020-11-27 08:49 | Emergency (ER) | payer MEDICAID ==
[~2020-11-27] VITALS: Ht 170 cm; Wt 68.0 kg
[~2020-11-27 08:49] MED LIST changes: +MOME45CR3 TP; +NF-CIPDEC OT; -SULF1TAB35 PO
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
[2020-11-27] MEDS ORDERED: RT-ALBUINH IH (09:13)
[2020-11-27] MEDS ORDERED: CYCL10TA9 PO (09:13)
[2020-11-27] MEDS ORDERED: GABA800T10 PO (09:13)
[2020-11-27] MEDS ORDERED: OLAN10TA3 PO (09:13)
[2020-11-27] MEDS ORDERED: ORPHENADRINE 60 MG/2 ML (NORFLEX) AMP (ED ONLY) IM ONE (09:15)
[2020-11-27] MEDS ORDERED: GABAPENTIN 600 MG (NEURONTIN) TAB PO ONE (09:15)
[2020-11-27 10:03] VITALS: BP 132/87
--- OUTSIDE RECORDS SUMMARY | 2020-11-29 15:21 | XMS REPORT | Clinical Summary ---
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 If you d o not see the information that you expected, contact Release of Information in [facility] [employer] Information Management department at [phone] for further assistan ce in locating additional records.[facility] Allergies Comments Active Allergy Reactions Severity Noted Date Latex, Natural Rubber RASH Medium 05/15/19 18 Ketorolac ANXIETY Low 05/15/2017 Medications End Date [...] Used Current Every Day Smoker Cigarettes 0.5 Drinks/Week oz/Week Comments Alcohol Use No Sex Assigned at Date Recorded Not on file Last Filed Vital Signs Reading Time Taken Comments Vital Sign 102/77 05/15/2017 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 Blood Pressure - - Pulse 36.7 C (98.1 F) 05/15/2017 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 Temperature - - Respiratory Rate 96% 05/15/2017 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 Oxygen Saturation - - Inhaled Oxygen Concentration 59 kg (130 lb) 05/15/2017 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 Weight 167.6 cm (5' 6") 05/15/2017 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 Height 20.98 05/15/2017 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 Body Mass Index Plan of Treatment Health Maintenance Due Date Last Done Comments HIV SCREENING 1990 DTAP/TDAP VACCINES (1 - 1993 Tdap) HEPATITIS C SCREENING 1993 PHYSICAL (COMPREHENSIVE) 1993 EXAM CERVICAL CANCER SCREENING 1996 BREAST CANCER SCREENING 2015 INFLUENZA VACCINE 01/22/2021 Results Not on filefrom Last 3 Months Insurance Type Payer Benefit Subscriber ID Effective Phone Address Plan / Dates Group Medicaid [employer] [place] [employer] [id number] 2017- STATE Present HEALTH [id number] [facility] ([place]) [place] [id number] Advance Directives Patient Fulfillment Coordinator Explanation Type Date Recorded Advance 05/15/2017 12:11 PM Directive/DPOA
--- OUTSIDE RECORDS SUMMARY | 2020-11-29 15:21 | XMS REPORT | Clinical Summary ---
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 Role Phone PCP Unavailable Allergies Not on File Medications Not on file Active Problems Not on file Social History Date Tobacco Use Types Packs/Day Years Used Never Assessed Sex Assigned at Date Recorded Not on file Last Filed Vital Signs Not on file Plan of Treatment Health Maintenance Due Date Last Done Comments Varicella Vaccines (1 of 1976 2 - 2-dose childhood series) COVID-19 Vaccine (1) 1987 Hepatitis C Screening 1993 DTaP,Tdap,and Td Vaccines 1994 (1 - Tdap) MMR Vaccines-Adult 1994 Cervical Cancer Screening 1996 Influenza Vaccine (#1) 2020 Pneumo-Vaccine: 65+Yrs (1 2040 of 1 - PPSV23) HIB Vaccines Aged Out No longer eligible based on patient's age to complete this topic IPV Vaccines Aged Out No longer eligible based on patient's age to complete this topic Meningococcal Vaccine Aged Out No longer eligib le based on patient's age to complete this topic Pneumo-Vaccine: Peds (0-5 Aged Out No longer el igible based on patient's age to Yrs) & At-Risk Patients complete this topic (6-64 Yrs) Rotavirus Vaccines Aged Out No longer eligible based on patient's age to complete this topic Results Not on filefrom Last 3 Months
== END 2020-11-27 10:03 | disposition home or self-care (01) ==
LOC: EDUNIT# 08:49 → ER 08:50
DX: S16.1XXA Strain of muscle, fascia and tendon at neck level, initial encounter (principal); F41.9 Anxiety disorder, unspecified; F31.9 Bipolar disorder, unspecified; F20.9 Schizophrenia, unspecified; F17.290 Nicotine dependence, other tobacco product, uncomplicated; Z76.0 Encounter for issue of repeat prescription; Z79.899 Other long term (current) drug therapy; Y04.0XXA Assault by unarmed brawl or fight, initial encounter
CPT/HCPCS: 99284